=== PATIENT | male | born 1990 | race Caucasian/White ===

== ENCOUNTER 2019-01-31 14:38 | Emergency (ER) | payer MEDICAID, SELFPAY ==
[2019-01-31 14:38] VITALS: BP 154/106; PULSE 96; RESP 16; TEMP 36.2; O2SAT 99; BMI 20.7
--- NOTE | 2019-01-31 14:50 | RAD_ITS ---
STUDY: X-RAY CHEST REASON FOR EXAM: Male, 28 years old. Chest pain. TECHNIQUE: PA and lateral views of the chest. COMPARISON: Comparison is made with prior study dated October 09, 2015. FINDINGS: Hyperinflation. The lungs are clear. There is no demonstrated pleural abnormality. Normal size heart. Normal mediastinum and josette. Normal visualized pulmonary arteries. Normal visualized aortic arch and descending thoracic aorta. Normal visualized thoracic spine. Normal visualized ribs, clavicles, and shoulders. There is no demonstrated abnormality of the visualized soft tissue structures of the upper abdomen. RAD/Chest PA and Lateral IMPRESSION: Hyperinflation. The lungs are clear. Electronically Signed: Alonso Perez, at 15:04 EST , Service support ,
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
[2019-01-31] MEDS: Naproxen 500 MG Tablet PO (15:21)
[2019-01-31 15:33] VITALS: BP 145/93; RESP 17
== END 2019-01-31 15:33 | disposition home or self-care (01) ==
PROVIDERS: Emergency Provider Emergency Medicine
DX: S29.9XXA Unspecified injury of thorax, initial encounter (principal); S00.31XA Abrasion of nose, initial encounter; Y04.0XXA Assault by unarmed brawl or fight, initial encounter; Y93.9 Activity, unspecified; Y92.9 Unspecified place or not applicable; F17.200 Nicotine dependence, unspecified, uncomplicated
CPT/HCPCS: 71046; 99283

== ENCOUNTER 2020-01-28 10:03 | Emergency (ER) | payer MEDICAID, SELFPAY ==
[2020-01-28 10:04] VITALS: BP 139/108; PULSE 97; RESP 18; TEMP 36.6; O2SAT 100; BMI 20.7
--- NOTE | 2020-01-28 10:18 | EKG12_ITS ---
Test Reason : S Blood Pressure : / mmHG Vent. Rate : 090 BPM Atrial Rate : 090 BPM P-R Int : 144 ms QRS Dur : 090 ms QT Int : 358 ms P-R-T Axes : 070 006 038 degrees QTc Int : 437 ms Normal sinus rhythm Normal ECG Confirmed by JORDAN FAIR, ACOSTA ([id number]), video tape editor MELISSA FELDER ([id number]) on 01/30/2020 12:53:32 PM Referred By: ELMO Confirmed By:ACOSTA ORTEGA MD
--- NOTE | 2020-01-28 10:21 | ED.VIS.GEN ---
History of Present Illness Chief Complaint: Suicidal Informant: Patient Onset: Days Context: Gradual Onset Timing: Continuous Current Severity: Moderate Maximum Severity: Moderate Narrative: The patient is a 29-year-old male with medical history significant for auditory hallucinations who was on Risperdal, but stopped taking it remotely, history of drug abuse, who presents to the emergency department with suicidal thoughts. Patient states that for the past few weeks, he has not been feeling himself. He states has been increasingly depressed. He states that he does have thoughts of harming himself. He does admit to plan. He states if I had to, I would just overdose. He states he does use methamphetamine daily. He also does fentanyl every once in a while. He states that he has been having increasing hallucinations. He states that this is making him use his substances more frequently. Prior similar symptoms: Yes Recent Illness/Hospitalization: No Past Medical History - Allergies and Home Meds Allergies/Adverse Reactions: Allergies No Known Allergies Allergy (Verified 01/28/20 10:08) Primary Care Physician: Care Physician,No Primary [Primary Care Provider] - Prior records reviewed: Yes Past Medical History: - - History of drug abuse Surgical History: noncontributory Smoking Status: Current every day smoker Review of Systems General: Denies: Chills, Fever, Sweats Eyes: Denies: Visual changes - bilaterally, Diplopia ENT: Denies: Rhinorrhea, Sore throat Cardiovascular: Denies: Chest pain, Palpitations Respiratory: Denies: Dyspnea, Cough, Dyspnea on exertion Gastrointestinal: Denies: Abdominal pain, Nausea, Vomiting, Diarrhea, Melena, Hematochezia Genitourinary: Denies: Dysuria, Hematuria, Frequency Musculoskeletal: Denies: Back pain, Extremity Pain Skin: Denies: Rash, Wounds Neurological: Denies: Headache, Weakness, Numbness Psych: Reports: Anxiety, Suicidal thoughts, Suicidal ideations Physical Exam Vital Signs/Narrative: Vital Signs Temp Pulse Resp BP Pulse Ox 01/28/20 10:04 97.9 F 97 18 139/108 H 100 Inital Vital Signs reviewed: Yes General: Well nourished, Well developed, No Acute Distress Head: Normocephalic, Atraumatic Eyes: Perrl, EOMI ENT: Moist mucous membranes, No rhinorrhea Neck: Supple, Nontender Cardiovascular: Regular rate, Regular rhythm, No murmurs Respiratory: No distress, CTA bilaterally, Chest nontender Abdomen: Soft, Nontender, Nondistended, Normal bowel sounds Back: Nontender, Normal Inspection Extremities: Nontender, No edema Skin: Normal color, No rash Neurological: Alert, Oriented x3, Cranial nerves II-XII grossly intact, Normal Strength, Normal Sensation Psychological: Normal affect, Normal Mood Diagnostic/Tx/Re-eval Abnormal Lab Results 01/28/20 01/28/20 01/28/20 11:01 11:01 11:01 WBC 8.4 RBC 5.51 Hgb 16.8 H Hct 50.3 MCV 91.3 MCH 30.5 MCHC 33.4 RDW Std Deviation 44.4 H RDW Coeff of Yuliana 13.2 Plt Count 326 MPV 9.6 Immature Gran % (Auto) 0.500 Neut % (Auto) 67.7 Lymph % (Auto) 22.7 [place] % (Auto) 7.5 Eos % (Auto) 1.1 Baso % (Auto) 0.5 Absolute Neuts (auto) 5.7 Absolute Lymphs (auto) 1.91 Nucleated RBC % 0 Sodium 139 Potassium 3.6 Chloride 105 Carbon Dioxide 31.0 Anion Gap 3 L BUN 13 Creatinine 0.87 Estim Creat Clear Calc 111.52 Est GFR (MDRD) Af Amer 132 Est GFR (MDRD) Non-Af 110 BUN/Creatinine Ratio 15.0 Glucose 89 Calcium 9.2 Urine Opiates Screen Urine Methadone Screen Ur Barbiturates Screen Ur Phencyclidine Scrn Ur Amphetamines Screen U Methamphetamin-MDMA U Benzodiazepines Scrn Urine Cocaine Screen U Cannabinoids Screen Ur Drug Screen Comment Ethyl Alcohol < 3.0 01/28/20 11:10 WBC RBC Hgb Hct MCV MCH MCHC RDW Std Deviation RDW Coeff of Yuliana Plt Count MPV Immature Gran % (Auto) Neut % (Auto) Lymph % (Auto) [place] % (Auto) Eos % (Auto) Baso % (Auto) Absolute Neuts (auto) Absolute Lymphs (auto) Nucleated RBC % Sodium Potassium Chloride Carbon Dioxide Anion Gap BUN Creatinine Estim Creat Clear Calc Est GFR (MDRD) Af Amer Est GFR (MDRD) Non-Af BUN/Creatinine Ratio Glucose Calcium Urine Opiates Screen NEGATIVE Urine Methadone Screen NEGATIVE Ur Barbiturates Screen NEGATIVE Ur Phencyclidine Scrn NEGATIVE Ur Amphetamines Screen POSITIVE H U Methamphetamin-MDMA NEGATIVE U Benzodiazepines Scrn NEGATIVE Urine Cocaine Screen NEGATIVE U Cannabinoids Screen POSITIVE H Ur Drug Screen Comment Ethyl Alcohol - Medical Decision Making Patient presents with substance abuse, increasing auditory hallucinations, and plan for suicide. He was seen and evaluated by social work. Patient underwent screening labs. Covid was negative. There was no evidence of acute metabolic abnormality. At this point, the patient is medically cleared. I do feel that he would benefit from inpatient psychiatric care given his suicidality and increasing hallucinations. Impression 1. Suicidal with plan 2. Auditory hallucinations 3. History of substance abuse ED Disposition - Plan for ED Patient: Referrals: Care Physician,No Primary [Primary Care Provider] -
--- NOTE | 2020-01-28 10:27 | NURSING ---
NO OLD EKGS
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
[2020-01-28] MEDS: LORazepam 1 MG Tablet 2 MG PO (11:12)
[2020-01-28 11:14] LABS: Absolute Lymphocyte Count 1.91 X10^3/uL (0.83-4.51); Absolute Neutrophil Count 5.7 X10^3/uL (2.0-7.7); Basophil# 0.04 X10^3/uL; Basophil% 0.5 % (0-1); Eosinophil# 0.09 X10^3/uL; Eosinophils% 1.1 % (0-5); Hematocrit 50.3 % (40-54); Hemoglobin 16.8 g/dL (13.0-16.5); Lymphocyte # 1.91 X10^3/ul (4.0); Lymphocyte % 22.7 % (19-41); Mean Corp Hgb Conc 33.4 g/dL (32-36); Mean Corpuscular Hgb 30.5 pg (27.0-32.0); Mean Corpuscular Volume 91.3 fL (80-94); Mean Platelet Vol. 9.6 fl (6.2-12.0); Monocyte# 0.63 X10^3/uL; Monocyte% 7.5 % (0-10); NRBC Flagged by Analyzer 0 % (0-5); Neutrophil # 5.69 X10^3/uL (2.7-7.7); Neutrophil % 67.7 % (47-70); Platelet Count 326 K/mm3 (150-450); RBC Distribution Width CV 13.2 % (11.6-14.6); RBC Distribution Width SD 44.4 fl (35.1-43.9); Red Blood Count 5.51 M/mm3 (4.6-6.2); White Blood Count 8.4 K/mm3 (4.4-11.0)
[2020-01-28 11:29] LABS: Anion Gap 3 (5-15); BUN 13 mg/dL (7-18); Calcium,Total 9.2 mg/dL (8.5-10.1); Chloride 105 mmol/L (98-107); Creatinine, Serum 0.87 mg/dL (0.70-1.30); EST Glomerular Filtration Rate 110 mL/min (>60); Est Glom Filt Rate - Afr Amer 132 mL/min (>60); Estimated Creatinine Clearance 111.52 ml/min; Glucose 89 mg/dL (74-106); Potassium 3.6 mmol/L (3.5-5.1); Sodium Level 139 mmol/L (136-145)
[2020-01-28 11:30] LABS: Amphetamine Urine VISTA POSITIVE (<1000 ng/mL); Barbiturate Urine VISTA NEGATIVE (< 200 ng/mL); Benzodiazepine Urine VISTA NEGATIVE (< 200 ng/mL); Cocaine Urine VISTA NEGATIVE (< 300 ng/mL); Ecstacy Urine VISTA NEGATIVE (< 500 ng/mL); Methadone Urine VISTA NEGATIVE (< 300 ng/mL); PCP Urine VISTA NEGATIVE (< 25 ng/mL); THC Urine VISTA POSITIVE (< 50 ng/mL); Vista UDS pH Range 7
[2020-01-28 11:34] LABS: Alcohol, Blood (Medical)-Serum < 3.0 mg/dL
[2020-01-28 11:46] VITALS: RESP 18
[2020-01-28 13:00] VITALS: RESP 16
--- NOTE | 2020-01-28 13:13 | CM.ED ---
SOCIAL WORK Referral faxed and called to [facility]. Pending review at this time. Collin Guillermo, PERFORMANCE TEST ARCHITECT, MOVIE SHOT CAMERA OPERATOR
[2020-01-28 13:35] VITALS: BP 125/81; PULSE 73; RESP 18; TEMP 36.2; O2SAT 98
--- NOTE | 2020-01-28 13:40 | CM.ED ---
SOCIAL WORK Patient accepted to [facility] by Dr. Martins to the Dual Dx Unit. Nurse to call report to [phone]. [facility] requested updated vital signs and copy of [place]. Requested information faxed. [place] to set up transport. Staff updated. Plan: [facility] Collin Guillermo MSW, LICENSE AND PERMIT SPECIALIST
[2020-01-28 14:30] VITALS: BP 125/81; PULSE 73; RESP 18; TEMP 36.2; O2SAT 98
== END 2020-01-28 14:32 ==
LOC: ED 10:49
PROVIDERS: Emergency Provider Emergency Medicine
DX: R45.851 Suicidal ideations (principal); R44.0 Auditory hallucinations; F17.200 Nicotine dependence, unspecified, uncomplicated
CPT/HCPCS: 80048; 80307; 80320; 85025; 87426; 93005; 99285; G0480

== ENCOUNTER 2020-03-05 09:42 | Emergency (ER) | payer MEDICAID, SELFPAY ==
[2020-03-05 09:44] VITALS: BP 142/90; PULSE 100; RESP 17; TEMP 36.6; O2SAT 100; BMI 22.4
--- NOTE | 2020-03-05 10:08 | ED.VISSUMM ---
- ER Visit Summary Date of Service: 03/05/20 Chief Complaint: Requesting a COVID-19 test for inpatient detox is receiving at another facility History of Present Illness: The patient is a 29 M history of amphetamine and marijuana abuse. Patient's getting into a detox center which is 2 hours from here and he was told by them he needed a Covid test. He denies any nausea vomiting diarrhea or fever. He denies any significant cough or shortness of breath. Physical Examination: 29-year-old male no acute distress vital signs stable afebrile. Pulse ox 100% on room air no signs of hypoxia. Patient sitting upright in a chair. HEENT exam poor dentition otherwise unremarkable. Neck nontender no lymphadenopathy. Lungs clear to auscultation bilaterally. Heart regular rhythm no murmur. Abdomen soft nontender. Extremities moves all 4. Calves are nontender without edema or cords. Neurologically is awake and alert with no focal motor deficits. Test Results: COVID-19 test negative Emergency Department Course and Treatment: Patient will have a Covid test. He will be discharged to follow-up with the detox center that he is going to. Treatment Plan: Follow-up with his detox center. Disposition: Discharge Impression: Covid testing History of drug abuse This note was generated with [employer] dictation software. It may contain incorrect words, spelling, and punctuation that were not noted in review of the chart prior to signing ED Disposition - Plan for ED Patient: Referrals: Care Physician,No Primary [Primary Care Provider] -
--- NOTE | 2020-03-05 10:47 | ED.DEP ---
ED Disposition - Plan for ED Patient: Disposition: Home or Assisted Living Instructions: ED Drug Abuse Referrals: Alejandrina Iniguez [NON-STAFF] - As Needed Additional Instructions: Good luck with your detox program.
[2020-03-05 10:51] VITALS: BP 142/90; PULSE 100; RESP 17; TEMP 36.6; O2SAT 100
== END 2020-03-05 10:53 | disposition home or self-care (01) ==
PROVIDERS: Emergency Provider Emergency Medicine
DX: Z20.822 Contact with and (suspected) exposure to COVID-19 (principal); F17.200 Nicotine dependence, unspecified, uncomplicated; F19.11 Other psychoactive substance abuse, in remission
CPT/HCPCS: 87426; 99282

== ENCOUNTER 2020-03-20 15:56 | Emergency (ER) | payer MEDICAID, SELFPAY ==
[2020-03-20 15:57] VITALS: BP 142/87; PULSE 107; RESP 18; TEMP 36; O2SAT 98; BMI 22.1
--- NOTE | 2020-03-20 16:48 | ED.VISSUMM ---
- ER Visit Summary Date of Service: 03/20/20 Chief Complaint: Requesting detox History of Present Illness: The patient is a 29 M requesting detox from methamphetamine. Patient states he has been intermittently using methamphetamine for the past 8 years. He states he snorts meth, he does not use IV drugs. He denies other drug use. He states he rarely drinks alcohol. He is currently homeless. He denies any current complaints. Physical Examination: Vitals are stable. Patient is afebrile. Alert no acute distress. HEENT exam is unremarkable. Neck is supple. Lungs are clear and equal bilaterally. Heart is regular rate and rhythm. Abdomen is soft nontender nondistended. Extremities are unremarkable. Skin is warm and dry. No focal neurologic deficit. Remainder of exam is unremarkable. Emergency Department Course and Treatment: Patient was advised we do not offer inpatient detox from methamphetamine. He was given information to follow-up with [facility]. Advised return to the ED for worsening complaints. Disposition: Discharge home Impression: Methamphetamine abuse This note was generated with [employer] dictation software. It may contain incorrect words, spelling, and punctuation that were not noted in review of the chart prior to signing ED Disposition - Plan for ED Patient: Referrals: Care Physician,No Primary [Primary Care Provider] -
--- NOTE | 2020-03-20 16:50 | ED.DEP ---
ED Disposition - Plan for ED Patient: Instructions: ED Drug Abuse Referrals: [facility] [STAFF PHYSICIAN] -
[2020-03-20 17:04] VITALS: BP 142/69; PULSE 73; RESP 15; O2SAT 97
== END 2020-03-20 17:04 | disposition home or self-care (01) ==
LOC: ED 16:47
PROVIDERS: Emergency Provider Emergency Medicine
DX: F15.10 Other stimulant abuse, uncomplicated (principal); F17.200 Nicotine dependence, unspecified, uncomplicated; Z59.0 Homelessness
CPT/HCPCS: 99282

== ENCOUNTER 2020-07-22 06:54 | Emergency (ER) | payer MEDICAID, SELFPAY ==
[2020-07-22 06:56] VITALS: BP 112/70; PULSE 82; RESP 20; TEMP 36.3; O2SAT 97; BMI 22.8
--- NOTE | 2020-07-22 07:06 | EX.ED.VIS.EY ---
HPI History of Present Illness Chief Complaint: Eye Problem Detail of Chief Complaint: Injury to right eye Informant: patient Onset/Context/Timing Onset: Yesterday Narrative Narrative: Patient states that he was wrestling with somebody last evening on gravel when he thinks may be a rock may have gotten into his eye. Patient complains of some soreness that is mild to the right upper portion of the eyelid. He denies any eye pain. He denies visual changes. He denies tearing. Denies photophobia. Denies any other injuries. Prior similar symptoms: No PFSH PFSH Home Medications NK 01/31/19 [History Last Taken Unknown] Allergy/AdvReac Type Severity Reaction Status Date / Time No Known Allergies Allergy Verified 07/22/20 06:55 Surgical History (Updated 07/22/20 @ 06:56 by Des Ayers) H/O foot surgery Social History Smoking Status: Current every day smoker tobacco type: cigarettes ROS ROS ED Constitutional Constitutional ED: Reports systems reviewed and no addt'l complaints, except as documented; Denies body ache(s), change in weight or chills Eyes Eyes: Reports other Details: Right upper eyelid pain ; Denies blurry vision, change in vision or diplopia ENT ENT ED: Reports none; Denies ear pain, lip swelling, loss taste/smell, neck pain, otalgia or sore throat Cardiovascular Cardiovascular: Reports none; Denies abdominal pain, chest pain with activity, leg edema, lightheadedness, palpitations, rapid heart rate or syncope Respiratory/Chest Respiratory/Chest: Reports none; Denies change in mental status, dry cough, dyspnea, hemoptysis, shortness of breath at rest or shortness of breath with exertion Gastrointestinal Gastrointestinal: Reports none; Denies abdominal pain, change in stool character, diarrhea, hematemesis, hematochezia, melena, rectal bleeding or vomiting Genitourinary Genitourinary ED: Reports none; Denies abdominal discomfort, anuria, dysuria, genital pain or polyuria Musculoskeletal Musculoskeletal: Reports none; Denies arthralgias, back pain, difficulty walking, extremity pain, muscle weakness or myalgias Integumentary Reports none; Denies abscess or rash Neurologic Neurologic: Reports none; Denies abnormal gait, confusion, focal weakness, frequent falls, headache(s), loss of vision, numbness, paresthesias, radicular pain, vertigo or weakness Psychiatric Psychiatric: Reports systems reviewed and no addt'l complaints, except as documented and none; Denies behavioral changes, confusion, difficulty concentrating, hallucinations, suicidal ideation, tactile hallucinations or visual hallucinations Endocrine Endocrinology: Denies none, cold intolerance, excessive sweating, fatigue or heat intolerance Hematologic/Lymphatic Hematologic/Lymphatic: Reports none; Denies anemia, easy bleeding or easy bruising Allergic/Immunologic Allergic/Immunologic ED: Denies as per HPI, none, lip swelling, mouth swelling, throat swelling, tongue swelling or hives EXAM Physical Exam Const Vital Signs: 07/22/20 06:56 Temperature 97.4 F L Temperature Source Temporal Pulse Rate 82 Respiratory Rate 20 H Blood Pressure 112/70 Blood Pressure Mean 84 Pulse Ox 97 Oxygen Delivery Method Room Air Positive well nourished and well developed General Appearance ED: well developed and NAD HEENT Reports TM's clear and moist mucous membranes normocephalic and atraumatic; Negative for trauma or tenderness Tympanic Membrane ED: Yes TM's clear Eyes PERRL and EOMs intact bilaterally Eyes Narrative: Pupils were equal reactive to light bilaterally. Extraocular muscle movement was normal. There is no erythema of the conjunctiva. No corneal abrasions noted. Patient does have some mild soft tissue swelling over the right lateral upper eyelid with some faint ecchymosis. Minimal tenderness to the right upper orbital rim. Patient has superficial abrasion to the skin of lower orbit just inferior to the lower lid. General Eye ED: Negative for pale conjunctiva or scleral icterus Eyelid: eyelids abnormal right upper eyelid Neck no lymphadenopathy, supple and no JVD General: Negative for tenderness Chest Wall inspection of chest normal and palpation of chest normal Chest: Negative for tenderness Resp normal respiratory effort and clear to auscultation bilaterally Effort and Inspection: Negative for respiratory distress or pain with movement Auscultation: Negative for rhonchi, wheezes or diminished lung sounds Cardio regular rate, regular rhythm, S1 normal heart sound, S2 normal heart sound and no murmurs Peripheral Pulses: pulses 2+ throughout GI normal to inspection, nondistended, normoactive bowel sounds, soft to palpation, non-tender, non-distended and no masses Back/Spine no CVA tenderness and no thoracic nor lumbar tenderness Extremity normal to inspection General Extremety ED: Negative for edema General Extremity: Negative for edema Neuro oriented x3, CN's II-XII intact bilaterally, no sensory deficits noted and gait normal Sensorium / Orientation: awake, alert, oriented to person, oriented to place and oriented to time Motor Exam: strength 5/5 throughout and strength abnormal Psych mental status grossly normal Skin no rashes or lesions noted and no wounds MDM MDM MDM Narrative Medical decision making narrative: I suspect patient has a contusion of the right upper eyelid. I do not see any evidence of trauma to the globe. Recommended ice to the area and ibuprofen or Tylenol for discomfort. Patient to follow-up with his primary care physician in 5 to 7 days. Discharge Plan Triage Chief Complaint: Eye Problem ED Provider: Laura Diane Dx/Rx/DC Orders Clinical Impression: Contusion of eye, right Instructions: Black Eye, ED Facial Contusion Prescriptions: No Action NK RF: 0 Primary Care Provider: Hitesh Garcia Referrals: Hitesh Garcia MD [Primary Care Provider] - 3-5 Days Disposition Disposition: Home, self care
== END 2020-07-22 07:23 | disposition home or self-care (01) ==
LOC: ED 07:18
PROVIDERS: Emergency Provider Emergency Medicine; PCP Internal Medicine
DX: S00.11XA Contusion of right eyelid and periocular area, initial encounter (principal); F17.210 Nicotine dependence, cigarettes, uncomplicated; Y93.72 Activity, wrestling
CPT/HCPCS: 99283

== ENCOUNTER 2024-08-26 15:09 | Emergency (ER) | payer MEDICAID, SELFPAY ==
[2024-08-26 15:09] VITALS: BP 141/97; PULSE 105; RESP 16; TEMP 37.1; O2SAT 98; BMI 21.4
--- NOTE | 2024-08-26 15:36 | ED.RN ---
Pt unwilling to change into a gown when brought back to a room. This RN explained policy of wearing hospital gown, all belongings put away including cell phone, no visitors during stay. Pt states I'm not doing all that just to stay here. Pt declines detox at this time, ambulated out of dept.
--- OUTSIDE RECORDS SUMMARY | 2024-08-26 16:00 | XMS RPT_ITS | CCD ---
Author Organization [facility] Inform ion Partnership [employer] [facility] Care Team Providers Care Retirement Plan Specialist Name Role Phone Self, Self Primary Care Provider UnavailPRICE Marvin Attending Unavailable SELF, SELF Primary Care Unavailable FARZANA WEBB, BRYANT Esteban Attending Vivien ROSEMARY Reaves Attending Unava ilable NO, PHYSICIAN Primary Care Unavailable NO, PHYSICIAN Primary Care Unavailable JOLENE LAWSON Attending Unavailable NO, PHYSICIAN Primary Care Unavailable YUE LAROSE II Attending Unavailabl e SHANNAN THAKKAR Attending Unavailab le NO, PHYSICIAN Primary Care Unavailable AMNA NGUYEN Attending Unavailab le NO, PHYSICIAN Primary Care Unavailable Care Physician, No Primary Primary Care Provider Unavailable Provider, Ed Physician Emergency Provider Unavai lable Medications Current Medications Medication Drug Class(es) Dates Sig (Normalized) Sig (Original) naloxone hydrochloride 40 mg/ml nasal spray (2 sources) Opioid Antagonist Start: 03-05-2024 End: 03-05-2025 naloxone 4 MG/0.1ML 1 spray by Nasal route As directed PRN for Opioid Reversal. [place] into the nose as directed. Call 911. If no response in 2 minutes use a new nasal spray in other nostril. Repeat until help arrives. 2 Each 03/05/2024 03/05/2025 Active Problems Active Problems Problem Classification Problem Date Documented Da te Episodic/Chronic Alcohol-related disorders (3 sources) Alcohol intoxication; Translations: [Alcohol abuse with intoxication, unspecified] Onset: 08-04-2024 08-05-2024 Chronic Other injuries and conditions due to external causes (1 source) Chest injury; Translations: [Unspecified injury of thorax, initial encounter] 02-01-2019 Episodic Residual codes; unclassified (2 sources) Insomnia, unspecified; Translations: [Insomnia, unspecified] Onset: 07-19-2024 Episodic Schizophrenia and other psychotic disorders (2 sources) Brief psychotic disorder; Translations: [Brief psychotic disorder] Onset: 08-09-2024 Episodic Substance-related disorders (2 sources) Other psychoactive substance abuse, uncomplicated; Translations: [Other psychoactive substance abuse, uncomplicated] Onset: 08-09-2024 Chronic Suicide and intentional self-inflicted injury (2 sources) Suicidal ideations; Translations: [Suicidal ideations] Onset: 08-09-2024 Episodic Superficial injury; contusion (1 source) Contusion of eyeball and orbital tissues, right eye, initial encounter; Translations: [Contusion of right eye] 07-22-2020 Episodic Unclassified (1 source) Alcohol use, unspecified, uncomplicated; Translations: [Alcohol use, unspecified, uncomplicated] Onset: 08-09-2024 Past or Other Problems Problem Classification Problem Date Documented Da te Episodic/Chronic Open wounds of head; neck; and trunk (2 sources) Laceration without foreign body of scalp, initial encounter; Translations: [Laceration without foreign body of scalp, initial encounter] Onset: 11-10-2023 Episodic Other aftercare (2 sources) Encounter for removal of sutures; Translations: [Encounter for removal of sutures] Onset: 11-16-2023 Episodic Other circulatory disease (2 sources) Elevated blood-pressure reading, without diagnosis of hypertension; Translations: [Elevated blood-pressure reading, without diagnosis of hypertension] Onset: 11-16-2023 Episodic Other injuries and conditions due to external causes (2 sources) Unspecified injury of head, initial encounter; Translations: [Unspecified injury of head, initial encounter] Onset: 11-10-2023 Episodic Poisoning by other medications and drugs (3 sources) Poisoning by unspecified drugs, medicaments and biological substances, undetermined, initial encounter; Translations: [Poisoning by unspecified drug or medicinal substance] Onset: 03-04-2024 03-05-2024 Episodic Unclassified (1 source) Alcohol use, unspecified, uncomplicated; Translations: [Alcohol use, unspecified, uncomplicated] Onset: 08-09-2024 Results Test Name Value Interpretation Reference Range Facility ED Prov Noteon 08-10-2024 ED Prov Note PCP - No, Physician Language assistance: N/A - [place] Brazilian speaker Chief Complaint Patient presents with Psychiatric Evaluation HPI, MDM, & ED COURSE The patient is a 34-year-old male who presents to the emergency department declaring suicidal ideations and auditory hallucinations. He acknowledges a history of polysubstance abuse and was just evaluated about 10 hours before the current presentation for issues of fentanyl and cocaine use. He acknowledges that since being released he has been drinking and he says he is continuing to use crack cocaine. He says he has used methamphetamines in the past, but denies any recent use. He says he is hearing nonspecific voices giving him instructions on things, though he refuses to state specifically what those instructions are. He says he has thoughts of harming himself because of this. When asked about any plan, the patient states that he does have a plan, but when he asked to give details of it, the patient gives me a list of the things that he would not do to harm himself. He denies any physical discomfort. The patient's alcohol level is modestly elevated and his drug screen is positive for cocaine. Certainly the illicit substances are confounding a meaningful psychiatric analysis. The patient has been placed on a medical hold and when he is sober and cooperative, the PSS team will evaluate him for any persisting thoughts of lethality, features of psychosis, or other concerns. His ultimate disposition will follow according to their recommendation. The patient has been instructed regarding symptoms that would require a return visit to the emergency department, otherwise they are encouraged to seek follow-up either with a primary care doctor or with an appropriate specialist. The patient has also been advised to see their primary care doctor for follow up on any non-critical lab results, abnormal vital signs (including blood pressure), or other concerns not requiring emergent evaluation. SHARED DECISION MAKING: Throughout the ED visit, decisions regarding diagnostic testing, treatment options, and disposition were discussed with the patient and/or family. As much as reasonably possible, they were given opportunities to ask questions, express any concerns, and collaborate on decisions about their care. Radiology studies: Unless expressly stated otherwise above, all radiology results are based on the report provided by the radiologist. IMPRESSION 1. Suicidal ideation 2. Polysubstance abuse (HCC) 3. Acute psychosis (HCC) NURSING NOTE, MEDICATIONS, ALLERGIES AND VITAL SIGNS REVIEWED Past Medical History History reviewed. No pertinent past medical history. Past Surgical History Past Surgical History: Procedure Laterality Date FOOT SURGERY Left 2012 ORTHOPEDIC SURGERY Social History Social History[1] Physical Exam Initial Vital Signs BP 121/64 Pulse 91 Temp 97.8 degrees F (36.6 degrees C) (Oral) Resp 16 SpO2 96% Vital Signs During ED Visit (as charted by nursing) Patient Vitals for the past 24 hrs: BP Temp Temp src Pulse Resp SpO2 08/09/24 2106 121/64 97.8 degrees F (36.6 degrees C) Oral 91 16 96 % Physical Exam Vitals reviewed. Constitutional: General: He is not in acute distress. Appearance: He is well-developed. HENT: Head: Normocephalic and atraumatic. Eyes: Conjunctiva/sclera: Conjunctivae normal. Pupils: Pupils are equal, round, and reactive to light. Cardiovascular: Rate and Rhythm: Normal rate and regular rhythm. Musculoskeletal: General: Normal range of motion. Pulmonary: Effort: Pulmonary effort is normal. No respiratory distress. Neurological: Mental Status: He is alert and oriented to person, place, and time. Motor: No weakness. Coordination: Coordination normal. Psychiatric: Attention and Perception: He is inattentive. He perceives auditory hallucinations. Speech: Speech is rapid and pressured. Behavior: Behavior normal. Behavior is cooperative. Thought Content: Thought content is delusional. Thought content includes suicidal ideation. Thought content includes suicidal plan. Labs Reviewed DRUGS OF ABUSE SCREEN, URINE - Abnormal; Notable for the following components: Result Value Cocaine, Screen Urine Presumptive Positive (*) All other components within normal limits Narrative: Screen results should be used for treatment purposes only. Specimen will be kept for 2 weeks, if the sample is adequate. Confirmation testing can be initiated by calling the lab within 2 weeks. ALCOHOL, MEDICAL - Abnormal; Notable for the following components: Alcohol (Medical) 117.0 (*) All other components within normal limits Radiographic Imaging (if any) During ED Visit No orders to display Medications Ordered/Given During ED Visit Medications LORazepam (ATIVAN) tablet 1 mg (1 mg Oral Given 08/09/24 2307) diphenhydrAMINE (BENADRYL) injection 50 mg (has (more content not included)... Normal [facility] ALCOHOL, MEDICALon 5 ALCOHOL MEDICAL 117.0 mg/dL High <10.0 [facility] Comment on above: Performed By: #### [id number] #### [facility] [address], [place] [address] Des Nieves M.D. [id number] ALCOHOL MEDICAL < Normal <10.0 [facility] Comment on above: Result Comment: Alco hol cutoff: <10.00 mg/dL = None Detected Performed By: #### [id number] #### [facility] [address] [address] Des Nieves M.D. [id number] DRUGS OF ABUSE SCREEN, URINE on 08-09-2024 AMPHETAMINE SCREEN, URINE Not detected Normal None Detected [facility] Comment on above: Order Comment: Scree n results should be used for treatment purposes only. Specimen will be kept for 2 weeks, if the sample is adequate. Confirmation testing can be initiated by calling the lab within 2 weeks. Result Comment: Urin e Amphetamine Cutoff: < 1000 ng/mL = None Detected Performed By: #### [id number] #### [facility] [address] [address] Des Nieves M.D. [id number] BARBITURATE SCREEN URINE Not detected Normal None Detected [facility] Comment on above: Order Comment: Scree n results should be used for treatment purposes only. Specimen will be kept for 2 weeks, if the sample is adequate. Confirmation testing can be initiated by calling the lab within 2 weeks. Result Comment: Urin e Barbiturates Cutoff: < 200 ng/mL = None Detected Performed By: #### [id number] #### [facility] [address] [address] Des Nieves M.D. [id number] BENZODIAZEPINE SCREEN, URINE Not detected Normal None Detected [facility] Comment on above: Order Comment: Scree n results should be used for treatment purposes only. Specimen will be kept for 2 weeks, if the sample is adequate. Confirmation testing can be initiated by calling the lab within 2 weeks. Result Comment: Urin e Benzodiazepine Cutoff: < 200 ng/mL = None Detected Performed By: #### [id number] #### [facility] [address] [id number] Des Nieves M.D. [id number] BUPRENORPHINE, URINE Not detected Normal None Detected [facility] Comment on above: Order Comment: Scree n results should be used for treatment purposes only. Specimen will be kept for 2 weeks, if the sample is adequate. Confirmation testing can be initiated by calling the lab within 2 weeks. Result Comment: Urin e Buprenorphine Cutoff: < 5 ng/mL = None Detected Performed By: #### [id number] #### [facility] [address] [address] Des Nieves M.D. [id number] CANNABINOID SCREEN URINE Not detected Normal None Detected [facility] Comment on above: Order Comment: Scree n results should be used for treatment purposes only. Specimen will be kept for 2 weeks, if the sample is adequate. Confirmation testing can be initiated by calling the lab within 2 weeks. Result Comment: Urin e Cannabinoids Cutoff: < 50 ng/mL = None Detected Performed By: #### [id number] #### [facility] [address] [address] Des Nieves M.D. [id number] COCAINE, SCREEN URINE Positive Abnormal None Detected [facility] Comment on above: Order Comment: Scree n results should be used for treatment purposes only. Specimen will be kept for 2 weeks, if the sample is adequate. Confirmation testing can be initiated by calling the lab within 2 weeks. Result Comment: Urin e Cocaine Cutoff: < 300 ng/mL = None Detected Performed By: #### 4 [id number] #### [facility] [address] [address] Des Nieves M.D. [id number] FENTANYL, URINE Not detected Normal None Detected [facility] Comment on above: Order Comment: Scree n results should be used for treatment purposes only. Specimen will be kept for 2 weeks, if the sample is adequate. Confirmation testing can be initiated by calling the lab within 2 weeks. Result Comment: Urin e Fentanyl Cutoff: < 1 ng/mL = None Detected Performed By: #### 4 [id number] #### [facility] [address] [address] Des Nieves M.D. [id number] METHADONE SCREEN, URINE Not detected Normal None Detected [facility] Comment on above: Order Comment: Scree n results should be used for treatment purposes only. Specimen will be kept for 2 weeks, if the sample is adequate. Confirmation testing can be initiated by calling the lab within 2 weeks. Result Comment: Urin e Methadone Cutoff: < 300 ng/mL = None Detected Performed By: #### 4 [id number] #### [facility] [address] [address] Des Nieves M.D. [id number] OPIATE SCREEN URINE Not detected Normal None Detected [facility] Comment on above: Order Comment: Scree n results should be used for treatment purposes only. Specimen will be kept for 2 weeks, if the sample is adequate. Confirmation testing can be initiated by calling the lab within 2 weeks. Result Comment: Urin e Opiates Cutoff: < 300 ng/mL = None Detected Performed By: #### 4 [id number] #### [facility] [address] [address] Des Nieves M.D. [id number] OXYCODONE SCREEN, URINE Not detected Normal None Detected [facility] Comment on above: Order Comment: Scree n results should be used for treatment purposes only. Specimen will be kept for 2 weeks, if the sample is adequate. Confirmation testing can be initiated by calling the lab within 2 weeks. Result Comment: Urin e Oxycodone Cutoff: < 100 ng/mL = None Detected Performed By: #### 4 [id number] #### [facility] [address] [address] Des Nieves M.D. [id number] AMPHETAMINE SCREEN, URINE Not detected Normal None Detected [facility] Comment on above: Order Comment: Scree n results should be used for treatment purposes only. Specimen will be kept for 2 weeks, if the sample is adequate. Confirmation testing can be initiated by calling the lab within 2 weeks. Result Comment: Urin e Amphetamine Cutoff: < 1000 ng/mL = None Detected Performed By: #### 4 [id number] #### [facility] [address] [id number] Des Nieves M.D. [id number] BARBITURATE SCREEN URINE Not detected Normal None Detected [facility] Comment on above: Order Comment: Scree n results should be used for treatment purposes only. Specimen will be kept for 2 weeks, if the sample is adequate. Confirmation testing can be initiated by calling the lab within 2 weeks. Result Comment: Urin e Barbiturates Cutoff: < 200 ng/mL = None Detected Performed By: #### 4 [id number] #### [facility] [address] [address] Des Nieves M.D. [id number] BENZODIAZEPINE SCREEN, URINE Positive Abnormal None Detected [facility] Comment on above: Order Comment: Scree n results should be used for treatment purposes only. Specimen will be kept for 2 weeks, if the sample is adequate. Confirmation testing can be initiated by calling the lab within 2 weeks. Result Comment: Urin e Benzodiazepine Cutoff: < 200 ng/mL = None Detected Performed By: #### 4 [id number] #### [facility] [address] [address] Des Nieves M.D. [id number] BUPRENORPHINE, URINE Not detected Normal None Detected [facility] Comment on above: Order Comment: Scree n results should be used for treatment purposes only. Specimen will be kept for 2 weeks, if the sample is adequate. Confirmation testing can be initiated by calling the lab within 2 weeks. Result Comment: Urin e Buprenorphine Cutoff: < 5 ng/mL = None Detected Performed By: #### 4 [id number] #### [facility] [address] [address] Des Nieves M.D. [id number] CANNABINOID SCREEN URINE Positive Abnormal None Detected [facility] Comment on above: Order Comment: Scree n results should be used for treatment purposes only. Specimen will be kept for 2 weeks, if the sample is adequate. Confirmation testing can be initiated by calling the lab within 2 weeks. Result Comment: Urin e Cannabinoids Cutoff: < 50 ng/mL = None Detected Performed By: #### 4 [id number] #### [facility] [address] [address] Des Nieves M.D. [id number] COCAINE, SCREEN URINE Positive Abnormal None Detected [facility] Comment on above: Order Comment: Scree n results should be used for treatment purposes only. Specimen will be kept for 2 weeks, if the sample is adequate. Confirmation testing can be initiated by calling the lab within 2 weeks. Result Comment: Urin e Cocaine Cutoff: < 300 ng/mL = None Detected Performed By: #### 4 [id number] #### [facility] [address] [address] Des Nieves M.D. [id number] FENTANYL, URINE Not detected Normal None Detected [facility] Comment on above: Order Comment: Scree n results should be used for treatment purposes only. Specimen will be kept for 2 weeks, if the sample is adequate. Confirmation testing can be initiated by calling the lab within 2 weeks. Result Comment: Urin e Fentanyl Cutoff: < 1 ng/mL = None Detected Performed By: #### 4 [id number] #### [facility] [address] [address] Des Nieves M.D. [id number] METHADONE SCREEN, URINE Not detected Normal None Detected [facility] Comment on above: Order Comment: Scree n results should be used for treatment purposes only. Specimen will be kept for 2 weeks, if the sample is adequate. Confirmation testing can be initiated by calling the lab within 2 weeks. Result Comment: Urin e Methadone Cutoff: < 300 ng/mL = None Detected Performed By: #### 4 [id number] #### [facility] [address] [id number] Des Nieves M.D. [id number] OPIATE SCREEN URINE Not detected Normal None Detected [facility] Comment on above: Order Comment: Scree n results should be used for treatment purposes only. Specimen will be kept for 2 weeks, if the sample is adequate. Confirmation testing can be initiated by calling the lab within 2 weeks. Result Comment: Urin e Opiates Cutoff: < 300 ng/mL = None Detected Performed By: #### 4 [id number] #### [facility] [address] [id number] Dse Nieves M.D. [id number] OXYCODONE SCREEN, URINE Not detected Normal None Detected [facility] Comment on above: Order Comment: Scree n results should be used for treatment purposes only. Specimen will be kept for 2 weeks, if the sample is adequate. Confirmation testing can be initiated by calling the lab within 2 weeks. Result Comment: Urin e Oxycodone Cutoff: < 100 ng/mL = None Detected Performed By: #### [id number] #### [facility] [address] [id number] Des Nieves M.D. [id number] ED Prov Noteon 08-09-2024 ED Prov Note PCP - No, Physician [phone] No chief complaint on file. HPI This patient is a 34-year-old male presenting for desire for detox from fentanyl and crack cocaine. Patient regularly uses fentanyl and crack cocaine. He typically smokes them. Last use of fentanyl yesterday, last use of crack cocaine earlier tonight. He also states he drank a few natty daddy's today. He feels a bit anxious from the crack cocaine use but denies any chest pain, shortness of breath, dizziness, palpitations, headache or any other physical complaints. He denies any suicidal homicidal ideations. No auditory or visual hallucinations. He would prefer to detox and then attend inpatient rehab somewhere outside of the city. He has no other complaints at this time. Review of Systems Review of systems as per HPI. All pertinent positive negatives are noted in HPI. Review of systems otherwise negative. Past Medical History History reviewed. No pertinent past medical history. Past Surgical History Past Surgical History: Procedure Laterality Date FOOT SURGERY Left 2012 ORTHOPEDIC SURGERY Social History Social History [1] Family history History reviewed. No pertinent family history. Physical Exam Initial Vital Signs BP 130/84 (BP Location: Left arm, Patient Position: Lying) Pulse 71 Temp 98.2 degrees F (36.8 degrees C) (Oral) Resp (!) 20 Ht 5' 9 Wt 68 kg (150 lb) SpO2 100% BMI 22.15 kg/m Vital Signs During ED Visit (as charted by nursing) Patient Vitals for the past 24 hrs: BP Temp Temp src Pulse Resp SpO2 Height Weight 08/09/24 1246 130/84 -- -- 71 (!) 20 100 % -- -- 08/09/24 0932 101/65 -- -- 71 18 97 % -- -- 08/09/24 0023 133/82 98.2 degrees F (36.8 degrees C) Oral 86 17 96 % 5' 9 68 kg (150 lb) 08/09/24 0021 -- -- -- -- 17 95 % -- -- Nursing notes reviewed CONSTITUTIONAL: Well-appearing and well-nourished. HEAD: Normocephalic, atraumatic. EYES: No conjunctival injection, no icterus. EARS: External ears appear normal. NOSE: Nose appears normal. No rhinorrhea. NECK: Trachea midline. No JVD. RESPIRATORY: Normal chest excursion with respiration, no stridor. CARDIOVASCULAR: Regular rate and rhythm. No cyanosis. GASTROINTESTINAL: nondistended NEUROLOGICAL: Awake, alert and oriented. PSYCHOLOGICAL: The patient's mood and manner are appropriate. Grooming and personal hygiene are appropriate. INTEGUMENTARY: Warm and dry no rash noted. Procedures Laboratory Results Labs Reviewed DRUGS OF ABUSE SCREEN, URINE - Abnormal; Notable for the following components: Result Value Benzodiazepine Screen, Urine Presumptive Positive (*) Cannabinoid Screen, Urine Presumptive Positive (*) Cocaine, Screen Urine Presumptive Positive (*) All other components within normal limits Narrative: Screen results should be used for treatment purposes only. Specimen will be kept for 2 weeks, if the sample is adequate. Confirmation testing can be initiated by calling the lab within 2 weeks. ALCOHOL, MEDICAL - Normal Imaging Results No orders to display MDM saw and evaluated the patient. I have reviewed the chief complaint, triage note, past medical/surgical, family, and social history. This patient is a 34-year-old male presenting for evaluation of desire for detox from fentanyl and crack cocaine use and rehab after. He states he also drank alcohol earlier today. No history of severe alcohol withdrawal. No suicidal or homicidal ideation. He has no acute physical complaints. Alcohol level was less than 10, drug screen positive for benzodiazepine, cannabis and cocaine. Did not feel any additional testing was necessary at this time. Did not feel medical hold was necessary. Patient will be observed here in the ED until the [facility] team can see him later this morning to help with placement into a treatment program. Differential Diagnosis: Alcohol use, polysubstance abuse IMPRESSION: 1. Polysubstance abuse (HCC) 2. Alcohol use Consulted with: cushion worker. Disposition: Discharge Shared decision making utilized by explaining the results and plan of care for disposition and next steps of care with the patient and/or family. Potential impact of patient's medical/surgical comorbidities were assessed and considered when determining the treatment course and outcome. Discussed options for treatment with or without prescription medications. Social determinants of health impacted treatment/disposition . The patient has been informed that they may have pre-hypertension or hypertension based on a blood pressure reading in the Emergency Department. I recommend that the patient call the primary care provider listed on their discharge instructions or a physician of their choice as soon as possible to arrange follow-up in the next 4 weeks for further evaluation of possible pre-hypertension or hypertension. . . end [1] Social History Socioeconomic History Marital status (more content not included)... [facility] No Panel Informationon 08-05 [facility] Portable XR Chest Viewson IMPRESSION: No acute cardiopulmonary disease OLOGY EXAM: XR CHEST 1 VIE W PORTABLE, 08/04/2024 22:49 PM COMPARISON: No prior studies available for comparison. CLINICAL INDICATIONS: Central chest pain RELEVANT CLINICAL HISTORY: FINDINGS: (Adequate technique) Implanted Devices: None Thorax: No acute findings in the chest. RADIOLOGY Gino Dwyer MD - 08/05/2024 EXAM: XR CHEST 1 VIEW PORTABLE, 08/04/2024 22:49 PM COMPARISON: No prior studies available for comparison. CLINICAL INDICATIONS: Central chest pain RELEVANT CLINICAL HISTORY: FINDINGS: (Adequate technique) Implanted Devices: None Thorax: No acute findings in the chest. IMPRESSION IMPRESSION: No acute cardiopulmonary disease [facility] Portable XR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 Sexual Activity - Alcohol use: Yes Alcohol/week: 21.0 - 30.0 standard drinks Types: 21 - 30 Cans of Beer (12oz) per week Comment: Socially - Drug use: Not Currently Types: Amphetamines Comment: stopped using meth about 2 months ago - Sexual activity: Not on file ALLERGIES No Known Allergies Review of Systems Constitutional: Negative for activity change, chills, diaphoresis and fever. HENT: Negative for congestion, sinus pain and sore throat. Eyes: Negative for photophobia, pain and visual disturbance. Respiratory: Negative for cough, chest tightness and shortness of breath. Cardiovascular: Negative for chest pain, palpitations and leg swelling. Gastrointestinal: Negative for abdominal pain, constipation, diarrhea, nausea and vomiting. Genitourinary: Negative for dysuria, frequency and urgency. Musculoskeletal: Negative for back pain, gait problem and neck pain. Skin: Negative for color change, rash and wound. Neurological: Negative for syncope, light-headedness and headaches. Psychiatric/Behaviora l: Negative for agitation, behavioral problems and confusion. Physical Exam BP 134/90 Pulse 71 Temp (Src) 97.7 (Oral) Resp 18 Ht 5' 9 (1.75m) Wt 150 lb (68.0kg) SpO2 99% BMI 22.14 kg/(m2). Physical Exam Vitals and nursing note reviewed. Constitutional: General: He is not in acute distress. Appearance: He is well-developed. He is not diaphoretic. HENT: Head: Normocephalic and atraumatic. Right Ear: External ear normal. Left Ear: External ear normal. Nose: Nose normal. Eyes: General: No scleral icterus. Right eye: No discharge. Left eye: No discharge. Conjunctiva/sclera: Conjunctivae normal. Pupils: Pupils are equal, round, and reactive to light. Neck: Vascular: No JVD. Trachea: No tracheal deviation. Cardiovascular: Rate and Rhythm: Normal rate and regular rhythm. Heart sounds: Normal heart sounds. No murmur heard. No friction rub. No gallop. Pulmonary: Effort: Pulmonary effort is normal. No respiratory distress. Breath sounds: Normal breath sounds. No stridor. No wheezing or rales. Abdominal: General: Bowel sounds are normal. There is no distension. Palpations: Abdomen is soft. Tenderness: There is no abdominal tenderness. There is no guarding or rebound. Hernia: No hernia is present. Musculoskeletal: General: No tenderness or deformity. Normal range of motion. Cervical back: Normal range of motion and neck supple. Skin: General: Skin is dry. Capillary Refill: Capillary refill takes less than 2 seconds. Coloration: Skin is not pale. Findings: No erythema or rash. Neurological: Mental Status: He is alert and oriented to person, place, and time. Sensory: No sensory deficit. Motor: No abnormal muscle tone. Psychiatric: Behavior: Behavior normal. Tho (more content not included)... Normal [facility] Basic metabolic 2000 panelon 11-22-2020 Anion gap [Moles/Vol] 13 mmol/L Normal 9-18 [facility] Comment on above: Order Comment: Speci men Type: BLOOD SPECIMEN Performed By: #### 2 4321-2 #### [facility] CLIA [id number] [address] [place] [address] [place] Calcium [Mass/Vol] 9.8 mg/dL Normal 8.5-10.2 [facility] Comment on above: Order Comment: Speci men Type: BLOOD SPECIMEN Performed By: #### 2 4321-2 #### [facility] CLIA [id number] [address] [place] [address] [place] Chloride [Moles/Vol] 103 mmol/L Normal 97-105 [facility] Comment on above: Order Comment: Speci men Type: BLOOD SPECIMEN Performed By: #### 2 4321-2 #### [facility] CLIA [id number] [address] [place] [address] [place] CO2 [Moles/Vol] 26 mmol/L Normal 22-30 [facility] Comment on above: Order Comment: Speci men Type: BLOOD SPECIMEN Performed By: #### 2 4321-2 #### [facility] CLIA [id number] [address] [place] Creatinine [Mass/Vol] 0.80 mg/dL Normal 0.73-1.22 [facility] Comment on above: Order Comment: Speci men Type: BLOOD SPECIMEN Performed By: #### 2 4321-2 #### [facility] CLIA [id number] [address] [place] GFR/1.73 sq M.predicted MDRD (S/P/Bld) [Vol rate/Area] mL/min/{1.73_m2} Normal [facility] Comment on above: Order Comment: Speci men Type: BLOOD SPECIMEN Result Comment: >60 eGFR (Estimated GFR) Units of measure: mL/min/1.73 meters squared eGFR is derived from the reexpressed MDRD Study equation using the following parameters: serum creatinine, age, gender and race. The creatinine assay has been calibrated to be traceable to IDMS. An eGFR <60 mL/min/1.73m2 for >3 months is consistent with chronic kidney disease. Refer to KDOQI guidelines for clinical interpretation. In patients with unstable renal function, e.g. those with acute kidney injury, the eGFR may not accurately reflect actual GFR. Performed By: #### 2 4321-2 #### [facility] CLIA [id number] [address] [place] Glucose [Mass/Vol] 102 mg/dL High 74-99 [facility] Comment on above: Order Comment: Speci men Type: BLOOD SPECIMEN Result Comment: The [place] Diabetes Association (ADA) provides guidance for cutoff values for fasting glucose and random glucose. The ADA defines fasting as no caloric intake for at least 8 hours. Fasting plasma glucose results between 100 to 125 mg/dL indicate increased risk for diabetes (prediabetes). Fasting plasma glucose results greater than or equal to 126 mg/dL meet the criteria for diagnosis of diabetes. In the absence of unequivocal hyperglycemia, results should be confirmed by repeat testing. In a patient with classic symptoms of hyperglycemia or hyperglycemic crisis, random plasma glucose results greater than or equal to 200 mg/dL meet the criteria for diagnosis of diabetes. Reference: Standards of Medical Care in Diabetes 2016, [place] Diabetes Association. Diabetes Care. 2016.39(Suppl 1). Performed By: #### 2 4321-2 #### [facility] CLIA [id number] [address] Potassium [Moles/Vol] 3.8 mmol/L Normal 3.7-5.1 [facility] Comment on above: Order Comment: Speci men Type: BLOOD SPECIMEN Performed By: #### 2 4321-2 #### [facility] CLIA [id number] [address] Sodium [Moles/Vol] 142 mmol/L Normal 136-144 [facility] Comment on above: Order Comment: Speci men Type: BLOOD SPECIMEN Performed By: #### 2 4321-2 #### [facility] CLIA [id number] [address] Urea nitrogen [Mass/Vol] 9 mg/dL Normal 9-24 [facility] Comment on above: Order Comment: Speci men Type: BLOOD SPECIMEN Performed By: #### 2 4321-2 #### [facility] CLIA [id number] [address] CBC W Auto Differential pane l (Bld)on 11-22-2020 Basophils (Bld) [#/Vol] 0.06 10*3/uL Normal <0.11 [facility] Comment on above: Order Comment: Speci men Type: BLOOD SPECIMEN Performed By: #### 5 7021-8 #### [facility] CLIA [id number] [address] Basophils/100 WBC (Bld) 0.8 % Normal [facility] Comment on above: Order Comment: Speci men Type: BLOOD SPECIMEN Performed By: #### 5 7021-8 #### [facility] CLIA [id number] [address] Differential cell count method Nom (Bld) Auto Normal [facility] Comment on above: Order Comment: Speci men Type: BLOOD SPECIMEN Performed By: #### 5 7021-8 #### [facility] CLIA [id number] [address] Eosinophils (Bld) [#/Vol] 0.12 10*3/uL Normal <0.46 [facility] Comment on above: Order Comment: Speci men Type: BLOOD SPECIMEN Performed By: #### 5 7021-8 #### [facility] CLIA [id number] [address] Eosinophils/100 WBC (Bld) 1.7 % Normal [facility] Comment on above: Order Comment: Speci men Type: BLOOD SPECIMEN Performed By: #### 5 7021-8 #### [facility] CLIA [id number] [address] Erythrocyte distribution width (RBC) [Ratio] 13.7 % Normal 11.5-15.0 [facility] Comment on above: Order Comment: Speci men Type: BLOOD SPECIMEN Performed By: #### 5 7021-8 #### [facility] CLIA [id number] [address] Hematocrit (Bld) [Volume fraction] 46.6 % Normal 39.0-51.0 [facility] Comment on above: Order Comment: Speci men Type: BLOOD SPECIMEN Performed By: #### 5 7021-8 #### [facility] CLIA [id number] [address] Hemoglobin (Bld) [Mass/Vol] 15.1 g/dL Normal 13.0-17.0 [facility] Comment on above: Order Comment: Speci men Type: BLOOD SPECIMEN Performed By: #### 5 7021-8 #### [facility] CLIA [id number] [address] IMMATURE GRAN % 0.3 % Normal [facility] Comment on above: Order Comment: Speci men Type: BLOOD SPECIMEN Performed By: #### 5 7021-8 #### [facility] CLIA [id number] [address] IMMATURE GRAN ABS <0.03 Normal <0.10 [facility] Comment on above: Order Comment: Speci men Type: BLOOD SPECIMEN Performed By: #### 5 7021-8 #### [facility] CLIA [id number] [address] Lymphocytes (Bld) [#/Vol] 2.49 10*3/uL Normal 1.00-4.00 [facility] Comment on above: Order Comment: Speci men Type: BLOOD SPECIMEN Performed By: #### 5 7021-8 #### [facility] CLIA [id number] [address] Lymphocytes/100 WBC (Bld) 34.5 % Normal [facility] Comment on above: Order Comment: Speci men Type: BLOOD SPECIMEN Performed By: #### 5 7021-8 #### [facility] CLIA [id number] [address] MCH (RBC) [Entitic mass] 30.1 pg Normal 26.0-34.0 [facility] Comment on above: Order Comment: Speci men Type: BLOOD SPECIMEN Performed By: #### 5 7021-8 #### [facility] CLIA [id number] [address] MCHC (RBC) [Mass/Vol] 32.4 g/dL Normal 30.5-36.0 [facility] Comment on above: Order Comment: Speci men Type: BLOOD SPECIMEN Performed By: #### 5 7021-8 #### [facility] CLIA [id number] [address] MCV (RBC) [Entitic vol] 93.0 fL Normal 80.0-100.0 [facility] Comment on above: Order Comment: Speci men Type: BLOOD SPECIMEN Performed By: #### 5 7021-8 #### [facility] CLIA [id number] [address] Monocytes (Bld) [#/Vol] 0.90 10*3/uL High <0.87 [facility] Comment on above: Order Comment: Speci men Type: BLOOD SPECIMEN Performed By: #### 5 7021-8 #### [facility] CLIA [id number] [address] Monocytes/100 WBC (Bld) 12.5 % Normal [facility] Comment on above: Order Comment: Speci men Type: BLOOD SPECIMEN Performed By: #### 5 7021-8 #### [facility] CLIA [id number] [address] Neutrophils (Bld) [#/Vol] 3.62 10*3/uL Normal 1.45-7.50 [facility] Comment on above: Order Comment: Speci men Type: BLOOD SPECIMEN Performed By: #### 5 7021-8 #### [facility] CLIA [id number] [address] Neutrophils/100 WBC (Bld) 50.2 % Normal [facility] Comment on above: Order Comment: Speci men Type: BLOOD SPECIMEN Performed By: #### 5 7021-8 #### [facility] CLIA [id number] [address] Nucleated RBC (Bld) [#/Vol] 10*3/uL Normal <0.01 [facility] Comment on above: Order Comment: Speci men Type: BLOOD SPECIMEN Performed By: #### 5 7021-8 #### [facility] CLIA [id number] [address] Nucleated RBC/100 WBC (Bld) [Ratio] 0.0 /100 WBC Normal 0.0 [facility] Comment on above: Order Comment: Speci men Type: BLOOD SPECIMEN Performed By: #### 5 7021-8 #### [facility] CLIA [id number] [address] Platelet mean volume (Bld) [Entitic vol] 9.5 fL Normal 9.0-12.7 [facility] Comment on above: Order Comment: Speci men Type: BLOOD SPECIMEN Performed By: #### 5 7021-8 #### [facility] CLIA [id number] [address] Platelets (Bld) [#/Vol] 217 10*3/uL Normal 150-400 [facility] Comment on above: Order Comment: Speci men Type: BLOOD SPECIMEN Performed By: #### 5 7021-8 #### [facility] CLIA [id number] [address] RBC (Bld) [#/Vol] 5.01 10*6/uL Normal 4.20-6.00 [facility] Comment on above: Order Comment: Speci men Type: BLOOD SPECIMEN Performed By: #### 5 7021-8 #### [facility] CLIA [id number] [address] WBC (Bld) [#/Vol] 7.21 10*3/uL Normal 3.70-11.00 [facility] Comment on above: Order Comment: Speci men Type: BLOOD SPECIMEN Performed By: #### 5 7021-8 #### [facility] CLIA [id number] [address] ED Triage Noteon 11-22-2020 ED Triage Note HNO ID: [id number] Author: Jolene Martinez PA-C Service: Emergency Medicine Author Type: Physician Customer Management Specialist Type: ED Triage Notes Filed: 11/22/2020 7:47 PM Note Text: ED INTAKE NOTE Patient Name: Viktoria Sosa Service Date: 11/22/20 BRIEF HPI: Patient presents to the emergency department requesting detox from alcohol and meth. He states he last used meth yesterday and uses every day. He states he typically drinks 6-12 tall boys daily and last drank 3 just prior to coming into the emergency department. He has gone through alcohol withdrawal. He states his symptoms are usually tremors. Denies a history of seizures with alcohol withdrawal. BRIEF EXAM: Awake and Alert RRR CTAB HUMMEL INTAKE WORKUP: Bloodwork: CBC BMP ETOH EKG Urine drug screen Urinalysis SIGNATURE: Jolene Martinez PA-C Normal [facility] Ethanol SerPl-mCncon 021 Ethanol [Mass/Vol] 119 mg/dL High <11 [facility] Comment on above: Order Comment: Speci men Type: BLOOD SPECIMEN Result Comment: Valu es > 80 mg/dL may indicate intoxication Performed By: #### 5 643-2 #### [facility] CLIA [id number] [address] TOX SCREEN ROUT URon 021 Amphetamines Confirm (U) [Mass/Vol] Positive Abnormal Negative [facility] Comment on above: Order Comment: Speci men Type: URINE SPECIMEN Result Comment: Cuto ff threshold at 1000 ng/mL. Performed By: #### U TOX2 #### [facility] CLIA [id number] [address] BARBITURATES, URINE Negative Normal Negative [facility] Comment on above: Order Comment: Speci men Type: URINE SPECIMEN Result Comment: Cuto ff threshold at 200 ng/mL. Performed By: #### U TOX2 #### [facility] CLIA [id number] [address] [facility] BENZODIAZEPINES, UR Negative Normal Negative [facility] Comment on above: Order Comment: Speci men Type: URINE SPECIMEN Result Comment: Cuto ff threshold at 200 ng/mL. Performed By: #### U TOX2 #### [facility] CLIA [id number] [address] [facility] CANNABINOIDS,URINE Positive Abnormal Negative [facility] Comment on above: Order Comment: Speci men Type: URINE SPECIMEN Result Comment: Cuto ff threshold at 50 ng/mL. Performed By: #### U TOX2 #### [facility] CLIA [id number] [address] [place] Cocaine Ql (U) Negative Normal Negative [facility] Comment on above: Order Comment: Speci men Type: URINE SPECIMEN Result Comment: Cuto ff threshold at 300 ng/mL. Performed By: #### U TOX2 #### [facility] CLIA [id number] [address] Ethanol (U) [Mass/Vol] 141 mg/dL High <11 [facility] Comment on above: Order Comment: Speci men Type: URINE SPECIMEN Performed By: #### U TOX2 #### [facility] CLIA [id number] [address] Opiates Screen Ql (U) Negative Normal Negative [facility] Comment on above: Order Comment: Speci men Type: URINE SPECIMEN Result Comment: Cuto ff threshold at 300 ng/mL. Performed By: #### U TOX2 #### [facility] CLIA [id number] [address] oxyCODONE cutoff Screen (U) [Mass/Vol] Negative Normal Negative [facility] Comment on above: Order Comment: Speci men Type: URINE SPECIMEN Result Comment: Cuto ff threshold at 100 ng/mL. Performed By: #### U TOX2 #### [facility] CLIA [id number] [address] Phencyclidine Ql (U) Negative Normal Negative [facility] Comment on above: Order Comment: Speci men Type: URINE SPECIMEN Result Comment: Cuto ff threshold at 25 ng/mL. Performed By: #### U TOX2 #### [facility] CLIA [id number] [address] Urinalysis complete panel (U )on 11-22-2020 Bacteria LM.HPF (Urine sed) [#/Area] None Seen Normal None Seen [facility] Comment on above: Order Comment: Speci men Type: URINE SPECIMEN Performed By: #### 2 4356-8 #### [facility] CLIA [id number] [address] Bilirubin Ql (U) Negative Normal Negative [facility] Comment on above: Order Comment: Speci men Type: URINE SPECIMEN Performed By: #### 2 4356-8 #### [facility] CLIA [id number] [address] Clarity (Unsp spec) Clear Normal Clear [facility] Comment on above: Order Comment: Speci men Type: URINE SPECIMEN Performed By: #### 2 4356-8 #### [facility] CLIA [id number] [address] Color (U) Yellow Normal Yellow [facility] Comment on above: Order Comment: Speci men Type: URINE SPECIMEN Performed By: #### 2 4356-8 #### [facility] CLIA [id number] [address] Epithelial cells LM.HPF (Urine sed) [#/Area] None Seen Normal [facility] Comment on above: Order Comment: Speci men Type: URINE SPECIMEN Performed By: #### 2 4356-8 #### [facility] CLIA [id number] [address] Glucose Test strip (U) [Mass/Vol] Negative Normal Negative [facility] Comment on above: Order Comment: Speci men Type: URINE SPECIMEN Performed By: #### 2 4356-8 #### [facility] CLIA [id number] [address] Hemoglobin Ql (U) Negative Normal Negative [facility] Comment on above: Order Comment: Speci men Type: URINE SPECIMEN Performed By: #### 2 4356-8 #### [facility] CLIA [id number] [address] Hyaline casts (Urine sed) [#/Area] 0 /[LPF] Normal 0 /LPF [facility] Comment on above: Order Comment: Speci men Type: URINE SPECIMEN Performed By: #### 2 4356-8 #### [facility] CLIA [id number] [address] Ketones Ql (U) Negative Normal Negative [facility] Comment on above: Order Comment: Speci men Type: URINE SPECIMEN Performed By: #### 2 4356-8 #### [facility] CLIA [id number] [address] Leukocyte esterase Test strip Ql (U) Negative Normal Negative [facility] Comment on above: Order Comment: Speci men Type: URINE SPECIMEN Performed By: #### 2 4356-8 #### [facility] CLIA [id number] [address] Nitrite Ql (U) Negative Normal Negative [facility] Comment on above: Order Comment: Speci men Type: URINE SPECIMEN Performed By: #### 2 4356-8 #### [facility] CLIA [id number] [address] [facility] pH (U) 7.0 [pH] Normal 5.0-8.0 [facility] Comment on above: Order Comment: Speci men Type: URINE SPECIMEN Performed By: #### 2 4356-8 #### [facility] CLIA [id number] [address] Protein (U) [Mass/Vol] Negative Normal Negative [facility] Comment on above: Order Comment: Speci men Type: URINE SPECIMEN Performed By: #### 2 4356-8 #### [facility] CLIA [id number] [address] RBC LM.HPF (Urine sed) [#/Area] 0-3 /HPF Normal 0-3 /HPF [facility] Comment on above: Order Comment: Speci men Type: URINE SPECIMEN Performed By: #### 2 4356-8 #### [facility] CLIA [id number] [address] Specific gravity (U) [Rel density] <1.005 Low 1.005-1.030 [facility] Comment on above: Order Comment: Speci men Type: URINE SPECIMEN Performed By: #### 2 4356-8 #### [facility] CLIA [id number] [address] Urobilinogen Ql (U) 0.2 EU/dL Normal 0.2-1.0 EU/dL [facility] Comment on above: Order Comment: Speci men Type: URINE SPECIMEN Performed By: #### 2 4356-8 #### [facility] CLIA [id number] [address] WBC LM.HPF (Urine sed) [#/Area] 0-5 /HPF Normal 0-5 /HPF [facility] Comment on above: Order Comment: Speci men Type: URINE SPECIMEN Performed By: #### 2 4356-8 #### [facility] CLIA [id number] [address] CNOVon 09-30-2020 CNOV Office Visit ([facility] ) VIKTORIA SOSA ([id number]) 1990 M CHT Date Time Provider Department 09/30/20 11:00 AM BRIANNA MCGRATH During your visit today, we recorded the following information about you: Pulse Blood pressure Weight Height 60/minute 128/76 73.5 kg 1.753 m Brianna Mcgrath PA-C 09/30/2020 8:58 PM Addendum CHIEF COMPLAINT: Patient presents with: Hepatitis B Carrier HPI: Viktoria Sosa is a 30 year old male who presents for Hepatitis B Carrier. States he has known he has had Hep B for the past several months. Testing with PCP 05/20/2020 demonstrated positive hep B viral DNA, surface antigen; LFTs within normal limits. Includes that he is currently asymptomatic. Denies fever, fatigue, abdominal pain, sweats, chills, jaundice. States he has a history of unprotected sex with a few partners Has three unprofessionally done tattoos Admits to hx of injection drug use (thinks this is meth but is not sure) Social drinker 1-2x per week Smokes marijuanna occasionally Stopped using meth 2 mos ago. Record Review: [facility] / Outside records reviewed. 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 imiquimod (ALDARA) 5 % cream Apply 1 Packet to affected area three times a week. diphenhydrAMINE (BENADRYL) 25 mg capsule Take 1 capsule by mouth at bedtime as needed (insomnia). FAMILY HISTORY Problem Relation Age of Onset - No Known Problems Mother - No Known Problems Father - No Known Problems Maternal Grandmother - No Known Problems Maternal Grandfather - No Known Problems Paternal Grandmother - No Known Problems Paternal Grandfather Employer And Job Title: None on file Years Of Education Completed: Not specified Marital Status: Single Social History Tobacco Use - Smoking status: Current Every Day Smoker Packs/day: 0.50 Years: 8.00 Pack years: 4.00 Types: Cigarettes - Smokeless tobacco: Never Used Vaping Use - Vaping Use: Never used Substance Use Topics - Alcohol use: Yes Alcohol/week: 21.0 - 30.0 standard drinks Types: 21 - 30 Cans of Beer (12oz) per week Comment: Socially - Drug use: Not Currently Types: Amphetamines Comment: stopped using meth about 2 months ago Review of Systems: Review of Systems Constitutional: Negative for appetite change, chills, diaphoresis, fatigue, fever and unexpected weight change. Gastrointestinal: Negative for abdominal distention, abdominal pain, anal bleeding, blood in stool, constipation, diarrhea, nausea, rectal pain and vomiting. All other systems reviewed and are negative. Are you taking any blood thinners? No Physical Examination: BP 128/76 Pulse 60 Ht 5' 9 (1.75m) Wt 162 lb (73.5kg) BMI 23.91 kg/(m2). Physical Exam Constitutional: General: He is not in acute distress. Appearance: Normal appearance. He is normal weight. He is not ill-appearing, toxic-appearing or diaphoretic. HENT: Head: Normocephalic and atraumatic. Nose: Nose normal. Eyes: General: No scleral icterus. Right eye: No discharge. Left eye: No discharge. Extraocular Movements: Extraocular movements intact. Conjunctiva/sclera: Conjunctivae normal. Pupils: Pupils are equal, round, and reactive to light. Cardiovascular: Rate and Rhythm: Normal rate and regular rhythm. Pulses: Normal pulses. Heart sounds: Normal heart sounds. No murmur heard. No friction rub. No gallop. Pulmonary: Effort: No respiratory distress. Breath sounds: Normal breath sounds. No stridor. No wheezing, rhonchi or rales. Chest: Chest wall: No tenderness. Abdominal: General: Abdomen is flat. Bowel sounds are normal. There is no distension. Palpations: Abdomen is soft. There is no mass. Tenderness: There is no abdominal tenderness. There is no right CVA tenderness, left CVA tenderness, guarding or rebound. Hernia: No hernia is present. Musculoskeletal: General: Normal range of motion. Cervical back: Normal range of motion and neck supple. Skin: General: Skin is warm and dry. Neurological: General: No focal deficit present. Mental Status: He is alert and oriented to person, place, and time. Psychiatric: Mood and Affect: Mood normal. Behavior: Behavior normal. Assessment/Plan (B18.1) Chron (more content not included)... Normal [facility] CNOVon 09-24-2020 CNOV Office Visit (INTMWS ) VIKTORIA SOSA ([id number]) 1990 M [facility] Date Time Provider Department 09/24/20 6:00 PM OLDER, BETSY STAPLETONMJACOB During your visit today, we recorded the following information about you: Pulse Respiration Blood pressure Weight 114/minute 16/minute 130/82 69.9 kg Betsy Patel, ZEE 09/24/2020 7:07 PM Signed CC: Patient presents with: Recheck HPI Viktoria Sosa is a 30 year old male who presents today for above. He had called in requesting a refill on genital wart treatment. Had been referred to PA in urology for genital wart removal but not in his scope of practice. Patient reports warts are mostly gone, just a few small ones that just popped up. He no showed appointment with pad extraction tender to discuss treatment for Hepatitis B. He was supposed to have HIV test but has not done so yet. Taking Zoloft for social anxiety disorder which he has found to be very effective. Denies any concern today. 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 MEDICATIONS diphenhydrAMINE (BENADRYL) 25 mg capsule Take 1 capsule by mouth at bedtime as needed (insomnia). sertraline (ZOLOFT) 50 mg tablet Take 1 tablet by mouth once daily. FAMILY HISTORY Problem Relation Age of Onset - No Known Problems Mother - No Known Problems Father - No Known Problems Maternal Grandmother - No Known Problems Maternal Grandfather - No Known Problems Paternal Grandmother - No Known Problems Paternal Grandfather Social History Tobacco Use - Smoking status: Current Every Day Smoker Packs/day: 0.50 Years: 8.00 Pack years: 4.00 Types: Cigarettes - Smokeless tobacco: Never Used Vaping Use - Vaping Use: Never used Substance Use Topics - Alcohol use: Yes Alcohol/week: 21.0 - 30.0 standard drinks Types: 21 - 30 Cans of Beer (12oz) per week - Drug use: Not Currently Types: Amphetamines Comment: stopped using meth about one month ago PHYSICAL EXAM BP 130/82 Pulse 114 Resp 16 Wt 69.9 kg (154 lb) SpO2 98% BMI 22.74 kg/m? General Appearance: well appearing, in no acute distress, alert Pysch: affect is anxious Health maintenance reviewed with patient: DTAP,TDAP,TD(2 - Tdap) due on 11/20/2002 ONE PNEUMOVAX PRIOR TO AGE 65 Never done COVID-19 VACCINE(2 - Pfizer 2-dose series) due on 08/19/2020 INFLUENZA(1) due on 10/22/2020 DEPRESSION SCREENING due on 05/20/2021 HEPATITIS C SCREENING Completed MENINGOCOCCAL CONJUGATE Aged Out HIV SCREENING Discontinued DATA REVIEWED: Most recent labs ASSESSMENT/PLAN: 1. Genital warts - ICD9: 078.11, ICD10: A63.0 (primary diagnosis) - IMIQUIMOD 5 % TOPICAL CREAM PACKET refilled. Advised patient last refill, if warts continue to reoccur or worsen he will need to see urologist or dermatology for removal 2. Hepatitis B carrier (HCC) - ICD9: V02.61, ICD10: B18.1 Stressed the need to reschedule and keep appointment with pad extraction tender. Reviewed potential complications of untreated Hepatitis B, he verbalized understanding and willingness 3. Social anxiety disorder - ICD9: 300.23, ICD10: F40.10 Stable on Zoloft Prescription instructions reviewed with patient as applicable. Potential red flag symptoms discussed with the patient. Reviewed appropriate action plan to take if red flag symptoms occur. Patient agreeable to treatment plan. During this patient visit I have spent approximately 20 minutes in counseling regarding treatment options, medications, test results and coordinating care. ZEE Lynn APRN.CNP 09/24/2020 6:21 PM Signed It is important that you keep your appointment with the specialist that treats Hepatitis B. If left untreated it can lead to permanent liver damage You are due for your second COVID vaccine. You can walk in to any pharmacy to get it Try over the counter benadryl for sleep (ask pharmacist for help finding it) Referring Provider: HITESH LUCERO [[id number]] Allergies As of Date: 09/24/2020 (No Known Allergies) Date Reviewed: 09/24/2020 Reviewed by: Viktoriya Barnett Cma - Fully Assessed Reason for Visit: Recheck [92] Primary Visit Diagnosis:Genital warts [A63.0] Other Visit Diagnoses:Hepatitis B carrier (HCC) [B18.1] Social anxiety disorder [F40.10] Order(s):sertraline (ZOLOFT) 50 mg tabletTake 1 tablet by mouth on (more content not included)... Normal [facility] CNOVon 09-02-2020 CNOV Office Visit (UROLWS ) VIKTORIA SOSA ([id number]) 1990 M [facility] Date Time Provider Department 09/02/20 1:20 PM RADHA DEY During your visit today, we recorded the following information about you: Temperature Pulse Blood pressure Weight 98.1 degrees 70/minute 126/80 70.3 kg Height 1.753 m Referring Provider: SELF [[id number]] Allergies As of Date: 09/02/2020 (No Known Allergies) Date Reviewed: 09/02/2020 Reviewed by: Smiley Candelario Ma - Fully Assessed Reason for Visit: Appointment Cancelled [1023] Primary Visit Diagnosis:APPOINTMENT CANCELLED Prescriptions as of 09/08/2020 - diphenhydrAMINE (BENADRYL) 25 mg capsule Take 1 capsule by mouth at bedtime as needed (insomnia). - imiquimod (ALDARA) 5 % cream Apply 1 Packet to affected area three times a week. - sertraline (ZOLOFT) 50 mg tablet Take 1 tablet by mouth once daily. 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) [F15.1*05/20/2020 Tobacco use disorder [F17.200] 05/20/2020 Excessive drinking alcohol [F10.10] 05/20/2020 Chronic heel pain, left [M79.672, G89.29] 05/20/2020 Hepatitis B carrier (HCC) [B18.1] 06/11/2020 Encounter Status:Closed by MACIE CHRISTIE CMA on 09/08/20 [facility] Telephone (UROLWS) VIKTORIA SOSA ([id number]) 1990 M T Date Time Provider Department 09/02/20 RADHA DEY During your visit today, we recorded the following information about you: Smiley Candelario Ma 09/02/2020 2:00 PM Signed Patient presented to office for appt with Radha Dey PA-C. Apologized to pt that we are not able to treat/remove, as Radha is DARI and not surgeon. Patient has [employer] and unable to be see by Dr. Rios at [facility]. Pt would like to see if PCP can refill imiquimod? Pending Prescriptions Disp Refills IMIQUIMOD 5 % TOPICAL CREAM PACKET 12 Each 0 Sig: Apply 1 Packet to affected area three times a week. ELOISA: No Please review and advise. Smiley Lucero MD 09/03/2020 12:52 PM Signed Refused Prescriptions Disp Refills imiquimod (ALDARA) 5 % cream 12 Each 0 Sig: Apply 1 Packet to affected area three times a week. ELOISA: No Refused By: HITESH LUCERO Reason for Refusal: A Refill not appropriate Reason for Refusal Comment: evaluate at follow up. Persistent issues with warts. Hep B viremia. HIV screening recommended. Schedule hepatology consult recommended previously. ASSESSMENT/PLAN: 1. Screening for HIV (human immunodeficiency virus) - ICD9: V73.89, ICD10: Z11.4 (primary diagnosis) - HIV 1 2 COMBO(AG/AB),WITH REFLEX TO DIFFERENTIATION 2. Genital warts - ICD9: 078.11, ICD10: A63.0 Needs recheck. - HIV 1 2 COMBO(AG/AB),WITH REFLEX TO DIFFERENTIATION MD Viktoriya Lorenzana Cma 09/03/2020 2:14 PM Signed Left message with woman who answered phone to have patient call office back. Christina Larkin RN 09/04/2020 1:44 PM Signed Pt called, verified by name and birthdate. Patient notified of provider's instructions. Pt began swearing and yelling on phone. I asked pt to stop swearing and yelling so I could help him. Pt remained upset and hung up phone. Christina Larkin RN Allergies As of Date: 09/02/2020 (No Known Allergies) Date Reviewed: 09/02/2020 Reviewed by: Smiley Candelario Ma - Fully Assessed Reason for Visit: Medication Question [1478] Primary Visit Diagnosis:Screening for HIV (human immunodeficiency virus) [Z11.4] Other Visit Diagnosis:Genital warts [A63.0] Order(s):HIV 1 2 COMBO(AG/AB),WITH REFLEX TO DIFFERENTIATION [SQHIV12] Order #: [id number] FUTURE Prescriptions as of 09/04/2020 - diphenhydrAMINE (BENADRYL) 25 mg capsule Take 1 capsule by mouth at bedtime as needed (insomnia). - imiquimod (ALDARA) 5 % cream Apply 1 Packet to affected area three times a week. - sertraline (ZOLOFT) 50 mg tablet Take 1 tablet by mouth once daily. 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) [F15.1*05/20/2020 Tobacco use disorder [F17.200] 05/20/2020 Excessive drinking alcohol [F10.10] 05/20/2020 Chronic heel pain, left [M79.672, G89.29] 05/20/2020 Hepatitis B carrier (HCC) [B18.1] 06/11/2020 Encounter Status:Closed by CHRISTINA LARKIN RN on 09/04/20 [facility] OBSOLETEon 08-05-2020 OBSOLETE Refill (INTMWS) VIKTORIA SOSA ([id number]) 1990 [facility] Date Time Provider Department 08/05/20 HITESH LUCERO INTMWS During your visit today, we recorded the following information about you: Katherine Stinson LPN 08/05/2020 1:31 PM Signed Patient calling for refill of Sertraline (Zoloft) 50mg. Patient called for refill on 05/20/2020, new RX sent to [facility], it is not showing in [facility]. Called pharmacy, they will get ready for Patient to pickup. 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) [F15.1*05/20/2020 Tobacco use disorder [F17.200] 05/20/2020 Excessive drinking alcohol [F10.10] 05/20/2020 Chronic heel pain, left [M79.672, G89.29] 05/20/2020 Hepatitis B carrier (HCC) [B18.1] 06/11/2020 Encounter Status:Closed by KATHERINE STINSON LPN on 08/05/20 Normal [facility] Emergency Department Summary on 07-22-2020 Emergency Department Summary [facility] Medical Records Department [address] [place] [address] Emergency Department Summary 07/22/20 MR#: [id number] Acct: [id number] Name: VIKTORIA SOSA Rep #: [id number] : 1990 29 From: Laura Diane DO PCP: Dr. Hitesh Lucero MD Status:DEP ER Location: ED HPI History of Present Illness Chief Complaint: Eye Problem Detail of Chief Complaint: Injury to right eye Informant: patient Onset/Context/Timing Onset: Yesterday Narrative Narrative: Patient states that he was wrestling with somebody last evening on gravel when he thinks may be a rock may have gotten into his eye. Patient complains of some soreness that is mild to the right upper portion of the eyelid. He denies any eye pain. He denies visual changes. He denies tearing. Denies photophobia. Denies any other injuries. Prior similar symptoms: No PFSH PFSH Home Medications NK 01/31/19 [History Last Taken Unknown] Allergy/AdvReac Type Severity Reaction Status Date / Time No Known Allergies Allergy Verified 07/22/20 06:55 Surgical History (Updated 07/22/20 @ 06:56 by Des Ayers) H/O foot surgery Social History Smoking Status: Current every day smoker tobacco type: cigarettes ROS ROS ED Constitutional Constitutional ED: Reports systems reviewed and no addt'l complaints, except as documented; Denies body ache(s), change in weight or chills Eyes Eyes: Reports other Details: Right upper eyelid pain ; Denies blurry vision, change in vision or diplopia ENT ENT ED: Reports none; Denies ear pain, lip swelling, loss taste/smell, neck pain, otalgia or sore throat Cardiovascular Cardiovascular: Reports none; Denies abdominal pain, chest pain with activity, leg edema, lightheadedness, palpitations, rapid heart rate or syncope Respiratory/Chest Respiratory/Chest: Reports none; Denies change in mental status, dry cough, dyspnea, hemoptysis, shortness of breath at rest or shortness of breath with exertion Gastrointestinal Gastrointestinal: Reports none; Denies abdominal pain, change in stool character, diarrhea, hematemesis, hematochezia, melena, rectal bleeding or vomiting Genitourinary Genitourinary ED: Reports none; Denies abdominal discomfort, anuria, dysuria, genital pain or polyuria Musculoskeletal Musculoskeletal: Reports none; Denies arthralgias, back pain, difficulty walking, extremity pain, muscle weakness or myalgias Integumentary Reports none; Denies abscess or rash Neurologic Neurologic: Reports none; Denies abnormal gait, confusion, focal weakness, frequent falls, headache(s), loss of vision, numbness, paresthesias, radicular pain, vertigo or weakness Psychiatric Psychiatric: Reports systems reviewed and no addt'l complaints, except as documented and none; Denies behavioral changes, confusion, difficulty concentrating, hallucinations, suicidal ideation, tactile hallucinations or visual hallucinations Endocrine Endocrinology: Denies none, cold intolerance, excessive sweating, fatigue or heat intolerance Hematologic/Lymphatic Hematologic/Lymphatic : Reports none; Denies anemia, easy bleeding or easy bruising Allergic/Immunologic Allergic/Immunologic ED: Denies as per HPI, none, lip swelling, mouth swelling, throat swelling, tongue swelling or hives EXAM Physical Exam Const Vital Signs: 07/22/20 06:56 Temperature 97.4 F L Temperature Source Temporal Pulse Rate 82 Respiratory Rate 20 H Blood Pressure 112/70 Blood Pressure Mean 84 Pulse Ox 97 Oxygen Delivery Method Room Air Positive well nourished and well developed General Appearance ED: well developed and NAD HEENT Reports TM's clear and moist mucous membranes normocephalic and atraumatic; Negative for trauma or tenderness Tympanic Membrane ED: Yes TM's clear Eyes PERRL and EOMs intact bilaterally Eyes Narrative: Pupils were equal reactive to light bilaterally. Extraocular muscle movement was normal. There is no erythema of the conjunctiva. No corneal abrasions noted. Patient does have some mild soft tissue swelling over the right lateral upper eyelid with some faint ecchymosis. Minimal tenderness to the right upper orbital rim. Patient has superficial abrasion to the skin of lower orbit just inferior to the lower lid. General Eye ED: Negative for pale conjunctiva or scleral icterus Eyelid: eyelids abnormal right upper eyelid Neck no lymphadenopathy, supple and no JVD General: Negative for tenderness Chest Wall inspection of chest normal and palpation of chest normal Chest: Negative for tenderness Resp normal respiratory effort and clear to auscultation bilaterally Effort and Inspection: Negative for respiratory distress or pain with movement Auscultation: Negative for rhonchi, wheezes or diminished lung sounds Cardio regular rate, regular rhythm (more content not included)... Normal [facility] 06-23-2020 [facility] Telephone (INTMWS) VIKTORIA SOSA ([id number]) 1990 [facility] Date Time Provider Department 06/23/20 HITESH LUCERO During your visit today, we recorded the following information about you: Eleni Sol 06/23/2020 9:28 AM Signed Viktoria Sosa is calling Hitesh Lucero MD today Patients insurance is not covering two medications. He is asking if there is alternative medications? diphenhydrAMINE (BENADRYL) 25 mg capsule imiquimod (ALDARA) 5 % cream Please advise Hitesh Lucero MD 06/23/2020 1:19 PM Signed 1) He can get diphenhydramine over the counter. 2) Offer referral to urology for genital warts. Katherine Stinson LPN 06/23/2020 2:52 PM Signed Left message for Patient to call AND speak to nurse. Katherine Stinson LPN 06/24/2020 11:31 AM Signed Left message to call AND speak to a nurse. Katherine Stinson LPN 07/01/2020 4:59 PM Signed Patient notified of below recommendation, he is not wanting urology referral at this time. 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) [F15.1*05/20/2020 Tobacco use disorder [F17.200] 05/20/2020 Excessive drinking alcohol [F10.10] 05/20/2020 Chronic heel pain, left [M79.672, G89.29] 05/20/2020 Hepatitis B carrier (HCC) [B18.1] 06/11/2020 Encounter Status:Closed by KATHERINE STINSON LPN on 07/01/20 [facility] OBSOLETEon 06-23-2020 OBSOLETE Refill (INTMWS) VIKTORIA SOSA ([id number]) 1990 [facility] Date Time Provider Department 06/23/20 HITESH LUCERO INTMWS During your visit today, we recorded the following information about you: Eleniissa Sol 06/23/2020 9:30 AM Signed Patient has been identified by name and date of : Yes Pending Prescriptions Disp Refills SERTRALINE 50 MG TABLET 30 tablet 2 Sig: Take 1 tablet by mouth once daily. ELOISA: No RX INSTRUCTIONS: Patient aware RX will be sent to pharmacy. No need to notify patient. Eleni Barnett Cma 06/23/2020 2:46 PM Signed Pharmacy is getting medication ready for patient to leaf size picker. 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) [F15.1*05/20/2020 Tobacco use disorder [F17.200] 05/20/2020 Excessive drinking alcohol [F10.10] 05/20/2020 Chronic heel pain, left [M79.672, G89.29] 05/20/2020 Hepatitis B carrier (HCC) [B18.1] 06/11/2020 Encounter Status:Closed by VIKTORIYA BARNETT CMA on 06/23/20 [facility] 06-16-2020 [facility] Telephone (INTMWS) VIKTORIA SOSA ([id number]) 1990 M [facility] Date Time Provider Department 06/16/20 HITESH LUCERO INTWS During your visit today, we recorded the following information about you: Annemarie Chatman LPN 06/16/2020 3:35 PM Signed Per covermydanielle Sosa ([place]: [id number]) ? [id number] Imiquimod 5% cream Status: JEREMIAH Response - Approved Created: June 13, 2020 [id number] Sent: June 16, 2020 Annemarie Chatman LPN 06/16/2020 3:35 PM Signed Pharmacy notified. Annemarie Chatman LPN 06/17/2020 9:37 AM Signed approved from 05/17/20- 06/16/21 Allergies As of Date: 06/16/2020 (No Known Allergies) Date Reviewed: 06/11/2020 Reviewed by: Katherine Stinson LPN - Fully Assessed Reason for Visit: Insurance Authorization [[id number]] Prescriptions as of 06/16/2020 Sig: DIPHENHYDRAMINE 25 MG CAPSULE Take 1 capsule by mouth at be* IMIQUIMOD 5 % TOPICAL CREAM P* Apply 1 Packet to affected ar* SERTRALINE 50 MG TABLET Take 1 tablet by mouth once d* Problem List As Of Date 06/16/2020 Noted Resolved Depressive disorder [F32.9] 05/06/2009 Social anxiety disorder [F40.10] 05/20/2020 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) [F15.1*05/20/2020 Tobacco use disorder [F17.200] 05/20/2020 Excessive drinking alcohol [F10.10] 05/20/2020 Chronic heel pain, left [M79.672, G89.29] 05/20/2020 Hepatitis B carrier (HCC) [B18.1] 06/11/2020 Encounter Status:Closed by ANNEMARIE CHATMAN LPN on 06/16/20 [facility] CNOVjonathan 06-11-2020 CNOV Office Visit (INTMWS ) VIKTORIA SOSA ([id number]) 1990 Yan T Date Time Provider Department 06/11/20 11:20 AM HITESH LUCERO INTMWS During your visit today, we recorded the following information about you: Temperature Pulse Respiration Blood pressure 96.4 degrees 72/minute 16/minute 122/76 Weight 73.4 kg Hitesh Lucero MD 06/11/2020 1:05 PM Signed This note was created using [employer]. Subjective Viktoria Sosa is a 29 year old male. His SAD was much better on sertraline. His depression was mild at this point. He had history of meth use, so he had ongoing issues with sleep onset insomnia for 2 or more months. He has only tried melatonin which did not help. He also requested Aldara for recurrent genital warts. He had hepatitis B testing here, but he did not follow up since [employer] indicated hep B resolved on its own. Review of Systems Constitutional: Negative. Gastrointestinal: Negative. Psychiatric/Behaviora l: Positive for dysphoric mood and sleep disturbance. Negative for suicidal ideas. The patient is not nervous/anxious. 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) Tobacco Use Disorder Excessive Drinking Alcohol Chronic Heel Pain, Left Hepatitis B Carrier (Hcc) Social History Tobacco Use - Smoking status: Current Every Day Smoker Packs/day: 0.50 Years: 8.00 Pack years: 4.00 Types: Cigarettes - Smokeless tobacco: Never Used Vaping Use - Vaping Use: Never used Substance Use Topics - Alcohol use: Yes Alcohol/week: 21.0 - 30.0 standard drinks Types: 21 - 30 Cans of Beer (12oz) per week - Drug use: Not Currently Types: Amphetamines Comment: stopped using meth about one month ago Current Outpatient Medications Medication Sig - MELATONIN ORAL Take by mouth at bedtime as needed. - sertraline (ZOLOFT) 50 mg tablet Take 1 tablet by mouth once daily. No current facility-administered medications for this visit. Objective BP 122/76 (BP Site: Left Arm, BP Position: Sitting, BP Cuff Size: Large Adult) Pulse 72 Temp (!) 35.8 ?C (96.4 ?F) (Temporal Artery) Resp 16 Wt 73.4 kg (161 lb 12.8 oz) Physical Exam Constitutional: General: He is not in acute distress. Eyes: General: No scleral icterus. Genitourinary: Comments: 2x3 mm papule, right penile shaft near the base. Neurological: Mental Status: He is alert. Psychiatric: Mood and Affect: Mood normal. Behavior: Behavior normal. Component Latest Ref Rng AND Units 05/20/2020 05/23/2020 Hep A Ab, IgM Negative Negative Hep B Surface Ag Negative Initially reactive (A) Hep C Antibody IA Negative Negative Hep B Core Ab, IgM Negative Negative Hep Bs Ag Confirmation Negative Positive (A) HBV DNA Ultra IU/mL >170,000,000 IU/ml HBV DNA detected, not quantifiable. (A) Assessment and Plan 1. Social anxiety disorder - ICD9: 300.23, ICD10: F40.10 (primary diagnosis) Improved. 2. Depressive disorder - ICD9: 311, ICD10: F32.9 Controlled. - DIPHENHYDRAMINE 25 MG CAPSULE. At bedtime as needed for insomnia. 3. Hepatitis B carrier (HCC) - ICD9: V02.61, ICD10: B18.1 He was advised he likely has viremia and is infectious and should notify partners, etc. shelter risk of liver disease, liver failure, and liver cancer were discussed. - CONSULT TO HEPATOLOGY 4. Genital warts - ICD9: 078.11, ICD10: A63.0 - He declined cryotherapy. - IMIQUIMOD 5 % TOPICAL CREAM PACKET Hitesh Lucero MD Referring Provider: SELF [200] Allergies As of Date: 06/11/2020 (No Known Allergies) Date Reviewed: 06/11/2020 Reviewed by: Katherine Stinson LPN - Fully Assessed Reason for Visit: Medication Follow-up [270] Primary Visit Diagnosis:Social anxiety disorder [F40.10] Other Visit Diagnoses:Depressive disorder [F32.9] Hepatitis B carrier (HCC) [B18.1] Genital warts [A63.0] Order(s):diphenhydrAM INE (BENADRYL) 25 mg capsuleTake 1 capsule by mouth at bedtime as needed (insomnia).Disp: 30 capsuleRfl: 2 CONSULT TO HEPATOLOGY [[id number]] Order #: [id number]: 1 FUTURE imiquimod (ALDARA) 5 % creamApply 1 Packet to affected area three times a week.Disp: 12 EachRfl: 0 Prescriptions as of 06/11/2020 Sig: SERTRALINE 50 MG TABLET Take 1 tablet by mouth once d* DIPHENHYDRAMINE 25 MG CAPSULE Take 1 capsule by mouth at be* IMIQUIMOD 5 % TOPICAL CREAM P* Apply 1 Packet to affected ar* Problem List As Of Date 06/11/2020 Noted Resolved Depressive disorder [F32.9] 05/06/2009 Social anxiety disorder [F40.10] 05/20/2020 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 Normal [facility] CBC and Differentialon 05-23 Abs Baso 0.08 k/uL Normal <0.11 [facility] Comment on above: Performed By: #### C GUILLERMO HBVZHANEU ####[place] [phone] Abs Calhoun 0.77 k/uL Normal <0.87 [facility] Comment on above: Performed By: #### C GUILLERMO HBVDNU ####[facility] [place] [address] [phone] Abs Neut 6.76 k/uL Normal 1.45-7.50 [facility] Comment on above: Performed By: #### C BCTRISH HBVDNU ####[facility] [place], [place] [phone] Absolute nRBC <0.01 Normal <0.01 [facility] Comment on above: Performed By: #### C BCTRISH HBVDNU ####[facility] [place] [phone] Basophils/100 WBC (Bld) 0.9 % Normal [facility] Comment on above: Performed By: #### C BCTRISH HBVDNU ####[place] [address] [address] [place] [phone] DTYPE Auto Diff Normal [facility] Comment on above: Performed By: #### C BCTRISH HBVDNU ####[place] [address] [address] [place] [phone] Eosinophils (Bld) [#/Vol] 0.09 10*3/uL Normal <0.46 [facility] Comment on above: Performed By: #### C BCTRISH HBVDNU ####[place] [address] [address] [place] [phone] Eosinophils/100 WBC (Bld) 1.0 % Normal [facility] Comment on above: Performed By: #### C BCTRISH HBVDNU ####[place] [address] [address] [place] [phone] Erythrocyte distribution width (RBC) [Ratio] 13.9 % Normal 11.5-15.0 [facility] Comment on above: Performed By: #### C BCTRISH HBVDNU ####[place] [address] [address] [place] [phone] Hematocrit (Bld) [Volume fraction] 46.2 % Normal 39.0-51.0 [facility] Comment on above: Performed By: #### C BCTRISH HBVDNU ####[place] [address] [address]level[address] [place] [phone] Hemoglobin (Bld) [Mass/Vol] 15.4 g/dL Normal 13.0-17.0 [facility] Comment on above: Performed By: #### C BCDIDonna HBVDNU ####[place] [address] [address] [place] [phone] Lymphocytes (Bld) [#/Vol] 1.23 10*3/uL Normal 1.00-4.00 [facility] Comment on above: Performed By: #### C BCDIDonna HBVDNU ####[place] [address] [address] [place] [phone] Lymphocytes/100 WBC (Bld) 13.7 % Normal [facility] Comment on above: Performed By: #### C BCDIF, HBVDNU ####[place] [address] [address] [place] [phone] MCH 30.3 pG Normal 26.0-34.0 [facility] Comment on above: Performed By: #### C BCDIF, HBVDNU ####[place] [address] [address] [place] [phone] MCHC (RBC) [Mass/Vol] 33.3 g/dL Normal 30.5-36.0 [facility] Comment on above: Performed By: #### C BCDIF, HBVDNU ####[address] [place] [phone] MCV (RBC) [Entitic vol] 90.9 fL Normal 80.0-100.0 [facility] Comment on above: Performed By: #### C BCDIF HBVDNU ####[place] [address] [address] [place] [phone] Monocytes/100 WBC (Bld) 8.6 % Normal [facility] Comment on above: Performed By: #### C BCDIF, HBVDNU ####[place] [address] [address] [place] [phone] Neutrophils/100 WBC (Bld) 75.8 % Normal [facility] Comment on above: Performed By: #### C BCDIF, HBVDNU ####[place] [address] [address] [place] [phone] NRBCs 0.0 /100 WBC Normal 0 [facility] Comment on above: Performed By: #### C BCDIF HBVDNU ####[place] [address] [address], [place] [phone] Platelet mean volume (Bld) [Entitic vol] 10.5 fL Normal 9.0-12.7 [facility] Comment on above: Performed By: #### C BCDIF HBVDNU ####[facility] [address] [place], [place] [phone] Platelets (Bld) [#/Vol] 271 10*3/uL Normal 150-400 [facility] Comment on above: Performed By: #### C BCDIF, HBVDNU ####[facility], [place] [phone] RBC (Bld) [#/Vol] 5.08 10*6/uL Normal 4.20-6.00 [facility] Comment on above: Performed By: #### C BCDIF, HBVDNU ####[facility] [address] [place], [place] [phone] WBC (Bld) [#/Vol] 8.95 10*3/uL Normal 3.70-11.00 [facility] Comment on above: Performed By: #### Juanita BCDIF HBVDNU ####[place] [phone] [place], [place] [phone] [facility]-2020 [facility] VIKTOR[facility]OSA ([id number]) 1990 M T Date Time Provider Department 05/23/20 BETSY PATEL (DALIA) INTYanWS During your visit today, we recorded the following information about you: Betsy Patel APRN.CNP 05/23/2020 10:01 AM Signed Please let the patient know his blood test confirmed Hepatitis B infection. He will need another blood test to check viral load and referral to specialist that treats Hepatitis ZEE Lynn Cma 05/23/2020 10:04 AM Signed Left message for patient to call office back and to ask to speak with a nurse. Anahy Thrasher RN 05/23/2020 2:05 PM Signed Patient notified of results and provider's instructions. Informed patient once labs are done he will need to see a specialist for management. Patient verbalizes understanding. Anahy Thrasher RN Allergies As of Date: 05/23/2020 (No Known Allergies) Date Reviewed: 05/20/2020 Reviewed by: Betsy (Dalia) Cynthia - Fully Assessed Reason for Visit: Results [95] Primary Visit Diagnosis:Hepatitis B surface antigen positive [R76.8] Order(s):E-CONSULT INFECTIOUS DISEASE [[id number]] Order #: [id number]: 1 HEP B VIRAL DNA ÁNGEL [SQHBVDNU] Order #: [id number] FUTURE CBC + DIFF [SQCBCDIF] Order #: [id number] FUTURE CONSULT TO HEPATOLOGY [[id number]] Order #: [id number]: 1 FUTURE Prescriptions as of 05/23/2020 Sig: SERTRALINE 50 MG TABLET Take 1 tablet by mouth once d* Problem List As Of Date 05/23/2020 Noted Resolved Depressive Disorder, not Elsewhere Classified [*05/06/2009 Social anxiety disorder [F40.10] 05/20/2020 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 Reference Range: Negative for HBVDNA Performed By: #### C BCDIF, HBVDNU ####[facility] [address], [place] [phone] CNOVon 05-20-2020 CNOV Office Visit (INTMWS ) VIKTORIA SOSA ([id number]) 1990 M T Date Time Provider Department 05/20/20 12:40 PM BETSY PATEL (DALIA) INTMWS During your visit today, we recorded the following information about you: Temperature Pulse Respiration Blood pressure 96.9 degrees 86/minute 14/minute 128/82 Weight 70.3 kg Betsy Patel APRN.CNP 05/21/2020 11:15 AM Signed CC: Patient presents with: Establish Care HPI Viktoria Sosa is a 29 year old male who presents today for above. Patient reports he was recently seen at [facility] for STD testing and he was positive for Hepatitis B. Admits to unprotected sex with a female. He denies IV drug use, abdominal pain, nausea, vomiting, jaundice, abnormal colored stool or urine, diarrhea, fever, chills, night sweats, fatigue, unintentional weight loss. Denies history of known hepatitis infection. Patient requesting medication for social awkwardness. Admits to feeling very anxious during most social situations and then he acts awkward. Denies depressed mood, anhedonia, excessive worrying, anxious thoughts, insomnia, SI, HI, irritability, short tempered, difficulty concentrating. Admits to drinking 3 or more tall boys a day. History of meth use, reportedly stopped about one month ago. History of bilateral heel fractures, surgical repair of left heel about 8 years ago. Since then he has intermittent left heel pain, mostly occurs when it rains. Treats with ibuprofen without much relief. Denies acute pain at this time but wondering what else he can take when it does occur. 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 MEDICATIONS No prescriptions on file. FAMILY HISTORY Problem Relation Age of Onset - No Known Problems Mother - No Known Problems Father - No Known Problems Maternal Grandmother - No Known Problems Maternal Grandfather - No Known Problems Paternal Grandmother - No Known Problems Paternal Grandfather Social History Tobacco Use - Smoking status: Current Every Day Smoker Packs/day: 0.50 Years: 8.00 Pack years: 4.00 Types: Cigarettes - Smokeless tobacco: Never Used Vaping Use - Vaping Use: Never used Substance Use Topics - Alcohol use: Yes Alcohol/week: 21.0 - 30.0 standard drinks Types: 21 - 30 Cans of Beer (12oz) per week - Drug use: Not Currently Types: Amphetamines Comment: stopped using meth about one month ago PHYSICAL EXAM BP 128/82 Pulse 86 Temp 36.1 ?C (96.9 ?F) (Temporal) Resp 14 Wt 70.3 kg (155 lb) SpO2 98% Appearance: well dressed well groomed and cooperative Behavior: poor eye contact and tense, restless Speech: fast Mood: anxious Affect: constricted Skin: Skin color, texture, turgor normal for age; Eyes: conjunctiva pink and moist, no icterus, sclera white, non-injected Neck: Thyroid normal size and symmetric without palpable nodules, Neck supple, No adenopathy Lymph nodes: No supraclavicular lymphadenopathy Lungs: Lungs clear to auscultation. No wheezing, rhonchi, rales. Heart: RRR without murmur, gallop, or rubs. No ectopy Abdomen: Abdomen soft, non-tender. Bowel sounds normal. No masses, organomegaly Ext: no edema in LE bilaterally, good distal pulses DEPRESSION SCREENING Completed HEPATITIS C SCREENING Completed HIV SCREENING Completed DTAP,TDAP,TD(1 - Tdap) Completed ONE PNEUMOVAX PRIOR TO AGE 65 Completed INFLUENZA(1) due on 08/20/2020 MENINGOCOCCAL CONJUGATE Completed ASSESSMENT/PLAN: 1. Encounter for medical examination to establish care - ICD9: V70.9, ICD10: Z00.00 (primary diagnosis) Discussed health maintenance including regular aerobic exercise, healthy diet, age appropriate screenings and periodic exams. - Vaccination(s) recommended today: Tdap and Pneumovax; patient declined 2. Hepatitis - ICD9: 573.3, ICD10: K75.9 STD testing at [facility] positive for Hepatitis B per patient, results not available for review. Patient has very low health literacy and poor historian. Will recheck acute hepatitis panel and also CMP. Follow-up and further recommendatio (more content not included)... Normal [facility] Hep Bs Ag Confirmon 05-21-19 21 Hep Bs Ag Confirm Positive Critically abnormal Negative [facility] Comment on above: Performed By: #### H ACUTP, HBSAGC ####[place] [phone] Hepatitis Acute Panel * OUTS YUE CLIENTS ONLY *on 05-20-2020 HBsAg Initially reactive Critically abnormal Negative [facility] Comment on above: Result Comment: Conf irmatory testing for hepatitis B surface antigen has been ordered and charged. Result rechecked. Performed By: #### H ACUTP, HBSAGC ####[facility] [address] [place], [place] [phone] Hep B Core Ab, IgM Negative Normal Negative [facility] Comment on above: Performed By: #### H ACUTP, HBSAGC ####[facility] [address] [place], [place] [phone] Hepatitis A Ab IgM Negative Normal Negative [facility] Comment on above: Performed By: #### H ACUTP, HBSAGC ####[place] [address] [place] [phone] Hepatitis C Ab IA Negative Normal Negative [facility] Comment on above: Performed By: #### H ACUTP, HBSAGC ####[address], [place] [phone] Remote CMP (for [facility] use only )on 05-20-2020 Albumin [Mass/Vol] 4.5 g/dL Normal 3.9-4.9 [facility] Comment on above: Performed By: #### R CMP ####[place] [address] [address] [phone] ALP [Catalytic activity/Vol] 62 U/L Normal 38-113 [facility] Comment on above: Performed By: #### R CMP ####[place] [phone] ALT [Catalytic activity/Vol] 28 U/L Normal 10-54 [facility] Comment on above: Performed By: #### R CMP ####[place] [address] [place] [phone] Anion gap [Moles/Vol] 9 mmol/L Normal 9-18 [facility] Comment on above: Performed By: #### R CMP ####[place] [address] [address], [place] [phone] AST [Catalytic activity/Vol] 38 U/L Normal 14-40 [facility] Comment on above: Performed By: #### R CMP ####[place] [address] [place] [phone] Bilirubin [Mass/Vol] 0.4 mg/dL Normal 0.2-1.3 [facility] Comment on above: Performed By: #### R CMP ####[address] [phone] Calcium [Mass/Vol] 9.7 mg/dL Normal 8.5-10.2 [facility] Comment on above: Performed By: #### R CMP ####[facility], [place] [phone] Chloride [Moles/Vol] 103 mmol/L Normal 97-105 [facility] Comment on above: Performed By: #### R CMP ####[facility] [place] [phone] CO2 [Moles/Vol] 26 mmol/L Normal 22-30 [facility] Comment on above: Performed By: #### R CMP ####[place] [address] [phone] Creatinine [Mass/Vol] 0.84 mg/dL Normal 0.73-1.22 [facility] Comment on above: Performed By: #### R CMP ####[place] [address] [place] [phone] eGFR- Amer. >60 Normal [facility] Comment on above: Performed By: #### R CMP ####[place] [address] [phone] eGFR-All Other Races >60 Normal [facility] Comment on above: Result Comment: eGFR (Estimated GFR) Units of measure: mL/min/1.73 meters squared eGFR is derived from the reexpressed MDRD Study equation using the following parameters: serum creatinine, age, gender and race. The creatinine assay has been calibrated to be traceable to IDMS. An eGFR <60 mL/min/1.73m2 for >3 months is consistent with chronic kidney disease. Refer to KDOQI guidelines for clinical interpretation. In patients with unstable renal function, e.g. those with acute kidney injury, the eGFR may not accurately reflect actual GFR. Performed By: #### R CMP ####[place] [address], [place] [phone] Glucose [Mass/Vol] 88 mg/dL Normal 74-99 [facility] Comment on above: Result Comment: The [place] Diabetes Association (ADA) provides guidance for cutoff values for fasting glucose and random glucose. The ADA defines fasting as no caloric intake for at least 8 hours. Fasting plasma glucose results between 100 to 125 mg/dL indicate increased risk for diabetes (prediabetes). Fasting plasma glucose results greater than or equal to 126 mg/dL meet the criteria for diagnosis of diabetes. In the absence of unequivocal hyperglycemia, results should be confirmed by repeat testing. In a patient with classic symptoms of hyperglycemia or hyperglycemic crisis, random plasma glucose results greater than or equal to 200 mg/dL meet the criteria for diagnosis of diabetes. Reference: Standards of Medical Care in Diabetes 2016, [place] Diabetes Association. Diabetes Care. 2016.39(Suppl 1). Performed By: #### R CMP ####[address] [phone] Potassium [Moles/Vol] 3.9 mmol/L Normal 3.7-5.1 [facility] Comment on above: Performed By: #### R CMP ####[address] [phone] Protein [Mass/Vol] 7.0 g/dL Normal 6.3-8.0 [facility] Comment on above: Performed By: #### R CMP ####[address] [phone] Sodium [Moles/Vol] 138 mmol/L Normal 136-144 [facility] Comment on above: Performed By: #### R CMP ####[address] [phone] Urea nitrogen [Mass/Vol] 13 mg/dL Normal 9-24 [facility] Comment on above: Performed By: #### R CMP ####[address] [phone] Vital Signs Date Time Vital Sign Value Performing Clinician Facility 08-26-2024 15:09040 Body height 175.26 cm No Primary Care Physician [facility] 08-26-2024 15:090400 Body mass index (BMI) [Ratio] 21.4 kg/m2 No Primary Care Physician [facility] 08-26-2024 15:09-0400 Body temperature 98.7 [degF] No Primary Care Physician [facility] 08-26-2024 15:09-0400 Body weight 65.8 kg No Primary Care Physician [facility] 08-26-2024 15:09-0400 Diastolic blood pressure 97 mm[Hg] No Primary Care Physician [facility] 08-26-2024 15:09-0400 Heart rate 105 /min No Primary Care Physician [facility] 08-26-2024 15:09-0400 Respiratory rate 16 /min No Primary Care Physician [facility] 08-26-2024 15:09-0400 SaO2% (BldA) [Mass fraction] 98 % No Primary Care Physician [facility] 08-26-2024 15:09-0400 Systolic blood pressure 141 mm[Hg] No Primary Care Physician [facility] 08-04-2024 22:19-0400 Body temperature 97.81 [degF] Bryant Alicea Sr., MD, PhD Work Phone: [facility] 08-04-2024 22:19-0400 Diastolic blood pressure 80 mm[Hg] Bryant Alicea Sr., MD, PhD Work Phone: [facility] 08-04-2024 22:19-0400 Heart rate 90 /min Bryant Alicea Sr., MD, PhD Work Phone: [facility] 08-04-2024 22:19-0400 Respiratory rate 18 /min Bryant Alicea Sr., MD, PhD Work Phone: [facility] 08-04-2024 22:19-0400 SaO2% (BldA) [Mass fraction] 95 % Bryant Alicea Sr., MD, PhD Work Phone: [facility] 08-04-2024 22:19-0400 Systolic blood pressure 131 mm[Hg] Bryant Alicea Sr., MD, PhD Work Phone: [facility] 03-05-2024 02:09-0500 Body temperature 98.2 [degF] Price Sherice DO Work Phone: [facility] 03-05-2024 02:09-0500 Diastolic blood pressure 89 mm[Hg] Price Carthage DO Work Phone: [facility] 03-05-2024 02:09-0500 Heart rate 92 /min Price Sherice DO Work Phone: [facility] 03-05-2024 02:09-0500 Respiratory rate 16 /min Price Sherice DO Work Phone: [facility] 03-05-2024 02:09-0500 SaO2% (BldA) [Mass fraction] 98 % Price Carthage DO Work Phone: [facility] 03-05-2024 02:09-0500 Systolic blood pressure 133 mm[Hg] Price Carthage DO Work Phone: [facility] 03-04-2024 23:45-0500 Body height 175.3 cm Price Sherice DO Work Phone: [facility] 03-04-2024 23:45-0500 Body mass index (BMI) [Ratio] 25.13 kg/m2 Price Carthage DO Work Phone: [facility] 03-04-2024 23:45-0500 Body weight 77.2 kg Price Krishnaver DO Work Phone: [facility] Encounters Encounter Date Encounter Type Care Provider Facility Start: 08-26-2024 End: 08-26-2024 Emergency department patient visit No Primary Care Physician -Emergency Department Work Phone: Start: 08-09-2024 End: 08-10-2024 ambulatory PHYSICIAN [facility] Start: 08-09-2024 End: 06-19-2025 ambulatory PHYSICIAN [facility] Start: 08-04-2024 End: 08-05-2024 Emergency department patient visit Bryant Alicea MD, PhD Work Phone: [facility] Emergency Department Start: 07-19-2024 End: 07-19-2024 Emergency department patient visit ROSEMARY MALDONADO [facility] Start: 03-04-2024 End: 03-05-2024 Emergency department patient visit Price Smiley DO Work Phone: [facility] Emergency Department Start: 11-16-2023 End: 11-16-2023 Emergency department patient visit AMNA NGUYEN [facility] Start: 11-10-2023 End: 11-11-2023 [facility] Date Procedure Procedure Detail Performing Clinician Start: 08-04-2024 Radiologic exam ches t single view Keri Hart MD Work Phone: Start: 08-04-2024 GOLD TOP TUBE Jolene Mcneil MD Work Phone: Start: 08-04-2024 LAVENDER TOP TUBE Glo Mcneil MD Work Phone: Start: 08-04-2024 LT BLUE TOP TUBE Jolene Mcneil MD Work Phone: Start: 08-04-2024 MINT GREEN TOP TUBE Dayo Mcneil MD Work Phone: Start: 08-04-2024 RAINBOW DRAW Jolene cook MD Work Phone: Start: 03-05-2024 Drug tst prsmv instr mnt chem analyzers pr date Ashely Ferreira MD Work Phone: Start: 03-04-2024 Glucose measurement, blood Price Smiley DO Work Phone: Plan of Treatment Date Care Activity Detail Author Start: 11-09-2033 Tetanus vaccination TETANUS [facility] Start: 10-22-2024 Influenza vaccination INFLUENZ A VACCINE (Season Ended) [facility] Start: 10-23-2023 COVID-19 VACCINE ( season) COVID-19 VACCINE ( season) [facility] Start: 10-23-2023 Influenza vaccination INFLUENZA VACC INE (#1) [facility] Start: 2008 Hepatitis B vaccination HEP B VACCINE (1 of 3 - 19+ 3-dose series) [facility] Start: 2008 PNEUMOCOCCAL VACCINE SERIES (1 of 2 - PCV) PNEUMOCOCCAL VACCINE SERIES (1 of 2 - PCV) [facility] Start: 2004 HIV screening HIV SCREENING DISCUSSI ON [facility] Start: 1989 Hepatitis C screening HEPATITI S C VIRUS SCREENING [facility] End: 08-04-2024 Standard ECG ECG ECG STAT One Time for 1 Occurrences starting 08/04/2024 until 08/04/2024 [facility] Comment on above: One Time for 1 Occur rences starting 08/04/2024 until 08/04/2024 Immunizations Immunization Date Immunization Notes Care Provider Ashley gómez 01-11-2019 influenza virus vaccine, unspecified formulation Price Smiley DO Work Phone: [facility] Payers Date Payer Category Payer Medicaid (Managed Care) [facility]LY [facility] [id number] 2024 Private Health Insurance [id number] 2009 Unknown [id number] 1989 Unknown [id number] 1989 Unknown [id number] 1989 Unknown [id number] 1989 Unknown [id number] Social History Date Type Detail Facility Start: 07-22-2020 End: 03-04-2024 Tobacco smoking status NHIS Smokes tobacco daily [facility] History of tobacco use Cigarette Smoker [facility] Start: 03-04-2024 Tobacco use and exposure Smoke less tobacco non-user [facility] Start: 03-04-2024 End: 08-04-2024 Alcoholic beverage intake Current drinker of alcohol (finding) [facility] Start: 03-04-2024 End: 08-04-2024 Alcoholic beverage intake [facility] Start: 03-04-2024 Alcohol Use Disorder Identification Test - Consumption [AUDIT-C] [facility] How often to you hav e a drink containing alcohol? 4 or more times a week [facility] How many standard dr inks containing alcohol do you have on a typical day? 5 or 6 [facility] How often do you hav e 6 or more drinks on 1 occasion? Weekly [facility] Start: 1990 Sex assigned at Not on file [facility] Start: 03-04-2024 Sex Male (finding) [facility] Start: 03-05-2020 Tobacco Use Tobacco Use [facility] Start: 1989 Sex Assigned At Male W [facility] Clinical Notes 05-20-2020 to 08-04-2024 Bryant Alicea Sr., MD, PhD - 08/04/2024 11:35 PM Mary Sarmiento Sr., MD, PhD - 08/04/2024 11:35 PM Amara Hart MD - 08/04/2024 10:29 PM EDTDischarge Instructions Note Date & Type Note Facility 08-04-2024 Physician Emergency department Note ED ATTENDING NOTE Please see resident notes from this encounter for additional information. I saw and examined the patient. I discussed the history and examination with the resident and agree with the plan of care unless otherwise indicated. RELEVANT HPI: Viktoria Sosa is a 33 y.o. male has no past medical history on file.; he presents with chief complaint of Alcohol intoxication Hisotry of polysubstance abuse. Was found down in neighbor's lawn who called 911. Endorses drinking etoh but denies other drug use. Denied any chest pain, shortness of breath. Doesn't remember anything but drinking alcohol and then appearing in the emergency department after passing out. PERTINENT EXAM: Vital Signs: BP 131/80 Pulse 90 Temp 97.8 F (36.6 C) (Oral) Resp 18 SpO2 95% Smoking Status Every Day Chest wall pain No signs of head trauma Breathing comfortably Protecting airway DIAGNOSTICS Radiology: XR CHEST 1 VIEW PORTABLE Final Result IMPRESSION: No acute cardiopulmonary disease I directly reviewed the images and radiology interpretation . Medical Decision Making Patient presents with acute alcohol intoxication with history of abuse. He is otherwise stable without significant evidence of head trauma or other trauma except tenderness to chest wall without ecchymosis. Chest xray obtained and without acute injury. He is awake, ambulatory, and able to tolerate PO and appropriate for discharge. Problems Addressed: Alcohol abuse with intoxication: acute illness or injury Amount and/or Complexity of Data Reviewed Radiology: ordered and independent interpretation performed. ECG/medicine tests: ordered. Orders Placed This Encounter XR CHEST 1 VIEW PORTABLE RAINBOW DRAW GOLD TOP TUBE MINT GREEN TOP TUBE LAVENDER TOP TUBE LT BLUE TOP TUBE ECG ED Course: I have reviewed the history, physical, and plan with the resident/SEBASTIAN and agree. Prior medical records were reviewed. All pertinent labs and imaging results were reviewed and interpreted by me. The patient was updated regarding findings, and was re-assessed during ED stay. This note was dictated using medical voice recognition software. Attempts at proofreading were made, but errors may occasionally still occur. Bryant Alicea Sr., MD, PhD 08/05/24 0236 [facility] Work Phone: 08-04-2024 Emergency department Note ED ATTENDING NOTE Please see resident notes from this encounter for additional information. I saw and examined the patient. I discussed the history and examination with the resident and agree with the plan of care unless otherwise indicated. RELEVANT HPI: Viktoria Sosa is a 33 y.o. male has no past medical history on file.; he presents with chief complaint of Alcohol intoxication Hisotry of polysubstance abuse. Was found down in neighbor's lawn who called 911. Endorses drinking etoh but denies other drug use. Denied any chest pain, shortness of breath. Doesn't remember anything but drinking alcohol and then appearing in the emergency department after passing out. PERTINENT EXAM: Vital Signs: BP 131/80 Pulse 90 Temp 97.8 F (36.6 C) (Oral) Resp 18 SpO2 95% Smoking Status Every Day Chest wall pain No signs of head trauma Breathing comfortably Protecting airway DIAGNOSTICS Radiology: XR CHEST 1 VIEW PORTABLE Final Result IMPRESSION: No acute cardiopulmonary disease I directly reviewed the images and radiology interpretation . Medical Decision Making Patient presents with acute alcohol intoxication with history of abuse. He is otherwise stable without significant evidence of head trauma or other trauma except tenderness to chest wall without ecchymosis. Chest xray obtained and without acute injury. He is awake, ambulatory, and able to tolerate PO and appropriate for discharge. Problems Addressed: Alcohol abuse with intoxication: acute illness or injury Amount and/or Complexity of Data Reviewed Radiology: ordered and independent interpretation performed. ECG/medicine tests: ordered. Orders Placed This Encounter XR CHEST 1 VIEW PORTABLE RAINBOW DRAW GOLD TOP TUBE MINT GREEN TOP TUBE LAVENDER TOP TUBE LT BLUE TOP TUBE ECG ED Course: I have reviewed the history, physical, and plan with the resident/SEBASTIAN and agree. Prior medical records were reviewed. All pertinent labs and imaging results were reviewed and interpreted by me. The patient was updated regarding findings, and was re-assessed during ED stay. This note was dictated using medical voice recognition software. Attempts at proofreading were made, but errors may occasionally still occur. Bryant Alicea Sr., MD, PhD 08/05/24 0236 dEPARTMENT of Emergency Medicine CHIEF COMPLAINT Alcohol intoxication HPI Viktoria Sosa is a 33 y.o. male with a history of polysubstance use who presents by EMS after being found unconscious in someone's yard. Patient states he has been drinking alcohol today. He does not remember how he came to be in their yard. He denies physical symptoms at this time. He denies other substance use today. PAST MEDICAL HISTORY No past medical history on file. SURGICAL HISTORY Past Surgical History: Procedure Laterality Date FOOT SURGERY Left pt reports surgery on the left heel CURRENT MEDICATIONS No current facility-administered medications for this encounter. Current Outpatient Medications Medication Sig Dispense Refill naloxone 4 MG/0.1ML 1 spray by Nasal route As directed PRN for Opioid Reversal. [place] into the nose as directed. Call 911. If no response in 2 minutes use a new nasal spray in other nostril. Repeat until help arrives. 2 Each 0 ALLERGIES No Known Allergies FAMILY HISTORY History reviewed. No pertinent family history. SOCIAL HISTORY Social History Socioeconomic History Marital status: Single Spouse name: Not on file Number of children: Not on file Years of education: Not on file Highest education level: Not on file Occupational History Not on file Tobacco Use Smoking status: Every Day Types: Cigarettes Smokeless tobacco: Never Vaping Use Vaping status: Never Used Substance and Sexual Activity Alcohol use: Yes Alcohol/week: 3.0 standard drinks of alcohol Types: 3 Cans of beer per week Drug use: Yes Types: Marijuana Sexual activity: Not Currently Other Topics Concern Not on file Social History Narrative Not on file Social Drivers of Health Financial Resource Strain: Not on file Food Insecurity: Not on file Transportation Needs: Not on file Physical Activity: Not on file Stress: Not on file Social Connections: Not on file Personal Safety: Not on file Housing Stability: Not on file PHYSICAL EXAM BP 131/80 Pulse 90 Temp 97.8 F (36.6 C) (Oral) Resp 18 SpO2 95% Smoking Status Every Day Physical Exam Vitals and nursing note reviewed. Constitutional: General: He is not in acute distress. Cardiovascular: Rate and Rhythm: Normal rate and regular rhythm. Pulses: Normal pulses. Heart sounds: Normal heart sounds. Pulmonary: Effort: Pulmonary effort is normal. Breath sounds: Normal breath sounds. Chest: Chest wall: Tenderness (Central chest wall) present. Musculoskeletal: General: No signs of injury. Neurological: Mental Status: He is alert and oriented to person, place, and time. Cranial Nerves: No cranial nerve deficit. Sensory: No sensory deficit. Motor: No weakness. ED COURSE & MEDICAL DECISION MAKING ED Course as of 08/05/24 0115 Sun Aug 05, 2024 0055 ECG NSR, normal EKG. Medical Decision Making Patient presents after being found unconscious in a yard. He endorses alcohol use today but denies other drug use. Exam is notable for central chest wall tenderness. We obtained an EKG and a chest x-ray to evaluate this, both of which were negative. Patient is alert and oriented without neurologic deficits and was able to tolerate p.o. and ambulate normally. Patient was discharged. Amount and/or Complexity of Data Reviewed External Data Reviewed: notes. Radiology: ordered. ECG/medicine tests: ordered and independent interpretation performed. Decision-making details documented in ED Course. Risk Diagnosis or treatment significantly limited by social determinants of health. Keri Hart MD Resident 08/05/24 0120 Pt was found unconscious in someone's front yard. EMS expected ETOH intoxication. Aox3 with EMS. Pt bg was 146 and was given fluids via EMS. Unlabored respirations. Bed: [facility] Expected date: Expected time: Means of arrival: Comments: Medic 8 documented in this encounter [facility] 08-04-2024 Physician Emergency department Note dEPARTMENT of Emergency Medicine CHIEF COMPLAINT Alcohol intoxication HPI Viktoria Sosa is a 33 y.o. male with a history of polysubstance use who presents by EMS after being found unconscious in someone's yard. Patient states he has been drinking alcohol today. He does not remember how he came to be in their yard. He denies physical symptoms at this time. He denies other substance use today. PAST MEDICAL HISTORY No past medical history on file. SURGICAL HISTORY Past Surgical History: Procedure Laterality Date FOOT SURGERY Left pt reports surgery on the left heel CURRENT MEDICATIONS No current facility-administered medications for this encounter. Current Outpatient Medications Medication Sig Dispense Refill naloxone 4 MG/0.1ML 1 spray by Nasal route As directed PRN for Opioid Reversal. [place] into the nose as directed. Call 911. If no response in 2 minutes use a new nasal spray in other nostril. Repeat until help arrives. 2 Each 0 ALLERGIES No Known Allergies FAMILY HISTORY History reviewed. No pertinent family history. SOCIAL HISTORY Social History Socioeconomic History Marital status: Single Spouse name: Not on file Number of children: Not on file Years of education: Not on file Highest education level: Not on file Occupational History Not on file Tobacco Use Smoking status: Every Day Types: Cigarettes Smokeless tobacco: Never Vaping Use Vaping status: Never Used Substance and Sexual Activity Alcohol use: Yes Alcohol/week: 3.0 standard drinks of alcohol Types: 3 Cans of beer per week Drug use: Yes Types: Marijuana Sexual activity: Not Currently Other Topics Concern Not on file Social History Narrative Not on file Social Drivers of Health Financial Resource Strain: Not on file Food Insecurity: Not on file Transportation Needs: Not on file Physical Activity: Not on file Stress: Not on file Social Connections: Not on file Personal Safety: Not on file Housing Stability: Not on file PHYSICAL EXAM BP 131/80 Pulse 90 Temp 97.8 F (36.6 C) (Oral) Resp 18 SpO2 95% Smoking Status Every Day Physical Exam Vitals and nursing note reviewed. Constitutional: General: He is not in acute distress. Cardiovascular: Rate and Rhythm: Normal rate and regular rhythm. Pulses: Normal pulses. Heart sounds: Normal heart sounds. Pulmonary: Effort: Pulmonary effort is normal. Breath sounds: Normal breath sounds. Chest: Chest wall: Tenderness (Central chest wall) present. Musculoskeletal: General: No signs of injury. Neurological: Mental Status: He is alert and oriented to person, place, and time. Cranial Nerves: No cranial nerve deficit. Sensory: No sensory deficit. Motor: No weakness. ED COURSE & MEDICAL DECISION MAKING ED Course as of 08/05/24 0115 [place] Aug 05, 2024 0055 ECG NSR, normal EKG. Medical Decision Making Patient presents after being found unconscious in a yard. He endorses alcohol use today but denies other drug use. Exam is notable for central chest wall tenderness. We obtained an EKG and a chest x-ray to evaluate this, both of which were negative. Patient is alert and oriented without neurologic deficits and was able to tolerate p.o. and ambulate normally. Patient was discharged. Amount and/or Complexity of Data Reviewed External Data Reviewed: notes. Radiology: ordered. ECG/medicine tests: ordered and independent interpretation performed. Decision-making details documented in ED Course. Risk Diagnosis or treatment significantly limited by social determinants of health. Keri Hart MD Resident 08/05/24 0120 [facility] 08-04-2024 Emergency department Note Pt was found unconscious in someone's front yard. EMS expected ETOH intoxication. Aox3 with EMS. Pt bg was 146 and was given fluids via EMS. Unlabored respirations. [facility] 08-04-2024 Emergency department Note Bed: [facility] Expected date: Expected time: Means of arrival: Comments: Medic 8 [facility] 03-05-2024 Emergency department Note Narcan kit given to patient with education provided, per Dr. Ferreira. [facility] 03-05-2024 Emergency department Note Narcan kit given to patient with education provided, per Dr. Ferreira. ED ATTENDING NOTE Chief Complaint: Drug Overdose (Arrived via medic after being found down, with shallow respirations and pinpoint pupils. Medics administered 2mg IM Narcan.) HPI: Viktoria Sosa is a 33 y.o. male who presents with drug overdose. Patient is unclear exactly what happened tonight. He states he was with his roommate. He was drinking alcohol and using marijuana. He states that he lost consciousness and he woke up in the ED. paramedics had to administer 2 mg of IM Narcan to the patient when he was found down with pinpoint pupils and shallow respirations. Patient states that he obtained the marijuana at a store. Patient is fixated on his back pack. He states he has all of his identification and personal belongings in his back pack and is unsure where it is and needs to get a hold of it. ROS: Except as noted above in HPI, all other systems reviewed and negative. Past Medical History: No past medical history on file. Vital Signs: BP 128/77 Pulse 98 Temp 97.8 F (36.6 C) (Oral) Resp 14 Ht 1.753 m (5' 9) Wt 77.2 kg (170 lb 3.2 oz) SpO2 97% BMI 25.13 kg/m Smoking Status Every Day Pertinent Exam: Patient is in no acute distress. He is resting calmly, pleasant and conversational. He is alert and oriented. He has 2 mm reactive pupils bilaterally. There are mild bilateral upper lobe expiratory wheezes. There is no increased work of breathing. Heart sounds are normal with regular rate and rhythm. Abdomen is soft and nontender. IV is noted in the left antecubital fossa. There are no track hollingsworth. Neck is supple with full range of motion. Patient is ambulatory to the restroom. Assessment/Plan/Disposition: Patient presents with alleged drug overdose. He did receive Narcan. I explained that the marijuana may have been cut with an opiate such as fentanyl and we could test this in his urine. He will provide a urine sample. We will check a blood glucose. Patient will have to be monitored in the ED for the next couple of hours. He is currently protecting his airway and phonating without difficulty. On 03/04/2024 I saw and examined the patient. I discussed the history and examination with the resident physician and agree with the plan of care. Medical Decision Making See note Problems Addressed: Drug overdose of undetermined intent, initial encounter: acute illness or injury Amount and/or Complexity of Data Reviewed Labs: ordered. Decision-making details documented in ED Course. Risk OTC drugs. Prescription drug management. Decision regarding hospitalization. Price Smiley DO 03/05/24 0013 Bed: 01 Expected date: Expected time: Means of arrival: Comments: Medic 18 documented in this encounter [facility] 03-05-2024 Hospital Discharge instructions Ashely Ferreira MD - 03/05/2024 2:01 AM EST Viktoria Sosa, you were seen here today following an overdose. Urine drug studies showed cocaine, fentanyl, and cannabis in your urine. You have been provided with fentanyl and xylazine test strips, as well as a prescription for narcan. Please follow up with your primary care provider for further care. If you need any further assistance with scheduling follow up care, please call the clinical field case manager at . Return to the ED if your symptoms worsen, something changes, or you do not feel comfortable taking care of yourself at home. Also come back if you develop a fever, chest pain, are not able to breathe, or are not able to tolerate food by mouth. The following attachments cannot be sent through Care Everywhere.Drug Overdose: Fentanyl: General Info (Brazilian)naloxone (nasal) (Brazilian)documented in this encounter [facility] 03-05-2024 Physician Emergency department Note ED ATTENDING NOTE Chief Complaint: Drug Overdose (Arrived via medic after being found down, with shallow respirations and pinpoint pupils. Medics administered 2mg IM Narcan.) HPI: Viktoria Sosa is a 33 y.o. male who presents with drug overdose. Patient is unclear exactly what happened tonight. He states he was with his roommate. He was drinking alcohol and using marijuana. He states that he lost consciousness and he woke up in the ED. paramedics had to administer 2 mg of IM Narcan to the patient when he was found down with pinpoint pupils and shallow respirations. Patient states that he obtained the marijuana at a store. Patient is fixated on his back pack. He states he has all of his identification and personal belongings in his back pack and is unsure where it is and needs to get a hold of it. ROS: Except as noted above in HPI, all other systems reviewed and negative. Past Medical History: No past medical history on file. Vital Signs: BP 128/77 Pulse 98 Temp 97.8 F (36.6 C) (Oral) Resp 14 Ht 1.753 m (5' 9) Wt 77.2 kg (170 lb 3.2 oz) SpO2 97% BMI 25.13 kg/m Smoking Status Every Day Pertinent Exam: Patient is in no acute distress. He is resting calmly, pleasant and conversational. He is alert and oriented. He has 2 mm reactive pupils bilaterally. There are mild bilateral upper lobe expiratory wheezes. There is no increased work of breathing. Heart sounds are normal with regular rate and rhythm. Abdomen is soft and nontender. IV is noted in the left antecubital fossa. There are no track hollingsworth. Neck is supple with full range of motion. Patient is ambulatory to the restroom. Assessment/Plan/Disposition: Patient presents with alleged drug overdose. He did receive Narcan. I explained that the marijuana may have been cut with an opiate such as fentanyl and we could test this in his urine. He will provide a urine sample. We will check a blood glucose. Patient will have to be monitored in the ED for the next couple of hours. He is currently protecting his airway and phonating without difficulty. On 03/04/2024 I saw and examined the patient. I discussed the history and examination with the resident physician and agree with the plan of care. Medical Decision Making See note Problems Addressed: Drug overdose of undetermined intent, initial encounter: acute illness or injury Amount and/or Complexity of Data Reviewed Labs: ordered. Decision-making details documented in ED Course. Risk OTC drugs. Prescription drug management. Decision regarding hospitalization. Price Smiley DO 03/05/24 0013 [facility] 03-04-2024 Emergency department Note Bed: EE01 Expected date: Expected time: Means of arrival: Comments: Medic 18 [facility] 09-30-2020 Note HNO ID: [id number] Author: Brianna Mcgrath PA-C Service: ? Author Type: Physician Customer Management Specialist Type: Progress Notes Filed: 09/30/2020 8:58 PM Note Text: CHIEF COMPLAINT: Patient presents with: Hepatitis B Carrier HPI: Viktoria Sosa is a 30 year old male who presents for Hepatitis B Carrier. States he has known he has had Hep B for the past several months. Testing with PCP 05/20/2020 demonstrated positive hep B viral DNA, surface antigen; LFTs within normal limits. Includes that he is currently asymptomatic. Denies fever, fatigue, abdominal pain, sweats, chills, jaundice. States he has a history of unprotected sex with a few partners Has three unprofessionally done tattoos Admits to hx of injection drug use (thinks this is meth but is not sure) Social drinker 1-2x per week Smokes marijuanna occasionally Stopped using meth 2 mos ago. Record Review: [facility] / Outside records reviewed. 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 imiquimod (ALDARA) 5 % cream Apply 1 Packet to affected area three times a week. diphenhydrAMINE (BENADRYL) 25 mg capsule Take 1 capsule by mouth at bedtime as needed (insomnia). FAMILY HISTORY Problem Relation Age of Onset - No Known Problems Mother - No Known Problems Father - No Known Problems Maternal Grandmother - No Known Problems Maternal Grandfather - No Known Problems Paternal Grandmother - No Known Problems Paternal Grandfather Employer And Job Title: None on file Years Of Education Completed: Not specified Marital Status: Single Social History Tobacco Use - Smoking status: Current Every Day Smoker Packs/day: 0.50 Years: 8.00 Pack years: 4.00 Types: Cigarettes - Smokeless tobacco: Never Used Vaping Use - Vaping Use: Never used Substance Use Topics - Alcohol use: Yes Alcohol/week: 21.0 - 30.0 standard drinks Types: 21 - 30 Cans of Beer (12oz) per week Comment: Socially - Drug use: Not Currently Types: Amphetamines Comment: stopped using meth about 2 months ago Review of Systems: Review of Systems Constitutional: Negative for appetite change, chills, diaphoresis, fatigue, fever and unexpected weight change. Gastrointestinal: Negative for abdominal distention, abdominal pain, anal bleeding, blood in stool, constipation, diarrhea, nausea, rectal pain and vomiting. All other systems reviewed and are negative. Are you taking any blood thinners? No Physical Examination: BP 128/76 Pulse 60 Ht 5' 9 (1.75m) Wt 162 lb (73.5kg) BMI 23.91 kg/(m2). Physical Exam Constitutional: General: He is not in acute distress. Appearance: Normal appearance. He is normal weight. He is not ill-appearing, toxic-appearing or diaphoretic. HENT: Head: Normocephalic and atraumatic. Nose: Nose normal. Eyes: General: No scleral icterus. Right eye: No discharge. Left eye: No discharge. Extraocular Movements: Extraocular movements intact. Conjunctiva/sclera: Conjunctivae normal. Pupils: Pupils are equal, round, and reactive to light. Cardiovascular: Rate and Rhythm: Normal rate and regular rhythm. Pulses: Normal pulses. Heart sounds: Normal heart sounds. No murmur heard. No friction rub. No gallop. Pulmonary: Effort: No respiratory distress. Breath sounds: Normal breath sounds. No stridor. No wheezing, rhonchi or rales. Chest: Chest wall: No tenderness. Abdominal: General: Abdomen is flat. Bowel sounds are normal. There is no distension. Palpations: Abdomen is soft. There is no mass. Tenderness: There is no abdominal tenderness. There is no right CVA tenderness, left CVA tenderness, guarding or rebound. Hernia: No hernia is present. Musculoskeletal: General: Normal range of motion. Cervical back: Normal range of motion and neck supple. Skin: General: Skin is warm and dry. Neurological: General: No focal deficit present. Mental Status: He is alert and oriented to person, place, and time. Psychiatric: Mood and Affect: Mood normal. Behavior: Behavior normal. Assessment/Plan (B18.1) Chronic hepatitis B virus infection (HCC) (primary encounter diagnosis) 1. Chronic hepatitis B virus infection (HCC) - HEP DELTA AB; Future - HEP BE ANTIGEN; Future - COMP METABOLIC PANEL; Future - LIVER FIBROSIS AND ACTIVITY; Future - US ABD RT UPPE (more content not included)... [facility] 09-24-2020 Note HNO ID: [id number] Author: Betsy Patel APRN.DRUG ABUSE WORKER Service: ? Author Type: Nurse Practitioner Type: Progress Notes Filed: 09/24/2020 7:07 PM Note Text: CC: Patient presents with: Recheck HPI Viktoria Sosa is a 30 year old male who presents today for above. He had called in requesting a refill on genital wart treatment. Had been referred to PA in urology for genital wart removal but not in his scope of practice. Patient reports warts are mostly gone, just a few small ones that just popped up. He no showed appointment with pad extraction tender to discuss treatment for Hepatitis B. He was supposed to have HIV test but has not done so yet. Taking Zoloft for social anxiety disorder which he has found to be very effective. Denies any concern today. 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 MEDICATIONS diphenhydrAMINE (BENADRYL) 25 mg capsule Take 1 capsule by mouth at bedtime as needed (insomnia). sertraline (ZOLOFT) 50 mg tablet Take 1 tablet by mouth once daily. FAMILY HISTORY Problem Relation Age of Onset - No Known Problems Mother - No Known Problems Father - No Known Problems Maternal Grandmother - No Known Problems Maternal Grandfather - No Known Problems Paternal Grandmother - No Known Problems Paternal Grandfather Social History Tobacco Use - Smoking status: Current Every Day Smoker Packs/day: 0.50 Years: 8.00 Pack years: 4.00 Types: Cigarettes - Smokeless tobacco: Never Used Vaping Use - Vaping Use: Never used Substance Use Topics - Alcohol use: Yes Alcohol/week: 21.0 - 30.0 standard drinks Types: 21 - 30 Cans of Beer (12oz) per week - Drug use: Not Currently Types: Amphetamines Comment: stopped using meth about one month ago PHYSICAL EXAM BP 130/82 Pulse 114 Resp 16 Wt 69.9 kg (154 lb) SpO2 98% BMI 22.74 kg/m? General Appearance: well appearing, in no acute distress, alert Pysch: affect is anxious Health maintenance reviewed with patient: DTAP,TDAP,TD(2 - Tdap) due on 11/20/2002 ONE PNEUMOVAX PRIOR TO AGE 65 Never done COVID-19 VACCINE(2 - Pfizer 2-dose series) due on 08/19/2020 INFLUENZA(1) due on 10/22/2020 DEPRESSION SCREENING due on 05/20/2021 HEPATITIS C SCREENING Completed MENINGOCOCCAL CONJUGATE Aged Out HIV SCREENING Discontinued DATA REVIEWED: Most recent labs ASSESSMENT/PLAN: 1. Genital warts - ICD9: 078.11, ICD10: A63.0 (primary diagnosis) - IMIQUIMOD 5 % TOPICAL CREAM PACKET refilled. Advised patient last refill, if warts continue to reoccur or worsen he will need to see urologist or dermatology for removal 2. Hepatitis B carrier (HCC) - ICD9: V02.61, ICD10: B18.1 Stressed the need to reschedule and keep appointment with pad extraction tender. Reviewed potential complications of untreated Hepatitis B, he verbalized understanding and willingness 3. Social anxiety disorder - ICD9: 300.23, ICD10: F40.10 Stable on Zoloft Prescription instructions reviewed with patient as applicable. Potential red flag symptoms discussed with the patient. Reviewed appropriate action plan to take if red flag symptoms occur. Patient agreeable to treatment plan. During this patient visit I have spent approximately 20 minutes in counseling regarding treatment options, medications, test results and coordinating care. Betsy Patel APRN.DALIA [facility] 06-11-2020 Note HNO ID: [id number] Author: Hitesh Lucero Service: ? Author Type: Physician Type: Progress Notes Filed: 06/11/2020 1:05 PM Note Text: This note was created using [employer]. Subjective Viktoria Sosa is a 29 year old male. His SAD was much better on sertraline. His depression was mild at this point. He had history of meth use, so he had ongoing issues with sleep onset insomnia for 2 or more months. He has only tried melatonin which did not help. He also requested Aldara for recurrent genital warts. He had hepatitis B testing here, but he did not follow up since [employer] indicated hep B resolved on its own. Review of Systems Constitutional: Negative. Gastrointestinal: Negative. Psychiatric/Behavioral: Positive for dysphoric mood and sleep disturbance. Negative for suicidal ideas. The patient is not nervous/anxious. 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) Tobacco Use Disorder Excessive Drinking Alcohol Chronic Heel Pain, Left Hepatitis B Carrier (Hcc) Social History Tobacco Use - Smoking status: Current Every Day Smoker Packs/day: 0.50 Years: 8.00 Pack years: 4.00 Types: Cigarettes - Smokeless tobacco: Never Used Vaping Use - Vaping Use: Never used Substance Use Topics - Alcohol use: Yes Alcohol/week: 21.0 - 30.0 standard drinks Types: 21 - 30 Cans of Beer (12oz) per week - Drug use: Not Currently Types: Amphetamines Comment: stopped using meth about one month ago Current Outpatient Medications Medication Sig - MELATONIN ORAL Take by mouth at bedtime as needed. - sertraline (ZOLOFT) 50 mg tablet Take 1 tablet by mouth once daily. No current facility-administered medications for this visit. Objective BP 122/76 (BP Site: Left Arm, BP Position: Sitting, BP Cuff Size: Large Adult) Pulse 72 Temp (!) 35.8 ?C (96.4 ?F) (Temporal Artery) Resp 16 Wt 73.4 kg (161 lb 12.8 oz) Physical Exam Constitutional: General: He is not in acute distress. Eyes: General: No scleral icterus. Genitourinary: Comments: 2x3 mm papule, right penile shaft near the base. Neurological: Mental Status: He is alert. Psychiatric: Mood and Affect: Mood normal. Behavior: Behavior normal. Component Latest Ref Rng AND Units 05/20/2020 05/23/2020 Hep A Ab, IgM Negative Negative Hep B Surface Ag Negative Initially reactive (A) Hep C Antibody IA Negative Negative Hep B Core Ab, IgM Negative Negative Hep Bs Ag Confirmation Negative Positive (A) HBV DNA Ultra IU/mL >170,000,000 IU/ml HBV DNA detected, not quantifiable. (A) Assessment and Plan 1. Social anxiety disorder - ICD9: 300.23, ICD10: F40.10 (primary diagnosis) Improved. 2. Depressive disorder - ICD9: 311, ICD10: F32.9 Controlled. - DIPHENHYDRAMINE 25 MG CAPSULE. At bedtime as needed for insomnia. 3. Hepatitis B carrier (HCC) - ICD9: V02.61, ICD10: B18.1 He was advised he likely has viremia and is infectious and should notify partners, etc. tank terminal gauger risk of liver disease, liver failure, and liver cancer were discussed. - CONSULT TO HEPATOLOGY 4. Genital warts - ICD9: 078.11, ICD10: A63.0 - He declined cryotherapy. - IMIQUIMOD 5 % TOPICAL CREAM PACKET Hitesh Lucero MD [facility] 05-23-2020 Note HNO ID: [id number] Author: Chel Velasquez Service: ? Author Type: Physician Type: Progress Notes Filed: 05/23/2020 9:24 AM Note Text: Infectious Disease E-Consult Response In response to your eConsult Infectious Disease request for Viktoria Sosa regarding:Hep B Ag History of present illness provided through requesting provider documentation and current treatment plan was reviewed. Based on the patient history provided, my impression is as follows: Obtain hepatitis B viral load and refer to hepatology. Specialist appointment needs: No appointment necessary NEEDS HEPATOLOGY Chel Velasquez MD May 23, 2020 [facility] 05-20-2020 Note HNO ID: [id number] Author: Betsy (Dalia) Older Service: ? Author Type: Nurse Practitioner Type: Progress Notes Filed: 05/21/2020 11:15 AM Note Text: CC: Patient presents with: Establish Care HPI Viktoria Sosa is a 29 year old male who presents today for above. Patient reports he was recently seen at [facility] for STD testing and he was positive for Hepatitis B. Admits to unprotected sex with a female. He denies IV drug use, abdominal pain, nausea, vomiting, jaundice, abnormal colored stool or urine, diarrhea, fever, chills, night sweats, fatigue, unintentional weight loss. Denies history of known hepatitis infection. Patient requesting medication for social awkwardness. Admits to feeling very anxious during most social situations and then he acts awkward. Denies depressed mood, anhedonia, excessive worrying, anxious thoughts, insomnia, SI, HI, irritability, short tempered, difficulty concentrating. Admits to drinking 3 or more tall boys a day. History of meth use, reportedly stopped about one month ago. History of bilateral heel fractures, surgical repair of left heel about 8 years ago. Since then he has intermittent left heel pain, mostly occurs when it rains. Treats with ibuprofen without much relief. Denies acute pain at this time but wondering what else he can take when it does occur. 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 MEDICATIONS No prescriptions on file. FAMILY HISTORY Problem Relation Age of Onset - No Known Problems Mother - No Known Problems Father - No Known Problems Maternal Grandmother - No Known Problems Maternal Grandfather - No Known Problems Paternal Grandmother - No Known Problems Paternal Grandfather Social History Tobacco Use - Smoking status: Current Every Day Smoker Packs/day: 0.50 Years: 8.00 Pack years: 4.00 Types: Cigarettes - Smokeless tobacco: Never Used Vaping Use - Vaping Use: Never used Substance Use Topics - Alcohol use: Yes Alcohol/week: 21.0 - 30.0 standard drinks Types: 21 - 30 Cans of Beer (12oz) per week - Drug use: Not Currently Types: Amphetamines Comment: stopped using meth about one month ago PHYSICAL EXAM BP 128/82 Pulse 86 Temp 36.1 ?C (96.9 ?F) (Temporal) Resp 14 Wt 70.3 kg (155 lb) SpO2 98% Appearance: well dressed well groomed and cooperative Behavior: poor eye contact and tense, restless Speech: fast Mood: anxious Affect: constricted Skin: Skin color, texture, turgor normal for age; Eyes: conjunctiva pink and moist, no icterus, sclera white, non-injected Neck: Thyroid normal size and symmetric without palpable nodules, Neck supple, No adenopathy Lymph nodes: No supraclavicular lymphadenopathy Lungs: Lungs clear to auscultation. No wheezing, rhonchi, rales. Heart: RRR without murmur, gallop, or rubs. No ectopy Abdomen: Abdomen soft, non-tender. Bowel sounds normal. No masses, organomegaly Ext: no edema in LE bilaterally, good distal pulses DEPRESSION SCREENING Completed HEPATITIS C SCREENING Completed HIV SCREENING Completed DTAP,TDAP,TD(1 - Tdap) Completed ONE PNEUMOVAX PRIOR TO AGE 65 Completed INFLUENZA(1) due on 08/20/2020 MENINGOCOCCAL CONJUGATE Completed ASSESSMENT/PLAN: 1. Encounter for medical examination to establish care - ICD9: V70.9, ICD10: Z00.00 (primary diagnosis) Discussed health maintenance including regular aerobic exercise, healthy diet, age appropriate screenings and periodic exams. - Vaccination(s) recommended today: Tdap and Pneumovax; patient declined 2. Hepatitis - ICD9: 573.3, ICD10: K75.9 STD testing at [facility] positive for Hepatitis B per patient, results not available for review. Patient has very low health literacy and poor historian. Will recheck acute hepatitis panel and also CMP. Follow-up and further recommendations pending results - CMP (CMP) (FOR REMOTE [facility] USE) - HEP ACUTE PANEL BL 3. Social anxiety disorder - ICD9: 300.23, ICD10: F40.10 Patient requesting something to make him less awkward. Appears that patient suffers from social anxiety. - Discussed treatment options and benefits of college counselor (more content not included)... [facility] Evaluation note Diagnosis Drug overdose of undetermined intent, initial encounter- Primary [facility] Alcohol abuse with intoxication- Primary Acute alcoholic intoxication in alcoholism, unspecified [facility] assessment information available [facility] [place] Work Phone: Hospital Discharge instructions* Attachments The following attachments cannot be sent through Care Everywhere. * Alcohol Intoxication: Acute (Brazilian) [facility] Radiology (Emergency) - New Request Specialty Diagnoses / Procedures Referred By Ana persaud Referred To Contact Procedures ECG Jolene Mcneil MD [address] [place] [id number] Phone: tel: fax: Referral ID Status Reason Start Date Expiration Date V isits Requested Visits Authorized [id number] New Request 08/04/2024 08/29/2025 1 1 [facility] for referral (narrative)No reason for referral information [facility]WUniversity [facility] Work Phone: Summary Purpose Family History No Family History Records FoundNo Family History Records FoundNo Family History Records FoundNo Family History Records FoundNo Family History Records Found Advance Directives No Advanced Directives Records FoundNo Advanced Directives Records FoundNo Advanced Directives Records FoundNo Advanced Directives Records FoundNo Advanced Directives Records Found Chief Complaint and Reason for Visit Chief Complaint Admit Date desire for detox August 26, 2024 3:09p m Additional Source Comments (unrecognized sect ion and content) No Status Records FoundNo Status Records FoundNo Status Records FoundNo Status Records FoundNo Status Records Found INFORMATION SOURCE (unrecogn ized section and content) DATE CREATED AUTHOR 11/24/2020 [facility] DATE CREATED AUTHOR AUTHOR'S ORGANIZ ATION 04/02/2021 [facility] DATE CREATED AUTHOR AUTHOR'S ORGANIZ ATION 04/12/2021 [facility] DATE CREATED AUTHOR AUTHOR'S ORGANIZ ATION 08/12/2024 [facility] DATE CREATED AUTHOR AUTHOR'S ORGANIZ ATION 08/16/2024 [facility] Reason for Visit (unrecogniz ed section and content) Reason Comments Drug Overdose Arrived via medic af ter being found down, with shallow respirations and pinpoint pupils. Medics administered 2mg IM Narcan. Reason Comments Alcohol intoxication Care Teams (unrecognized sec tion and content) Retirement Plan Specialist Relationship Specialty Start Date End Date Self, Self PCP - General Other 03/05/24 Retirement Plan Specialist Relationship Specialty Start Date End Date Self, Self PCP - General Other 03/05/24 Team Status: Active Member Role/Relationship Status Dates No Primary Care Physician Primary Care Provider Active Team Status: Inactive Member Role/Relationship Status Dates No Primary Care Physician Primary Care Provider Active Start: August 26, 2024 End: August 26, 2024 Ed Physician Provider Emergency Provider Active Start: August 26, 2024 End: August 26, 2024 Goals (unrecognized section and content) Goals may be documented in a n alternate section FOR RECORDS PERTAINING TO PATIENTS WHO ARE OR HAVE BEEN ENROLLED IN A CHEMICAL DEPENDENCY/SUBSTANCEABUSE PROGRAM, SOME INFORMATION MAY BE OMITTED. This clinical summary was aggregated from multiple sources. Caution should be exercised in using it in the provision of clinical care. This summary normalizes information from multiple sources, and as a consequence, information in this document may materially change the coding, format and clinical context of patient data. In addition, data may be omitted in some cases. CLINICAL DECISIONS SHOULD BE BASED ON THE PRIMARY CLINICAL RECORDS. [employer] provides no warranty or guarantee of the accuracy or completeness of information in this document.
--- OUTSIDE RECORDS SUMMARY | 2024-08-26 16:00 | XMS RPT_ITS | CCD ---
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 [place] into the nose as directed. Call 911. [...] - No, Physician Language assistance: N/A - [place] Kazakh speaker Chief Complaint Patient presents with Psychiatric [...] mg (has (more content not included)... Normal [facility] ALCOHOL, MEDICALon 5 ALCOHOL MEDICAL 117.0 mg/dL High <10.0 [facility] Comment on above: Performed By: #### 4 [id number] #### [facility] [address], [place] [address] Des Nieves M.D. [id number] ALCOHOL MEDICAL < Normal <10.0 [facility] Comment on above: Result Comment: Alco hol cutoff: <10.00 mg/dL = None Detected Performed By: #### 4 5033 #### [facility] [address] [address] Des Nieves M.D. [id number] DRUGS OF ABUSE SCREEN, URINE on 08-09-2024 AMPHETAMINE SCREEN, URINE Not detected Normal None Detected [facility] Comment on above: Order Comment: Scree n results should be used for treatment purposes only. Specimen will be kept for 2 weeks, if the sample is adequate. Confirmation testing can be initiated by calling the lab within 2 weeks. Result Comment: Urin e Amphetamine Cutoff: < 1000 ng/mL = None Detected Performed By: #### 4 [id number] #### [facility] [address] [address] Des Nieves M.D. [id number] BARBITURATE SCREEN URINE Not detected Normal None Detected [facility] Comment on above: Order Comment: Scree n results should be used for treatment purposes only. Specimen will be kept for 2 weeks, if the sample is adequate. Confirmation testing can be initiated by calling the lab within 2 weeks. Result Comment: Urin e Barbiturates Cutoff: < 200 ng/mL = None Detected Performed By: #### 4 [id number] #### [facility] [address] [address] Des Nieves M.D. [id number] BENZODIAZEPINE SCREEN, URINE Not detected Normal None Detected [facility] Comment on above: Order Comment: Scree n results should be used for treatment purposes only. Specimen will be kept for 2 weeks, if the sample is adequate. Confirmation testing can be initiated by calling the lab within 2 weeks. Result Comment: Urin e Benzodiazepine Cutoff: < 200 ng/mL = None Detected Performed By: #### 4 [id number] #### [facility] [address] [id number] Des Nieves M.D. [id number] BUPRENORPHINE, URINE Not detected Normal None Detected [facility] Comment on above: Order Comment: Scree n results should be used for treatment purposes only. Specimen will be kept for 2 weeks, if the sample is adequate. Confirmation testing can be initiated by calling the lab within 2 weeks. Result Comment: Urin e Buprenorphine Cutoff: < 5 ng/mL = None Detected Performed By: #### 4 [id number] #### [facility] [address] [address] Des Nieves M.D. [id number] CANNABINOID SCREEN URINE Not detected Normal None Detected [facility] Comment on above: Order Comment: Scree n results should be used for treatment purposes only. Specimen will be kept for 2 weeks, if the sample is adequate. Confirmation testing can be initiated by calling the lab within 2 weeks. Result Comment: Urin e Cannabinoids Cutoff: < 50 ng/mL = None Detected Performed By: #### 4 [id number] #### [facility] [address] [address] Des Nieves M.D. [id number] COCAINE, SCREEN URINE Positive Abnormal None Detected [facility] Comment on above: Order Comment: Scree n results should be used for treatment purposes only. Specimen will be kept for 2 weeks, if the sample is adequate. Confirmation testing can be initiated by calling the lab within 2 weeks. Result Comment: Urin e Cocaine Cutoff: < 300 ng/mL = None Detected Performed By: #### 4 [id number] #### [facility] [address] [address] Des Nieves M.D. [id number] FENTANYL, URINE Not detected Normal None Detected [place] [...] Detected Performed By: #### 4 [id number] #### [facility] [address] [address] Des Nieves M.D. [id number] METHADONE SCREEN, URINE Not detected Normal None Detected [facility] Comment on above: Order Comment: Scree n results should be used for treatment purposes only. Specimen will be kept for 2 weeks, if the sample is adequate. Confirmation testing can be initiated by calling the lab within 2 weeks. Result Comment: Urin e Methadone Cutoff: < 300 ng/mL = None Detected Performed By: #### 4 [id number] #### [facility] [address] [address] Des Nieves M.D. [id number] OPIATE SCREEN URINE Not detected Normal None Detected [facility] Comment on above: Order Comment: Scree n results should be used for treatment purposes only. Specimen will be kept for 2 weeks, if the sample is adequate. Confirmation testing can be initiated by calling the lab within 2 weeks. Result Comment: Urin e Opiates Cutoff: < 300 ng/mL = None Detected Performed By: #### 4 [id number] #### [facility] [address] [address] Des Nieves M.D. [id number] OXYCODONE SCREEN, URINE Not detected Normal None Detected [facility] Comment on above: Order Comment: Scree n results should be used for treatment purposes only. Specimen will be kept for 2 weeks, if the sample is adequate. Confirmation testing can be initiated by calling the lab within 2 weeks. Result Comment: Urin e Oxycodone Cutoff: < 100 ng/mL = None Detected Performed By: #### 4 [id number] #### [facility] [address] [address] Des Nieves M.D. [id number] AMPHETAMINE SCREEN, URINE Not detected Normal None Detected [facility] Comment on above: Order Comment: Scree n results should be used for treatment purposes only. Specimen will be kept for 2 weeks, if the sample is adequate. Confirmation testing can be initiated by calling the lab within 2 weeks. Result Comment: Urin e Amphetamine Cutoff: < 1000 ng/mL = None Detected Performed By: #### 4 [id number] #### [facility] [address] [id number] Des Nieves M.D. [id number] BARBITURATE SCREEN URINE Not detected Normal None Detected [facility] Comment on above: Order Comment: Scree n results should be used for treatment purposes only. Specimen will be kept for 2 weeks, if the sample is adequate. Confirmation testing can be initiated by calling the lab within 2 weeks. Result Comment: Urin e Barbiturates Cutoff: < 200 ng/mL = None Detected Performed By: #### 4 [id number] #### [facility] [address] [address] Des Nieves M.D. [id number] BENZODIAZEPINE SCREEN, URINE Positive Abnormal None Detected [facility] Comment on above: Order Comment: Scree n results should be used for treatment purposes only. Specimen will be kept for 2 weeks, if the sample is adequate. Confirmation testing can be initiated by calling the lab within 2 weeks. Result Comment: Urin e Benzodiazepine Cutoff: < 200 ng/mL = None Detected Performed By: #### 4 [id number] #### [facility] [address] [address] Des Nieves M.D. [id number] BUPRENORPHINE, URINE Not detected Normal None Detected [facility] Comment on above: Order Comment: Scree n results should be used for treatment purposes only. Specimen will be kept for 2 weeks, if the sample is adequate. Confirmation testing can be initiated by calling the lab within 2 weeks. Result Comment: Urin e Buprenorphine Cutoff: < 5 ng/mL = None Detected Performed By: #### 4 [id number] #### [facility] [address] [address] Des Nieves M.D. [id number] CANNABINOID SCREEN URINE Positive Abnormal None Detected [facility] Comment on above: Order Comment: Scree n results should be used for treatment purposes only. Specimen will be kept for 2 weeks, if the sample is adequate. Confirmation testing can be initiated by calling the lab within 2 weeks. Result Comment: Urin e Cannabinoids Cutoff: < 50 ng/mL = None Detected Performed By: #### 4 [id number] #### [facility] [address] [address] Des Nieves M.D. [id number] COCAINE, SCREEN URINE Positive Abnormal None Detected [facility] Comment on above: Order Comment: Scree n results should be used for treatment purposes only. Specimen will be kept for 2 weeks, if the sample is adequate. Confirmation testing can be initiated by calling the lab within 2 weeks. Result Comment: Urin e Cocaine Cutoff: < 300 ng/mL = None Detected Performed By: #### 4 [id number] #### [facility] [address] [address] Des Nieves M.D. [id number] FENTANYL, URINE Not detected Normal None Detected [place] [...] Detected Performed By: #### 4 [id number] #### [facility] [address] [address] Des Nieves M.D. [id number] METHADONE SCREEN, URINE Not detected Normal None Detected [facility] Comment on above: Order Comment: Scree n results should be used for treatment purposes only. Specimen will be kept for 2 weeks, if the sample is adequate. Confirmation testing can be initiated by calling the lab within 2 weeks. Result Comment: Urin e Methadone Cutoff: < 300 ng/mL = None Detected Performed By: #### 4 [id number] #### [facility] [address] [id number] Des Nieves M.D. [id number] OPIATE SCREEN URINE Not detected Normal None Detected [facility] Comment on above: Order Comment: Scree n results should be used for treatment purposes only. Specimen will be kept for 2 weeks, if the sample is adequate. Confirmation testing can be initiated by calling the lab within 2 weeks. Result Comment: Urin e Opiates Cutoff: < 300 ng/mL = None Detected Performed By: #### 4 [id number] #### [facility] [address] [id number] Des Nieves M.D. [id number] OXYCODONE SCREEN, URINE Not detected Normal None Detected [facility] Comment on above: Order Comment: Scree n results should be used for treatment purposes only. Specimen will be kept for 2 weeks, if the sample is adequate. Confirmation testing can be initiated by calling the lab within 2 weeks. Result Comment: Urin e Oxycodone Cutoff: < 100 ng/mL = None Detected Performed By: #### 4 [id number] #### [facility] [address] [id number] Des Nieves M.D. [id number] ED Prov Noteon 08-09-2024 ED Prov Note PCP - No, Physician [phone] No chief complaint on file. HPI This [...] abuse (HCC) 2. 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 Disposition: Discharge Shared decision making utilized by [...] Marital status (more content not included)... [facility] No Panel Informationon 08-05 [facility] Portable XR Chest Viewson IMPRESSION: No acute [...] chest. IMPRESSION IMPRESSION: No acute cardiopulmonary disease [facility] Portable XR Chest ViewsOrder ed By: Gino Dwyer on 08-05-2024 [facility] XR CHEST 1 VIEW PORTABLEon 0 08-05-2024 XR CHEST 1 VIEW PORTABLE EXAM: XR CHEST 1 VIEW PORTABLE, 08/04/2024 22:49 PM COMPARISON: No prior studies available for comparison. CLINICAL INDICATIONS: Central chest pain RELEVANT CLINICAL HISTORY: FINDINGS: (Adequate technique) Implanted Devices: None Thorax: No acute findings in the chest. IMPRESSION: No acute cardiopulmonary disease Normal [facility] Portable XR Chest Viewson Radiology Study observation (narrative) [facility] ED Prov Noteon 07-19-2024 ED Prov Note EMERGENCY MEDICINE PROVIDER NOTE [facility] EMERGENCY DEPARTMENT Encounter Date: 07/20/24 History obtained [...] primary care provider (PCP). Why: Call the [facility] Referral Number to schedule an appointment: [phone] 2. Open Access. Why: As needed [facility] (Open Access Clinic) [address], [place] H (more content not included)... Normal [facility] URINE DRUG SCREEN 10Ordered By: Anne Thomas on 03-05-2024 Amphetamine+Methamp hetamine Screen (U) [Mass/Vol] Not detected Cutoff: 500 ng/mL [facility] Barbiturates Ql (U) Not detected Cutoff: 200 ng/mL [facility] Benzodiazepines Ql (U) Not detected Cutoff: 200 ng/mL [facility] Buprenorphine Ql (U) Not detected Cutoff: 5 ng/mL [facility] Cannabinoids Screen Ql (U) Positive Abnormal Cutoff: 50 ng/mL [facility] Cocaine Ql (U) Positive Abnormal Cutoff: 150 ng/mL [facility] fentaNYL Ql (U) Positive Abnormal Cutoff: 1 ng/mL [facility] Interpretation and review of laboratory results Abnormal [facility] Methadone Ql (U) Not detected Cutoff: 300 ng/mL [facility] Opiates Ql (U) Not detected Cutoff: 300 ng/mL [facility] oxyCODONE Ql (U) Not detected Cutoff: 100 ng/mL [facility] For medical purposes only. Positive results are unconfirmed unless otherwise noted. [facility] URINE DRUG SCREEN 03-05 Amphetamine/Methamp hetamine Not detected Normal Cutoff: 500 ng/mL [facility] Comment on above: Order Comment: For edical purposes only. Positive results are unconfirmed unless otherwise noted. Performed By: #### 1 0DRUG #### [facility] (DEFAULT) [address] [address] Barbiturates Not detected Normal Cutoff: 200 ng/mL [facility] Comment on above: Order Comment: For m edical purposes only. Positive results are unconfirmed unless otherwise noted. Performed By: #### 1 0DRUG #### [facility] (DEFAULT) [address] [address] Benzodiazepines Not detected Normal Cutoff: 200 ng/mL [facility] Comment on above: Order Comment: For edical purposes only. Positive results are unconfirmed unless otherwise noted. Performed By: #### 1 0DRUG #### [facility] (DEFAULT) [address] [address] Buprenorphine Not detected Normal Cutoff: 5 ng/mL [facility] Comment on above: Order Comment: For edical purposes only. Positive results are unconfirmed unless otherwise noted. Performed By: #### 1 0DRUG #### [facility] (DEFAULT) [address] [address] Cannabinoids Screen Ql (U) Positive Abnormal Cutoff: 50 ng/mL [facility] Comment on above: Order Comment: For m edical purposes only. Positive results are unconfirmed unless otherwise noted. Performed By: #### 1 0DRUG #### [facility] (DEFAULT) [address] [address] Cocaine Positive Abnormal Cutoff: 150 ng/mL [facility] Comment on above: Order Comment: For edical purposes only. Positive results are unconfirmed unless otherwise noted. Performed By: #### 1 0DRUG #### [facility] (DEFAULT) [address] [address] Fentanyl Positive Abnormal Cutoff: 1 ng/mL [facility] Comment on above: Order Comment: For edical purposes only. Positive results are unconfirmed unless otherwise noted. Performed By: #### 1 0DRUG #### [facility] (DEFAULT) [address] [address] Methadone Not detected Normal Cutoff: 300 ng/mL [facility] Comment on above: Order Comment: For edical purposes only. Positive results are unconfirmed unless otherwise noted. Performed By: #### 1 0DRUG #### [facility] (DEFAULT) [address] [address] Opiates Not detected Normal Cutoff: 300 ng/mL [facility] Comment on above: Order Comment: For edical purposes only. Positive results are unconfirmed unless otherwise noted. Performed By: #### 1 0DRUG #### [facility] (DEFAULT) [address] [address] Oxycodone Not detected Normal Cutoff: 100 ng/mL [facility] Comment on above: Order Comment: For edical purposes only. Positive results are unconfirmed unless otherwise noted. Performed By: #### 1 0DRUG #### [facility] (DEFAULT) [address] [place] [address] GLUCOSE POCon 03-04-2024 Glucose [Mass/Vol] 149 mg/dL High 70 - 99 mg/dL [facility] Comment on above: Notified RNread back Interpretation and review of laboratory results Abnormal [facility] POC Sample Type CAPBL [facility] Test performed at address of the patient encounter. [facility] ED Prov Noteon 11-16-2023 ED Prov Note EMERGENCY MEDICINE PROVIDER NOTE [facility] EMERGENCY DEPARTMENT Patient Name: Viktoria Sosa Encounter [...] scalp W (more content not included)... [facility] CT HEAD OR BRAIN WITHOUT CON TRASTon [...] IMPRESSION: No acute intracranial abnormality. Workstation ID: [id number] Dictated by: GLORIA DAVIDSON on TueNov 11, 2023 1:03:02 AM EDT Transcribed by: GLORIA DAVIDSON on TueNov 11, 2023 1:03:02 AM EDT Finalized by: GLORIA DAVIDSON on TueNov 11, 2023 1:03:02 AM EDT [facility] Comment on above: Order Comment: Injur y/Trauma [...] mid facial soft tissue swelling. Workstation ID: [id number] Dictated by: GLORIA DAVIDSON on TueNov 10, 2023 9:36:40 PM EDT Transcribed by: GLORIA DAVIDSON on Khushi Nov 10, 2023 9:36:40 PM EDT Finalized by: GLORIA DAVIDSON on Khushi Nov 10, 2023 9:36:40 PM EDT [facility] Comment on above: Order Comment: Injur y/Trauma [...] family preference (more content not included)... [facility] ED NOTEon 11-23-2020 ED NOTE HNO ID: [id number] Author: Laurel Jenkins RN Service: Emergency Medicine Author Type: Registered Nurse Type: ED Notes Filed: 11/23/2020 6:12 AM Note Text: Pt given DC info. Pt verbalized understanding of info. No s/.sym of distress noted. Pt has no further questions or concerns. 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 Pt [...] normal. Tho (more content not included)... Normal [facility] Basic metabolic 2000 panelon 11-22-2020 Anion gap [Moles/Vol] 13 mmol/L Normal 9-18 [facility] Comment on above: Order Comment: Speci men Type: BLOOD SPECIMEN Performed By: #### 2 4321-2 #### [facility] CLIA [id number] [address] [place] [address] [place] Calcium [Mass/Vol] 9.8 mg/dL Normal 8.5-10.2 [facility] Comment on above: Order Comment: Speci men Type: BLOOD SPECIMEN Performed By: #### 2 4321-2 #### [facility] CLIA [id number] [address] [place] [address] [place] Chloride [Moles/Vol] 103 mmol/L Normal 97-105 [facility] Comment on above: Order Comment: Speci men Type: BLOOD SPECIMEN Performed By: #### 2 4321-2 #### [facility] CLIA [id number] [address] [place] [address] [place] CO2 [Moles/Vol] 26 mmol/L Normal 22-30 [facility] Comment on above: Order Comment: Speci men Type: BLOOD SPECIMEN Performed By: #### 2 4321-2 #### [facility] CLIA [id number] [address] [place] Creatinine [Mass/Vol] 0.80 mg/dL Normal 0.73-1.22 [facility] Comment on above: Order Comment: Speci men Type: BLOOD SPECIMEN Performed By: #### 2 4321-2 #### [facility] CLIA [id number] [address] [place] GFR/1.73 sq M.predicted MDRD (S/P/Bld) [Vol rate/Area] mL/min/{1.73_m2} Normal [facility] Comment on above: Order Comment: Speci men [...] GFR. Performed By: #### 2 4321-2 #### [facility] CLIA [id number] [address] [place] Glucose [Mass/Vol] 102 mg/dL High 74-99 [facility] Comment on above: Order Comment: Speci men Type: BLOOD SPECIMEN Result Comment: The Stateless Diabetes Association (ADA) provides guidance for cutoff [...] Standards of Medical Care in Diabetes 2016, Stateless Diabetes Association. Diabetes Care. 2016.39(Suppl 1). Performed By: #### 2 4321-2 #### [facility] CLIA [id number] [address] Potassium [Moles/Vol] 3.8 mmol/L Normal 3.7-5.1 [facility] Comment on above: Order Comment: Speci men Type: BLOOD SPECIMEN Performed By: #### 2 4321-2 #### [facility] CLIA [id number] [address] Sodium [Moles/Vol] 142 mmol/L Normal 136-144 [facility] Comment on above: Order Comment: Speci men Type: BLOOD SPECIMEN Performed By: #### 2 4321-2 #### [facility] CLIA [id number] [address] Urea nitrogen [Mass/Vol] 9 mg/dL Normal 9-24 [facility] Comment on above: Order Comment: Speci men Type: BLOOD SPECIMEN Performed By: #### 2 4321-2 #### [facility] CLIA [id number] [address] CBC W Auto Differential pane l (Bld)on 11-22-2020 Basophils (Bld) [#/Vol] 0.06 10*3/uL Normal <0.11 [facility] Comment on above: Order Comment: Speci men Type: BLOOD SPECIMEN Performed By: #### 5 7021-8 #### [facility] CLIA [id number] [address] Basophils/100 WBC (Bld) 0.8 % Normal [facility] Comment on above: Order Comment: Speci men Type: BLOOD SPECIMEN Performed By: #### 5 7021-8 #### [facility] CLIA [id number] [address] Differential cell count method Nom (Bld) Auto Normal [facility] Comment on above: Order Comment: Speci men Type: BLOOD SPECIMEN Performed By: #### 5 7021-8 #### [facility] CLIA [id number] [address] Eosinophils (Bld) [#/Vol] 0.12 10*3/uL Normal <0.46 [facility] Comment on above: Order Comment: Speci men Type: BLOOD SPECIMEN Performed By: #### 5 7021-8 #### [facility] CLIA [id number] [address] Eosinophils/100 WBC (Bld) 1.7 % Normal [facility] Comment on above: Order Comment: Speci men Type: BLOOD SPECIMEN Performed By: #### 5 7021-8 #### [facility] CLIA [id number] [address] Erythrocyte distribution width (RBC) [Ratio] 13.7 % Normal 11.5-15.0 [facility] Comment on above: Order Comment: Speci men Type: BLOOD SPECIMEN Performed By: #### 5 7021-8 #### [facility] CLIA [id number] [address] Hematocrit (Bld) [Volume fraction] 46.6 % Normal 39.0-51.0 [facility] Comment on above: Order Comment: Speci men Type: BLOOD SPECIMEN Performed By: #### 5 7021-8 #### [facility] CLIA [id number] [address] Hemoglobin (Bld) [Mass/Vol] 15.1 g/dL Normal 13.0-17.0 [facility] Comment on above: Order Comment: Speci men Type: BLOOD SPECIMEN Performed By: #### 5 7021-8 #### [facility] CLIA [id number] [address] IMMATURE GRAN % 0.3 % Normal [facility] Comment on above: Order Comment: Speci men Type: BLOOD SPECIMEN Performed By: #### 5 7021-8 #### [facility] CLIA [id number] [address] IMMATURE GRAN ABS <0.03 Normal <0.10 [facility] Comment on above: Order Comment: Speci men Type: BLOOD SPECIMEN Performed By: #### 5 7021-8 #### [facility] LABORATORY CLIA [id number] [address] Lymphocytes (Bld) [#/Vol] 2.49 10*3/uL Normal 1.00-4.00 [facility] Comment on above: Order Comment: Speci men Type: BLOOD SPECIMEN Performed By: #### 5 7021-8 #### [facility] CLIA [id number] [address] Lymphocytes/100 WBC (Bld) 34.5 % Normal [facility] Comment on above: Order Comment: Speci men Type: BLOOD SPECIMEN Performed By: #### 5 7021-8 #### [facility] CLIA [id number] [address] MCH (RBC) [Entitic mass] 30.1 pg Normal 26.0-34.0 [facility] Comment on above: Order Comment: Speci men Type: BLOOD SPECIMEN Performed By: #### 5 7021-8 #### [facility] CLIA [id number] [address] MCHC (RBC) [Mass/Vol] 32.4 g/dL Normal 30.5-36.0 [facility] Comment on above: Order Comment: Speci men Type: BLOOD SPECIMEN Performed By: #### 5 7021-8 #### [facility] CLIA [id number] [address] MCV (RBC) [Entitic vol] 93.0 fL Normal 80.0-100.0 [facility] Comment on above: Order Comment: Speci men Type: BLOOD SPECIMEN Performed By: #### 5 7021-8 #### [facility] CLIA [id number] [address] Monocytes (Bld) [#/Vol] 0.90 10*3/uL High <0.87 [facility] Comment on above: Order Comment: Speci men Type: BLOOD SPECIMEN Performed By: #### 5 7021-8 #### [facility] CLIA [id number] [address] Monocytes/100 WBC (Bld) 12.5 % Normal [facility] Comment on above: Order Comment: Speci men Type: BLOOD SPECIMEN Performed By: #### 5 7021-8 #### [facility] CLIA [id number] [address] Neutrophils (Bld) [#/Vol] 3.62 10*3/uL Normal 1.45-7.50 [facility] Comment on above: Order Comment: Speci men Type: BLOOD SPECIMEN Performed By: #### 5 7021-8 #### [facility] CLIA [id number] [address] Neutrophils/100 WBC (Bld) 50.2 % Normal [facility] Comment on above: Order Comment: Speci men Type: BLOOD SPECIMEN Performed By: #### 5 7021-8 #### [facility] CLIA [id number] [address] Nucleated RBC (Bld) [#/Vol] 10*3/uL Normal <0.01 [facility] Comment on above: Order Comment: Speci men Type: BLOOD SPECIMEN Performed By: #### 5 7021-8 #### [facility] CLIA [id number] [address] Nucleated RBC/100 WBC (Bld) [Ratio] 0.0 /100 WBC Normal 0.0 [facility] Comment on above: Order Comment: Speci men Type: BLOOD SPECIMEN Performed By: #### 5 7021-8 #### [facility] CLIA [id number] [address] Platelet mean volume (Bld) [Entitic vol] 9.5 fL Normal 9.0-12.7 [facility] Comment on above: Order Comment: Speci men Type: BLOOD SPECIMEN Performed By: #### 5 7021-8 #### [facility] CLIA [id number] [address] Platelets (Bld) [#/Vol] 217 10*3/uL Normal 150-400 [facility] Comment on above: Order Comment: Speci men Type: BLOOD SPECIMEN Performed By: #### 5 7021-8 #### [facility] CLIA [id number] [address] RBC (Bld) [#/Vol] 5.01 10*6/uL Normal 4.20-6.00 [facility] Comment on above: Order Comment: Speci men Type: BLOOD SPECIMEN Performed By: #### 5 7021-8 #### [facility] CLIA [id number] [address] WBC (Bld) [#/Vol] 7.21 10*3/uL Normal 3.70-11.00 [facility] Comment on above: Order Comment: Speci men Type: BLOOD SPECIMEN Performed By: #### 5 7021-8 #### [facility] CLIA [id number] [address] ED Triage Noteon 11-22-2020 ED Triage Note HNO ID: [id number] Author: Jolene Martinez PA-C Service: Emergency Medicine Author Type: Physician [place] Stitcher Type: ED Triage Notes Filed: 11/22/2020 7:47 [...] screen Urinalysis SIGNATURE: Jolene Martinez PA-C Normal [facility] Ethanol SerPl-mCncon 021 Ethanol [Mass/Vol] 119 mg/dL High <11 [facility] Comment on above: Order Comment: Speci men Type: BLOOD SPECIMEN Result Comment: Valu es > 80 mg/dL may indicate intoxication Performed By: #### 5 643-2 #### [facility] CLIA [id number] [address] TOX SCREEN ROUT URon 021 Amphetamines Confirm (U) [Mass/Vol] Positive Abnormal Negative [facility] Comment on above: Order Comment: Speci men Type: URINE SPECIMEN Result Comment: Cuto ff threshold at 1000 ng/mL. Performed By: #### U TOX2 #### [facility] CLIA [id number] [address] BARBITURATES, URINE Negative Normal Negative [facility] Comment on above: Order Comment: Speci men Type: URINE SPECIMEN Result Comment: Cuto ff threshold at 200 ng/mL. Performed By: #### U TOX2 #### [facility] CLIA [id number] [address] [facility] BENZODIAZEPINES, UR Negative Normal Negative [facility] Comment on above: Order Comment: Speci men Type: URINE SPECIMEN Result Comment: Cuto ff threshold at 200 ng/mL. Performed By: #### U TOX2 #### [facility] CLIA [id number] [address] [facility] CANNABINOIDS,URINE Positive Abnormal Negative [facility] Comment on above: Order Comment: Speci men Type: URINE SPECIMEN Result Comment: Cuto ff threshold at 50 ng/mL. Performed By: #### U TOX2 #### [facility] CLIA [id number] [address] OF [place] Cocaine Ql (U) Negative Normal Negative [facility] Comment on above: Order Comment: Speci men Type: URINE SPECIMEN Result Comment: Cuto ff threshold at 300 ng/mL. Performed By: #### U TOX2 #### [facility] CLIA [id number] [address] Ethanol (U) [Mass/Vol] 141 mg/dL High <11 [facility] Comment on above: Order Comment: Speci men Type: URINE SPECIMEN Performed By: #### U TOX2 #### [facility] CLIA [id number] [address] Opiates Screen Ql (U) Negative Normal Negative [facility] Comment on above: Order Comment: Speci men Type: URINE SPECIMEN Result Comment: Cuto ff threshold at 300 ng/mL. Performed By: #### U TOX2 #### [facility] CLIA [id number] [address] oxyCODONE cutoff Screen (U) [Mass/Vol] Negative Normal Negative [facility] Comment on above: Order Comment: Speci men Type: URINE SPECIMEN Result Comment: Cuto ff threshold at 100 ng/mL. Performed By: #### U TOX2 #### [facility] CLIA [id number] [address] Phencyclidine Ql (U) Negative Normal Negative [facility] Comment on above: Order Comment: Speci men Type: URINE SPECIMEN Result Comment: Cuto ff threshold at 25 ng/mL. Performed By: #### U TOX2 #### [facility] CLIA [id number] [address] Urinalysis complete panel (U )on 11-22-2020 Bacteria LM.HPF (Urine sed) [#/Area] None Seen Normal None Seen [facility] Comment on above: Order Comment: Speci men Type: URINE SPECIMEN Performed By: #### 2 4356-8 #### [facility] CLIA [id number] [address] Bilirubin Ql (U) Negative Normal Negative [facility] Comment on above: Order Comment: Speci men Type: URINE SPECIMEN Performed By: #### 2 4356-8 #### [facility] CLIA [id number] [address] Clarity (Unsp spec) Clear Normal Clear [facility] Comment on above: Order Comment: Speci men Type: URINE SPECIMEN Performed By: #### 2 4356-8 #### [facility] CLIA [id number] [address] Color (U) Yellow Normal Yellow [facility] Comment on above: Order Comment: Speci men Type: URINE SPECIMEN Performed By: #### 2 4356-8 #### [facility] CLIA [id number] [address] Epithelial cells LM.HPF (Urine sed) [#/Area] None Seen Normal [facility] Comment on above: Order Comment: Speci men Type: URINE SPECIMEN Performed By: #### 2 4356-8 #### [facility] CLIA [id number] [address] Glucose Test strip (U) [Mass/Vol] Negative Normal Negative [facility] Comment on above: Order Comment: Speci men Type: URINE SPECIMEN Performed By: #### 2 4356-8 #### [facility] CLIA [id number] [address] Hemoglobin Ql (U) Negative Normal Negative [facility] Comment on above: Order Comment: Speci men Type: URINE SPECIMEN Performed By: #### 2 4356-8 #### [facility] CLIA [id number] [address] Hyaline casts (Urine sed) [#/Area] 0 /[LPF] Normal 0 /LPF [facility] Comment on above: Order Comment: Speci men Type: URINE SPECIMEN Performed By: #### 2 4356-8 #### [facility] CLIA [id number] [address] Ketones Ql (U) Negative Normal Negative [facility] Comment on above: Order Comment: Speci men Type: URINE SPECIMEN Performed By: #### 2 4356-8 #### [facility] CLIA [id number] [address] Leukocyte esterase Test strip Ql (U) Negative Normal Negative [facility] Comment on above: Order Comment: Speci men Type: URINE SPECIMEN Performed By: #### 2 4356-8 #### [facility] CLIA [id number] [address] Nitrite Ql (U) Negative Normal Negative [facility] Comment on above: Order Comment: Speci men Type: URINE SPECIMEN Performed By: #### 2 4356-8 #### [facility] CLIA [id number] [address] [facility] pH (U) 7.0 [pH] Normal 5.0-8.0 [facility] Comment on above: Order Comment: Speci men Type: URINE SPECIMEN Performed By: #### 2 4356-8 #### [facility] CLIA [id number] [address] Protein (U) [Mass/Vol] Negative Normal Negative [facility] Comment on above: Order Comment: Speci men Type: URINE SPECIMEN Performed By: #### 2 4356-8 #### [facility] CLIA [id number] [address] RBC LM.HPF (Urine sed) [#/Area] 0-3 /HPF Normal 0-3 /HPF [facility] Comment on above: Order Comment: Speci men Type: URINE SPECIMEN Performed By: #### 2 4356-8 #### [facility] CLIA [id number] [address] Specific gravity (U) [Rel density] <1.005 Low 1.005-1.030 [facility] Comment on above: Order Comment: Speci men Type: URINE SPECIMEN Performed By: #### 2 4356-8 #### [facility] CLIA [id number] [address] Urobilinogen Ql (U) 0.2 EU/dL Normal 0.2-1.0 EU/dL [facility] Comment on above: Order Comment: Speci men Type: URINE SPECIMEN Performed By: #### 2 4356-8 #### [facility] CLIA [id number] [address] WBC LM.HPF (Urine sed) [#/Area] 0-5 /HPF Normal 0-5 /HPF [facility] Comment on above: Order Comment: Speci men Type: URINE SPECIMEN Performed By: #### 2 4356-8 #### [facility] CLIA [id number] [address] CNOVon 09-30-2020 CNOV Office Visit (GSTNOR ) VIKTORIA SOSA ([id number]) 1990 M CHT Date Time Provider Department [...] (B18.1) Chron (more content not included)... Normal [facility] CNOVon 09-24-2020 CNOV Office Visit (INTMWS ) VIKTORIA SOSA ([id number]) 1990 M CHT Date Time Provider Department [...] popped up. He no showed appointment with social media designer to discuss treatment for Hepatitis B. He [...] need to reschedule and keep appointment with social media designer. Reviewed potential complications of untreated Hepatitis B, [...] help finding it) Referring Provider: HITESH LUCERO [[id number]] Allergies As of Date: 09/24/2020 (No Known Allergies) Date Reviewed: 09/24/2020 Reviewed by: Viktoriya Barnett Cma - Fully Assessed Reason for Visit: Recheck [92] Primary Visit Diagnosis:Genital warts [A63.0] Other Visit Diagnoses:Hepatitis B carrier (HCC) [B18.1] Social anxiety disorder [F40.10] Order(s):sertraline (ZOLOFT) 50 mg tabletTake 1 tablet by mouth on (more content not included)... Normal [facility] CNOVon 09-02-2020 CNOV Office Visit (UROLWS ) VIKTORIA SOSA ([id number]) 1990 M [facility] Date Time Provider Department 09/02/20 [...] Status:Closed by MACIE CHRISTIE CMA on 09/08/20 [facility] C[facility] Telephone (UROLWS) VIKTORIA SOSA ([id number]) 1990 M T Date Time Provider Department [...] to be see by Dr. Rios at [facility]. Pt would like to see if [...] COMBO(AG/AB),WITH REFLEX TO DIFFERENTIATION [SQHIV12] Order #: [id number] FUTURE Prescriptions as of 09/04/2020 - diphenhydrAMINE [...] Status:Closed by CHRISTINA LARKIN RN on 09/04/20 [facility] OBSOLETEon 08-05-2020 OBSOLETE Refill (INTMWS) VIKTORIA SOSA ([id number]) 1990 [facility] Date Time Provider Department 08/05/20 HITESH LUCERO INTMWS During your visit today, we recorded the following information about you: Katherine Stinson LPN 08/05/2020 1:31 PM Signed Patient calling for refill of Sertraline (Zoloft) 50mg. Patient called for refill on 05/20/2020, new RX sent to [facility], it is not showing in [facility]. Called pharmacy, they will get ready for [...] by KATHERINE STINSON LPN on 08/05/20 Normal [facility] Emergency Department Summary on 07-22-2020 Emergency Department Summary [facility] Medical Records Department [address] [place] [address] Emergency Department Summary 07/22/20 MR#: [id number] Acct: [id number] Name: VIKTORIA SOSA Rep #: [id number] : 1990 29 From: Laura Diane DO [...] regular rhythm (more content not included)... 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 Allergies As of Date: 06/23/2020 (No Known [...] Status:Closed by VIKTORIYA BARNETT CMA on 06/23/20 [facility] 06-16-2020 [facility] Telephone (INTMWS) VIKTORIA SOSA ([id number]) 1990 M [facility] Date Time Provider Department 06/16/20 HITESH LUCERO INTWS During your visit today, we recorded the following information about you: Annemarie Chatman LPN 06/16/2020 3:35 PM Signed Per covermydanielle Sosa ([place]: [id number]) ? [id number] Imiquimod 5% cream Status: JEREMIAH Response - Approved Created: June 13, 2020 [id number] Sent: June 16, 2020 Annemarie Chatman LPN [...] Status:Closed by ANNEMARIE CHATMAN LPN on 06/16/20 [facility] CNOVjonathan 06-11-2020 CNOV Office Visit (INTMWS ) VIKTORIA SOSA ([id number]) 1990 [place] Date Time Provider Department 06/11/20 11:20 AM HITESH LUCERO INTMWS During your visit today, we recorded the following information about you: Temperature Pulse Respiration Blood pressure 96.4 degrees 72/minute 16/minute 122/76 Weight 73.4 kg Hitesh Lucero MD 06/11/2020 1:05 PM Signed This note was created using [employer]. Subjective Viktoria Sosa is a 29 year [...] is infectious and should notify partners, etc. long-term risk of liver disease, liver failure, and [...] (insomnia).Disp: 30 capsuleRfl: 2 CONSULT TO HEPATOLOGY [4684263] Order #: [id number]: 1 FUTURE imiquimod (ALDARA) 5 % creamApply [...] 24 M (more content not included)... Normal [facility] CBC and Differentialon 05-23 Abs Baso 0.08 k/uL Normal <0.11 [facility] Comment on above: Performed By: #### C GUILLERMO HBVZHANEU ####[place] [phone] Abs Rusk 0.77 k/uL Normal <0.87 [facility] Comment on above: Performed By: #### C GUILLERMO HBVDNU ####[facility] [place] [address] [phone] Abs Neut 6.76 k/uL Normal 1.45-7.50 [facility] Comment on above: Performed By: #### C BCTRISH HBVDNU ####[facility] [place], [place] [phone] Absolute nRBC <0.01 Normal <0.01 [facility] Comment on above: Performed By: #### C BCTRISH HBVDNU ####[facility] [place] [phone] Basophils/100 WBC (Bld) 0.9 % Normal [facility] Comment on above: Performed By: #### C BCTRISH HBVDNU ####[place] [address] [place] [phone] DTYPE Auto Diff Normal [facility] Comment on above: Performed By: #### C BCTRISH HBVDNU ####[place] [address] [place] [phone] Eosinophils (Bld) [#/Vol] 0.09 10*3/uL Normal <0.46 [facility] Comment on above: Performed By: #### C BCTRISH HBVDNU ####[place] [address] [place] [phone] Eosinophils/100 WBC (Bld) 1.0 % Normal [facility] Comment on above: Performed By: #### C BCTRISH HBVDNU ####[place] [address] [place] [phone] Erythrocyte distribution width (RBC) [Ratio] 13.9 % Normal 11.5-15.0 [facility] Comment on above: Performed By: #### C BCTRISH HBVDNU ####[place] [address] [place] [phone] Hematocrit (Bld) [Volume fraction] 46.2 % Normal 39.0-51.0 [facility] Comment on above: Performed By: #### C BCTRISH HBVDNU ####[place] [address]ClevelMig[address] [place] [phone] Hemoglobin (Bld) [Mass/Vol] 15.4 g/dL Normal 13.0-17.0 [facility] Comment on above: Performed By: #### C BCDIDonna HBVDNU ####[place] [address] [place] [phone] Lymphocytes (Bld) [#/Vol] 1.23 10*3/uL Normal 1.00-4.00 [facility] Comment on above: Performed By: #### C BCDIDonna HBVDNU ####[place] [address] [place] [phone] Lymphocytes/100 WBC (Bld) 13.7 % Normal [facility] Comment on above: Performed By: #### C BCDIF, HBVDNU ####[place] [address] [place] [phone] MCH 30.3 pG Normal 26.0-34.0 [facility] Comment on above: Performed By: #### C BCDIF, HBVDNU ####[place] [address] [place] [phone] MCHC (RBC) [Mass/Vol] 33.3 g/dL Normal 30.5-36.0 [facility] Comment on above: Performed By: #### C BCDIF, HBVDNU ####[address] [phone] MCV (RBC) [Entitic vol] 90.9 fL Normal 80.0-100.0 [facility] Comment on above: Performed By: #### C BCDIF HBVDNU ####[place] [address] [place] [phone] Monocytes/100 WBC (Bld) 8.6 % Normal [facility] Comment on above: Performed By: #### C BCDIF, HBVDNU ####[place] [address] [place] [phone] Neutrophils/100 WBC (Bld) 75.8 % Normal [facility] Comment on above: Performed By: #### C BCDIF, HBVDNU ####[place] [address] [place] [phone] NRBCs 0.0 /100 WBC Normal 0 [facility] Comment on above: Performed By: #### C BCDIF HBVDNU ####[place] [address] [address], [place] [phone] Platelet mean volume (Bld) [Entitic vol] 10.5 fL Normal 9.0-12.7 [facility] Comment on above: Performed By: #### C BCDIF HBVDNU ####[facility] [address] [place], [place] [phone] Platelets (Bld) [#/Vol] 271 10*3/uL Normal 150-400 [facility] Comment on above: Performed By: #### C BCDIF, HBVDNU ####[facility] [place], [place] [phone] RBC (Bld) [#/Vol] 5.08 10*6/uL Normal 4.20-6.00 [facility] Comment on above: Performed By: #### C BCDIF, HBVDNU ####[facility] [address] [place], [place] [phone] WBC (Bld) [#/Vol] 8.95 10*3/uL Normal 3.70-11.00 [facility] Comment on above: Performed By: #### Juanita BCDIF HBVDNU ####[place] [address] [place], [place] [phone] Narcisa 05-23-2020 [facility] VIKTORIA SOSA ([id number]) 1990 M T Date Time Provider Department [...] surface antigen positive [R76.8] Order(s):E-CONSULT INFECTIOUS DISEASE [4866827] Order #: [id number]: 1 HEP B VIRAL DNA ÁNGEL [SQHBVDNU] Order #: [id number] FUTURE CBC + DIFF [SQCBCDIF] Order #: [id number] FUTURE CONSULT TO HEPATOLOGY [8712661] Order #: [id number]: 1 FUTURE Prescriptions as of 05/23/2020 Sig: [...] by ANAHY THRASHER RN on 05/23/20 Normal [facility] Hepat.B Vir Ult Qton 021 HBV DNA Ultra Detected Critically abnormal [facility] Comment on above: Result Comment: INTE RPRETATION: Positive for HBVDNA by PCR The linear range of this assay is 20 to 170,000,000 IU/ml. Reference Range: Negative for HBVDNA Performed By: #### C BCDIF, HBVDNU ####[facility] [address] [place], [place] [phone] CNOVon 05-20-2020 CNOV Office Visit (INTMWS ) VIKTORIA SOSA ([id number]) 1990 M T Date Time Provider Department [...] Patient reports he was recently seen at [facility] for STD testing and he [...] ICD9: 573.3, ICD10: K75.9 STD testing at [facility] positive for Hepatitis B per patient, results not available for review. Patient has very low health literacy and poor historian. Will recheck acute hepatitis panel and also CMP. Follow-up and further recommendatio (more content not included)... Normal [facility] Hep Bs Ag Confirmon 05-21-19 21 Hep Bs Ag Confirm Positive Critically abnormal Negative [facility] Comment on above: Performed By: #### H ACUTP, HBSAGC ####[place] [phone] Hepatitis Acute Panel * OUTS YUE CLIENTS ONLY *on 05-20-2020 HBsAg Initially reactive Critically abnormal Negative [facility] Comment on above: Result Comment: Conf irmatory testing for hepatitis B surface antigen has been ordered and charged. Result rechecked. Performed By: #### H ACUTP, HBSAGC ####[facility] [address] [place], [place] [phone] Hep B Core Ab, IgM Negative Normal Negative [facility] Comment on above: Performed By: #### H ACUTP, HBSAGC ####[facility] [address] [place], [place] [phone] Hepatitis A Ab IgM Negative Normal Negative [facility] Comment on above: Performed By: #### H ACUTP, HBSAGC ####[place] [address] [place] [phone] Hepatitis C Ab IA Negative Normal Negative [facility] Comment on above: Performed By: #### H ACUTP, HBSAGC ####[address] [place], [place] [phone] Remote CMP (for [facility] use only )on 05-20-2020 Albumin [Mass/Vol] 4.5 g/dL Normal 3.9-4.9 [facility] Comment on above: Performed By: #### R CMP ####[place] [address] [place] [phone] ALP [Catalytic activity/Vol] 62 U/L Normal 38-113 [facility] Comment on above: Performed By: #### R CMP ####[place] [phone] ALT [Catalytic activity/Vol] 28 U/L Normal 10-54 [facility] Comment on above: Performed By: #### R CMP ####[place] [address] [place] [place] [phone] Anion gap [Moles/Vol] 9 mmol/L Normal 9-18 [facility] Comment on above: Performed By: #### R CMP ####[place] [address] [place], [place] [phone] AST [Catalytic activity/Vol] 38 U/L Normal 14-40 [facility] Comment on above: Performed By: #### R CMP ####[place] [address] [place] [phone] Bilirubin [Mass/Vol] 0.4 mg/dL Normal 0.2-1.3 [facility] Comment on above: Performed By: #### R CMP ####[address] [place] [phone] Calcium [Mass/Vol] 9.7 mg/dL Normal 8.5-10.2 [facility] Comment on above: Performed By: #### R CMP ####[facility] [place] [address], [place] [phone] Chloride [Moles/Vol] 103 mmol/L Normal 97-105 [facility] Comment on above: Performed By: #### R CMP ####[facility] [place] [address] [phone] CO2 [Moles/Vol] 26 mmol/L Normal 22-30 [facility] Comment on above: Performed By: #### R CMP ####[place] [address] [place] [phone] Creatinine [Mass/Vol] 0.84 mg/dL Normal 0.73-1.22 [facility] Comment on above: Performed By: #### R CMP ####[place] [address] [place] [phone] eGFR- Amer. >60 Normal [facility] Comment on above: Performed By: #### R CMP ####[place] [address] [place] [place] [phone] eGFR-All Other Races >60 Normal [facility] Comment on above: Result Comment: eGFR (Estimated [...] actual GFR. Performed By: #### R CMP ####[place] [address] [place], [place] [phone] Glucose [Mass/Vol] 88 mg/dL Normal 74-99 [facility] Comment on above: Result Comment: The Stateless Diabetes Association (ADA) provides guidance for cutoff [...] Standards of Medical Care in Diabetes 2016, Stateless Diabetes Association. Diabetes Care. 2016.39(Suppl 1). Performed By: #### R CMP ####[address] [phone] Potassium [Moles/Vol] 3.9 mmol/L Normal 3.7-5.1 [facility] Comment on above: Performed By: #### R CMP ####[address] [phone] Protein [Mass/Vol] 7.0 g/dL Normal 6.3-8.0 [facility] Comment on above: Performed By: #### R CMP ####[address] [phone] Sodium [Moles/Vol] 138 mmol/L Normal 136-144 [facility] Comment on above: Performed By: #### R CMP ####[address] [phone] Urea nitrogen [Mass/Vol] 13 mg/dL Normal 9-24 [facility] Comment on above: Performed By: #### R CMP ####[address] [phone] Vital Signs Date Time Vital Sign Value Performing Clinician Facility 08-26-2024 15:09040 Body height 175.26 cm No Primary Care Physician [facility] 08-26-2024 15:090400 Body mass index (BMI) [Ratio] 21.4 kg/m2 No Primary Care Physician [facility] 08-26-2024 15:09-0400 Body temperature 98.7 [degF] No Primary Care Physician [facility] 08-26-2024 15:09-0400 Body weight 65.8 kg No Primary Care Physician [facility] 08-26-2024 15:09-0400 Diastolic blood pressure 97 mm[Hg] No Primary Care Physician [facility] 08-26-2024 15:09-0400 Heart rate 105 /min No Primary Care Physician [facility] 08-26-2024 15:09-0400 Respiratory rate 16 /min No Primary Care Physician [facility] 08-26-2024 15:09-0400 SaO2% (BldA) [Mass fraction] 98 % No Primary Care Physician [facility] 08-26-2024 15:09-0400 Systolic blood pressure 141 mm[Hg] No Primary Care Physician [facility] 08-04-2024 22:19-0400 Body temperature 97.81 [degF] Bryant Alicea Sr., MD, PhD Work Phone: [facility] 08-04-2024 22:19-0400 Diastolic blood pressure 80 mm[Hg] Bryant Alicea Sr., MD, PhD Work Phone: [facility] 08-04-2024 22:19-0400 Heart rate 90 /min Bryant Alicea Sr., MD, PhD Work Phone: [facility] 08-04-2024 22:19-0400 Respiratory rate 18 /min Bryant Alicea Sr., MD, PhD Work Phone: [facility] 08-04-2024 22:19-0400 SaO2% (BldA) [Mass fraction] 95 % Bryant Alicea Sr., MD, PhD Work Phone: [facility] 08-04-2024 22:19-0400 Systolic blood pressure 131 mm[Hg] Bryant Alicea Sr., MD, PhD Work Phone: [facility] 03-05-2024 02:09-0500 Body temperature 98.2 [degF] Price Sherice DO Work Phone: [facility] 03-05-2024 02:09-0500 Diastolic blood pressure 89 mm[Hg] Price Austin DO Work Phone: [facility] 03-05-2024 02:09-0500 Heart rate 92 /min Price Sherice DO Work Phone: [facility] 03-05-2024 02:09-0500 Respiratory rate 16 /min Price Sherice DO Work Phone: [facility] 03-05-2024 02:09-0500 SaO2% (BldA) [Mass fraction] 98 % Price Austin DO Work Phone: [facility] 03-05-2024 02:09-0500 Systolic blood pressure 133 mm[Hg] Price Austin DO Work Phone: [facility] 03-04-2024 23:45-0500 Body height 175.3 cm Price Sherice DO Work Phone: [facility] 03-04-2024 23:45-0500 Body mass index (BMI) [Ratio] 25.13 kg/m2 Price Austin DO Work Phone: [facility] 03-04-2024 23:45-0500 Body weight 77.2 kg Price Krishnaver DO Work Phone: [facility] Encounters Encounter Date Encounter Type Care Provider Facility Start: 08-26-2024 End: 08-26-2024 Emergency department patient visit No Primary Care Physician -Emergency Department Work Phone: Start: 08-09-2024 End: 08-10-2024 ambulatory PHYSICIAN [facility] Start: 08-09-2024 End: 06-19-2025 ambulatory PHYSICIAN [facility] Start: 08-04-2024 End: 08-05-2024 Emergency department patient visit Bryant Alicea MD, PhD Work Phone: [facility] Emergency Department Start: 07-19-2024 End: 07-19-2024 Emergency department patient visit ROSEMARY MALDONADO [facility] Start: 03-04-2024 End: 03-05-2024 Emergency department patient visit Price Smiley DO Work Phone: [facility] Start: 11-16-2023 End: 11-16-2023 Emergency department patient visit AMNA NGUYEN [facility] Start: 11-10-2023 End: 11-11-2023 Emergency [facility] Procedures Date Procedure Procedure Detail Performing Clinician [...] Detail Author Start: 11-09-2033 Tetanus vaccination TETANUS [facility] Start: 10-22-2024 Influenza vaccination INFLUENZ A VACCINE (Season Ended) [facility] Start: 10-23-2023 COVID-19 VACCINE ( season) COVID-19 VACCINE ( season) [facility] Start: 10-23-2023 Influenza vaccination INFLUENZA VACC INE (#1) [facility] Start: 2008 Hepatitis B vaccination HEP B VACCINE (1 of 3 - 19+ 3-dose series) [facility] Start: 2008 PNEUMOCOCCAL VACCINE SERIES (1 of 2 - PCV) PNEUMOCOCCAL VACCINE SERIES (1 of 2 - PCV) [facility] Start: 2004 HIV screening HIV SCREENING DISCUSSI ON [facility] Start: 1989 Hepatitis C screening HEPATITI S C VIRUS SCREENING [facility] End: 08-04-2024 Standard ECG ECG ECG STAT One Time for 1 Occurrences starting 08/04/2024 until 08/04/2024 [facility] Comment on above: One Time for 1 Occur rences starting 08/04/2024 until 08/04/2024 Immunizations Immunization Date Immunization Notes Care Provider Ashley gómez 01-11-2019 influenza virus vaccine, unspecified formulation Price Smiley DO Work Phone: [facility] Payers Date Payer Category Payer Medicaid (Managed Care) [facility] [id number] 2024 Private Health Insurance [id number] 2009 Unknown [id number] 1989 Unknown [id number] 1989 Unknown [id number] 1989 Unknown [id number] 1989 Unknown [id number] Social History Date Type Detail Facility Start: 07-22-2020 End: 03-04-2024 Tobacco smoking status NHIS Smokes tobacco daily [facility] History of tobacco use Cigarette Smoker [facility] Start: 03-04-2024 Tobacco use and exposure Smoke less tobacco non-user [facility] Start: 03-04-2024 End: 08-04-2024 Alcoholic beverage intake Current drinker of alcohol (finding) [facility] Start: 03-04-2024 End: 08-04-2024 Alcoholic beverage intake [facility] Start: 03-04-2024 Alcohol Use Disorder Identification Test - Consumption [AUDIT-C] [facility] How often to you hav e a drink containing alcohol? 4 or more times a week [facility] How many standard dr inks containing alcohol do you have on a typical day? 5 or 6 [facility] How often do you hav e 6 or more drinks on 1 occasion? Weekly [facility] Start: 1990 Sex assigned at Not on file [facility] Start: 03-04-2024 Sex Male (finding) [facility] Start: 03-05-2020 Tobacco Use Tobacco Use [facility] Start: 1989 Sex Assigned At Male [facility] Clinical Notes 05-20-2020 to 08-04-2024 Bryant Alicea [...] Bryant Alicea Sr., MD, PhD 08/05/24 0236 [facility] Work Phone: 08-04-2024 Emergency department Note ED [...] route As directed PRN for Opioid Reversal. [place] into the nose as directed. Call 911. [...] given fluids via EMS. Unlabored respirations. Bed: [facility] Expected date: Expected time: Means of arrival: Comments: Medic 8 documented in this encounter [facility] 08-04-2024 Physician Emergency department Note [...] route As directed PRN for Opioid Reversal. [place] into the nose as directed. Call 911. [...] MAKING ED Course as of 08/05/24 0115 [place] Aug 05, 2024 0055 ECG NSR, normal [...] health. Keri Hart MD Resident 08/05/24 0120 [facility] 08-04-2024 Emergency department Note Pt was found unconscious in someone's front yard. EMS expected ETOH intoxication. Aox3 with EMS. Pt bg was 146 and was given fluids via EMS. Unlabored respirations. [facility] 08-04-2024 Emergency department Note Bed: [facility] Expected date: Expected time: Means of arrival: Comments: Medic 8 [facility] 03-05-2024 Emergency department Note Narcan kit given to patient with education provided, per Dr. Ferreira. [facility] 03-05-2024 Emergency department Note Narcan kit given [...] Comments: Medic 18 documented in this encounter [facility] 03-05-2024 Hospital Discharge instructions Ashely Ferreira MD [...] follow up care, please call the clinical dependency case manager at . Return to the ED if your symptoms worsen, something changes, or you do not feel comfortable taking care of yourself at home. Also come back if you develop a fever, chest pain, are not able to breathe, or are not able to tolerate food by mouth. The following attachments cannot be sent through Care Everywhere.Drug Overdose: Fentanyl: General Info (Kazakh)naloxone (nasal) (Kazakh)documented in this encounter [facility] 03-05-2024 Physician Emergency department Note ED ATTENDING [...] regarding hospitalization. Price Smiley DO 03/05/24 0013 [facility] 03-04-2024 Emergency department Note Bed: EE01 Expected date: Expected time: Means of arrival: Comments: Medic 18 [facility] 09-30-2020 Note HNO ID: [id number] Author: Brianna Mcgrath PA-C Service: ? Author Type: Physician [place] Stitcher Type: Progress Notes Filed: 09/30/2020 8:58 PM [...] ABD RT UPPE (more content not included)... [facility] 09-24-2020 Note HNO ID: [id number] Author: Betsy Patel APRN.WOOL BRUSHER Service: ? Author Type: Nurse Practitioner Type: [...] popped up. He no showed appointment with social media designer to discuss treatment for Hepatitis B. He [...] need to reschedule and keep appointment with social media designer. Reviewed potential complications of untreated Hepatitis B, [...] results and coordinating care. Betsy Patel APRN.DALIA [facility] 06-11-2020 Note HNO ID: [id number] Author: Hitesh Lucero Service: ? Author Type: Physician Type: Progress Notes Filed: 06/11/2020 1:05 PM Note Text: This note was created using [employer]. Subjective Viktoria Sosa is a 29 year [...] is infectious and should notify partners, etc. 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 - CONSULT TO HEPATOLOGY 4. Genital warts - ICD9: 078.11, ICD10: A63.0 - He declined cryotherapy. 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 Author Type: [...] HEPATOLOGY Chel Velasquez MD May 23, 2020 [facility] 05-20-2020 Note HNO ID: [id number] Author: Betsy (Dalia) Older Service: ? Author Type: Nurse Practitioner Type: Progress Notes Filed: 05/21/2020 11:15 AM Note Text: CC: Patient presents with: Establish Care HPI Viktoria Sosa is a 29 year old male who presents today for above. Patient reports he was recently seen at [facility] for STD testing and he [...] ICD9: 573.3, ICD10: K75.9 STD testing at [facility] positive for Hepatitis B per patient, results not available for review. Patient has very low health literacy and poor historian. Will recheck acute hepatitis panel and also CMP. Follow-up and further recommendations pending results - CMP (CMP) (FOR REMOTE [facility] USE) - HEP ACUTE PANEL BL 3. Social anxiety disorder - ICD9: 300.23, ICD10: F40.10 Patient requesting something to make him less awkward. Appears that patient suffers from social anxiety. - Discussed treatment options and benefits of counsellors (more content not included)... [facility] Evaluation note Diagnosis Drug overdose of undetermined intent, initial encounter- [facility] Alcohol abuse with intoxication- Primary Acute alcoholic intoxication in alcoholism, unspecified [facility] information available [facility] Work Phone: Hospital Discharge instructions* Attachments The following attachments cannot be sent through Care Everywhere. * Alcohol Intoxication: Acute (Kazakh) [facility] Radiology (Emergency) - New Request Specialty Diagnoses / Procedures Referred By Ana persaud Referred To Contact Procedures ECG Jolene Mcneil MD [address] [place] [phone] Phone: tel: fax: Referral ID Status Reason Start Date Expiration Date V isits Requested Visits Authorized [id number] New Request 08/04/2024 08/29/2025 1 1 [facility] for referral (narrative)No [facility] for [facility] Work Phone: Summary Purpose Family History No [...] section and content) DATE CREATED AUTHOR 11/24/2020 [facility] DATE CREATED AUTHOR AUTHOR'S ORGANIZ ATION 04/02/2021 [facility] DATE CREATED AUTHOR AUTHOR'S ORGANIZ ATION 04/12/2021 [facility] DATE CREATED AUTHOR AUTHOR'S ORGANIZ ATION 08/12/2024 [facility] DATE CREATED AUTHOR AUTHOR'S ORGANIZ ATION 08/16/2024 [facility] Reason for Visit (unrecogniz ed section and content) Reason Comments Drug Overdose Arrived via medic af ter being found down, with shallow respirations and pinpoint pupils. Medics administered 2mg IM Narcan. 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 [employer] provides no warranty or guarantee of the accuracy or completeness of information in this document.
== END 2024-08-26 15:40 | disposition left against medical advice (07) ==
LOC: ED 15:44
DX: Z53.21 Procedure and treatment not carried out due to patient leaving prior to being seen by health care provider (principal)

== ENCOUNTER 2024-11-24 00:10 | Emergency (ER) | payer SELFPAY ==
[2024-11-24 00:12] VITALS: BP 119/85; PULSE 77; RESP 18; TEMP 36.4; O2SAT 98; BMI 22.0
--- NOTE | 2024-11-24 00:41 | EDS_ITS ---
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 No sign of apparent injury, patient denies any injury but history is limited due to being intoxicated. [facility] Medical History Drug abuse Home Medications ?Medication ?Instructions ?Recorded ?Last Taken ?Type NK 01/31/19 Unknown History Allergy/AdvReac Type Severity Reaction Status Date / Time No Known Allergies Allergy Verified 11/24/24 00:11 Surgical History H/O foot surgery Social History Smoking Status: Current every day smoker tobacco type: cigarettes EXAM Physical Exam Const Vital Signs: 11/24/24 00:12 11/24/24 00:42 Temperature 97.5 F L 97.5 F L Temperature Source Oral Pulse Rate 77 58 L Respiratory Rate 18 16 Blood Pressure 119/85 H 111/81 H Blood Pressure Mean 96 91 Pulse Ox 98 100 Positive well nourished and well developed General Appearance ED: well developed and NAD HEENT Reports moist mucous membranes normocephalic and atraumatic Eyes PERRL and EOMs intact bilaterally Neck full ROM and supple Resp normal respiratory effort and clear to auscultation bilaterally Cardio regular rate, regular rhythm and no murmurs GI non-tender and non-distended Auscultation: normoactive bowel sounds Palpation: soft Back/Spine no CVA tenderness General Back: other FROM Extremity normal to inspection General Extremety ED: Negative for edema, pulses abnormal or tenderness General Extremity: Negative for edema or pulses abnormal Neuro CN's II-XII intact bilaterally and no sensory deficits noted Neuro Narrative: Lethargic, alerts to voice and light physical stimulation. Normal speech when he talks. Sensorium / Orientation: awake and alert Motor Exam: strength 5/5 throughout Psych Psych Narrative: Smells of alcohol Skin no rashes or lesions noted and no wounds MDM MDM MDM Narrative Medical decision making narrative: Vital signs are normal I see no signs of respiratory depression or pinpoint pupils, or pupillary dilatation to suggest she is in an acute withdrawal syndrome. There is no piloerection, vomiting, abdominal tenderness, he is breathing well, he is stable to go to [facility] in this condition Discharge Plan Triage Chief Complaint: Substance Abuse ED Provider: Fernandez Ribeiro Dx/Rx/DC Orders Clinical Impression: Alcohol intoxication Instructions: Alf Clearance Prescriptions: No Action NK Primary Care Provider: Care Physician,No Primary Print Language: Nauruan Disposition Disposition: Home, Self Care Discharge Date/Time: 11/24/24 00:53
[2024-11-24 00:42] VITALS: BP 111/81; PULSE 58; RESP 16; TEMP 36.4; O2SAT 100
--- OUTSIDE RECORDS SUMMARY | 2024-11-24 00:55 | XMS RPT_ITS | CCD ---
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 [place] into the nose as directed. Call 911. [...] unspecified; Translations: [Insomnia, unspecified] Onset: 07-19-2024 Episodic Residual codes; unclassified (1 source) Procedure and treatment not carried out due to patient leaving prior to being seen by health care provider; Translations: [Procedure and treatment not carried out due to patient leaving prior to being seen by health care provider] Onset: 08-29-2024 Episodic Schizophrenia and other psychotic disorders (2 [...] - No, Physician Language assistance: N/A - kake Solomon Islander speaker Chief Complaint Patient presents with Psychiatric [...] mg (has (more content not included)... Normal [facility] ALCOHOL, MEDICALon ALCOHOL MEDICAL 117.0 mg/dL High <10.0 [facility] Comment on above: Performed By: #### 4 5033 #### [facility] [address], [place] [address] Des Nieves M.D. [id number] ALCOHOL MEDICAL < Normal <10.0 [facility] Comment on above: Result Comment: Alco hol cutoff: <10.00 mg/dL = None Detected Performed By: #### 4 5033 #### [facility] [address], [place] [address] Des Nieves M.D. [id number] DRUGS OF ABUSE SCREEN, URINE on 08-09-2024 AMPHETAMINE SCREEN, URINE Not detected Normal None Detected [facility] Comment on above: Order Comment: Scree n results should be used for treatment purposes only. Specimen will be kept for 2 weeks, if the sample is adequate. Confirmation testing can be initiated by calling the lab within 2 weeks. Result Comment: Urin e Amphetamine Cutoff: < 1000 ng/mL = None Detected Performed By: #### 4 [id number] #### [facility] [address] [id number] Des Nieves M.D. [id number] BARBITURATE SCREEN URINE Not detected Normal None Detected [facility] Comment on above: Order Comment: Scree n results should be used for treatment purposes only. Specimen will be kept for 2 weeks, if the sample is adequate. Confirmation testing can be initiated by calling the lab within 2 weeks. Result Comment: Urin e Barbiturates Cutoff: < 200 ng/mL = None Detected Performed By: #### 4 [id number] #### [facility] [address], [place] [address] Des Nieves M.D. [id number] BENZODIAZEPINE SCREEN, URINE Not detected Normal None Detected [facility] Comment on above: Order Comment: Scree n results should be used for treatment purposes only. Specimen will be kept for 2 weeks, if the sample is adequate. Confirmation testing can be initiated by calling the lab within 2 weeks. Result Comment: Urin e Benzodiazepine Cutoff: < 200 ng/mL = None Detected Performed By: #### 4 [id number] #### [facility] [address] [id number] Des Nieves M.D. [id number] BUPRENORPHINE, URINE Not detected Normal None Detected [facility] Comment on above: Order Comment: Scree n results should be used for treatment purposes only. Specimen will be kept for 2 weeks, if the sample is adequate. Confirmation testing can be initiated by calling the lab within 2 weeks. Result Comment: Urin e Buprenorphine Cutoff: < 5 ng/mL = None Detected Performed By: #### 4 [id number] #### [facility] [address] [address] Des Nieves M.D. [id number] CANNABINOID SCREEN URINE Not detected Normal None Detected [facility] Comment on above: Order Comment: Scree n results should be used for treatment purposes only. Specimen will be kept for 2 weeks, if the sample is adequate. Confirmation testing can be initiated by calling the lab within 2 weeks. Result Comment: Urin e Cannabinoids Cutoff: < 50 ng/mL = None Detected Performed By: #### 4 [id number] #### [facility] [address] [address] Des Nieves M.D. [id number] COCAINE, SCREEN URINE Positive Abnormal None Detected [facility] Comment on above: Order Comment: Scree n results should be used for treatment purposes only. Specimen will be kept for 2 weeks, if the sample is adequate. Confirmation testing can be initiated by calling the lab within 2 weeks. Result Comment: Urin e Cocaine Cutoff: < 300 ng/mL = None Detected Performed By: #### 4 [id number] #### [facility] [address] [id number] Des Nieves M.D. [id number] FENTANYL, URINE Not detected Normal None Detected [facility] Comment on above: Order Comment: Scree n results should be used for treatment purposes only. Specimen will be kept for 2 weeks, if the sample is adequate. Confirmation testing can be initiated by calling the lab within 2 weeks. Result Comment: Urin e Fentanyl Cutoff: < 1 ng/mL = None Detected Performed By: #### 4 [id number] #### [facility] [address] [address] Des Nieves M.D. [id number] METHADONE SCREEN, URINE Not detected Normal None Detected [facility] Comment on above: Order Comment: Scree n results should be used for treatment purposes only. Specimen will be kept for 2 weeks, if the sample is adequate. Confirmation testing can be initiated by calling the lab within 2 weeks. Result Comment: Urin e Methadone Cutoff: < 300 ng/mL = None Detected Performed By: #### 4 [id number] #### [facility] [address] [address] Des Nieves M.D. [id number] OPIATE SCREEN URINE Not detected Normal None Detected [facility] Comment on above: Order Comment: Scree n results should be used for treatment purposes only. Specimen will be kept for 2 weeks, if the sample is adequate. Confirmation testing can be initiated by calling the lab within 2 weeks. Result Comment: Urin e Opiates Cutoff: < 300 ng/mL = None Detected Performed By: #### 4 [id number] #### [facility] [address] [address] Des Nieves M.D. [id number] OXYCODONE SCREEN, URINE Not detected Normal None Detected [facility] Comment on above: Order Comment: Scree n results should be used for treatment purposes only. Specimen will be kept for 2 weeks, if the sample is adequate. Confirmation testing can be initiated by calling the lab within 2 weeks. Result Comment: Urin e Oxycodone Cutoff: < 100 ng/mL = None Detected Performed By: #### 4 [id number] #### [facility] [address] [address] Des Nieves M.D. [id number] AMPHETAMINE SCREEN, URINE Not detected Normal None Detected [facility] Comment on above: Order Comment: Scree n results should be used for treatment purposes only. Specimen will be kept for 2 weeks, if the sample is adequate. Confirmation testing can be initiated by calling the lab within 2 weeks. Result Comment: Urin e Amphetamine Cutoff: < 1000 ng/mL = None Detected Performed By: #### 4 [id number] #### [facility] [address] [id number] Des Nieves M.D. [id number] BARBITURATE SCREEN URINE Not detected Normal None Detected [facility] Comment on above: Order Comment: Scree n results should be used for treatment purposes only. Specimen will be kept for 2 weeks, if the sample is adequate. Confirmation testing can be initiated by calling the lab within 2 weeks. Result Comment: Urin e Barbiturates Cutoff: < 200 ng/mL = None Detected Performed By: #### 4 [id number] #### [facility] [address] [address] Des Nieves M.D. [id number] BENZODIAZEPINE SCREEN, URINE Positive Abnormal None Detected [facility] Comment on above: Order Comment: Scree n results should be used for treatment purposes only. Specimen will be kept for 2 weeks, if the sample is adequate. Confirmation testing can be initiated by calling the lab within 2 weeks. Result Comment: Urin e Benzodiazepine Cutoff: < 200 ng/mL = None Detected Performed By: #### 4 [id number] #### [facility] [address] [address] Des Nieves M.D. [id number] BUPRENORPHINE, URINE Not detected Normal None Detected [facility] Comment on above: Order Comment: Scree n results should be used for treatment purposes only. Specimen will be kept for 2 weeks, if the sample is adequate. Confirmation testing can be initiated by calling the lab within 2 weeks. Result Comment: Urin e Buprenorphine Cutoff: < 5 ng/mL = None Detected Performed By: #### 4 [id number] #### [facility] [address] [address] Des Nieves M.D. [id number] CANNABINOID SCREEN URINE Positive Abnormal None Detected [facility] Comment on above: Order Comment: Scree n results should be used for treatment purposes only. Specimen will be kept for 2 weeks, if the sample is adequate. Confirmation testing can be initiated by calling the lab within 2 weeks. Result Comment: Urin e Cannabinoids Cutoff: < 50 ng/mL = None Detected Performed By: #### 4 [id number] #### [facility] [address] [address] Des Nieves M.D. [id number] COCAINE, SCREEN URINE Positive Abnormal None Detected [facility] Comment on above: Order Comment: Scree n results should be used for treatment purposes only. Specimen will be kept for 2 weeks, if the sample is adequate. Confirmation testing can be initiated by calling the lab within 2 weeks. Result Comment: Urin e Cocaine Cutoff: < 300 ng/mL = None Detected Performed By: #### 4 [id number] #### [facility] [address] [address] Des Nieves M.D. [id number] FENTANYL, URINE Not detected Normal None Detected [facility] Comment on above: Order Comment: Scree n results should be used for treatment purposes only. Specimen will be kept for 2 weeks, if the sample is adequate. Confirmation testing can be initiated by calling the lab within 2 weeks. Result Comment: Urin e Fentanyl Cutoff: < 1 ng/mL = None Detected Performed By: #### 4 [id number] #### [facility] [address] [address] Des Nieves M.D. [id number] METHADONE SCREEN, URINE Not detected Normal None Detected [facility] Comment on above: Order Comment: Scree n results should be used for treatment purposes only. Specimen will be kept for 2 weeks, if the sample is adequate. Confirmation testing can be initiated by calling the lab within 2 weeks. Result Comment: Urin e Methadone Cutoff: < 300 ng/mL = None Detected Performed By: #### 4 [id number] #### [facility] [address] [address] Des Nieves M.D. [id number] OPIATE SCREEN URINE Not detected Normal None Detected [facility] Comment on above: Order Comment: Scree n results should be used for treatment purposes only. Specimen will be kept for 2 weeks, if the sample is adequate. Confirmation testing can be initiated by calling the lab within 2 weeks. Result Comment: Urin e Opiates Cutoff: < 300 ng/mL = None Detected Performed By: #### 4 [id number] #### [facility] [address] [id number] Des Nieves M.D. [id number] OXYCODONE SCREEN, URINE Not detected Normal None Detected [facility] Comment on above: Order Comment: Scree n results should be used for treatment purposes only. Specimen will be kept for 2 weeks, if the sample is adequate. Confirmation testing can be initiated by calling the lab within 2 weeks. Result Comment: Urin e Oxycodone Cutoff: < 100 ng/mL = None Detected Performed By: #### 4 [id number] #### [facility] [address] [place], [place] [address] Des Nieves M.D. [id number] ED Prov Noteon 08-09-2024 ED Prov Note PCP - No, Physician [phone] No chief complaint on file. HPI This [...] abuse (HCC) 2. 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 Disposition: Discharge Shared decision making utilized [...] History Marital status (more content not included)... Normal [facility] No Panel Informationon 08-05 [facility] Portable XR Chest Viewson IMPRESSION: No [...] chest. IMPRESSION IMPRESSION: No acute cardiopulmonary disease [facility] Portable XR Chest ViewsOrder ed By: Gino Dwyer on 08-05-2024 [facility] XR CHEST 1 VIEW PORTABLEon 0 08-05-2024 XR CHEST 1 VIEW PORTABLE EXAM: XR CHEST 1 VIEW PORTABLE, 08/04/2024 22:49 PM COMPARISON: No prior studies available for comparison. CLINICAL INDICATIONS: Central chest pain RELEVANT CLINICAL HISTORY: FINDINGS: (Adequate technique) Implanted Devices: None Thorax: No acute findings in the chest. IMPRESSION: No acute cardiopulmonary disease Normal [facility] Portable XR Chest Viewson Radiology Study observation (narrative) [facility] ED Prov Noteon 07-19-2024 ED Prov Note EMERGENCY MEDICINE PROVIDER NOTE [facility] EMERGENCY DEPARTMENT Encounter Date: 07/20/24 History obtained [...] primary care provider (PCP). Why: Call the [facility] Referral Number to schedule an appointment: [phone] 2. Open Access. Why: As needed [facility] (Open Access Clinic) [address] [place], [place] H (more content not included)... Normal [facility] URINE DRUG SCREEN 10Ordered By: Anne Thomas on 03-05-2024 Amphetamine+Methamp hetamine Screen (U) [Mass/Vol] Not detected Cutoff: 500 ng/mL [facility] Barbiturates Ql (U) Not detected Cutoff: 200 ng/mL [facility] Benzodiazepines Ql (U) Not detected Cutoff: 200 ng/mL [facility] Buprenorphine Ql (U) Not detected Cutoff: 5 ng/mL [facility] Cannabinoids Screen Ql (U) Positive Abnormal Cutoff: 50 ng/mL [facility] Cocaine Ql (U) Positive Abnormal Cutoff: 150 ng/mL [facility] fentaNYL Ql (U) Positive Abnormal Cutoff: 1 ng/mL [facility] Interpretation and review of laboratory results Abnormal [facility] Methadone Ql (U) Not detected Cutoff: 300 ng/mL [facility] Opiates Ql (U) Not detected Cutoff: 300 ng/mL [facility] oxyCODONE Ql (U) Not detected Cutoff: 100 ng/mL [facility] For medical purposes only. Positive results are unconfirmed unless otherwise noted. [facility] URINE DRUG SCREEN 10on 03-05 Amphetamine/Methamp hetamine Not detected Normal Cutoff: 500 ng/mL [facility] Comment on above: Order Comment: For m edical purposes only. Positive results are unconfirmed unless otherwise noted. Performed By: #### 1 0DRUG #### [facility] (DEFAULT) [address] [place] [address] Barbiturates Not detected Normal Cutoff: 200 ng/mL [facility] Comment on above: Order Comment: For m edical purposes only. Positive results are unconfirmed unless otherwise noted. Performed By: #### 1 0DRUG #### [facility] (DEFAULT) [address] [address] Benzodiazepines Not detected Normal Cutoff: 200 ng/mL [facility] Comment on above: Order Comment: For m edical purposes only. Positive results are unconfirmed unless otherwise noted. Performed By: #### 1 0DRUG #### [facility] (DEFAULT) [address] [address] Buprenorphine Not detected Normal Cutoff: 5 ng/mL [facility] Comment on above: Order Comment: For m edical purposes only. Positive results are unconfirmed unless otherwise noted. Performed By: #### 1 0DRUG #### [facility] (DEFAULT) [address] [address] Cannabinoids Screen Ql (U) Positive Abnormal Cutoff: 50 ng/mL [facility] Comment on above: Order Comment: For edical purposes only. Positive results are unconfirmed unless otherwise noted. Performed By: #### 1 0DRUG #### [facility] (DEFAULT) [address] [address] Cocaine Positive Abnormal Cutoff: 150 ng/mL [facility] Comment on above: Order Comment: For edical purposes only. Positive results are unconfirmed unless otherwise noted. Performed By: #### 1 0DRUG #### [facility] (DEFAULT) [address] [address] Fentanyl Positive Abnormal Cutoff: 1 ng/mL [facility] Comment on above: Order Comment: For edical purposes only. Positive results are unconfirmed unless otherwise noted. Performed By: #### 1 0DRUG #### [facility] (DEFAULT) [address] [address] Methadone Not detected Normal Cutoff: 300 ng/mL [facility] Comment on above: Order Comment: For edical purposes only. Positive results are unconfirmed unless otherwise noted. Performed By: #### 1 0DRUG #### [facility] (DEFAULT) [address] [address] Opiates Not detected Normal Cutoff: 300 ng/mL [facility] Comment on above: Order Comment: For m edical purposes only. Positive results are unconfirmed unless otherwise noted. Performed By: #### 1 0DRUG #### [facility] (DEFAULT) [address] [address] Oxycodone Not detected Normal Cutoff: 100 ng/mL [facility] Comment on above: Order Comment: For m edical purposes only. Positive results are unconfirmed unless otherwise noted. Performed By: #### 1 0DRUG #### [facility] (DEFAULT) [address] [address] GLUCOSE POCon 03-04-2024 Glucose [Mass/Vol] 149 mg/dL High 70 - 99 mg/dL [facility] Comment on above: Notified RNread back Interpretation and review of laboratory results Abnormal [facility] POC Sample Type CAPBL [facility] Test performed at address of the patient encounter. [facility] ED Prov Noteon 11-16-2023 ED Prov Note EMERGENCY MEDICINE PROVIDER NOTE [facility] EMERGENCY DEPARTMENT Patient Name: Viktoria Sosa Encounter [...] of staple 2. Elevated blood pressure reading [facility] Data MDM Data: External Documents/Labs Reviewed, Discussed [...] details: scalp W (more content not included)... Normal [facility] CT HEAD OR BRAIN WITHOUT CON [...] IMPRESSION: No acute intracranial abnormality. Workstation ID: [id number] Dictated by: GLORIA DAVIDSON on TueNov 11, 2023 1:03:02 AM EDT Transcribed by: GLORIA DAVIDSON on TueNov 11, 2023 1:03:02 AM EDT Finalized by: GLORIA DAVIDSON on TueNov 11, 2023 1:03:02 AM EDT [facility] Comment on above: Order Comment: Injur [...] mid facial soft tissue swelling. Workstation ID: [id number] Dictated by: GLORIA DAVIDSON on TueNov 10, 2023 9:36:40 PM EDT Transcribed by: GLORIA DAVIDSON on TueNov 10, 2023 9:36:40 PM EDT Finalized by: GLORIA DAVIDSON on TueNov 10, 2023 9:36:40 PM EDT [facility] Comment on above: Order Comment: Injur [...] 129/84 -- -- 85 16 100 % 11/10/232244 (!) 155/92 -- -- 91 -- 99 [...] and/or family preference (more content not included)... [facility] ED NOTEon 11-23-2020 ED NOTE HNO ID: [id number] Author: Laurel Jenkins RN Service: Emergency Medicine Author Type: Registered Nurse Type: ED Notes Filed: 11/23/2020 6:12 AM Note Text: Pt given DC info. Pt verbalized understanding of info. No s/.sym of distress noted. Pt has no further questions or concerns. 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 Pt sts last used meth yesterday and drank 3 tall boys bell captain enough to not get sick. Pt [...] normal. Tho (more content not included)... Normal [facility] Basic metabolic 2000 panelon 11-22-2020 Anion gap [Moles/Vol] 13 mmol/L Normal 9-18 [facility] Comment on above: Order Comment: Speci men Type: BLOOD SPECIMEN Performed By: #### 2 4321-2 #### [facility] CLIA [id number] [address] [place] [address] [place] Calcium [Mass/Vol] 9.8 mg/dL Normal 8.5-10.2 [facility] Comment on above: Order Comment: Speci men Type: BLOOD SPECIMEN Performed By: #### 2 4321-2 #### [facility] CLIA [id number] [address] [place] [address] [place] Chloride [Moles/Vol] 103 mmol/L Normal 97-105 [facility] Comment on above: Order Comment: Speci men Type: BLOOD SPECIMEN Performed By: #### 2 4321-2 #### [facility] CLIA [id number] [address] [place] CO2 [Moles/Vol] 26 mmol/L Normal 22-30 [facility] Comment on above: Order Comment: Speci men Type: BLOOD SPECIMEN Performed By: #### 2 4321-2 #### [facility] CLIA [id number] [address] [place] Creatinine [Mass/Vol] 0.80 mg/dL Normal 0.73-1.22 [facility] Comment on above: Order Comment: Speci men Type: BLOOD SPECIMEN Performed By: #### 2 4321-2 #### [facility] CLIA [id number] [address] [place] GFR/1.73 sq M.predicted MDRD (S/P/Bld) [Vol rate/Area] mL/min/{1.73_m2} Normal [facility] Comment on above: Order Comment: Speci [...] GFR. Performed By: #### 2 4321-2 #### [facility] CLIA [id number] [address] [place] Glucose [Mass/Vol] 102 mg/dL High 74-99 [facility] Comment on above: Order Comment: Speci men Type: BLOOD SPECIMEN Result Comment: The [place] Diabetes Association (ADA) provides guidance for cutoff [...] Standards of Medical Care in Diabetes 2016, [place] [employer]. Diabetes Care. 2016.39(Suppl 1). Performed By: #### 2 4321-2 #### [facility] CLIA [id number] [address] Potassium [Moles/Vol] 3.8 mmol/L Normal 3.7-5.1 [facility] Comment on above: Order Comment: Speci men Type: BLOOD SPECIMEN Performed By: #### 2 4321-2 #### [facility] CLIA [id number] [address] Sodium [Moles/Vol] 142 mmol/L Normal 136-144 [facility] Comment on above: Order Comment: Speci men Type: BLOOD SPECIMEN Performed By: #### 2 4321-2 #### [facility] CLIA [id number] [address] Urea nitrogen [Mass/Vol] 9 mg/dL Normal 9-24 [facility] Comment on above: Order Comment: Speci men Type: BLOOD SPECIMEN Performed By: #### 2 4321-2 #### [facility] CLIA [id number] [address] CBC W Auto Differential pane l (Bld)on 11-22-2020 Basophils (Bld) [#/Vol] 0.06 10*3/uL Normal <0.11 [facility] Comment on above: Order Comment: Speci men Type: BLOOD SPECIMEN Performed By: #### 5 7021-8 #### [facility] CLIA [id number] [address] Basophils/100 WBC (Bld) 0.8 % Normal [facility] Comment on above: Order Comment: Speci men Type: BLOOD SPECIMEN Performed By: #### 5 7021-8 #### [facility] [facility]ATORY CLIA [id number] [address] Differential cell count method Nom (Bld) Auto Normal [facility] Comment on above: Order Comment: Speci men Type: BLOOD SPECIMEN Performed By: #### 5 7021-8 #### [facility] CLIA [id number] [address] Eosinophils (Bld) [#/Vol] 0.12 10*3/uL Normal <0.46 [facility] Comment on above: Order Comment: Speci men Type: BLOOD SPECIMEN Performed By: #### 5 7021-8 #### [facility] CLIA [id number] [address] Eosinophils/100 WBC (Bld) 1.7 % Normal [facility] Comment on above: Order Comment: Speci men Type: BLOOD SPECIMEN Performed By: #### 5 7021-8 #### [facility] CLIA [id number] [address] Erythrocyte distribution width (RBC) [Ratio] 13.7 % Normal 11.5-15.0 [facility] Comment on above: Order Comment: Speci men Type: BLOOD SPECIMEN Performed By: #### 5 7021-8 #### [facility] CLIA [id number] [address] Hematocrit (Bld) [Volume fraction] 46.6 % Normal 39.0-51.0 [facility] Comment on above: Order Comment: Speci men Type: BLOOD SPECIMEN Performed By: #### 5 7021-8 #### [facility] CLIA [id number] [address] Hemoglobin (Bld) [Mass/Vol] 15.1 g/dL Normal 13.0-17.0 [facility] Comment on above: Order Comment: Speci men Type: BLOOD SPECIMEN Performed By: #### 5 7021-8 #### [facility] CLIA [id number] [address] IMMATURE GRAN % 0.3 % Normal [facility] Comment on above: Order Comment: Speci men Type: BLOOD SPECIMEN Performed By: #### 5 7021-8 #### [facility] CLIA [id number] [address] IMMATURE GRAN ABS <0.03 Normal <0.10 [facility] Comment on above: Order Comment: Speci men Type: BLOOD SPECIMEN Performed By: #### 5 7021-8 #### [facility] CLIA [id number] [address] Lymphocytes (Bld) [#/Vol] 2.49 10*3/uL Normal 1.00-4.00 [facility] Comment on above: Order Comment: Speci men Type: BLOOD SPECIMEN Performed By: #### 5 7021-8 #### [facility] CLIA [id number] [address] Lymphocytes/100 WBC (Bld) 34.5 % Normal [facility] Comment on above: Order Comment: Speci men Type: BLOOD SPECIMEN Performed By: #### 5 7021-8 #### [facility] CLIA [id number] [address] MCH (RBC) [Entitic mass] 30.1 pg Normal 26.0-34.0 [facility] Comment on above: Order Comment: Speci men Type: BLOOD SPECIMEN Performed By: #### 5 7021-8 #### [facility] CLIA [id number] [address] MCHC (RBC) [Mass/Vol] 32.4 g/dL Normal 30.5-36.0 [facility] Comment on above: Order Comment: Speci men Type: BLOOD SPECIMEN Performed By: #### 5 7021-8 #### [facility] CLIA [id number] [address] MCV (RBC) [Entitic vol] 93.0 fL Normal 80.0-100.0 [facility] Comment on above: Order Comment: Speci men Type: BLOOD SPECIMEN Performed By: #### 5 7021-8 #### [facility] CLIA [id number] [address] Monocytes (Bld) [#/Vol] 0.90 10*3/uL High <0.87 [facility] Comment on above: Order Comment: Speci men Type: BLOOD SPECIMEN Performed By: #### 5 7021-8 #### [facility] CLIA [id number] [address] Monocytes/100 WBC (Bld) 12.5 % Normal [facility] Comment on above: Order Comment: Speci men Type: BLOOD SPECIMEN Performed By: #### 5 7021-8 #### [facility] CLIA [id number] [address] Neutrophils (Bld) [#/Vol] 3.62 10*3/uL Normal 1.45-7.50 [facility] Comment on above: Order Comment: Speci men Type: BLOOD SPECIMEN Performed By: #### 5 7021-8 #### [facility] CLIA [id number] [address] Neutrophils/100 WBC (Bld) 50.2 % Normal [facility] Comment on above: Order Comment: Speci men Type: BLOOD SPECIMEN Performed By: #### 5 7021-8 #### [facility] CLIA [id number] [address] Nucleated RBC (Bld) [#/Vol] 10*3/uL Normal <0.01 [facility] Comment on above: Order Comment: Speci men Type: BLOOD SPECIMEN Performed By: #### 5 7021-8 #### [facility] CLIA [id number] [address] [facility] Nucleated RBC/100 WBC (Bld) [Ratio] 0.0 /100 WBC Normal 0.0 [facility] Comment on above: Order Comment: Speci men Type: BLOOD SPECIMEN Performed By: #### 5 7021-8 #### [facility] CLIA [id number] [address] Platelet mean volume (Bld) [Entitic vol] 9.5 fL Normal 9.0-12.7 [facility] Comment on above: Order Comment: Speci men Type: BLOOD SPECIMEN Performed By: #### 5 7021-8 #### [facility] CLIA [id number] [address] Platelets (Bld) [#/Vol] 217 10*3/uL Normal 150-400 [facility] Comment on above: Order Comment: Speci men Type: BLOOD SPECIMEN Performed By: #### 5 7021-8 #### [facility] CLIA [id number] [address] RBC (Bld) [#/Vol] 5.01 10*6/uL Normal 4.20-6.00 [facility] Comment on above: Order Comment: Speci men Type: BLOOD SPECIMEN Performed By: #### 5 7021-8 #### [facility] CLIA [id number] [address] WBC (Bld) [#/Vol] 7.21 10*3/uL Normal 3.70-11.00 [facility] Comment on above: Order Comment: Speci men Type: BLOOD SPECIMEN Performed By: #### 5 7021-8 #### [facility] CLIA [id number] [address] ED Triage Noteon 11-22-2020 ED Triage Note HNO ID: [id number] Author: Jolene Martinez PA-C Service: Emergency Medicine Author Type: Physician Associate Dean Type: ED Triage Notes Filed: 11/22/2020 7:47 [...] screen Urinalysis SIGNATURE: Jolene Martinez PA-C Normal [facility] Ethanol SerPl-mCncon 021 Ethanol [Mass/Vol] 119 mg/dL High <11 [facility] Comment on above: Order Comment: Speci men Type: BLOOD SPECIMEN Result Comment: Valu es > 80 mg/dL may indicate intoxication Performed By: #### 5 643-2 #### [facility] CLIA [id number] [address] [facility] TOX SCREEN ROUT URon 021 Amphetamines Confirm (U) [Mass/Vol] Positive Abnormal Negative [facility] Comment on above: Order Comment: Speci men Type: URINE SPECIMEN Result Comment: Cuto ff threshold at 1000 ng/mL. Performed By: #### U TOX2 #### [facility] CLIA [id number] [address] [place] BARBITURATES, URINE Negative Normal Negative [facility] Comment on above: Order Comment: Speci men Type: URINE SPECIMEN Result Comment: Cuto ff threshold at 200 ng/mL. Performed By: #### U TOX2 #### [facility] CLIA [id number] [address] [place] BENZODIAZEPINES, UR Negative Normal Negative [facility] Comment on above: Order Comment: Speci men Type: URINE SPECIMEN Result Comment: Cuto ff threshold at 200 ng/mL. Performed By: #### U TOX2 #### [facility] CLIA [id number] [address] OF [place] CANNABINOIDS,URINE Positive Abnormal Negative [facility] Comment on above: Order Comment: Speci men Type: URINE SPECIMEN Result Comment: Cuto ff threshold at 50 ng/mL. Performed By: #### U TOX2 #### [facility] CLIA [id number] [address] Cocaine Ql (U) Negative Normal Negative [facility] Comment on above: Order Comment: Speci men Type: URINE SPECIMEN Result Comment: Cuto ff threshold at 300 ng/mL. Performed By: #### U TOX2 #### [facility] CLIA [id number] [address] Ethanol (U) [Mass/Vol] 141 mg/dL High <11 [facility] Comment on above: Order Comment: Speci men Type: URINE SPECIMEN Performed By: #### U TOX2 #### [facility] CLIA [id number] [address] Opiates Screen Ql (U) Negative Normal Negative [facility] Comment on above: Order Comment: Speci men Type: URINE SPECIMEN Result Comment: Cuto ff threshold at 300 ng/mL. Performed By: #### U TOX2 #### [facility] CLIA [id number] [address] oxyCODONE cutoff Screen (U) [Mass/Vol] Negative Normal Negative [facility] Comment on above: Order Comment: Speci men Type: URINE SPECIMEN Result Comment: Cuto ff threshold at 100 ng/mL. Performed By: #### U TOX2 #### [facility] CLIA [id number] [address] Phencyclidine Ql (U) Negative Normal Negative [facility] Comment on above: Order Comment: Speci men Type: URINE SPECIMEN Result Comment: Cuto ff threshold at 25 ng/mL. Performed By: #### U TOX2 #### [facility] CLIA [id number] [address] Urinalysis complete panel (U )on 11-22-2020 Bacteria LM.HPF (Urine sed) [#/Area] None Seen Normal None Seen [facility] Comment on above: Order Comment: Speci men Type: URINE SPECIMEN Performed By: #### 2 4356-8 #### [facility] CLIA [id number] [address] Bilirubin Ql (U) Negative Normal Negative [facility] Comment on above: Order Comment: Speci men Type: URINE SPECIMEN Performed By: #### 2 4356-8 #### [facility] CLIA [id number] [address] Clarity (Unsp spec) Clear Normal Clear [facility] Comment on above: Order Comment: Speci men Type: URINE SPECIMEN Performed By: #### 2 4356-8 #### [facility] CLIA [id number] [address] Color (U) Yellow Normal Yellow [facility] Comment on above: Order Comment: Speci men Type: URINE SPECIMEN Performed By: #### 2 4356-8 #### [facility] CLIA [id number] [address] Epithelial cells LM.HPF (Urine sed) [#/Area] None Seen Normal [facility] Comment on above: Order Comment: Speci men Type: URINE SPECIMEN Performed By: #### 2 4356-8 #### [facility] CLIA [id number] [address] Glucose Test strip (U) [Mass/Vol] Negative Normal Negative [facility] Comment on above: Order Comment: Speci men Type: URINE SPECIMEN Performed By: #### 2 4356-8 #### [facility] CLIA [id number] [address] Hemoglobin Ql (U) Negative Normal Negative [facility] Comment on above: Order Comment: Speci men Type: URINE SPECIMEN Performed By: #### 2 4356-8 #### [facility] CLIA [id number] [address] Hyaline casts (Urine sed) [#/Area] 0 /[LPF] Normal 0 /LPF [facility] Comment on above: Order Comment: Speci men Type: URINE SPECIMEN Performed By: #### 2 4356-8 #### [facility] CLIA [id number] [address] Ketones Ql (U) Negative Normal Negative [facility] Comment on above: Order Comment: Speci men Type: URINE SPECIMEN Performed By: #### 2 4356-8 #### [facility] CLIA [id number] [address] Leukocyte esterase Test strip Ql (U) Negative Normal Negative [facility] Comment on above: Order Comment: Speci men Type: URINE SPECIMEN Performed By: #### 2 4356-8 #### [facility] CLIA [id number] [address] Nitrite Ql (U) Negative Normal Negative [facility] Comment on above: Order Comment: Speci men Type: URINE SPECIMEN Performed By: #### 2 4356-8 #### [facility] CLIA [id number] [address] pH (U) 7.0 [pH] Normal 5.0-8.0 [facility] Comment on above: Order Comment: Speci men Type: URINE SPECIMEN Performed By: #### 2 4356-8 #### [facility] CLIA [id number] [address] Protein (U) [Mass/Vol] Negative Normal Negative [facility] Comment on above: Order Comment: Speci men Type: URINE SPECIMEN Performed By: #### 2 4356-8 #### [facility] CLIA [id number] [address] RBC LM.HPF (Urine sed) [#/Area] 0-3 /HPF Normal 0-3 /HPF [facility] Comment on above: Order Comment: Speci men Type: URINE SPECIMEN Performed By: #### 2 4356-8 #### [facility] CLIA [id number] [address] Specific gravity (U) [Rel density] <1.005 Low 1.005-1.030 [facility] Comment on above: Order Comment: Speci men Type: URINE SPECIMEN Performed By: #### 2 4356-8 #### [facility] CLIA [id number] [address] Urobilinogen Ql (U) 0.2 EU/dL Normal 0.2-1.0 EU/dL [facility] Comment on above: Order Comment: Speci men Type: URINE SPECIMEN Performed By: #### 2 4356-8 #### [facility] CLIA [id number] [address] WBC LM.HPF (Urine sed) [#/Area] 0-5 /HPF Normal 0-5 /HPF [facility] Comment on above: Order Comment: Speci men Type: URINE SPECIMEN Performed By: #### 2 4356-8 #### [facility] CLIA [id number] [address] CNOVon 09-30-2020 CNOV Office Visit (GSTNOR ) VIKTORIA SOSA ([id number]) 1990 M [facility] Date Time Provider Department 09/30/20 11:00 AM BRIANNA MCGRATH GSTSAVITAR During your visit today, we recorded the [...] (B18.1) Chron (more content not included)... 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 He no showed appointment with spreader operator to discuss treatment for Hepatitis B. He [...] need to reschedule and keep appointment with spreader operator. Reviewed potential complications of untreated Hepatitis B, [...] results and coordinating care. Betsy Patel APRN.DALIA Patel APRN.CNP 09/24/2020 6:21 PM Signed It is [...] help finding it) Referring Provider: HITESH LUCERO [[id number]] Allergies As of Date: 09/24/2020 (No Known Allergies) Date Reviewed: 09/24/2020 Reviewed by: Viktoriya Barnett Cma - Fully Assessed Reason for Visit: Recheck [92] Primary Visit Diagnosis:Genital warts [A63.0] Other Visit Diagnoses:Hepatitis B carrier (HCC) [B18.1] Social anxiety disorder [F40.10] Order(s):sertraline (ZOLOFT) 50 mg tabletTake 1 tablet by mouth on (more content not included)... Normal [facility] CNOVon 09-02-2020 CNOV Office Visit (UROLWS ) VIKTORIA SOSA ([id number]) 1990 M [facility] Date Time Provider Department 09/02/20 1:20 [...] Status:Closed by MACIE CHRISTIE CMA on 09/08/20 [facility] [place] 09-02-2020 CNPN Telephone (UROLWS) VIKTORIA SOSA ([id number]) 1990 [facility] [place] Date Time Provider Department 09/02/20 RADHA DEY [...] to be see by Dr. Rios at [facility]. Pt would like to see if [...] COMBO(AG/AB),WITH REFLEX TO DIFFERENTIATION [SQHIV12] Order #: [id number] FUTURE Prescriptions as of 09/04/2020 - diphenhydrAMINE [...] Status:Closed by CHRISTINA LARKIN RN on 09/04/20 [facility] OBSOLETEon 08-05-2020 OBSOLETE Refill (INTMWS) VIKTORIA SOSA ([id number]) 1990 [facility] [place] Date Time Provider Department 08/05/20 HITESH LUCERO During your visit today, we recorded the following information about you: Katherine Stinson LPN 08/05/2020 1:31 PM Signed Patient calling for refill of Sertraline (Zoloft) 50mg. Patient called for refill on 05/20/2020, new RX sent to [facility], it is not showing in [facility]. Called pharmacy, they will get ready for [...] Status:Closed by KATHERINE STINSON LPN on 08/05/20 [facility] 06-23-2020 CNPN Telephone (INTMWS) VIKTORIA SOSA ([id number]) 1990 M T Date Time Provider Department 06/23/20 HITESH LUCERO [...] Status:Closed by KATHERINE STINSON LPN on 07/01/20 [facility] OBSOLETEon 06-23-2020 OBSOLETE Refill (INTMWS) VIKTORIA SOSA ([id number]) 1990 M [facility] Date Time Provider Department 06/23/20 HITESH LUCERO INTMWS During your visit today, we recorded the following information about you: Eleni Sol 06/23/2020 9:30 AM Signed Patient has [...] 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 Allergies As of Date: 06/23/2020 (No [...] Status:Closed by VIKTORIYA BARNETT CMA on 06/23/20 [facility]) VIKTOR[facility] S[facility]A ([id number]) 1990 M [facility] Date Time Provider Department 06/16/20 HITESH LUCERO INTMWS During your visit today, we recorded the following information about you: Annemarie hCatman LPN 06/16/2020 3:35 PM Signed Per medardo Sosa ([place]: [id number]) ? [id number] Imiquimod 5% cream Status: PA Response - Approved Created: June 13, 2020 [id number] Sent: June 16, 2020 Annemarie Meri VARMA 06/16/2020 3:35 PM Signed Pharmacy notified. Annemarie [...] Status:Closed by ANNEMARIE CHATMAN LPN on 06/16/20 [facility] CNOVon 06-11-2020 CNOV Office Visit (INTMWS ) VIKTORIA SOSA ([id number]) 1990 M T Date Time Provider Department 06/11/20 11:20 AM HITESH LUCERO During your visit today, we recorded the following information about you: Temperature Pulse Respiration Blood pressure 96.4 degrees 72/minute 16/minute 122/76 Weight 73.4 kg Hitesh Lucero MD 06/11/2020 1:05 PM Signed This note was created using Magazingariter. Subjective Viktoria Sosa is a 29 year [...] is infectious and should notify partners, etc. 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 Normal [facility] CBC and Differentialon 05-23 Abs Baso 0.08 k/uL Normal <0.11 [facility] Comment on above: Performed By: #### C BCDIF, HBVDNU ####[facility] [place] [phone] Abs [place] 0.77 k/uL Normal <0.87 [facility] Comment on above: Performed By: #### C BCDIF, HBVDNU ####[facility] [address] [place], [place] [phone] Abs Neut 6.76 k/uL Normal 1.45-7.50 [facility] Comment on above: Performed By: #### C BCDIF, HBVDNU ####[facility] [address] [place], [place] [phone] Absolute nRBC <0.01 Normal <0.01 [facility] Comment on above: Performed By: #### C BCDIF, HBVDNU ####[facility] [place], [place] [phone] Basophils/100 WBC (Bld) 0.9 % Normal [facility] Comment on above: Performed By: #### C GUILLERMO HBVZHANEU ####[place] [address] [address] [phone] DTYPE Auto Diff Normal [facility] Comment on above: Performed By: #### C GUILLERMO HBVZHANEU ####[place] [address] [address] [phone] Eosinophils (Bld) [#/Vol] 0.09 10*3/uL Normal <0.46 [facility] Comment on above: Performed By: #### C BCTRISH HBVZHANEU ####[place] [address] [address] [phone] Eosinophils/100 WBC (Bld) 1.0 % Normal [facility] Comment on above: Performed By: #### C BCTRISH HBVDNU ####[place] [address] [address] [phone] Erythrocyte distribution width (RBC) [Ratio] 13.9 % Normal 11.5-15.0 [facility] Comment on above: Performed By: #### C BCTRISH HBVDNU ####[place] [address] [address] [phone] Hematocrit (Bld) [Volume fraction] 46.2 % Normal 39.0-51.0 [facility] Comment on above: Performed By: #### C BCTRISH HBVDNU ####[place] [address] [address] [phone] Hemoglobin (Bld) [Mass/Vol] 15.4 g/dL Normal 13.0-17.0 [facility] Comment on above: Performed By: #### C BCTRISH HBVDNU ####[place] [address] [address] [phone] Lymphocytes (Bld) [#/Vol] 1.23 10*3/uL Normal 1.00-4.00 [facility] Comment on above: Performed By: #### C BCDIF, HBVDNU ####[facility] [phone] Lymphocytes/100 WBC (Bld) 13.7 % Normal [facility] Comment on above: Performed By: #### C BCDIF, HBVDNU ####[place] [address] [address] [phone] MCH 30.3 pG Normal 26.0-34.0 [facility] Comment on above: Performed By: #### C BCDIF, HBVDNU ####[place] [address] [address] [phone] MCHC (RBC) [Mass/Vol] 33.3 g/dL Normal 30.5-36.0 [facility] Comment on above: Performed By: #### C BCDIF, HBVDNU ####[place] [address] [address] [phone] MCV (RBC) [Entitic vol] 90.9 fL Normal 80.0-100.0 [facility] Comment on above: Performed By: #### C BCDIF, HBVDNU ####[place] [address] [address] [phone] Monocytes/100 WBC (Bld) 8.6 % Normal [facility] Comment on above: Performed By: #### C BCDIF, HBVDNU ####[place] [address] AveClevelJennifer [address] [phone] Neutrophils/100 WBC (Bld) 75.8 % Normal [facility] Comment on above: Performed By: #### C BCDIF, HBVDNU ####[place] [address] [address] [phone] NRBCs 0.0 /100 WBC Normal 0 [facility] Comment on above: Performed By: #### C BCDIDonna HBVDNU ####[place] [address] AveCRockland, [place] [phone] Platelet mean volume (Bld) [Entitic vol] 10.5 fL Normal 9.0-12.7 [facility] Comment on above: Performed By: #### Juanita BCDIF HBVDNU ####[place] [address] [address] [phone] Platelets (Bld) [#/Vol] 271 10*3/uL Normal 150-400 [facility] Comment on above: Performed By: #### Juanita BCTRISH HBVDNU ####[address], [place] [phone] RBC (Bld) [#/Vol] 5.08 10*6/uL Normal 4.20-6.00 [facility] Comment on above: Performed By: #### Juanita BCDIF HBVDNU ####[address], [place] [phone] WBC (Bld) [#/Vol] 8.95 10*3/uL Normal 3.70-11.00 [facility] Comment on above: Performed By: #### Juanita BCDIDonna HBVDNU ####[address] [phone] Narcisa 05-23-2020 CNPN Telephone (INTMWS) VIKTORIA SOSA ([id number]) 1990 M T Date Time Provider Department 05/23/20 BETSY PATEL (DALIA) INTMWS During your visit today, we recorded the following information about you: Betsy Patel APRN.CNP 05/23/2020 10:01 AM Signed Please let the patient know his blood test confirmed Hepatitis B infection. He will need another blood test to check viral load and referral to specialist that treats Hepatitis ZEE Lynngretchenrasheeda Hoffmann 05/23/2020 10:04 AM Signed Left message for [...] surface antigen positive [R76.8] Order(s):E-CONSULT INFECTIOUS DISEASE [5013914] Order #: [id number]: 1 HEP B VIRAL DNA ÁNGEL [SQHBVDNU] Order #: [id number] FUTURE CBC + DIFF [SQCBCDIF] Order #: [id number] FUTURE CONSULT TO HEPATOLOGY [[id number]] Order #: [id number]: 1 FUTURE Prescriptions as of 05/23/2020 Sig: [...] by ANAHY THRASHER RN on 05/23/20 Normal [facility] Hepat.B Vir Ult Qton 021 HBV DNA Ultra Detected Critically abnormal [facility] Comment on above: Result Comment: INTE RPRETATION: Positive for HBVDNA by PCR The linear range of this assay is 20 to 170,000,000 IU/ml. Reference Range: Negative for HBVDNA Performed By: #### C BCDIF, HBVDNU ####[facility] [address] [place], [place] [phone] CNOVon 05-20-2020 CNOV Office Visit (INTMWS ) CROWVIKTORIA GONSALEZ ([id number]) 1990 M [facility] Date Time Provider Department 05/20/20 12:40 PM BETSY PATEL (DALIA) INTMWS During your visit today, we recorded the following information about you: Temperature Pulse Respiration Blood pressure 96.9 degrees 86/minute 14/minute 128/82 Weight 70.3 kg Betsy Patel APRN.CNP 05/21/2020 11:15 AM Signed CC: Patient presents with: Establish Care HPI Viktoria Kellen Ian is a 29 year old male who presents today for above. Patient reports he was recently seen at [facility] for STD testing and he [...] ICD9: 573.3, ICD10: K75.9 STD testing at [facility] positive for Hepatitis B per patient, results not available for review. Patient has very low health literacy and poor historian. Will recheck acute hepatitis panel and also CMP. Follow-up and further recommendatio (more content not included)... Normal [facility] Hep Bs Ag Confirmon 05-21-19 21 Hep Bs Ag Confirm Positive Critically abnormal Negative [facility] Comment on above: Performed By: #### H ACUTP, HBSAGC ####[address] [phone] Hepatitis Acute Panel * OUTS YUE CLIENTS ONLY *on 05-20-2020 HBsAg Initially reactive Critically abnormal Negative [facility] Comment on above: Result Comment: Conf irmatory testing for hepatitis B surface antigen has been ordered and charged. Result rechecked. Performed By: #### H ACUTP, HBSAGC ####[facility] [address] [place], [place] [phone] Hep B Core Ab, IgM Negative Normal Negative [facility] Comment on above: Performed By: #### H ACUTP, HBSAGC ####[facility] [address] [place], [place] [phone] Hepatitis A Ab IgM Negative Normal Negative [facility] Comment on above: Performed By: #### H ACUTP, HBSAGC ####[place] [address], [place] [phone] Hepatitis C Ab IA Negative Normal Negative [facility] Comment on above: Performed By: #### H ACUTP, HBSAGC ####[place] [address] [address] [place] [phone] Remote [facility] (for [facility] use only )on 05-20-2020 Albumin [Mass/Vol] 4.5 g/dL Normal 3.9-4.9 [facility] Comment on above: Performed By: #### R CMP ####[place] [address] [address] [place] [phone] ALP [Catalytic activity/Vol] 62 U/L Normal 38-113 [facility] Comment on above: Performed By: #### R CMP ####[place] [address] [address] [place] [phone] ALT [Catalytic activity/Vol] 28 U/L Normal 10-54 [facility] Comment on above: Performed By: #### R CMP ####[place] [address] [address] [place] [phone] Anion gap [Moles/Vol] 9 mmol/L Normal 9-18 [facility] Comment on above: Performed By: #### R CMP ####[place] [address] [address] [place] [phone] AST [Catalytic activity/Vol] 38 U/L Normal 14-40 [facility] Comment on above: Performed By: #### R CMP ####[place] [address] [address], [place] [phone] Bilirubin [Mass/Vol] 0.4 mg/dL Normal 0.2-1.3 [facility] Comment on above: Performed By: #### R CMP ####[place] [address] [address] [place] [phone] Calcium [Mass/Vol] 9.7 mg/dL Normal 8.5-10.2 [facility] Comment on above: Performed By: #### R CMP ####[place] [address] [address], [place] [phone] Chloride [Moles/Vol] 103 mmol/L Normal 97-105 [facility] Comment on above: Performed By: #### R CMP ####[place] [address] [address] [place] [phone] CO2 [Moles/Vol] 26 mmol/L Normal 22-30 [facility] Comment on above: Performed By: #### R CMP ####[place] [address] [address], [place] [phone] Creatinine [Mass/Vol] 0.84 mg/dL Normal 0.73-1.22 [facility] Comment on above: Performed By: #### R CMP ####[place] [address] [address] [place] [phone] eGFR- Amer. >60 Normal [facility] Comment on above: Performed By: #### R CMP ####[place] [address] [address], [place] [phone] eGFR-All Other Races >60 Normal [facility] Comment on above: Result Comment: eGFR (Estimated [...] actual GFR. Performed By: #### R CMP ####[place] [address] [address], [place] [phone] Glucose [Mass/Vol] 88 mg/dL Normal 74-99 [facility] Comment on above: Result Comment: The [place] Diabetes Association (ADA) provides guidance for cutoff [...] Standards of Medical Care in Diabetes 2016, [place] [employer] Association. Diabetes Care. 2016.39(Suppl 1). Performed By: #### R CMP ####[address] [phone] Potassium [Moles/Vol] 3.9 mmol/L Normal 3.7-5.1 [facility] Comment on above: Performed By: #### R CMP ####[facility] [place] [address] [phone] Protein [Mass/Vol] 7.0 g/dL Normal 6.3-8.0 [facility] Comment on above: Performed By: #### R CMP ####[facility] [place] [address] [phone] Sodium [Moles/Vol] 138 mmol/L Normal 136-144 [facility] Comment on above: Performed By: #### R CMP ####[place] [address] [place], [place] [phone] Urea nitrogen [Mass/Vol] 13 mg/dL Normal 9-24 [facility] Comment on above: Performed By: #### R CMP ####[address] [phone] Vital Signs Date Time Vital Sign Value Performing Clinician Facility 08-26-2024 15:09-0400 Body height 175.26 cm No Primary Care Physician [facility] 08-26-2024 15:09-0400 Body mass index (BMI) [Ratio] 21.4 kg/m2 No Primary Care Physician [facility] 08-26-2024 15:09-0400 Body temperature 98.7 [degF] No Primary Care Physician [facility] 08-26-2024 15:09-0400 Body weight 65.8 kg No Primary Care Physician [facility] 08-26-2024 15:09-0400 Diastolic blood pressure 97 mm[Hg] No Primary Care Physician [facility] 08-26-2024 15:09-0400 Heart rate 105 /min No Primary Care Physician [facility] 08-26-2024 15:09-0400 Respiratory rate 16 /min No Primary Care Physician [facility] 08-26-2024 15:09-0400 SaO2% (BldA) [Mass fraction] 98 % No Primary Care Physician [facility] 08-26-2024 15:09-0400 Systolic blood pressure 141 mm[Hg] No Primary Care Physician [facility] 08-04-2024 22:19-0400 Body temperature 97.81 [degF] Bryant Alicea Sr., MD, PhD Work Phone: [facility] 08-04-2024 22:19-0400 Diastolic blood pressure 80 mm[Hg] Bryant Alicea Sr., MD, PhD Work Phone: [facility] 08-04-2024 22:19-0400 Heart rate 90 /min Bryant Alicea Sr., MD, PhD Work Phone: [facility] 08-04-2024 22:19-0400 Respiratory rate 18 /min Bryant Alicea Sr., MD, PhD Work Phone: [facility] 08-04-2024 22:19-0400 SaO2% (BldA) [Mass fraction] 95 % Bryant Alicea Sr., MD, PhD Work Phone: [facility] 08-04-2024 22:19-0400 Systolic blood pressure 131 mm[Hg] Bryant Alicea Sr., MD, PhD Work Phone: [facility] 03-05-2024 02:09-0500 Body temperature 98.2 [degF] Price Sherice DO Work Phone: [facility] 03-05-2024 02:09-0500 Diastolic blood pressure 89 mm[Hg] Price Sherice DO Work Phone: [facility] 03-05-2024 02:09-0500 Heart rate 92 /min Price Sherice DO Work Phone: [facility] 03-05-2024 02:09-0500 Respiratory rate 16 /min Price [place] DO Work Phone: [facility] 03-05-2024 02:09-0500 SaO2% (BldA) [Mass fraction] 98 % Price [place] DO Work Phone: [facility] 03-05-2024 02:09-0500 Systolic blood pressure 133 mm[Hg] Price Sherice DO Work Phone: [facility] 03-04-2024 23:45-0500 Body height 175.3 cm Price Sherice DO Work Phone: [facility] 03-04-2024 23:45-0500 Body mass index (BMI) [Ratio] 25.13 kg/m2 Price Sherice DO Work Phone: [facility] 03-04-2024 23:45-0500 Body weight 77.2 kg Price Sherice DO Work Phone: [facility] Encounters Encounter Date Encounter Type Care Provider Facility Start: 08-26-2024 End: 08-26-2024 Emergency department patient visit No Primary Care Physician -Emergency Department Work Phone: Start: 08-09-2024 End: 08-10-2024 ambulatory PHYSICIAN [facility] Start: 08-09-2024 End: 08-09-2024 ambulatory PHYSICIAN [facility] Start: 08-04-2024 End: 08-05-2024 Emergency department patient visit Bryant Alicea MD, PhD Work Phone: [facility] Start: 07-19-2024 End: 07-19-2024 Emergency department patient visit ROSEMARY LAZCANO TERESO [facility] Start: 03-04-2024 End: 03-05-2024 Emergency department patient visit Price Smiley DO Work Phone: [facility] Start: 11-16-2023 End: 11-16-2023 Emergency department patient visit AMNA NGUYEN [facility] Start: 11-10-2023 End: 11-11-2023 [facility] Procedures Date Procedure Procedure Detail Performing [...] Detail Author Start: 11-09-2033 Tetanus vaccination TETANUS [facility] Start: 10-22-2024 Influenza vaccination INFLUENZ A VACCINE (Season Ended) [facility] Start: 10-23-2023 COVID-19 VACCINE ( season) COVID-19 VACCINE ( season) [facility] Start: 10-23-2023 Influenza vaccination INFLUENZA VACC INE (#1) [facility] Start: 2008 Hepatitis B vaccination HEP B VACCINE (1 of 3 - 19+ 3-dose series) [facility] Start: 2008 PNEUMOCOCCAL VACCINE SERIES (1 of 2 - PCV) PNEUMOCOCCAL VACCINE SERIES (1 of 2 - PCV) [facility] Start: 2004 HIV screening HIV SCREENING DISCUSSI ON [facility] Start: 1989 Hepatitis C screening HEPATITI S C VIRUS SCREENING [facility] End: 08-04-2024 Standard ECG ECG ECG STAT One Time for 1 Occurrences starting 08/04/2024 until 08/04/2024 [facility] Comment on above: One Time for 1 Occur rences starting 08/04/2024 until 08/04/2024 Immunizations Immunization Date Immunization Notes Care Provider Ashley gómez 01-11-2019 influenza virus vaccine, unspecified formulation Price Smiley DO Work Phone: [facility] Payers Date Payer Category Payer Self-pay 2024 Medicaid (Managed Care) [facility] [id number] 2024 Private Health Insurance [id number] 2009 Unknown [id number] 1989 Unknown [id number] 1989 Unknown [id number] 1989 Unknown [id number] 1989 Unknown [id number] Unknown [id number] Social History Date Type Detail Facility Start: 07-22-2020 End: 03-04-2024 Tobacco smoking status WAIS Smokes tobacco daily [facility] History of tobacco use Cigarette Smoker [facility] Start: 03-04-2024 Tobacco use and exposure Smoke less tobacco non-user [facility] Start: 03-04-2024 End: 08-04-2024 Alcoholic beverage intake Current drinker of alcohol (finding) [facility] Start: 03-04-2024 End: 08-04-2024 Alcoholic beverage intake [facility] Start: 03-04-2024 Alcohol Use Disorder Identification Test - Consumption [AUDIT-C] [facility] How often to you hav e a drink containing alcohol? 4 or more times a week [facility] How many standard dr inks containing alcohol do you have on a typical day? 5 or 6 [facility] How often do you hav e 6 or more drinks on 1 occasion? Weekly [facility] Start: 1990 Sex assigned at Not on file [facility] Start: 03-04-2024 Sex Male (finding) [facility] Start: 03-05-2020 Tobacco Use Tobacco Use [facility] Start: 1990 Sex Assigned At Male W [facility] Clinical Notes 05-20-2020 to 08-04-2024 Bryant Alicea [...] Bryant Alicea Sr., MD, PhD 08/05/24 0236 [facility] Work Phone: 08-04-2024 Emergency department Note [...] route As directed PRN for Opioid Reversal. [place] into the nose as directed. Call 911. [...] given fluids via EMS. Unlabored respirations. Bed: [facility] Expected date: Expected time: Means of arrival: Comments: Medic 8 documented in this encounter [facility] 08-04-2024 Physician Emergency department Note dEPARTMENT of [...] route As directed PRN for Opioid Reversal. [place] into the nose as directed. Call 911. [...] health. Keri Hart MD Resident 08/05/24 0120 [facility] 08-04-2024 Emergency department Note Pt was found unconscious in someone's front yard. EMS expected ETOH intoxication. Aox3 with EMS. Pt bg was 146 and was given fluids via EMS. Unlabored respirations. [facility] 08-04-2024 Emergency department Note Bed: [facility] Expected date: Expected time: Means of arrival: Comments: Medic 8 [facility] 03-05-2024 Emergency department Note Narcan kit given to patient with education provided, per Dr. Ferreira. [facility] 03-05-2024 Emergency department Note Narcan kit given [...] hospitalization. Price Smiley DO 03/05/24 0013 Bed: [facility] Expected date: Expected time: Means of arrival: Comments: Medic 18 documented in this encounter [facility] 03-05-2024 Hospital Discharge instructions Ashely Ferreira [...] follow up care, please call the clinical caser up at . Return to the ED if your symptoms worsen, something changes, or you do not feel comfortable taking care of yourself at home. Also come back if you develop a fever, chest pain, are not able to breathe, or are not able to tolerate food by mouth. The following attachments cannot be sent through Care Everywhere.Drug Overdose: Fentanyl: General Info (Solomon Islander)naloxone (nasal) (Sol[place] Islander)documented in this encounter [facility] 03-05-2024 Physician Emergency department Note ED [...] regarding hospitalization. Price Smiley DO 03/05/24 0013 [facility] 03-04-2024 Emergency department Note Bed: EE01 Expected date: Expected time: Means of arrival: Comments: Medic 18 [facility] 09-30-2020 Note HNO ID: [id number] Author: Brianna Mcgrath PA-C Service: ? Author Type: Physician Associate Dean Type: Progress Notes Filed: 09/30/2020 8:58 PM [...] ABD RT UPPE (more content not included)... [facility] 09-24-2020 Note HNO ID: [id number] Author: Betsy Patel APRN.SAIL LAY OUT WORKER Service: ? Author Type: Nurse Practitioner [...] popped up. He no showed appointment with spreader operator to discuss treatment for Hepatitis B. He [...] need to reschedule and keep appointment with spreader operator. Reviewed potential complications of untreated Hepatitis B, [...] test results and coordinating care. Betsy Patel APRN.[facility] 06-11-2020 Note HNO ID: [id number] Author: Hitesh Lucero Service: ? Author Type: Physician Type: Progress Notes Filed: 06/11/2020 1:05 PM Note Text: This note was created using uma information technology. Subjective Viktoria Sosa is a 29 year [...] is infectious and should notify partners, etc. 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 - CONSULT TO HEPATOLOGY 4. Genital warts - ICD9: 078.11, ICD10: A63.0 - He declined cryotherapy. 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 Author Type: [...] HEPATOLOGY Chel Velasquez MD May 23, 2020 [facility] 05-20-2020 Note HNO ID: [id number] Author: Betsy (Dalia) Older Service: ? Author Type: Nurse Practitioner Type: Progress Notes Filed: 05/21/2020 11:15 AM Note Text: CC: Patient presents with: Establish Care HPI Viktoria Sosa is a 29 year old male who presents today for above. Patient reports he was recently seen at [facility] for STD testing and he [...] ICD9: 573.3, ICD10: K75.9 STD testing at [facility] positive for Hepatitis B per patient, results not available for review. Patient has very low health literacy and poor historian. Will recheck acute hepatitis panel and also CMP. Follow-up and further recommendations pending results - CMP (CMP) (FOR REMOTE [facility] USE) - HEP ACUTE PANEL BL 3. Social anxiety disorder - ICD9: 300.23, ICD10: F40.10 Patient requesting something to make him less awkward. Appears that patient suffers from social anxiety. 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 [facility] Evaluation note Diagnosis Drug overdose of undetermined intent, initial encounter- Primary [facility] Diagnosis Alcohol abuse with intoxication- Primary Acute alcoholic intoxication in alcoholism, unspecified documented in this encounter [facility] noteNo assessment information available [facility] Work Phone: Hospital Discharge instructions* Attachments The following attachments cannot be sent through Care Everywhere. * Alcohol Intoxication: Acute (Sol[place] Islander) documented in this encounterU [facility] (narrative)* Radiology (Emergency) - New Request Specialty Diagnoses / Procedures Referred By Ana persaud Referred To Contact Procedures ECG Jolene Mcneil MD [address] [place] [phone] Phone: tel: fax: Referral ID Status Reason Start Date Expiration Date V isits Requested Visits Authorized [id number] New Request 08/04/2024 08/29/2025 1 1 [facility] (narrative)No reason for referral information availableWLou[facility] Work Phone: Summary Purpose Family History No [...] section and content) DATE CREATED AUTHOR 11/24/2020 [facility] DATE CREATED AUTHOR AUTHOR'S ORGANIZ ATION 04/02/2021 [facility] DATE CREATED AUTHOR AUTHOR'S ORGANIZ ATION 08/12/2024 [facility] DATE CREATED AUTHOR AUTHOR'S ORGANIZ ATION 08/16/2024 [facility] nt DATE CREATED AUTHOR AUTHOR'S ORGANIZ ATION 08/29/2024 [facility] Reason for Visit (unrecogniz ed section and content) Reason Comments Drug Overdose Arrived via medic af ter being found down, with shallow respirations and pinpoint pupils. Medics administered 2mg IM Narcan. 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 [facility] [employer] [facility]. provides no warranty or guarantee of the accuracy or completeness of information in this document.
== END 2024-11-24 00:53 | disposition home or self-care (01) ==
LOC: ED 00:52
PROVIDERS: Emergency Provider Emergency Medicine; Visit Provider Emergency Medicine
DX: F10.129 Alcohol abuse with intoxication, unspecified (principal); F17.210 Nicotine dependence, cigarettes, uncomplicated
CPT/HCPCS: 99283

== ENCOUNTER 2024-12-30 15:18 | Emergency (ER) | payer MEDICAID, SELFPAY ==
[2024-12-30 15:25] VITALS: BP 121/108; PULSE 81; RESP 17; TEMP 36.3; O2SAT 99; BMI 22.8
[2024-12-30] MEDS: Ziprasidone IM 20 MG/ML VIAL IM (15:41)
--- OUTSIDE RECORDS SUMMARY | 2024-12-30 15:49 | XMS RPT_ITS | CCD ---
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 Presley Emergency Department Phys ician Provider, Ed Physician Attending Unavailab le Care Physician, No Primary Primary Care Unava ilable Fernandez Ribeiro Attending Unavailable Care Physician, No Primary Primary Care Unava ilable Medications Current Medications Medication Drug Class(es) Dates Sig (Normalized) Sig (Original) naloxone hydrochloride 40 mg/ml nasal spray (2 sources) Opioid Antagonist Start: 03-05-2024 End: 03-05-2025 naloxone 4 MG/0.1ML 1 spray by Nasal route As directed PRN for Opioid Reversal. Blackey into the nose as directed. Call 911. If no response in 2 minutes use a new nasal spray in other nostril. Repeat until help arrives. 2 Each 03/05/2024 03/05/2025 Active Problems Active Problems Problem Classification Problem Date Documented Da te Episodic/Chronic Alcohol-related disorders (4 sources) Alcohol intoxication; Translations: [Alcohol abuse with intoxication, unspecified] Onset: 08-04-2024 08-05-2024 Chronic Alcohol-related disorders (1 source) Alcohol intoxication; Translations: [Alcohol use, unspecified with intoxication, unspecified] 11-24-2024 Episodic Other injuries and conditions due to external causes (2 sources) Chest injury; Translations: [Unspecified injury of thorax, [...] ideations] Onset: 08-09-2024 Episodic Superficial injury; contusion (2 sources) Contusion of eyeball and orbital tissues, right [...] or medicinal substance] Onset: 03-04-2024 03-05-2024 Episodic Residual codes; unclassified (1 source) Procedure and treatment not carried out due to patient leaving prior to being seen by health care provider; Translations: [Procedure and treatment not carried out due to patient leaving prior to being seen by health care provider] Onset: 08-29-2024 Episodic Unclassified (1 source) Alcohol use, unspecified, uncomplicated; Translations: [Alcohol use, unspecified, uncomplicated] Onset: 08-09-2024 Results Test Name Value Interpretation Reference Range Facility Emergency Department Summary on 11-24-2024 Emergency Department Summary [facility] Medical Records Department [address] [place] [address] Emergency Department Summary 11/24/24 MR#: [id number] Acct: [id number] Name: VIKTORIA SOSA Rep #: [id number] : 1990 34 From: Fernandez Ribeiro MD PCP: Care Physician,No Primary Status:DEP ER Location: ED HPI History of Present Illness Chief Complaint: Substance Abuse 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 No sign of apparent injury, patient denies any injury but history is limited due to being intoxicated. [facility] Medical History Drug abuse Home Medications ???Medication ???Instructions ???Recorded ???Last Taken ???Type NK 01/31/19 Unknown History Allergy/AdvReac Type Severity Reaction Status Date / Time No Known Allergies Allergy Verified 11/24/24 00:11 Surgical History H/O foot surgery Social History Smoking Status: Current every day smoker tobacco type: cigarettes EXAM Physical Exam Const Vital Signs: 11/24/24 00:12 11/24/24 00:42 Temperature 97.5 F L 97.5 F L Temperature Source Oral Pulse Rate 77 58 L Respiratory Rate 18 16 Blood Pressure 119/85 H 111/81 H Blood Pressure Mean 96 91 Pulse Ox 98 100 Positive well nourished and well developed General Appearance ED: well developed and NAD HEENT Reports moist mucous membranes normocephalic and atraumatic Eyes PERRL and EOMs intact bilaterally Neck full ROM and supple Resp normal respiratory effort and clear to auscultation bilaterally Cardio regular rate, regular rhythm and no murmurs GI non-tender and non-distended Auscultation: normoactive bowel sounds Palpation: soft Back/Spine no CVA tenderness General Back: other FROM Extremity normal to inspection General Extremety ED: Negative for edema, pulses abnormal or tenderness General Extremity: Negative for edema or pulses abnormal Neuro CN's II-XII intact bilaterally and no sensory deficits noted Neuro Narrative: Lethargic, alerts to voice and light physical stimulation. Normal speech when he talks. Sensorium / Orientation: awake and alert Motor Exam: strength 5/5 throughout Psych Psych Narrative: Smells of alcohol Skin no rashes or lesions noted and no wounds MDM MDM MDM Narrative Medical decision making narrative: Vital signs are normal I see no signs of respiratory depression or pinpoint pupils, or pupillary dilatation to suggest she is in an acute withdrawal syndrome. There is no piloerection, vomiting, abdominal tenderness, he is breathing well, he is stable to go to assisted in this condition Discharge Plan Triage Chief Complaint: Substance Abuse ED Provider: Fernandez Ribeiro Dx/Rx/DC Orders Clinical Impression: Alcohol intoxication Instructions: Fpc Clearance Prescriptions: No Action NK Primary Care Provider: Care Physician,No Primary Print Language: [place] Citizen Disposition Disposition: Home, Self Care Discharge Date/Time: 11/24/24 00:53 What to do if you have Problems For any increased pain, shortness of breath, bleeding, nausea or vomiting, chest pain, or any unexpected problems, contact your Primary Care Provider. Call [facility] ([phone]) or report to the closest Emergency Room. Call 911 if necessary. 11/24/24 0839 Cosigner Signature (if applicable): CC: No Primary Care Physician Signed Normal [facility] ED Prov Noteon 08-10-2024 ED Prov Note PCP - No, Physician Language assistance: N/A - cher-ae [place] Citizen speaker Chief Complaint Patient presents with Psychiatric [...] tablet 1 mg (1 mg Oral Given 08/09/247) diphenhydrAMINE (BENADRYL) injection 50 mg (has (more content not included)... Normal [facility] ALCOHOL, MEDICALon 5 ALCOHOL MEDICAL 117.0 mg/dL High <10.0 [facility] Comment on above: Performed By: #### [id number] #### [facility] [address] [address] Des Nieves M.D. [id number] ALCOHOL MEDICAL < Normal <10.0 [facility] Comment on above: Result Comment: Alco hol cutoff: <10.00 mg/dL = None Detected Performed By: #### 4 [id number] #### [facility] [address] [address] Des Nieves M.D. [id number] DRUGS OF ABUSE SCREEN, URINE on 08-09-2024 AMPHETAMINE SCREEN, URINE Not detected Normal None Detected [facility] Comment on above: Order Comment: Scree n results should be used for treatment purposes only. Specimen will be kept for 2 weeks, if the sample is adequate. Confirmation testing can be initiated by calling the lab within 2 weeks. Result Comment: Urin e Amphetamine Cutoff: < 1000 ng/mL = None Detected Performed By: #### [id number] #### [facility] [address] [address] Des Nieves M.D. [id number] BARBITURATE SCREEN URINE Not detected Normal None Detected [facility] Comment on above: Order Comment: Scree n results should be used for treatment purposes only. Specimen will be kept for 2 weeks, if the sample is adequate. Confirmation testing can be initiated by calling the lab within 2 weeks. Result Comment: Urin e Barbiturates Cutoff: < 200 ng/mL = None Detected Performed By: #### 4 [id number] #### [facility] [address] [id number] Des Nieves M.D. [id number] BENZODIAZEPINE SCREEN, URINE Not detected Normal None Detected [facility] Comment on above: Order Comment: Scree n results should be used for treatment purposes only. Specimen will be kept for 2 weeks, if the sample is adequate. Confirmation testing can be initiated by calling the lab within 2 weeks. Result Comment: Urin e Benzodiazepine Cutoff: < 200 ng/mL = None Detected Performed By: #### 4 [id number] #### [facility] [address] [id number] Des Nieves M.D. [id number] BUPRENORPHINE, URINE Not detected Normal None Detected [facility] Comment on above: Order Comment: Scree n results should be used for treatment purposes only. Specimen will be kept for 2 weeks, if the sample is adequate. Confirmation testing can be initiated by calling the lab within 2 weeks. Result Comment: Urin e Buprenorphine Cutoff: < 5 ng/mL = None Detected Performed By: #### 4 [id number] #### [facility] [address] [address] Des Nieves M.D. [id number] CANNABINOID SCREEN URINE Not detected Normal None Detected [facility] Comment on above: Order Comment: Scree n results should be used for treatment purposes only. Specimen will be kept for 2 weeks, if the sample is adequate. Confirmation testing can be initiated by calling the lab within 2 weeks. Result Comment: Urin e Cannabinoids Cutoff: < 50 ng/mL = None Detected Performed By: #### [id number] #### [facility] [address] [address] Des Nieves M.D. [id number] COCAINE, SCREEN URINE Positive Abnormal None Detected [facility] Comment on above: Order Comment: Scree n results should be used for treatment purposes only. Specimen will be kept for 2 weeks, if the sample is adequate. Confirmation testing can be initiated by calling the lab within 2 weeks. Result Comment: Urin e Cocaine Cutoff: < 300 ng/mL = None Detected Performed By: #### 4 [id number] #### [facility] [address] [address] Des Nieves M.D. [id number] FENTANYL, URINE Not detected Normal None Detected [facility] Comment on above: Order Comment: Scree n results should be used for treatment purposes only. Specimen will be kept for 2 weeks, if the sample is adequate. Confirmation testing can be initiated by calling the lab within 2 weeks. Result Comment: Urin e Fentanyl Cutoff: < 1 ng/mL = None Detected Performed By: #### 4 [id number] #### [facility] [address] [id number] Des Nieves M.D. [id number] METHADONE SCREEN, URINE Not detected Normal None Detected [facility] Comment on above: Order Comment: Scree n results should be used for treatment purposes only. Specimen will be kept for 2 weeks, if the sample is adequate. Confirmation testing can be initiated by calling the lab within 2 weeks. Result Comment: Urin e Methadone Cutoff: < 300 ng/mL = None Detected Performed By: #### 4 [id number] #### [facility] [address] [address] Des Nievse M.D. [id number] OPIATE SCREEN URINE Not detected Normal None Detected [facility] Comment on above: Order Comment: Scree n results should be used for treatment purposes only. Specimen will be kept for 2 weeks, if the sample is adequate. Confirmation testing can be initiated by calling the lab within 2 weeks. Result Comment: Urin e Opiates Cutoff: < 300 ng/mL = None Detected Performed By: #### 4 [id number] #### [facility] [address] [address] Des Nieves M.D. [id number] OXYCODONE SCREEN, URINE Not detected Normal None Detected [facility] Comment on above: Order Comment: Scree n results should be used for treatment purposes only. Specimen will be kept for 2 weeks, if the sample is adequate. Confirmation testing can be initiated by calling the lab within 2 weeks. Result Comment: Urin e Oxycodone Cutoff: < 100 ng/mL = None Detected Performed By: #### 4 [id number] #### [facility] [address] [address] Des Nieves M.D. [id number] AMPHETAMINE SCREEN, URINE Not detected Normal None Detected [facility] Comment on above: Order Comment: Scree n results should be used for treatment purposes only. Specimen will be kept for 2 weeks, if the sample is adequate. Confirmation testing can be initiated by calling the lab within 2 weeks. Result Comment: Urin e Amphetamine Cutoff: < 1000 ng/mL = None Detected Performed By: #### 4 [id number] #### [facility] [address] [address] Des Nieves M.D. [id number] BARBITURATE SCREEN URINE Not detected Normal None Detected [facility] Comment on above: Order Comment: Scree n results should be used for treatment purposes only. Specimen will be kept for 2 weeks, if the sample is adequate. Confirmation testing can be initiated by calling the lab within 2 weeks. Result Comment: Urin e Barbiturates Cutoff: < 200 ng/mL = None Detected Performed By: #### 4 [id number] #### [facility] [address] [address] Des Nieves M.D. [id number] BENZODIAZEPINE SCREEN, URINE Positive Abnormal None Detected [facility] Comment on above: Order Comment: Scree n results should be used for treatment purposes only. Specimen will be kept for 2 weeks, if the sample is adequate. Confirmation testing can be initiated by calling the lab within 2 weeks. Result Comment: Urin e Benzodiazepine Cutoff: < 200 ng/mL = None Detected Performed By: #### 4 [id number] #### [facility] [address] [address] Des Nieves M.D. [id number] BUPRENORPHINE, URINE Not detected Normal None Detected [facility] Comment on above: Order Comment: Scree n results should be used for treatment purposes only. Specimen will be kept for 2 weeks, if the sample is adequate. Confirmation testing can be initiated by calling the lab within 2 weeks. Result Comment: Urin e Buprenorphine Cutoff: < 5 ng/mL = None Detected Performed By: #### 4 [id number] #### [facility] [address] [address] Des Nieves M.D. [id number] CANNABINOID SCREEN URINE Positive Abnormal None Detected [facility] Comment on above: Order Comment: Scree n results should be used for treatment purposes only. Specimen will be kept for 2 weeks, if the sample is adequate. Confirmation testing can be initiated by calling the lab within 2 weeks. Result Comment: Urin e Cannabinoids Cutoff: < 50 ng/mL = None Detected Performed By: #### 4 [id number] #### [facility] [address] [address] Des Nieves M.D. [id number] COCAINE, SCREEN URINE Positive Abnormal None Detected [facility] Comment on above: Order Comment: Scree n results should be used for treatment purposes only. Specimen will be kept for 2 weeks, if the sample is adequate. Confirmation testing can be initiated by calling the lab within 2 weeks. Result Comment: Urin e Cocaine Cutoff: < 300 ng/mL = None Detected Performed By: #### 4 [id number] #### [facility] [address] [address] Des Nieves M.D. [id number] FENTANYL, URINE Not detected Normal None Detected [facility] Comment on above: Order Comment: Scree n results should be used for treatment purposes only. Specimen will be kept for 2 weeks, if the sample is adequate. Confirmation testing can be initiated by calling the lab within 2 weeks. Result Comment: Urin e Fentanyl Cutoff: < 1 ng/mL = None Detected Performed By: #### 4 [id number] #### [facility] [address] [address] Des Nieves M.D. [id number] METHADONE SCREEN, URINE Not detected Normal None Detected [facility] Comment on above: Order Comment: Scree n results should be used for treatment purposes only. Specimen will be kept for 2 weeks, if the sample is adequate. Confirmation testing can be initiated by calling the lab within 2 weeks. Result Comment: Urin e Methadone Cutoff: < 300 ng/mL = None Detected Performed By: #### 4 [id number] #### [facility] [address] [id number] Des Nieves M.D. [id number] OPIATE SCREEN URINE Not detected Normal None Detected [facility] Comment on above: Order Comment: Scree n results should be used for treatment purposes only. Specimen will be kept for 2 weeks, if the sample is adequate. Confirmation testing can be initiated by calling the lab within 2 weeks. Result Comment: Urin e Opiates Cutoff: < 300 ng/mL = None Detected Performed By: #### 4 [id number] #### [facility] [address] [address] Des Nieves M.D. [id number] OXYCODONE SCREEN, URINE Not detected Normal None Detected [facility] Comment on above: Order Comment: Scree n results should be used for treatment purposes only. Specimen will be kept for 2 weeks, if the sample is adequate. Confirmation testing can be initiated by calling the lab within 2 weeks. Result Comment: Urin e Oxycodone Cutoff: < 100 ng/mL = None Detected Performed By: #### 4 [id number] #### [facility] [address] [id number] Des Nieves M.D. [id number] ED Prov Noteon 08-09-2024 ED Prov Note PCP - No, Physician [id number] No chief complaint on file. HPI This [...] C) (Oral) Resp (!) 20 Ht 5' 9" Wt 68 kg (150 lb) SpO2 100% [...] C) Oral 86 17 96 % 5' 9" 68 kg (150 lb) 08/09/24 0021 -- [...] abuse (HCC) 2. 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 Disposition: Discharge Shared decision making utilized [...] History Marital status (more content not included)... [facility] No Panel Informationon 06-15 -2025 [facility] Portable XR Chest Viewson IMPRESSION: No [...] chest. IMPRESSION IMPRESSION: No acute cardiopulmonary disease [facility] Portable XR Chest ViewsOrder ed By: Gino Dwyer on 08-05-2024 [facility] XR CHEST 1 VIEW PORTABLEon 0 08-05-2024 XR CHEST 1 VIEW PORTABLE EXAM: XR CHEST 1 VIEW PORTABLE, 08/04/2024 22:49 PM COMPARISON: No prior studies available for comparison. CLINICAL INDICATIONS: Central chest pain RELEVANT CLINICAL HISTORY: FINDINGS: (Adequate technique) Implanted Devices: None Thorax: No acute findings in the chest. IMPRESSION: No acute cardiopulmonary disease Normal [facility] Portable XR Chest Viewson Radiology Study observation (narrative) [facility] ED Prov Noteon 07-19-2024 ED Prov Note EMERGENCY MEDICINE PROVIDER NOTE [facility] EMERGENCY DEPARTMENT Encounter Date: 07/20/24 History obtained by: patient, triage note, chart review HPI/ROS This is a 33 y.o. male presents today for evaluation of difficulty sleeping. Patient states that he has not slept well in the past 2 days. States that he did ice on Tuesday, states that he has not slept well since. States that he feels "jittery". States that he is having some bodyaches [...] degrees C) (Oral) Resp 16 Ht 5' 9" Wt 68 kg (150 lb) SpO2 98% BMI 22.15 kg/m Vital Signs During ED Visit (as charted by nursing) Patient Vitals for the past 24 hrs: BP Temp Temp src Pulse Resp SpO2 Height Weight 07/19/24 2241 135/72 -- -- 76 16 98 % -- -- 07/19/24 2208 133/68 98.4 degrees F (36.9 degrees C) Oral 79 16 97 % 5' 9" 68 kg (150 lb) Physical Exam Constitutional: [...] primary care provider (PCP). Why: Call the [facility] Referral Number to schedule an appointment: [phone] 2. Open Access. Why: As needed [facility] (Open Access Clinic) [address], [place] (more content not included)... Normal [facility] URINE DRUG SCREEN 10Ordered By: Anne Thomas on 03-05-2024 Amphetamine+Methamp hetamine Screen (U) [Mass/Vol] Not detected Cutoff: 500 ng/mL [facility] Barbiturates Ql (U) Not detected Cutoff: 200 ng/mL [facility] Benzodiazepines Ql (U) Not detected Cutoff: 200 ng/mL [facility] Buprenorphine Ql (U) Not detected Cutoff: 5 ng/mL [facility] Cannabinoids Screen Ql (U) Positive Abnormal Cutoff: 50 ng/mL [facility] Cocaine Ql (U) Positive Abnormal Cutoff: 150 ng/mL [facility] fentaNYL Ql (U) Positive Abnormal Cutoff: 1 ng/mL [facility] Interpretation and review of laboratory results Abnormal [facility] Methadone Ql (U) Not detected Cutoff: 300 ng/mL [facility] Opiates Ql (U) Not detected Cutoff: 300 ng/mL [facility] oxyCODONE Ql (U) Not detected Cutoff: 100 ng/mL [facility] For medical purposes only. Positive results are unconfirmed unless otherwise noted. [facility] URINE DRUG SCREEN 03-05 Amphetamine/Methamp hetamine Not detected Normal Cutoff: 500 ng/mL [facility] Comment on above: Order Comment: For m edical purposes only. Positive results are unconfirmed unless otherwise noted. Performed By: #### 1 0DRUG #### [facility] (DEFAULT) [address] [place] [address] Barbiturates Not detected Normal Cutoff: 200 ng/mL [facility] Comment on above: Order Comment: For m edical purposes only. Positive results are unconfirmed unless otherwise noted. Performed By: #### 1 0DRUG #### [facility] (DEFAULT) [address] [address] Benzodiazepines Not detected Normal Cutoff: 200 ng/mL [facility] Comment on above: Order Comment: For m edical purposes only. Positive results are unconfirmed unless otherwise noted. Performed By: #### 1 0DRUG #### [facility] (DEFAULT) [address] [address] Buprenorphine Not detected Normal Cutoff: 5 ng/mL [facility] Comment on above: Order Comment: For m edical purposes only. Positive results are unconfirmed unless otherwise noted. Performed By: #### 1 0DRUG #### [facility] (DEFAULT) [address] [address] Cannabinoids Screen Ql (U) Positive Abnormal Cutoff: 50 ng/mL [facility] Comment on above: Order Comment: For m edical purposes only. Positive results are unconfirmed unless otherwise noted. Performed By: #### 1 0DRUG #### [facility] (DEFAULT) [address] [address] Cocaine Positive Abnormal Cutoff: 150 ng/mL [facility] Comment on above: Order Comment: For m edical purposes only. Positive results are unconfirmed unless otherwise noted. Performed By: #### 1 0DRUG #### [facility] (DEFAULT) [address] [address] Fentanyl Positive Abnormal Cutoff: 1 ng/mL [facility] Comment on above: Order Comment: For m edical purposes only. Positive results are unconfirmed unless otherwise noted. Performed By: #### 1 0DRUG #### [facility] (DEFAULT) [address] [address] Methadone Not detected Normal Cutoff: 300 ng/mL [facility] Comment on above: Order Comment: For m edical purposes only. Positive results are unconfirmed unless otherwise noted. Performed By: #### 1 0DRUG #### [facility] (DEFAULT) [address] [address] Opiates Not detected Normal Cutoff: 300 ng/mL [facility] Comment on above: Order Comment: For m edical purposes only. Positive results are unconfirmed unless otherwise noted. Performed By: #### 1 0DRUG #### [facility] (DEFAULT) [address] [address] Oxycodone Not detected Normal Cutoff: 100 ng/mL [facility] Comment on above: Order Comment: For m edical purposes only. Positive results are unconfirmed unless otherwise noted. Performed By: #### 1 0DRUG #### [facility] (DEFAULT) [address] [address] GLUCOSE POCon 03-04-2024 Glucose [Mass/Vol] 149 mg/dL High 70 - 99 mg/dL [facility] Comment on above: Notified RNread back Interpretation and review of laboratory results Abnormal [facility] POC Sample Type [facility] Test performed at address of the patient encounter. [facility] ED Prov Noteon 11-16-2023 ED Prov Note EMERGENCY MEDICINE PROVIDER NOTE [facility] EMERGENCY DEPARTMENT Patient Name: Viktoria [...] scalp W (more content not included)... Normal [facility] CT HEAD OR BRAIN WITHOUT CON [...] IMPRESSION: No acute intracranial abnormality. Workstation ID: [id number] Dictated by: GLORIA DAVIDSON on TueNov 11, 2023 1:03:02 AM EDT Transcribed by: GLORIA DAVIDSON on TueNov 11, 2023 1:03:02 AM EDT Finalized by: GLORIA DAVIDSON on TueNov 11, 2023 1:03:02 AM EDT [facility] Comment on above: Order Comment: Injur y/Trauma [...] mid facial soft tissue swelling. Workstation ID: [id number] Dictated by: GLORIA DAVIDSON on TueNov 10, 2023 9:36:40 PM EDT Transcribed by: GLROIA DAVIDSON on TueNov 10, 2023 9:36:40 PM EDT Finalized by: GLORIA DAVIDSON on Khushi Nov 10, 2023 9:36:40 PM EDT [facility] Comment on above: Order Comment: Injur y/Trauma [...] and/or family preference (more content not included)... [facility] ED NOTEon 11-23-2020 ED NOTE HNO ID: [id number] Author: Laurel Jenkins RN Service: Emergency Medicine Author Type: Registered Nurse Type: ED Notes Filed: 11/23/2020 6:12 AM Note Text: Pt given DC info. Pt verbalized understanding of info. No s/.sym of distress noted. Pt has no further questions or concerns. 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 Pt sts drinks 6-12 tall boys daily [...] (Src) 97.7 (Oral) Resp 18 Ht 5' 9" (1.75m) Wt 150 lb (68.0kg) SpO2 99% [...] normal. Tho (more content not included)... Normal [facility] Basic metabolic 2000 panelon 11-22-2020 Anion gap [Moles/Vol] 13 mmol/L Normal 9-18 [facility] Comment on above: Order Comment: Speci men Type: BLOOD SPECIMEN Performed By: #### 2 4321-2 #### [facility] CLIA [id number] [address] [place] [address] [place] Calcium [Mass/Vol] 9.8 mg/dL Normal 8.5-10.2 [facility] Comment on above: Order Comment: Speci men Type: BLOOD SPECIMEN Performed By: #### 2 4321-2 #### [facility] CLIA [id number] [address] [place] [address] [place] Chloride [Moles/Vol] 103 mmol/L Normal 97-105 [facility] Comment on above: Order Comment: Speci men Type: BLOOD SPECIMEN Performed By: #### 2 4321-2 #### [facility] CLIA [id number] [address] [place] [address] [place] CO2 [Moles/Vol] 26 mmol/L Normal 22-30 [facility] Comment on above: Order Comment: Speci men Type: BLOOD SPECIMEN Performed By: #### 2 4321-2 #### [facility] CLIA [id number] [address] [place] Creatinine [Mass/Vol] 0.80 mg/dL Normal 0.73-1.22 [facility] Comment on above: Order Comment: Speci men Type: BLOOD SPECIMEN Performed By: #### 2 4321-2 #### [facility] CLIA [id number] [address] [place] GFR/1.73 sq M.predicted MDRD (S/P/Bld) [Vol rate/Area] mL/min/{1.73_m2} Normal [facility] Comment on above: Order Comment: [...] GFR. Performed By: #### 2 4321-2 #### [facility] CLIA [id number] [address] [place] Glucose [Mass/Vol] 102 mg/dL High 74-99 [facility] Comment on above: Order Comment: Speci men Type: BLOOD SPECIMEN Result Comment: The [place] Diabetes Association (ADA) provides guidance for cutoff [...] Standards of Medical Care in Diabetes 2016, [place] [employer]. Diabetes Care. 2016.39(Suppl 1). Performed By: #### 2 4321-2 #### [facility] CLIA [id number] [address] Potassium [Moles/Vol] 3.8 mmol/L Normal 3.7-5.1 [facility] Comment on above: Order Comment: Speci men Type: BLOOD SPECIMEN Performed By: #### 2 4321-2 #### [facility] CLIA [id number] [address] Sodium [Moles/Vol] 142 mmol/L Normal 136-144 [facility] Comment on above: Order Comment: Speci men Type: BLOOD SPECIMEN Performed By: #### 2 4321-2 #### [facility] CLIA [id number] [address] Urea nitrogen [Mass/Vol] 9 mg/dL Normal 9-24 [facility] Comment on above: Order Comment: Speci men Type: BLOOD SPECIMEN Performed By: #### 2 4321-2 #### [facility] CLIA [id number] [address] CBC W Auto Differential pane l (Bld)on 11-22-2020 Basophils (Bld) [#/Vol] 0.06 10*3/uL Normal <0.11 [facility] Comment on above: Order Comment: Speci men Type: BLOOD SPECIMEN Performed By: #### 5 7021-8 #### [facility] CLIA [id number] [address] Basophils/100 WBC (Bld) 0.8 % Normal [facility] Comment on above: Order Comment: Speci men Type: BLOOD SPECIMEN Performed By: #### 5 7021-8 #### [facility] CLIA [id number] [address] Differential cell count method Nom (Bld) Auto Normal [facility] Comment on above: Order Comment: Speci men Type: BLOOD SPECIMEN Performed By: #### 5 7021-8 #### [facility] CLIA [id number] [address] Eosinophils (Bld) [#/Vol] 0.12 10*3/uL Normal <0.46 [facility] Comment on above: Order Comment: Speci men Type: BLOOD SPECIMEN Performed By: #### 5 7021-8 #### [facility] CLIA [id number] [address] Eosinophils/100 WBC (Bld) 1.7 % Normal [facility] Comment on above: Order Comment: Speci men Type: BLOOD SPECIMEN Performed By: #### 5 7021-8 #### [facility] CLIA [id number] [address] Erythrocyte distribution width (RBC) [Ratio] 13.7 % Normal 11.5-15.0 [facility] Comment on above: Order Comment: Speci men Type: BLOOD SPECIMEN Performed By: #### 5 7021-8 #### [facility] CLIA [id number] [address] Hematocrit (Bld) [Volume fraction] 46.6 % Normal 39.0-51.0 [facility] Comment on above: Order Comment: Speci men Type: BLOOD SPECIMEN Performed By: #### 5 7021-8 #### [facility] CLIA [id number] [address] Hemoglobin (Bld) [Mass/Vol] 15.1 g/dL Normal 13.0-17.0 [facility] Comment on above: Order Comment: Speci men Type: BLOOD SPECIMEN Performed By: #### 5 7021-8 #### [facility] CLIA [id number] [address] IMMATURE GRAN % 0.3 % Normal [facility] Comment on above: Order Comment: Speci men Type: BLOOD SPECIMEN Performed By: #### 5 7021-8 #### [facility] CLIA [id number] [address] IMMATURE GRAN ABS <0.03 Normal <0.10 [facility] Comment on above: Order Comment: Speci men Type: BLOOD SPECIMEN Performed By: #### 5 7021-8 #### [facility] CLIA [id number] [address] Lymphocytes (Bld) [#/Vol] 2.49 10*3/uL Normal 1.00-4.00 [facility] Comment on above: Order Comment: Speci men Type: BLOOD SPECIMEN Performed By: #### 5 7021-8 #### [facility] CLIA [id number] [address] Lymphocytes/100 WBC (Bld) 34.5 % Normal [facility] Comment on above: Order Comment: Speci men Type: BLOOD SPECIMEN Performed By: #### 5 7021-8 #### [facility] CLIA [id number] [address] MCH (RBC) [Entitic mass] 30.1 pg Normal 26.0-34.0 [facility] Comment on above: Order Comment: Speci men Type: BLOOD SPECIMEN Performed By: #### 5 7021-8 #### [facility] CLIA [id number] [address] MCHC (RBC) [Mass/Vol] 32.4 g/dL Normal 30.5-36.0 [facility] Comment on above: Order Comment: Speci men Type: BLOOD SPECIMEN Performed By: #### 5 7021-8 #### [facility] CLIA [id number] [address] MCV (RBC) [Entitic vol] 93.0 fL Normal 80.0-100.0 [facility] Comment on above: Order Comment: Speci men Type: BLOOD SPECIMEN Performed By: #### 5 7021-8 #### [facility] CLIA [id number] [address] Monocytes (Bld) [#/Vol] 0.90 10*3/uL High <0.87 [facility] Comment on above: Order Comment: Speci men Type: BLOOD SPECIMEN Performed By: #### 5 7021-8 #### [facility] CLIA [id number] [address] Monocytes/100 WBC (Bld) 12.5 % Normal [facility] Comment on above: Order Comment: Speci men Type: BLOOD SPECIMEN Performed By: #### 5 7021-8 #### [facility] CLIA [id number] [address] Neutrophils (Bld) [#/Vol] 3.62 10*3/uL Normal 1.45-7.50 [facility] Comment on above: Order Comment: Speci men Type: BLOOD SPECIMEN Performed By: #### 5 7021-8 #### [facility] CLIA [id number] [address] Neutrophils/100 WBC (Bld) 50.2 % Normal [facility] Comment on above: Order Comment: Speci men Type: BLOOD SPECIMEN Performed By: #### 5 7021-8 #### [facility] CLIA [id number] [address] Nucleated RBC (Bld) [#/Vol] 10*3/uL Normal <0.01 [facility] Comment on above: Order Comment: Speci men Type: BLOOD SPECIMEN Performed By: #### 5 7021-8 #### [facility] CLIA [id number] [address] Nucleated RBC/100 WBC (Bld) [Ratio] 0.0 /100 WBC Normal 0.0 [facility] Comment on above: Order Comment: Speci men Type: BLOOD SPECIMEN Performed By: #### 5 7021-8 #### [facility] CLIA [id number] [address] Platelet mean volume (Bld) [Entitic vol] 9.5 fL Normal 9.0-12.7 [facility] Comment on above: Order Comment: Speci men Type: BLOOD SPECIMEN Performed By: #### 5 7021-8 #### [facility] CLIA [id number] [address] Platelets (Bld) [#/Vol] 217 10*3/uL Normal 150-400 [facility] Comment on above: Order Comment: Speci men Type: BLOOD SPECIMEN Performed By: #### 5 7021-8 #### [facility] CLIA [id number] [address] RBC (Bld) [#/Vol] 5.01 10*6/uL Normal 4.20-6.00 [facility] Comment on above: Order Comment: Speci men Type: BLOOD SPECIMEN Performed By: #### 5 7021-8 #### [facility] CLIA [id number] [address] WBC (Bld) [#/Vol] 7.21 10*3/uL Normal 3.70-11.00 [facility] Comment on above: Order Comment: Speci men Type: BLOOD SPECIMEN Performed By: #### 5 7021-8 #### [facility] CLIA [id number] [address] ED Triage Noteon 11-22-2020 ED Triage Note HNO ID: [id number] Author: Jolene Martinez PA-C Service: Emergency Medicine Author Type: Physician Canine Deputy Type: ED Triage Notes Filed: 11/22/2020 7:47 [...] screen Urinalysis SIGNATURE: Jolene Martinez PA-C Normal [facility] Ethanol SerPl-mCncon 021 Ethanol [Mass/Vol] 119 mg/dL High <11 [facility] Comment on above: Order Comment: Speci men Type: BLOOD SPECIMEN Result Comment: Valu es > 80 mg/dL may indicate intoxication Performed By: #### 5 643-2 #### [facility] CLIA [id number] [address] TOX SCREEN ROUT URon 021 Amphetamines Confirm (U) [Mass/Vol] Positive Abnormal Negative [facility] Comment on above: Order Comment: Speci men Type: URINE SPECIMEN Result Comment: Cuto ff threshold at 1000 ng/mL. Performed By: #### U TOX2 #### [facility] CLIA [id number] [address] [place] BARBITURATES, URINE Negative Normal Negative [facility] Comment on above: Order Comment: Speci men Type: URINE SPECIMEN Result Comment: Cuto ff threshold at 200 ng/mL. Performed By: #### U TOX2 #### [facility] CLIA [id number] [address] [place] BENZODIAZEPINES, UR Negative Normal Negative [facility] Comment on above: Order Comment: Speci men Type: URINE SPECIMEN Result Comment: Cuto ff threshold at 200 ng/mL. Performed By: #### U TOX2 #### [facility] CLIA [id number] [address] [place] CANNABINOIDS,URINE Positive Abnormal Negative [facility] Comment on above: Order Comment: Speci men Type: URINE SPECIMEN Result Comment: Cuto ff threshold at 50 ng/mL. Performed By: #### U TOX2 #### [facility] CLIA [id number] [address] [place] Cocaine Ql (U) Negative Normal Negative [facility] Comment on above: Order Comment: Speci men Type: URINE SPECIMEN Result Comment: Cuto ff threshold at 300 ng/mL. Performed By: #### U TOX2 #### [facility] CLIA [id number] [address] Ethanol (U) [Mass/Vol] 141 mg/dL High <11 [facility] Comment on above: Order Comment: Speci men Type: URINE SPECIMEN Performed By: #### U TOX2 #### [facility] CLIA [id number] [address] Opiates Screen Ql (U) Negative Normal Negative [facility] Comment on above: Order Comment: Speci men Type: URINE SPECIMEN Result Comment: Cuto ff threshold at 300 ng/mL. Performed By: #### U TOX2 #### [facility] CLIA [id number] [address] oxyCODONE cutoff Screen (U) [Mass/Vol] Negative Normal Negative [facility] Comment on above: Order Comment: Speci men Type: URINE SPECIMEN Result Comment: Cuto ff threshold at 100 ng/mL. Performed By: #### U TOX2 #### [facility] CLIA [id number] [address] Phencyclidine Ql (U) Negative Normal Negative [facility] Comment on above: Order Comment: Speci men Type: URINE SPECIMEN Result Comment: Cuto ff threshold at 25 ng/mL. Performed By: #### U TOX2 #### [facility] CLIA [id number] [address] Urinalysis complete panel (U )on 11-22-2020 Bacteria LM.HPF (Urine sed) [#/Area] None Seen Normal None Seen [facility] Comment on above: Order Comment: Speci men Type: URINE SPECIMEN Performed By: #### 2 4356-8 #### [facility] CLIA [id number] [address] OF [facility] Bilirubin Ql (U) Negative Normal Negative [facility] Comment on above: Order Comment: Speci men Type: URINE SPECIMEN Performed By: #### 2 4356-8 #### [facility] CLIA [id number] [address] Clarity (Unsp spec) Clear Normal Clear [facility] Comment on above: Order Comment: Speci men Type: URINE SPECIMEN Performed By: #### 2 4356-8 #### [facility] CLIA [id number] [address] Color (U) Yellow Normal Yellow [facility] Comment on above: Order Comment: Speci men Type: URINE SPECIMEN Performed By: #### 2 4356-8 #### [facility] CLIA [id number] [address] Epithelial cells LM.HPF (Urine sed) [#/Area] None Seen Normal [facility] Comment on above: Order Comment: Speci men Type: URINE SPECIMEN Performed By: #### 2 4356-8 #### [facility] CLIA [id number] [address] Glucose Test strip (U) [Mass/Vol] Negative Normal Negative [facility] Comment on above: Order Comment: Speci men Type: URINE SPECIMEN Performed By: #### 2 4356-8 #### [facility] CLIA [id number] [address] Hemoglobin Ql (U) Negative Normal Negative [facility] Comment on above: Order Comment: Speci men Type: URINE SPECIMEN Performed By: #### 2 4356-8 #### [facility] CLIA [id number] [address] Hyaline casts (Urine sed) [#/Area] 0 /[LPF] Normal 0 /LPF [facility] Comment on above: Order Comment: Speci men Type: URINE SPECIMEN Performed By: #### 2 4356-8 #### [facility] CLIA [id number] [address] Ketones Ql (U) Negative Normal Negative [facility] Comment on above: Order Comment: Speci men Type: URINE SPECIMEN Performed By: #### 2 4356-8 #### [facility] CLIA [id number] [address] Leukocyte esterase Test strip Ql (U) Negative Normal Negative [facility] Comment on above: Order Comment: Speci men Type: URINE SPECIMEN Performed By: #### 2 4356-8 #### [facility] CLIA [id number] [address] Nitrite Ql (U) Negative Normal Negative [facility] Comment on above: Order Comment: Speci men Type: URINE SPECIMEN Performed By: #### 2 4356-8 #### [facility] CLIA [id number] [address] pH (U) 7.0 [pH] Normal 5.0-8.0 [facility] Comment on above: Order Comment: Speci men Type: URINE SPECIMEN Performed By: #### 2 4356-8 #### [facility] CLIA [id number] [address] Protein (U) [Mass/Vol] Negative Normal Negative [facility] Comment on above: Order Comment: Speci men Type: URINE SPECIMEN Performed By: #### 2 4356-8 #### [facility] CLIA [id number] [address] RBC LM.HPF (Urine sed) [#/Area] 0-3 /HPF Normal 0-3 /HPF [facility] Comment on above: Order Comment: Speci men Type: URINE SPECIMEN Performed By: #### 2 4356-8 #### [facility] CLIA [id number] [address] Specific gravity (U) [Rel density] <1.005 Low 1.005-1.030 [facility] Comment on above: Order Comment: Speci men Type: URINE SPECIMEN Performed By: #### 2 4356-8 #### [facility] CLIA [id number] [address] Urobilinogen Ql (U) 0.2 EU/dL Normal 0.2-1.0 EU/dL [facility] Comment on above: Order Comment: Speci men Type: URINE SPECIMEN Performed By: #### 2 4356-8 #### [facility] CLIA [id number] [address] WBC LM.HPF (Urine sed) [#/Area] 0-5 /HPF Normal 0-5 /HPF [facility] Comment on above: Order Comment: Speci men Type: URINE SPECIMEN Performed By: #### 2 4356-8 #### [facility] CLIA [id number] [address] CNOVon 09-30-2020 CNOV Office Visit (GSTNOR ) VIKTORIA SOSA ([id number]) 1990 M CHT Date Time Provider Department [...] Examination: BP 128/76 Pulse 60 Ht 5' 9" (1.75m) Wt 162 lb (73.5kg) BMI 23.91 [...] (B18.1) Chron (more content not included)... Normal [facility] CNOVon 09-24-2020 CNOV Office Visit (INTMWS ) VIKTORIA SOSA ([id number]) 1990 M CHT Date Time Provider Department 09/24/20 6:00 PM OLDER, BETSY MAC During your visit today, we recorded the following information about you: Pulse Respiration Blood pressure Weight 114/minute 16/minute 130/82 69.9 kg Betsy Older, MANAGER CASE MANAGEMENT.DALIA 09/24/2020 7:07 PM Signed CC: Patient presents [...] popped up. He no showed appointment with international logistics manager to discuss treatment for Hepatitis B. He [...] need to reschedule and keep appointment with international logistics manager. Reviewed potential complications of untreated Hepatitis B, [...] help finding it) Referring Provider: HITESH LUCERO [[id number]] Allergies As of Date: 09/24/2020 (No Known Allergies) Date Reviewed: 09/24/2020 Reviewed by: Viktoriya Barnett Cma - Fully Assessed Reason for Visit: Recheck [92] Primary Visit Diagnosis:Genital warts [A63.0] Other Visit Diagnoses:Hepatitis B carrier (HCC) [B18.1] Social anxiety disorder [F40.10] Order(s):sertraline (ZOLOFT) 50 mg tabletTake 1 tablet by mouth on (more content not included)... Normal [facility] CNOVon 09-02-2020 CNOV Office Visit (UROLWS ) VIKTORIA SOSA ([id number]) 1990 M T Date Time Provider Department 09/02/20 1:20 PM [...] Status:Closed by MACIE CHRISTIE CMA on 09/08/20 [facility] C[facility] Tele[facility] (UROLWS) [facility][id number][facility] 1990 [facility] Date Time Provider Department 09/02/20 RADHA DEY [...] to be see by Dr. Rios at [facility]. Pt would like to see if [...] COMBO(AG/AB),WITH REFLEX TO DIFFERENTIATION [SQHIV12] Order #: [id number] FUTURE Prescriptions as of 09/04/2020 - diphenhydrAMINE [...] Status:Closed by CHRISTINA LARKIN RN on 09/04/20 [facility] OBSOLETEon 08-05-2020 OBSOLETE Refill (INTMWS) VIKTORIA SOSA ([id number]) 1990 [facility] Date Time Provider Department 08/05/20 HITESH LUCERO INTYanWS During your visit today, we recorded the following information about you: Katherine Stinson LPN 08/05/2020 1:31 PM Signed Patient calling for refill of Sertraline (Zoloft) 50mg. Patient called for refill on 05/20/2020, new RX sent to [facility]Immediately, it is not showing in [facility]. Called pharmacy, they will get ready for [...] Status:Closed by KATHERINE STINSON LPN on [facility]/05/20 [facility] Telephone (INTMWS) VIKTORIA SOSA ([id number]) 1990 M T Date Time Provider Department 06/23/20 HITESH LUCERO During your visit today, we recorded the following information about you: Eleni Sweta 06/23/2020 9:28 AM Signed Viktoria Sosa is [...] Status:Closed by KATHERINE STINSON LPN on 07/01/20 [facility] OBSOLETEon 06-23-2020 OBSOLETE Refill (INTMWS) VIKTORIA SOSA ([id number]) 1990 [facility] Date Time Provider Department 06/23/20 HITESH [...] is getting medication ready for patient to sisal picker. Allergies As of Date: 06/23/2020 (No [...] Status:Closed by VIKTORIYA BARNETT CMA on 06/23/20 [facility] Narcisa 06-16-2020 [facility] Telephone (INTMWS) VIKTORIA SOSA ([id number]) 1990 M T Date Time Provider Department 06/16/20 HITESH LUCERO INTWS During your visit today, we recorded the following information about you: Annemarie Chatman LPN 06/16/2020 3:35 PM Signed Per covermymed Viktoria Sosa ([place]: [id number]) ? [id number] Imiquimod 5% cream Status: PA Response - Approved Created: June 13, 2020 [id number] Sent: June 16, 2020 Annemarie Chatman LPN [...] Status:Closed by ANNEMARIE CHATMAN LPN on 06/16/20 [facility] CNOVon 06-11-2020 CNOV Office Visit (INTMWS ) [facility][id number]) 1990 [facility] Date Time Provider Department 06/11/20 11:20 AM HITESH LUCERO INTMWS During your visit today, we recorded the following information about you: Temperature Pulse Respiration Blood pressure 96.4 degrees 72/minute 16/minute 122/76 Weight 73.4 kg Hitesh Lucero MD 06/11/2020 1:05 PM Signed This note was created using Hotswapriter. Subjective Viktoria Sosa is a 29 year [...] is infectious and should notify partners, etc. longterm risk of liver disease, liver failure, and [...] (insomnia).Disp: 30 capsuleRfl: 2 CONSULT TO HEPATOLOGY [[id number]] Order #: [id number]: 1 FUTURE imiquimod (ALDARA) 5 % creamApply [...] 25 M (more content not included)... Normal [facility] CBC and Differentialon 05-23 Abs Baso 0.08 k/uL Normal <0.11 [facility] Comment on above: Performed By: #### C BCDIF HBVDNU ####[place] [phone] Abs Bosque 0.77 k/uL Normal <0.87 [facility] Comment on above: Performed By: #### C BCDIF HBVDNU ####[place] [phone] Abs Neut 6.76 k/uL Normal 1.45-7.50 [facility] Comment on above: Performed By: #### C BCDIF HBVDNU ####[address] [place] [phone] Absolute nRBC <0.01 Normal <0.01 [facility] Comment on above: Performed By: #### C BCDIF HBVDNU ####[place] [id number] [place] [phone] Basophils/100 WBC (Bld) 0.9 % Normal [facility] Comment on above: Performed By: #### C BCDIF HBVDNU ####[place] [phone] DTYPE Auto Diff Normal [facility] Comment on above: Performed By: #### C BCDIDonna, HBVDNU ####[place] [id number] [phone] Eosinophils (Bld) [#/Vol] 0.09 10*3/uL Normal <0.46 [facility] Comment on above: Performed By: #### C BCDIF, HBVDNU ####[place] [address] [address] [place] [phone] Eosinophils/100 WBC (Bld) 1.0 % Normal [facility] Comment on above: Performed By: #### C BCDIDonna HBVDNU ####[place] [address] [address]ClevelCheryl V[place] [phone] Erythrocyte distribution width (RBC) [Ratio] 13.9 % Normal 11.5-15.0 [facility] Comment on above: Performed By: #### C BCDIF HBVDNU ####[place] [address] [address]level[address]her[address] [place] [phone] Hematocrit (Bld) [Volume fraction] 46.2 % Normal 39.0-51.0 [facility] Comment on above: Performed By: #### C BCDIF, HBVDNU ####[place] [address] [address] [phone] Hemoglobin (Bld) [Mass/Vol] 15.4 g/dL Normal 13.0-17.0 [facility] Comment on above: Performed By: #### C BCDIF, HBVDNU ####[place] [address] [address] [phone] Lymphocytes (Bld) [#/Vol] 1.23 10*3/uL Normal 1.00-4.00 [facility] Comment on above: Performed By: #### C BCDIF, HBVDNU ####[place] [address] [address] [place] [phone] Lymphocytes/100 WBC (Bld) 13.7 % Normal [facility] Comment on above: Performed By: #### C BCTRISH HBVDNU ####[place] [address] [address] [place] [phone] MCH 30.3 pG Normal 26.0-34.0 [facility] Comment on above: Performed By: #### C BCTRISH HBVDNU ####[address] [place] [phone] MCHC (RBC) [Mass/Vol] 33.3 g/dL Normal 30.5-36.0 [facility] Comment on above: Performed By: #### C BCTRISH HBVDNU ####[address] [place] [phone] MCV (RBC) [Entitic vol] 90.9 fL Normal 80.0-100.0 [facility] Comment on above: Performed By: #### C BCTRISH HBVDNU ####[address] [phone] Monocytes/100 WBC (Bld) 8.6 % Normal [facility] Comment on above: Performed By: #### C BCTRISH HBVDNU ####[place] [address] [address] [place] [phone] Neutrophils/100 WBC (Bld) 75.8 % Normal [facility] Comment on above: Performed By: #### C BCDIDonna HBVDNU ####[place] [address] [address] [place] [phone] NRBCs 0.0 /100 WBC Normal 0 [facility] Comment on above: Performed By: #### C BCDIF HBVDNU ####[place] [address] [address] [place] [phone] Platelet mean volume (Bld) [Entitic vol] 10.5 fL Normal 9.0-12.7 [facility] Comment on above: Performed By: #### C BCDIF, HBVDNU ####[facility] [place], [place] [phone] Platelets (Bld) [#/Vol] 271 10*3/uL Normal 150-400 [facility] Comment on above: Performed By: #### C BCDIF, HBVDNU ####[facility] [address] [place] [address] [phone] RBC (Bld) [#/Vol] 5.08 10*6/uL Normal 4.20-6.00 [facility] Comment on above: Performed By: #### C BCDIF, HBVDNU ####[facility] [address] [place], [place] [phone] WBC (Bld) [#/Vol] 8.95 10*3/uL Normal 3.70-11.00 [facility] Comment on above: Performed By: #### C BCDIF, HBVDNU ####[address] [phone] Narcisa 05-23-2020 CNPN Telephone (INTMWS) VIKTORIA SOSA ([id number]) 1990 M T Date Time Provider Department 05/23/20 BETSY PATEL) INTLEONCIO During your visit today, we recorded the following information about you: Betsy Patel APRN.CNP 05/23/2020 10:01 AM Signed Please let the patient know his blood test confirmed Hepatitis B infection. He will need another blood test to check viral load and referral to specialist that treats Hepatitis Betsy Patel APRN.DALIA Iveygretchenrasheeda Nursing Educator 05/23/2020 10:04 AM Signed Left message for [...] surface antigen positive [R76.8] Order(s):E-CONSULT INFECTIOUS DISEASE [[id number]] Order #: [id number]: 1 HEP B VIRAL DNA ÁNGEL [SQHBVDNU] Order #: [id number] FUTURE CBC + DIFF [SQCBCDIF] Order #: [id number] FUTURE CONSULT TO HEPATOLOGY [[id number]] Order #: [id number]: 1 FUTURE Prescriptions as of 05/23/2020 Sig: [...] by ANAHY THRASHER RN on 05/23/20 Normal [facility] Hepat.B Vir Ult Qton 021 HBV DNA Ultra Detected Critically abnormal [facility] Comment on above: Result Comment: INTE RPRETATION: Positive for HBVDNA by PCR The linear range of this assay is 20 to 170,000,000 IU/ml. Reference Range: Negative for HBVDNA Performed By: #### C BCDIF, HBVDNU ####[facility] [address] AveCleveland, [place] [phone] CNOV 05-20-2020 CNOV Office Visit (INTMWS ) VIKTORIA SOSA ([id number]) 1990 M [facility] Date Time Provider Department 05/20/20 12:40 PM OLDERBETSY (DALIA) INTMWS During your visit today, we recorded the following information about you: Temperature Pulse Respiration Blood pressure 96.9 degrees 86/minute 14/minute 128/82 Weight 70.3 kg Betsy Older, MANAGER CASE MANAGEMENT.WAREHOUSE EXAMINER 05/21/2020 11:15 AM Signed CC: Patient presents with: Establish Care HPI Viktoria Sosa is a 29 year old male who presents today for above. Patient reports he was recently seen at [facility] for STD testing and he [...] during most social situations and then he "acts awkward". Denies depressed mood, anhedonia, excessive worrying, anxious thoughts, insomnia, SI, HI, irritability, short tempered, difficulty concentrating. Admits to drinking 3 or more "tall boys" a day. History of meth use, reportedly [...] ICD9: 573.3, ICD10: K75.9 STD testing at [facility] positive for Hepatitis B per patient, results not available for review. Patient has very low health literacy and poor historian. Will recheck acute hepatitis panel and also CMP. Follow-up and further recommendatio (more content not included)... Normal [facility] Hep Bs Ag Confirmon 05-21-19 Hep Bs Ag Confirm Positive Critically abnormal Negative [facility] Comment on above: Performed By: #### H ACUTP, HBSAGC ####[place] [phone] Hepatitis Acute Panel * OUTS YUE CLIENTS ONLY *on 05-20-2020 HBsAg Initially reactive Critically abnormal Negative [facility] Comment on above: Result Comment: Conf irmatory testing for hepatitis B surface antigen has been ordered and charged. Result rechecked. Performed By: #### H ACUTP, HBSAGC ####[facility] [address] [place] [phone] Hep B Core Ab, IgM Negative Normal Negative [facility] Comment on above: Performed By: #### H ACUTP, HBSAGC ####[facility] [address] [place] [phone] Hepatitis A Ab IgM Negative Normal Negative [facility] Comment on above: Performed By: #### H ACUTP, HBSAGC ####[facility] [place] [phone] Hepatitis C Ab IA Negative Normal Negative [facility] Comment on above: Performed By: #### H ACUTP, HBSAGC ####[place] [address] [address], [place] [phone] Remote CMP (for [facility] use only )on 05-20-2020 Albumin [Mass/Vol] 4.5 g/dL Normal 3.9-4.9 [facility] Comment on above: Performed By: #### R CMP ####[place] [address] [address], [place] [phone] ALP [Catalytic activity/Vol] 62 U/L Normal 38-113 [facility] Comment on above: Performed By: #### R CMP ####[place] [address] [address] [place], [place] [phone] ALT [Catalytic activity/Vol] 28 U/L Normal 10-54 [facility] Comment on above: Performed By: #### R CMP ####[place] [address] [address] [place], [place] [phone] Anion gap [Moles/Vol] 9 mmol/L Normal 9-18 [facility] Comment on above: Performed By: #### R CMP ####[place] [address] [address] [place], [place] [phone] AST [Catalytic activity/Vol] 38 U/L Normal 14-40 [facility] Comment on above: Performed By: #### R CMP ####[place] [address] [address] [place], [place] [phone] Bilirubin [Mass/Vol] 0.4 mg/dL Normal 0.2-1.3 [facility] Comment on above: Performed By: #### R CMP ####[place] [address] [address] [place], [place] [phone] Calcium [Mass/Vol] 9.7 mg/dL Normal 8.5-10.2 [facility] Comment on above: Performed By: #### R CMP ####[place] [address] [place], [place] [phone] Chloride [Moles/Vol] 103 mmol/L Normal 97-105 [facility] Comment on above: Performed By: #### R CMP ####[place] [address] [place], [place] [phone] CO2 [Moles/Vol] 26 mmol/L Normal 22-30 [facility] Comment on above: Performed By: #### R CMP ####[place] [address] [address], [place] [phone] Creatinine [Mass/Vol] 0.84 mg/dL Normal 0.73-1.22 [facility] Comment on above: Performed By: #### R CMP ####[address] [phone] eGFR- Amer. >60 Normal [facility] Comment on above: Performed By: #### R CMP ####[place] [address] [address], [place] [phone] eGFR-All Other Races >60 Normal [facility] Comment on above: Result Comment: eGFR (Estimated [...] actual GFR. Performed By: #### R CMP ####[place] [address] [address], [place] [phone] Glucose [Mass/Vol] 88 mg/dL Normal 74-99 [facility] Comment on above: Result Comment: The [place] Diabetes Association (ADA) provides guidance for cutoff [...] Standards of Medical Care in Diabetes 2016, [place] [employer] Association. Diabetes Care. 2016.39(Suppl 1). Performed By: #### R CMP ####[facility] [place], [place] [phone] Potassium [Moles/Vol] 3.9 mmol/L Normal 3.7-5.1 [facility] Comment on above: Performed By: #### R CMP ####[facility] [place] [address] [phone] Protein [Mass/Vol] 7.0 g/dL Normal 6.3-8.0 [facility] Comment on above: Performed By: #### R CMP ####[facility] [address] [place], [place] [phone] Sodium [Moles/Vol] 138 mmol/L Normal 136-144 [facility] Comment on above: Performed By: #### R CMP ####[facility] [place], [place] [phone] Urea nitrogen [Mass/Vol] 13 mg/dL Normal 9-24 [facility] Comment on above: Performed By: #### R CMP ####[facility] [place] [address] [phone] Vital Signs Date Time Vital Sign Value Performing Clinician Facility 11-24-2024 00:42-0400 Body temperature 97.5 [degF] No Primary Care Physician [facility] 11-24-2024 00:42-0400 Diastolic blood pressure 81 mm[Hg] No Primary Care Physician [facility] 11-24-2024 00:42-0400 Heart rate 58 /min No Primary Care Physician [facility] 11-24-2024 00:42-0400 Respiratory rate 16 /min No Primary Care Physician [facility] 11-24-2024 00:42-0400 SaO2% (BldA) [Mass fraction] 100 % No Primary Care Physician [facility] 11-24-2024 00:42-0400 Systolic blood pressure 111 mm[Hg] No Primary Care Physician [facility] 11-24-2024 00:12-0400 Body height 175.26 cm No Primary Care Physician [facility] 11-24-2024 00:12-0400 Body mass index (BMI) [Ratio] 22 kg/m2 No Primary Care Physician [facility] 11-24-2024 00:12-0400 Body weight 67.8 kg No Primary Care Physician [facility] 08-26-2024 15:09-0400 Body height 175.26 cm No Primary Care Physician [facility] 08-26-2024 15:09-0400 Body mass index (BMI) [Ratio] 21.4 kg/m2 No Primary Care Physician [facility] 08-26-2024 15:09-0400 Body temperature 98.7 [degF] No Primary Care Physician [facility] 08-26-2024 15:09-0400 Body weight 65.8 kg No Primary Care Physician [facility] 08-26-2024 15:09-0400 Diastolic blood pressure 97 mm[Hg] No Primary Care Physician [facility] 08-26-2024 15:09-0400 Heart rate 105 /min No Primary Care Physician [facility] 08-26-2024 15:09-0400 Respiratory rate 16 /min No Primary Care Physician [facility] 08-26-2024 15:09-0400 SaO2% (BldA) [Mass fraction] 98 % No Primary Care Physician [facility] 08-26-2024 15:09-0400 Systolic blood pressure 141 mm[Hg] No Primary Care Physician [facility] 08-04-2024 22:19-0400 Body temperature 97.81 [degF] Bryant Alicea Sr., MD, PhD Work Phone: [facility] 08-04-2024 22:19-0400 Diastolic blood pressure 80 mm[Hg] Bryant Alicea Sr., MD, PhD Work Phone: [facility] 08-04-2024 22:19-0400 Heart rate 90 /min Bryant Alicea Sr., MD, PhD Work Phone: [facility] 08-04-2024 22:19-0400 Respiratory rate 18 /min Bryant Alicea Sr., MD, PhD Work Phone: [facility] 08-04-2024 22:19-0400 SaO2% (BldA) [Mass fraction] 95 % Bryant Alicea Sr., MD, PhD Work Phone: [facility] 08-04-2024 22:19-0400 Systolic blood pressure 131 mm[Hg] Bryant Alicea Sr., MD, PhD Work Phone: [facility] 03-05-2024 02:09-0500 Body temperature 98.2 [degF] Price [place] DO Work Phone: [facility] 03-05-2024 02:09-0500 Diastolic blood pressure 89 mm[Hg] Price [place] DO Work Phone: [facility] 03-05-2024 02:09-0500 Heart rate 92 /min Price [place] DO Work Phone: [facility] 03-05-2024 02:09-0500 Respiratory rate 16 /min Price [place] DO Work Phone: [facility] 03-05-2024 02:09-0500 SaO2% (BldA) [Mass fraction] 98 % Price [place] DO Work Phone: [facility] 03-05-2024 02:09-0500 Systolic blood pressure 133 mm[Hg] Price [place] DO Work Phone: [facility] 03-04-2024 23:45-0500 Body height 175.3 cm Price Smiley DO Work Phone: [facility] 03-04-2024 23:45-0500 Body mass index (BMI) [Ratio] 25.13 kg/m2 Price Smiley DO Work Phone: [facility] 03-04-2024 23:45-0500 Body weight 77.2 kg Price Smiley DO Work Phone: [facility] Encounters Encounter Date Encounter Type Care Provider Facility Start: 11-24-2024 End: 11-24-2024 Emergency department patient visit No Primary Care Physician -Emergency Department Work Phone: Start: 08-26-2024 End: 08-26-2024 Emergency department patient visit No Primary Care Physician -Emergency Department Work Phone: Start: 08-09-2024 End: 08-10-2024 ambulatory PHYSICIAN [facility] Start: 08-09-2024 End: 08-09-2024 ambulatory PHYSICIAN [facility] Start: 08-04-2024 End: 08-05-2024 Emergency department patient visit Bryant Alicea MD, PhD Work Phone: [facility] Emergency Department Start: 07-19-2024 End: 07-19-2024 Emergency department patient visit ROSEMARY MALDONADO [facility] Start: 03-04-2024 End: 03-05-2024 Emergency department patient visit Price Smiley DO Work Phone: [facility] Emergency Department Start: 11-16-2023 End: 11-16-2023 Emergency department patient visit AMNA NGUYEN [facility] Start: 11-10-2023 End: 11-11-2023 [facility] Date Procedure Procedure Detail Performing Clinician Start: 08-04-2024 Radiologic exam ches t single view Keri Hart MD Work Phone: Start: 08-04-2024 GOLD TOP TUBE Jolene Mcneil MD Work Phone: Start: 08-04-2024 LAVENDER TOP TUBE Glo Mcneil MD Work Phone: Start: 08-04-2024 LT BLUE TOP TUBE Jolene Mcneil MD Work Phone: Start: 08-04-2024 MINT GREEN TOP TUBE Oshea lissa Mcneil MD Work Phone: Start: 08-04-2024 RAINBOW DRAW Jolene cook MD Work Phone: Start: 03-05-2024 Drug tst prsmv instr mnt chem analyzers pr date Ashely Ferreira MD Work Phone: Start: 03-04-2024 Glucose measurement, blood Price Smiley DO Work Phone: Plan of Treatment Date Care Activity Detail Author Start: 11-09-2033 Tetanus vaccination TETANUS [facility] Start: 11-24-2024 [facility] Start: 10-22-2024 Influenza vaccination INFLUENZ A VACCINE (Season Ended) [facility] Start: 10-23-2023 COVID-19 VACCINE ( season) COVID-19 VACCINE ( season) [facility] Start: 10-23-2023 Influenza vaccination INFLUENZA VACC INE (#1) [facility] Start: 2008 Hepatitis B vaccination HEP B VACCINE (1 of 3 - 19+ 3-dose series) [facility] Start: 2008 PNEUMOCOCCAL VACCINE SERIES (1 of 2 - PCV) PNEUMOCOCCAL VACCINE SERIES (1 of 2 - PCV) [facility] Start: 2004 HIV screening HIV SCREENING DISCUSSION [facility] Start: 1989 Hepatitis C screening HEPATITI S C VIRUS SCREENING [facility] Patient Education [facility] Work Phone: End: 08-04-2024 Standard ECG ECG ECG STAT One Time for 1 Occurrences starting 08/04/2024 until 08/04/2024 [facility] Comment on above: One Time for 1 Occur rences starting 08/04/2024 until 08/04/2024 Immunizations Immunization Date Immunization Notes Care Provider Ashley gómez 01-11-2019 influenza virus vaccine, unspecified formulation Price Smiley DO Work Phone: [facility] Payers Date Payer Category Payer Self-pay 2024 Medicaid (Managed Care) [facility] [id number] 2024 Private Health Insurance [id number] 2009 Unknown [id number] 1989 Unknown [id number] 1989 Unknown [id number] 1989 Unknown [id number] 1989 Unknown [id number] Unknown [id number] Unknown [id number] Social History Date Type Detail Facility Start: 03-04-2024 End: 11-24-2024 Tobacco smoking status NHIS Smokes tobacco daily [facility] History of tobacco use Cigarette Smoker O [facility] Start: 03-04-2024 Tobacco use and exposure Smoke less tobacco non-user [facility] Start: 03-04-2024 End: 08-04-2024 Alcoholic beverage intake Current drinker of alcohol (finding) [facility] Start: 03-04-2024 End: 08-04-2024 Alcoholic beverage intake [facility] Start: 03-04-2024 Alcohol Use Disorder Identification Test - Consumption [AUDIT-C] [facility] How often to you hav e a drink containing alcohol? 4 or more times a week [facility] How many standard dr inks containing alcohol do you have on a typical day? 5 or 6 [facility] How often do you hav e 6 or more drinks on 1 occasion? Weekly [facility] Start: 1990 Sex assigned at Not on file [facility] Start: 03-04-2024 Sex Male (finding) [facility] Start: 03-05-2020 Tobacco Use Tobacco Use [facility] Start: 1990 Sex Assigned At Male [facility] Clinical Notes 05-20-2020 to 08-04-2024 [...] Bryant Alicea Sr., MD, PhD 08/05/24 0236 [facility] Work Phone: 08-04-2024 Emergency department Note [...] route As directed PRN for Opioid Reversal. Blackey into the nose as directed. Call 911. [...] given fluids via EMS. Unlabored respirations. Bed: [facility] Expected date: Expected time: Means of arrival: Comments: Medic 8 documented in this encounter [facility] 08-04-2024 Physician Emergency department Note dEPARTMENT [...] route As directed PRN for Opioid Reversal. Blackey into the nose as directed. Call 911. [...] MAKING ED Course as of 08/05/24 0115 [place] Aug 05, 2024 0055 ECG NSR, normal [...] health. Keri Hart MD Resident 08/05/24 0120 [facility] 08-04-2024 Emergency department Note Pt was found unconscious in someone's front yard. EMS expected ETOH intoxication. Aox3 with EMS. Pt bg was 146 and was given fluids via EMS. Unlabored respirations. [facility] 08-04-2024 Emergency department Note Bed: [facility] Expected date: Expected time: Means of arrival: Comments: Medic 8 [facility] 03-05-2024 Emergency department Note Narcan kit given to patient with education provided, per Dr. Ferreira. [facility] 03-05-2024 Emergency department Note Narcan kit [...] (Oral) Resp 14 Ht 1.753 m (5' 9") Wt 77.2 kg (170 lb 3.2 oz) [...] hospitalization. Price Smiley DO 03/05/24 0013 [facility]: [facility] Expected date: Expected time: Means of arrival: Comments: Medic 18 documented in this encounter [facility] 03-05-2024 Hospital Discharge instructions Ashely Ferreira [...] follow up care, please call the clinical hospice case manager at . Return to the ED if your symptoms worsen, something changes, or you do not feel comfortable taking care of yourself at home. Also come back if you develop a fever, chest pain, are not able to breathe, or are not able to tolerate food by mouth. The following attachments cannot be sent through Care Everywhere.Drug Overdose: Fentanyl: General Info ([place] Citizen)naloxone (nasal) ([place] Citizen)documented in this encounter [facility] 03-05-2024 Physician Emergency department Note ED [...] (Oral) Resp 14 Ht 1.753 m (5' 9") Wt 77.2 kg (170 lb 3.2 oz) [...] Prescription drug management. Decision regarding hospitalization. Price Smilye DO 03/05/24 0013 [facility] 03-04-2024 Emergency department [place] [facility] [place]pected [place]: Expected time: Means of arrival: Comments: Medic 18 [facility] 09-30-2020 Note HNO ID: [id number] Author: Brianna Mcgrath PA-C Service: ? Author Type: Physician Canine Deputy Type: Progress Notes Filed: 09/30/2020 8:58 PM [...] Examination: BP 128/76 Pulse 60 Ht 5' 9" (1.75m) Wt 162 lb (73.5kg) BMI 23.91 [...] ABD RT UPPE (more content not included)... [facility] 09-24-2020 Note HNO ID: [id number] Author: Betsy Patel APRN.CNP Service: ? Author Type: Nurse Practitioner Type: [...] popped up. He no showed appointment with international logistics manager to discuss treatment for Hepatitis B. He [...] need to reschedule and keep appointment with international logistics manager. Reviewed potential complications of untreated Hepatitis B, [...] test results and coordinating care. Betsy Patel APRN.[facility] 06-11-2020 Note HNO ID: [id number] Author: Hitesh Lucero Service: ? Author Type: Physician Type: Progress Notes Filed: 06/11/2020 1:05 PM Note Text: This note was created using NoteWriter. Subjective Viktoria J Kestner is a 29 year old male. His [...] is infectious and should notify partners, etc. extermination supervisor risk of liver disease, liver failure, and liver cancer were discussed. - CONSULT TO HEPATOLOGY 4. Genital warts - ICD9: 078.11, ICD10: A63.0 - He declined cryotherapy. 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 Author Type: Physician Type: Progress [...] HEPATOLOGY Chel Velasquez MD May 23, 2020 [facility] 05-20-2020 Note HNO ID: [id number] Author: Betsy Martinez) [facility] Service: ? Author Type: Nurse Practitioner Type: Progress Notes Filed: 05/21/2020 11:15 AM Note Text: CC: Patient presents with: Establish Care HPI Viktoria Sosa is a 29 year old male who presents today for above. Patient reports he was recently seen at [facility] for STD testing and he was positive for Hepatitis B. Admits to unprotected sex with a female. He denies IV drug use, abdominal pain, nausea, vomiting, jaundice, abnormal colored stool or urine, diarrhea, fever, chills, night sweats, fatigue, unintentional weight loss. Denies history of known hepatitis infection. Patient requesting medication for "social awkwardness." Admits to feeling very anxious during most social situations and then he "acts awkward". Denies depressed mood, anhedonia, excessive worrying, anxious thoughts, insomnia, SI, HI, irritability, short tempered, difficulty concentrating. Admits to drinking 3 or more "tall boys" a day. History of meth use, reportedly [...] ICD9: 573.3, ICD10: K75.9 STD testing at [facility] positive for Hepatitis B per patient, results not available for review. Patient has very low health literacy and poor historian. Will recheck acute hepatitis panel and also CMP. Follow-up and further recommendations pending results - CMP (CMP) (FOR REMOTE [facility] USE) - HEP ACUTE PANEL BL 3. Social anxiety disorder - ICD9: 300.23, ICD10: F40.10 Patient requesting something to make him less awkward. Appears that patient suffers from social anxiety. - Discussed treatment options and benefits of child guidance counselor (more content not included)... [facility] Evaluation note Diagnosis Drug overdose of undetermined intent, initial encounter- Primary [facility] Diagnosis Alcohol abuse with intoxication- Primary Acute alcoholic intoxication in alcoholism, unspecified [facility] assessment information available [facility] Work Phone: Hospital Discharge instructions* Attachments The following attachments cannot be sent through Care Everywhere. * Alcohol Intoxication: Acute ([place] Citizen) [facility] (narrative)* Radiology (Emergency) - New Request Specialty Diagnoses / Procedures Referred By Ana persaud Referred To Contact Procedures ECG Jolene Mcneil MD [address] [place] [id number] Phone: tel: fax: Referral ID Status Reason Start Date Expiration Date V isits Requested Visits Authorized [id number] New Request 08/04/2024 08/29/2025 1 1 [facility]narrative)No reason for referral information availableWFisher-[facility] Work Phone: Summary Purpose Family History No Family History Records FoundNo Family History Records FoundNo Family History Records FoundNo Family History Records FoundNo Family History Records Found Advance Directives No Advanced Directives Records Found Advance Directive Response Recorded Date/ Time Do you have a Healthcare Power of Watch Train Assembler? No November 24, 2024 12:12am Chief Complaint and Reason for Visit Chief Complaint Admit Date desire for detox August 26, 2024 3:09p m Chief Complaint Admit Date desire for detox August 26, 2024 3:09p m substance abuse November 24, 2024 12 :10am Additional Source Comments (unrecognized sect ion and content) No Status Records FoundNo Status Records FoundNo Status Records FoundNo Status Records FoundNo Status Records Found INFORMATION SOURCE (unrecogn ized section and content) DATE CREATED AUTHOR 11/24/2020 [facility] DATE CREATED AUTHOR AUTHOR'S ORGANIZ ATION 04/02/2021 [facility] DATE CREATED AUTHOR AUTHOR'S ORGANIZ ATION 08/12/2024 [facility] DATE CREATED AUTHOR AUTHOR'S ORGANIZ ATION 08/16/2024 [facility] DATE CREATED AUTHOR AUTHOR'S ORGANIZ ATION 12/16/2024 [facility] Reason for Visit (unrecogniz ed section and content) Reason Comments Drug Overdose Arrived via medic af ter being found down, with shallow respirations and pinpoint pupils. Medics administered 2mg IM Narcan. 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 Relationship Specialty Start Date End Date Self, [...] August 26, 2024 End: August 26, 2024 Team Status: Active Member Role/Relationship Status Dates No Primary Care Physician Primary care physician Activ e Team Status: Inactive Member Role/Relationship Status Dates No Primary Care Physician Primary care physician Activ e Start: August 26, 2024 End: August 26, 2024 Ed Physician Provider Attending physician Active Start: August 26, 2024 End: August 26, 2024 Ed Physician Provider Emergency Department Physician A ctive Start: August 26, 2024 End: August 26, 2024 Team Status: Inactive Member Role/Relationship Status Dates No Primary Care Physician Primary care physician Activ e Start: November 24, 2024 End: November 24, 2024 Dr. Fernandez Ribeiro MD Emergency Depart ment Physician Active Start: November 24, 2024 End: November 24, 2024 Goals (unrecognized section and content) Goals may be documented in a n alternate sectionGoals may be documented in an alternate section FOR RECORDS PERTAINING TO PATIENTS [...] BE BASED ON THE PRIMARY CLINICAL RECORDS. [facility]. provides no warranty or guarantee of the accuracy or completeness of information in this document.
--- NOTE | 2024-12-30 16:28 | EX.ED.DYSGE1 ---
HPI History of Present Illness Chief Complaint: ETOH Intox Informant: patient and EMS Narrative Narrative: 34-year-old male apparently was found "unresponsive" in a local drugstore. EMS was called and he was brought to emergency. Patient is now quite alert and is threatening violence to the staff police security that are present in the department. Even doctors who are walking by to see other patients he is threatening to assault. Patient admits that he is intoxicated with alcohol. He states that he is homeless. He denies any coingestions. [facility] Medical History Drug abuse Home Medications Medication Instructions Recorded Last Taken Type NK 01/31/19 Unknown History Allergy/AdvReac Type Severity Reaction Status Date / Time No Known Allergies Allergy Verified 11/24/24 00:11 Surgical History H/O foot surgery Social History Smoking Status: Current every day smoker tobacco type: cigarettes ROS ROS ED Constitutional Constitutional ED: Denies chills, fever(s) or weight loss Eyes Eyes: Denies change in vision or diplopia ENT ENT ED: Denies ear pain, rhinorrhea or sore throat Cardiovascular Cardiovascular: Denies chest pain, orthopnea, palpitations or racing heartbeat Respiratory/Chest Respiratory/Chest: Denies cough, dyspnea or orthopnea Gastrointestinal Gastrointestinal: Denies abdominal pain, diarrhea, nausea or vomiting Genitourinary Genitourinary ED: Denies dysuria, hematuria or urinary frequency Musculoskeletal Musculoskeletal: Denies arthralgias or myalgias Integumentary Denies abscess or rash Neurologic Neurologic: Denies headache(s) or weakness Psychiatric Psychiatric: Denies anxiety, depression, suicidal ideation or suicidal thoughts Endocrine Endocrinology: Denies polydipsia, polyphagia or polyuria Allergic/Immunologic Allergic/Immunologic ED: Denies mouth swelling, tongue swelling or urticaria EXAM Physical Exam Const Vital Signs: 12/30/24 15:25 Temperature 97.4 F L Temperature Source Temporal Pulse Rate 81 Respiratory Rate 17 Blood Pressure 121/108 H Blood Pressure Mean 112 Pulse Ox 99 Oxygen Delivery Method Room Air Positive well nourished and well developed General Appearance ED: well developed and NAD HEENT Reports normocephalic, head/scalp atraumatic and moist mucous membranes Eyes PERRL and EOMs intact bilaterally Neck no lymphadenopathy, supple and no JVD Resp normal respiratory effort and clear to auscultation bilaterally Cardio regular rate, regular rhythm and no murmurs GI normal to inspection, nondistended, normoactive bowel sounds and non-tender Palpation: soft Back/Spine no CVA tenderness and normal ROM Extremity normal to inspection General Extremety ED: Negative for edema General Extremity: Negative for edema Neuro oriented x3 and CN's II-XII intact bilaterally Neuro Narrative: Patient appears intoxicated. He is slurring his words. There is a strong smell of alcohol from him. Patient appears unsteady on his feet. Sensorium / Orientation: alert Motor Exam: strength 5/5 throughout Psych Psych Narrative: Patient appears agitated. He is threatening violence against staff and police. Attitude: agitated Mood & Affect: Negative for depressed or tearful Skin no rashes or lesions noted and no wounds MDM MDM MDM Narrative Medical decision making narrative: Differential diagnosis includes but not limited to acute psychosis alcohol intoxication personality disorder bipolar disorder substance use disorder Withdrawal syndrome His vital signs appear stable. He smells of alcohol and admits to drinking alcohol and admits to being intoxicated. He is homeless and I do not feel that he is at a place where he can safely be discharged into the public. He is not currently under arrest. Spoke with the patient and advised him that it would be safe for him to sleep and metabolize his alcohol here in the department. Given his degree of agitation and threatening violence I asked if he wanted a shot to help him sleep and he stated he would. He was given 20 mg of Geodon. Patient will be allowed to metabolize and will be reassessed when clinically sober. Care of the patient be turned over to the oncoming physician Dr. Mackey. Apparently there is a sisters that has come to the emergency department who is visiting with the patient and helping to de-escalate him. History & Record Review Discussion w/independent historian: EMS personnel and Patient Additional record(s) reviewed:: Prior ED visit Discharge Plan Triage Chief Complaint: ETOH Intox ED Provider: Dale Bean Dx/Rx/DC Orders Clinical Impression: Alcohol intoxication Instructions: ED Alcohol Intoxication Prescriptions: No Action NK Primary Care Provider: Care Physician,No Primary Referrals: Care Physician,No Primary [Primary Care Provider, Medical] Print Language: Citizen Of [place]
[2024-12-30 17:14] VITALS: BP 130/74; PULSE 90; RESP 18; O2SAT 100
--- NOTE | 2024-12-30 17:31 | ED.RN ---
spoke with patients sister Nataly at this time, sister asking how to get pt committed this nurse explain pt would need to be pink slipped and considered a danger to himself or others or he would have to be agreeable to going. informed of sisters request.
[2024-12-30 19:29] VITALS: BP 94/61; PULSE 76; RESP 18; TEMP 36.7; O2SAT 97
[2024-12-30 21:55] VITALS: BP 108/74; PULSE 81; RESP 18; O2SAT 99
--- NOTE | 2024-12-30 21:58 | ED.RN ---
Pt awake, sitting up in bed and speaking to this RN. Offered to call sister to come get pt, he is unsure if he wants to go with her.
== END 2024-12-30 22:29 | disposition home or self-care (01) ==
PROVIDERS: Emergency Provider Emergency Medicine; Visit Provider Emergency Medicine
DX: F10.129 Alcohol abuse with intoxication, unspecified (principal); Z59.00 Homelessness unspecified; F17.210 Nicotine dependence, cigarettes, uncomplicated
CPT/HCPCS: 99284; A4216

== ENCOUNTER 2025-01-21 20:36 | Inpatient (IN) | payer MEDICAID, SELFPAY ==
[2025-01-21 20:37] VITALS: BP 124/85; PULSE 92; RESP 12; TEMP 36.6; O2SAT 97; BMI 23.4
--- NOTE | 2025-01-21 20:55 | EKG12_ITS ---
Test Reason : [facility] [place] Blood Pressure : */* mmHG Vent. Rate : 83 BPM Atrial Rate : 83 BPM P-R Int : 160 ms QRS Dur : 92 ms QT Int : 364 ms P-R-T Axes : 58 48 20 degrees QTcB Int : 427 ms Normal sinus rhythm Normal ECG Confirmed by Craig Cevallos ([id number]), telegraph editor JULIETA HUYNH ([id number]) on 01/23/2025 8:42:17 AM Referred By: Confirmed By: Craig Cevallos
--- NOTE | 2025-01-21 21:14 | EDS_ITS ---
HPI History of Present Illness Chief Complaint: ETOH Intox Narrative Narrative: Patient is a 34-year-old male presenting to the emergency department for alcohol detox request. Patient is a very poor historian due to clinical intoxication. Patient states that he drinks about a pint of liquor daily. He is unable to tell me how long he has been drinking this amount for. States that his last drink was shortly before arrival here today. He denies any other drug use today but states that he sometimes does use other drugs but is unable to tell me which ones. States he has been admitted before for alcohol detox, and is unable to tell me where. He states that he is homeless. He endorses history of alcohol withdrawal symptoms which included shakes, denies any alcohol withdrawal seizures. Denies any physical complaints at this time. [facility] Medical History Drug abuse Home Medications ?Medication ?Instructions ?Recorded ?Last Taken ?Type NK 01/31/19 Unknown History Allergy/AdvReac Type Severity Reaction Status Date / Time No Known Allergies Allergy Verified 01/21/25 20:37 Surgical History H/O foot surgery Social History Smoking Status: Current every day smoker tobacco type: cigarettes ROS ROS ED ROS Narrative See HPI EXAM Physical Exam Narrative Exam Narrative: Vital signs: Reviewed General: Alert and oriented x 2. No acute distress. Clinically intoxicated. HEENT: Head is normocephalic and atraumatic, sinuses nontender, pupils equal round and reactive. Nares are patent. Oropharynx and throat exams normal. Neck: Supple without lymphadenopathy nontender Cardiovascular: Regular rate and rhythm, no murmurs. No rubs or gallops. Normal S1 and S2 Respiratory: Clear to auscultation bilaterally. No wheezes, rales, rhonchi Abdominal: Soft and nontender. Normal bowel sounds. No guarding or rebound. Nonsurgical abdomen Extremities: No tenderness. No bruising. Normal range of motion. Normal sensation. Skin: No rash or redness. Neurological: Cranial nerves II through XII are grossly intact. Normal strength and sensation The rest of the physical exam is unremarkable Const Vital Signs: 01/21/25 20:37 Temperature 97.8 F Temperature Source Oral Pulse Rate 92 Respiratory Rate 12 Blood Pressure 124/85 H Blood Pressure Mean 98 Pulse Ox 97 Oxygen Delivery Method Room Air MDM MDM MDM Narrative Medical decision making narrative: Patient is a 34-year-old male presenting to the emergency department for request of alcohol detox. Patient was seen and examined. Vitals are stable. Patient resting bed comfortably no acute distress. He is clinically intoxicated. Basic labs were ordered as well as an alcohol level and urine drug screen. Patient states that he drank right before arrival, I do not have concern about alcohol withdrawal symptoms at this time. EKG shows normal sinus rhythm with a rate of 83 no ischemic changes. No dysrhythmia. CBC with no leukocytosis and a normal hemoglobin. CMP with no significant abnormalities. Alcohol level is sig nificantly elevated at 272. Urine drug screen is positive for cannabinoids. Patient requested admission for alcohol detox. Discussed admission with the hospitalist, Dr. Napier who accepted the patient for further management. Clinical impression Alcohol intoxication Alcohol detox History & Record Review Discussion w/independent historian: Patient Additional record(s) reviewed:: Prior ED visit and Prior labs Lab Data Attestation: I reviewed the patient's lab results. Labs: Laboratory Results - last 24 hr 01/21/25 01/21/25 21:30 21:41 WBC 5.9 RBC 4.73 Hgb 14.3 Hct 42.6 MCV 90.1 MCH 30.2 MCHC 33.6 RDW Std Deviation 42.8 RDW Coeff of Yuliana 12.9 Plt Count 241 MPV 10.0 Immature Gran % (Auto) 0.200 Neut % (Auto) 42.7 L Lymph % (Auto) 35.9 [place] % (Auto) 19.6 H Eos % (Auto) 0.8 Baso % (Auto) 0.8 Absolute Neuts (auto) 2.5 Absolute Lymphs (auto) 2.13 Nucleated RBC % 0 Sodium 144 Potassium 3.4 Chloride 106 Carbon Dioxide 22.3 Anion Gap 16 H BUN 12 Creatinine 0.82 Estim Creat Clear Calc 125.74 Est GFR (MDRD) Non-Af 118 BUN/Creatinine Ratio 14.5 Glucose 95 Calcium 8.6 Total Bilirubin < 0.15 AST 18 ALT 15 Alkaline Phosphatase 61 Total Protein 7.1 Albumin 4.4 Globulin 2.6 Albumin/Globulin Ratio 1.7 Urine Opiates Screen NEGATIVE U Buprenorphine Qual NEGATIVE Ur Oxycodone Screen NEGATIVE Urine Methadone Screen NEGATIVE Urine Fentanyl Screen NEGATIVE Ur Barbiturates Screen NEGATIVE Ur Phencyclidine Scrn NEGATIVE Ur Amphetamines Screen NEGATIVE U Benzodiazepines Scrn NEGATIVE Urine Cocaine Screen NEGATIVE U Cannabinoids Screen PRESUMPTIVE POSITIVE Ethyl Alcohol 272.0 H Discharge Plan Triage Chief Complaint: ETOH Intox Other Complaint: Substance Abuse ED Provider: Sarita Maravilla Dx/Rx/DC Orders Prescriptions: No Action NK Primary Care Provider: Care Physician,No Primary Referrals: Care Physician,No Primary [Primary Care Provider, Medical] Print Language: [place]
--- OUTSIDE RECORDS SUMMARY | 2025-01-21 21:20 | XMS RPT_ITS | CCD ---
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 Presley Emergency Department Phys ician Care Physician, No Primary Primary Care Unava ilable Dale Bean Attending Unavailable Fernandez Ribeiro Attending Unavailable Care Physician, No Primary Primary Care Unava ilable Provider, Ed Physician Attending Unavailab le Care Physician, No Primary Primary Care Unava ilable Medications Current Medications Medication Drug Class(es) Dates Sig (Normalized) Sig (Original) naloxone hydrochloride 40 mg/ml nasal spray (2 sources) Opioid Antagonist Start: 03-05-2024 End: 03-05-2025 naloxone 4 MG/0.1ML 1 spray by Nasal route As directed PRN for Opioid Reversal. [place] into the nose as directed. Call 911. [...] Reference Range Facility Emergency Department Summary on 12-30-2024 Emergency Department Summary [facility] Medical Records Department [address] [place] [address] Emergency Department Summary 12/30/24 MR#: [id number] Acct: [id number] Name: VIKTORIA SOSA Rep #: [id number] : 1990 34 From: Dale Bean DO PCP: Care Physician,No Primary Status:REG ER Location: ED ADDENDUM by Dr. Mendoza Mackey DO on 12/30/24 at 2218 Care of the patient was turned over to me. Patient was sleeping here in the emergency department. Patient woke up and wants to go home. Patient denies any suicidal or homicidal ideations. Patient does appear to be somewhat intoxicated still. Patient is able to ambulate without difficulty. Since the patient is not suicidal or homicidal at this time, I do not feel that he needs to be pink slipped. Patient does not want to be admitted to a psychiatric hospital. Patient is able to care for himself. Patient was advised to stop drinking alcohol. Patient does not want detox at this time. Patient was instructed to follow-up with a primary care physician in 7 to 10 days. Patient understood and was agreeable with the plan. Sister will be contacted to pick the patient up. All questions were answered. 12/30/24 4608 Cosigner Signature (if applicable): cc: No Primary Care Physician * Signed HPI History of Present Illness Chief Complaint: ETOH Intox Informant: patient and EMS Narrative Narrative: 34-year-old male apparently was found unresponsive in a local drugstore. EMS was called and he was brought to emergency. Patient is now quite alert and is threatening violence to the staff police security that are present in the department. Even doctors who are walking by to see other patients he is threatening to assault. Patient admits that he is intoxicated with alcohol. He states that he is homeless. He denies any coingestions. [facility] Medical History Drug abuse Home Medications ???Medication ???Instructions ???Recorded ???Last Taken ???Type NK 01/31/19 Unknown History Allergy/AdvReac Type Severity Reaction Status Date / Time No Known Allergies Allergy Verified 11/24/24 00:11 Surgical History H/O foot surgery Social History Smoking Status: Current every day smoker tobacco type: cigarettes ROS ROS ED Constitutional Constitutional ED: Denies chills, fever(s) or weight loss Eyes Eyes: Denies change in vision or diplopia ENT ENT ED: Denies ear pain, rhinorrhea or sore throat Cardiovascular Cardiovascular: Denies chest pain, orthopnea, palpitations or racing heartbeat Respiratory/Chest Respiratory/Chest: Denies cough, dyspnea or orthopnea Gastrointestinal Gastrointestinal: Denies abdominal pain, diarrhea, nausea or vomiting Genitourinary Genitourinary ED: Denies dysuria, hematuria or urinary frequency Musculoskeletal Musculoskeletal: Denies arthralgias or myalgias Integumentary Denies abscess or rash Neurologic Neurologic: Denies headache(s) or weakness Psychiatric Psychiatric: Denies anxiety, depression, suicidal ideation or suicidal thoughts Endocrine Endocrinology: Denies polydipsia, polyphagia or polyuria Allergic/Immunologic Allergic/Immunologic ED: Denies mouth swelling, tongue swelling or urticaria EXAM Physical Exam Const Vital Signs: 12/30/24 15:25 Temperature 97.4 F L Temperature Source Temporal Pulse Rate 81 Respiratory Rate 17 Blood Pressure 121/108 H Blood Pressure Mean 112 Pulse Ox 99 Oxygen Delivery Method Room Air Positive well nourished and well developed General Appearance ED: well developed and NAD HEENT Reports normocephalic, head/scalp atraumatic and moist mucous membranes Eyes PERRL and EOMs intact bilaterally Neck no lymphadenopathy, supple and no JVD Resp normal respiratory effort and clear to auscultation bilaterally Cardio regular rate, regular rhythm and no murmurs GI normal to inspection, nondistended, normoactive bowel sounds and non-tender Palpation: soft Back/Spine no CVA tenderness and normal ROM Extremity normal to inspection General Extremety ED: Negative for edema General Extremity: Negative for edema Neuro oriented x3 and CN's II-XII intact bilaterally Neuro Narrative: Patient appears intoxicated. He is slurring his words. There is a strong smell of alcohol from him. Patient appears unsteady on his feet. Sensorium / Orientation: alert Motor Exam: strength 5/5 throughout Psych Psych Narrative: Patient appears agitated. He is threatening violence against staff and police. Attitude: agitated Mood Affect: Negative for depressed or tearful Skin no rashes or lesions noted and no wounds MDM MDM MDM Na (more content not included)... Normal 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 No sign of apparent injury, patient denies any injury but history is limited due to being intoxicated. [facility] Medical History Drug abuse Home Medications ???Medication [...] well, he is stable to go to halfway in this condition Discharge Plan Triage Chief Complaint: Substance Abuse ED Provider: Fernandez Ribeiro Dx/Rx/DC Orders Clinical Impression: Alcohol intoxication Instructions: Snf Clearance Prescriptions: No Action NK Primary Care Provider: Care Physician,No Primary Print Language: Tongan Disposition Disposition: Home, Self Care Discharge Date/Time: 11/24/24 00:53 What to do if you have Problems For any increased pain, shortness of breath, bleeding, nausea or vomiting, chest pain, or any unexpected problems, contact your Primary Care Provider. Call [facility] ([phone]) or report to the closest Emergency Room. Call 911 if necessary. 11/24/24 0802 Cosigner Signature (if applicable): CC: No Primary Care Physician Signed Normal [facility] ED Prov Noteon 08-10-2024 ED Prov Note PCP - No, Physician Language assistance: N/A - [place]an speaker Chief Complaint Patient presents with Psychiatric [...] tablet 1 mg (1 mg Oral Given 08/09/242306) diphenhydrAMINE (BENADRYL) injection 50 mg (has (more content not included)... Normal [facility] ALCOHOL, MEDICALon ALCOHOL MEDICAL 117.0 mg/dL High <10.0 [facility] Comment on above: Performed By: #### 4 [id number] #### [facility] [address], [place] [address] Des Nieves M.D. [id number] ALCOHOL MEDICAL < Normal <10.0 [facility] Comment on above: Result Comment: Alco hol cutoff: <10.00 mg/dL = None Detected Performed By: #### 4 [id number] #### [facility] [address], [place] [address] Des Nieves M.D. [id number] DRUGS OF ABUSE SCREEN, URINE on 08-09-2024 AMPHETAMINE SCREEN, URINE Not detected Normal None Detected [facility] Comment on above: Order Comment: Scree n results should be used for treatment purposes only. Specimen will be kept for 2 weeks, if the sample is adequate. Confirmation testing can be initiated by calling the lab within 2 weeks. Result Comment: Urin e Amphetamine Cutoff: < 1000 ng/mL = None Detected Performed By: #### 4 [id number] #### [facility] [address], [place] [address] Des Nieves M.D. [id number] BARBITURATE SCREEN URINE Not detected Normal None Detected [facility] Comment on above: Order Comment: Scree n results should be used for treatment purposes only. Specimen will be kept for 2 weeks, if the sample is adequate. Confirmation testing can be initiated by calling the lab within 2 weeks. Result Comment: Urin e Barbiturates Cutoff: < 200 ng/mL = None Detected Performed By: #### 4 [id number] #### [facility] [address] [id number] Des Nieves M.D. [id number] BENZODIAZEPINE SCREEN, URINE Not detected Normal None Detected [facility] Comment on above: Order Comment: Scree n results should be used for treatment purposes only. Specimen will be kept for 2 weeks, if the sample is adequate. Confirmation testing can be initiated by calling the lab within 2 weeks. Result Comment: Urin e Benzodiazepine Cutoff: < 200 ng/mL = None Detected Performed By: #### 4 [id number] #### [facility] [address] [address] Des Nieves M.D. [id number] BUPRENORPHINE, URINE Not detected Normal None Detected [facility] Comment on above: Order Comment: Scree n results should be used for treatment purposes only. Specimen will be kept for 2 weeks, if the sample is adequate. Confirmation testing can be initiated by calling the lab within 2 weeks. Result Comment: Urin e Buprenorphine Cutoff: < 5 ng/mL = None Detected Performed By: #### 4 [id number] #### [facility] [address] [address] Des Nieves M.D. [id number] CANNABINOID SCREEN URINE Not detected Normal None Detected [facility] Comment on above: Order Comment: Scree n results should be used for treatment purposes only. Specimen will be kept for 2 weeks, if the sample is adequate. Confirmation testing can be initiated by calling the lab within 2 weeks. Result Comment: Urin e Cannabinoids Cutoff: < 50 ng/mL = None Detected Performed By: #### 4 [id number] #### [facility] [address] [id number] Des Nieves M.D. [id number] COCAINE, SCREEN URINE Positive Abnormal None Detected [facility] Comment on above: Order Comment: Scree n results should be used for treatment purposes only. Specimen will be kept for 2 weeks, if the sample is adequate. Confirmation testing can be initiated by calling the lab within 2 weeks. Result Comment: Urin e Cocaine Cutoff: < 300 ng/mL = None Detected Performed By: #### 4 [id number] #### [facility] [address] [id number] Des Nieves M.D. [id number] FENTANYL, URINE Not detected Normal None Detected [facility] Comment on above: Order Comment: Scree n results should be used for treatment purposes only. Specimen will be kept for 2 weeks, if the sample is adequate. Confirmation testing can be initiated by calling the lab within 2 weeks. Result Comment: Urin e Fentanyl Cutoff: < 1 ng/mL = None Detected Performed By: #### 4 [id number] #### [facility] [address] [address] Des Nieves M.D. [id number] METHADONE SCREEN, URINE Not detected Normal None Detected [facility] Comment on above: Order Comment: Scree n results should be used for treatment purposes only. Specimen will be kept for 2 weeks, if the sample is adequate. Confirmation testing can be initiated by calling the lab within 2 weeks. Result Comment: Urin e Methadone Cutoff: < 300 ng/mL = None Detected Performed By: #### 4 [id number] #### [facility] [address] [address] Des Nieves M.D. [id number] OPIATE SCREEN URINE Not detected Normal None Detected [facility] Comment on above: Order Comment: Scree n results should be used for treatment purposes only. Specimen will be kept for 2 weeks, if the sample is adequate. Confirmation testing can be initiated by calling the lab within 2 weeks. Result Comment: Urin e Opiates Cutoff: < 300 ng/mL = None Detected Performed By: #### 4 [id number] #### [facility] [address] [address] Des Nieves M.D. [id number] OXYCODONE SCREEN, URINE Not detected Normal None Detected [facility] Comment on above: Order Comment: Scree n results should be used for treatment purposes only. Specimen will be kept for 2 weeks, if the sample is adequate. Confirmation testing can be initiated by calling the lab within 2 weeks. Result Comment: Urin e Oxycodone Cutoff: < 100 ng/mL = None Detected Performed By: #### 4 [id number] #### [facility] [address] [address] Des Nieves M.D. [id number] AMPHETAMINE SCREEN, URINE Not detected Normal None Detected [facility] Comment on above: Order Comment: Scree n results should be used for treatment purposes only. Specimen will be kept for 2 weeks, if the sample is adequate. Confirmation testing can be initiated by calling the lab within 2 weeks. Result Comment: Urin e Amphetamine Cutoff: < 1000 ng/mL = None Detected Performed By: #### 4 [id number] #### [facility] [address] [id number] Des Nieves M.D. [id number] BARBITURATE SCREEN URINE Not detected Normal None Detected [facility] Comment on above: Order Comment: Scree n results should be used for treatment purposes only. Specimen will be kept for 2 weeks, if the sample is adequate. Confirmation testing can be initiated by calling the lab within 2 weeks. Result Comment: Urin e Barbiturates Cutoff: < 200 ng/mL = None Detected Performed By: #### 4 [id number] #### [facility] [address] [address] Des Nieves M.D. [id number] BENZODIAZEPINE SCREEN, URINE Positive Abnormal None Detected [facility] Comment on above: Order Comment: Scree n results should be used for treatment purposes only. Specimen will be kept for 2 weeks, if the sample is adequate. Confirmation testing can be initiated by calling the lab within 2 weeks. Result Comment: Urin e Benzodiazepine Cutoff: < 200 ng/mL = None Detected Performed By: #### 4 [id number] #### [facility] [address] [id number] Des Nieves M.D. [id number] BUPRENORPHINE, URINE Not detected Normal None Detected [facility] Comment on above: Order Comment: Scree n results should be used for treatment purposes only. Specimen will be kept for 2 weeks, if the sample is adequate. Confirmation testing can be initiated by calling the lab within 2 weeks. Result Comment: Urin e Buprenorphine Cutoff: < 5 ng/mL = None Detected Performed By: #### 4 [id number] #### [facility] [address] [id number] Des Nieves M.D. [id number] CANNABINOID SCREEN URINE Positive Abnormal None Detected [facility] Comment on above: Order Comment: Scree n results should be used for treatment purposes only. Specimen will be kept for 2 weeks, if the sample is adequate. Confirmation testing can be initiated by calling the lab within 2 weeks. Result Comment: Urin e Cannabinoids Cutoff: < 50 ng/mL = None Detected Performed By: #### 4 [id number] #### [facility] [address] [address] Des Nieves M.D. [id number] COCAINE, SCREEN URINE Positive Abnormal None Detected [facility] Comment on above: Order Comment: Scree n results should be used for treatment purposes only. Specimen will be kept for 2 weeks, if the sample is adequate. Confirmation testing can be initiated by calling the lab within 2 weeks. Result Comment: Urin e Cocaine Cutoff: < 300 ng/mL = None Detected Performed By: #### 4 [id number] #### [facility] [address] [address] Des Nieves M.D. [id number] FENTANYL, URINE Not detected Normal None Detected [facility] Comment on above: Order Comment: Scree n results should be used for treatment purposes only. Specimen will be kept for 2 weeks, if the sample is adequate. Confirmation testing can be initiated by calling the lab within 2 weeks. Result Comment: Urin e Fentanyl Cutoff: < 1 ng/mL = None Detected Performed By: #### 4 [id number] #### [facility] [address] [address] Des Nieves M.D. [id number] METHADONE SCREEN, URINE Not detected Normal None Detected [facility] Comment on above: Order Comment: Scree n results should be used for treatment purposes only. Specimen will be kept for 2 weeks, if the sample is adequate. Confirmation testing can be initiated by calling the lab within 2 weeks. Result Comment: Urin e Methadone Cutoff: < 300 ng/mL = None Detected Performed By: #### 4 [id number] #### [facility] [address] [address] Des Nieves M.D. [id number] OPIATE SCREEN URINE Not detected Normal None Detected [facility] Comment on above: Order Comment: Scree n results should be used for treatment purposes only. Specimen will be kept for 2 weeks, if the sample is adequate. Confirmation testing can be initiated by calling the lab within 2 weeks. Result Comment: Urin e Opiates Cutoff: < 300 ng/mL = None Detected Performed By: #### 4 [id number] #### [facility] [address] [address] Des Nieves M.D. [id number] OXYCODONE SCREEN, URINE Not detected Normal None Detected [facility] Comment on above: Order Comment: Scree n results should be used for treatment purposes only. Specimen will be kept for 2 weeks, if the sample is adequate. Confirmation testing can be initiated by calling the lab within 2 weeks. Result Comment: Evangelist do Oxycodone Cutoff: < 100 ng/mL = None Detected Performed By: #### 4 [id number] #### [facility] [address] [place], [place] [address] Des Nieves M.D. [id number] ED Prov Noteon 08-09-2024 ED Prov Note PCP - No, Physician [phone] No chief complaint on file. HPI This [...] abuse (HCC) 2. Alcohol use Consulted with: tin recovery worker. Disposition: Discharge Shared decision making utilized [...] History Marital status (more content not included)... [facility] No Panel Informationon 08-05 [facility] Portable XR Chest Viewson IMPRESSION: [...] IMPRESSION IMPRESSION: No acute cardiopulmonary disease [facility] Portable XR Chest ViewsOrder ed By: Gino Dwyer on 08-05-2024 [facility] XR CHEST 1 VIEW PORTABLEon 0 08-05-2024 XR CHEST 1 VIEW PORTABLE EXAM: XR CHEST 1 VIEW PORTABLE, 08/04/2024 22:49 PM COMPARISON: No prior studies available for comparison. CLINICAL INDICATIONS: Central chest pain RELEVANT CLINICAL HISTORY: FINDINGS: (Adequate technique) Implanted Devices: None Thorax: No acute findings in the chest. IMPRESSION: No acute cardiopulmonary disease [facility] Portable XR Chest Viewson Radiology Study observation (narrative) [facility] ED Prov Noteon 07-19-2024 ED Prov Note EMERGENCY MEDICINE PROVIDER NOTE [facility] EMERGENCY DEPARTMENT Encounter Date: 07/20/24 [...] have. Patient seen in conjunction with Dr. Rider. I discussed this patient, history, physical exam, [...] primary care provider (PCP). Why: Call the [facility] Referral Number to schedule an appointment: [phone] 2. Open Access. Why: As needed [facility] (Open Access Clinic) [address], [place] H (more content not included)... Normal [facility] URINE DRUG SCREEN 10Ordered By: Anne Thomas on 03-05-2024 Amphetamine+Methamp hetamine Screen (U) [Mass/Vol] Not detected Cutoff: 500 ng/mL [facility] Barbiturates Ql (U) Not detected Cutoff: 200 ng/mL [facility] Benzodiazepines Ql (U) Not detected Cutoff: 200 ng/mL [facility] Buprenorphine Ql (U) Not detected Cutoff: 5 ng/mL [facility] Cannabinoids Screen Ql (U) Positive Abnormal Cutoff: 50 ng/mL [facility] Cocaine Ql (U) Positive Abnormal Cutoff: 150 ng/mL [facility] fentaNYL Ql (U) Positive Abnormal Cutoff: 1 ng/mL [facility] Interpretation and review of laboratory results Abnormal [facility] Methadone Ql (U) Not detected Cutoff: 300 ng/mL [facility] Opiates Ql (U) Not detected Cutoff: 300 ng/mL [facility] oxyCODONE Ql (U) Not detected Cutoff: 100 ng/mL [facility] For medical purposes only. Positive results are unconfirmed unless otherwise noted. [facility] URINE DRUG SCREEN 10on 03-05 Amphetamine/Methamp hetamine Not detected Normal Cutoff: 500 ng/mL [facility] Comment on above: Order Comment: For m edical purposes only. Positive results are unconfirmed unless otherwise noted. Performed By: #### 1 0DRUG #### [facility] (DEFAULT) [address] [place] [address] Barbiturates Not detected Normal Cutoff: 200 ng/mL [facility] Comment on above: Order Comment: For m edical purposes only. Positive results are unconfirmed unless otherwise noted. Performed By: #### 1 0DRUG #### [facility] (DEFAULT) [address] [address] Benzodiazepines Not detected Normal Cutoff: 200 ng/mL [facility] Comment on above: Order Comment: For m edical purposes only. Positive results are unconfirmed unless otherwise noted. Performed By: #### 1 0DRUG #### [facility] (DEFAULT) [address] [address] Buprenorphine Not detected Normal Cutoff: 5 ng/mL [facility] Comment on above: Order Comment: For edical purposes only. Positive results are unconfirmed unless otherwise noted. Performed By: #### 1 0DRUG #### [facility] (DEFAULT) [address] [address] Cannabinoids Screen Ql (U) Positive Abnormal Cutoff: 50 ng/mL [facility] Comment on above: Order Comment: For edical purposes only. Positive results are unconfirmed unless otherwise noted. Performed By: #### 1 0DRUG #### [facility] (DEFAULT) [address] [address] Cocaine Positive Abnormal Cutoff: 150 ng/mL [facility] Comment on above: Order Comment: For edical purposes only. Positive results are unconfirmed unless otherwise noted. Performed By: #### 1 0DRUG #### [facility] (DEFAULT) [address] [address] Fentanyl Positive Abnormal Cutoff: 1 ng/mL [facility] Comment on above: Order Comment: For edical purposes only. Positive results are unconfirmed unless otherwise noted. Performed By: #### 1 0DRUG #### [facility] (DEFAULT) [address] [address] Methadone Not detected Normal Cutoff: 300 ng/mL [facility] Comment on above: Order Comment: For edical purposes only. Positive results are unconfirmed unless otherwise noted. Performed By: #### 1 0DRUG #### [facility] (DEFAULT) [address] [address] Opiates Not detected Normal Cutoff: 300 ng/mL [facility] Comment on above: Order Comment: For m edical purposes only. Positive results are unconfirmed unless otherwise noted. Performed By: #### 1 0DRUG #### [facility] (DEFAULT) [address] [address] Oxycodone Not detected Normal Cutoff: 100 ng/mL [facility] Comment on above: Order Comment: For m edical purposes only. Positive results are unconfirmed unless otherwise noted. Performed By: #### 1 0DRUG #### [facility] (DEFAULT) [address] [address] GLUCOSE POCon 03-04-2024 Glucose [Mass/Vol] 149 mg/dL High 70 - 99 mg/dL [facility] Comment on above: Notified RNread back Interpretation and review of laboratory results Abnormal [facility] POC Sample Type CAPBL [facility] Test performed at address of the patient encounter. [facility] ED Prov Noteon 11-16-2023 ED Prov Note EMERGENCY MEDICINE PROVIDER NOTE [facility] EMERGENCY DEPARTMENT Patient Name: Viktoria [...] scalp W (more content not included)... Normal [facility] CT HEAD OR BRAIN WITHOUT CON [...] IMPRESSION: No acute intracranial abnormality. Workstation ID: [id number] Dictated by: GLORIA DAVIDSON on TueNov 11, 2023 1:03:02 AM EDT Transcribed by: GLORIA DAVIDSON on TueNov 11, 2023 1:03:02 AM EDT Finalized by: GLORIA DAVIDSON on TueNov 11, 2023 1:03:02 AM EDT [facility] Comment on above: Order Comment: Injur y/Trauma [...] mid facial soft tissue swelling. Workstation ID: [id number] Dictated by: GLORIA DAVIDSON on TueNov 10, 2023 9:36:40 PM EDT Transcribed by: GLORIA DAVIDSON on TueNov 10, 2023 9:36:40 PM EDT Finalized by: GLORIA DAVIDSON on TueNov 10, 2023 9:36:40 PM EDT [facility] Comment on above: Order Comment: Injur y/Trauma [...] return precautions. Saw this patient with Dr. Hicks. As part of my MDM, I reviewed prior notes I ordered tests I considered ordering additional tests or treatments I independently reviewed results of tests I had a discussion of the management or test interpretation with the patient. Shared decision making was used that included eliciting patient and/or family preference (more content not included)... [facility] ED NOTEon 11-23-2020 ED NOTE HNO ID: [id number] Author: Laurel Jenkins RN Service: Emergency Medicine Author Type: Registered Nurse Type: ED Notes Filed: 11/23/2020 6:12 AM Note Text: Pt given DC info. Pt verbalized understanding of info. No s/.sym of distress noted. Pt has no further questions or concerns. 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 Pt sts last used meth yesterday and drank 3 tall boys area captain enough to not get sick. Pt [...] normal. Tho (more content not included)... Normal [facility] Basic metabolic 2000 panelon 11-22-2020 Anion gap [Moles/Vol] 13 mmol/L Normal 9-18 [facility] Comment on above: Order Comment: Speci men Type: BLOOD SPECIMEN Performed By: #### 2 4321-2 #### [facility] CLIA [id number] [address] [place] [address] [place] Calcium [Mass/Vol] 9.8 mg/dL Normal 8.5-10.2 [facility] Comment on above: Order Comment: Speci men Type: BLOOD SPECIMEN Performed By: #### 2 4321-2 #### [facility] CLIA [id number] [address] [place] [address] [place] Chloride [Moles/Vol] 103 mmol/L Normal 97-105 [facility] Comment on above: Order Comment: Speci men Type: BLOOD SPECIMEN Performed By: #### 2 4321-2 #### [facility] CLIA [id number] [address] [place] CO2 [Moles/Vol] 26 mmol/L Normal 22-30 [facility] Comment on above: Order Comment: Speci men Type: BLOOD SPECIMEN Performed By: #### 2 4321-2 #### [facility] CLIA [id number] [address] [place] Creatinine [Mass/Vol] 0.80 mg/dL Normal 0.73-1.22 [facility] Comment on above: Order Comment: Speci men Type: BLOOD SPECIMEN Performed By: #### 2 4321-2 #### [facility] CLIA [id number] [address] [place] GFR/1.73 sq M.predicted MDRD (S/P/Bld) [Vol rate/Area] mL/min/{1.73_m2} Normal [facility] Comment on above: Order Comment: [...] GFR. Performed By: #### 2 4321-2 #### [facility] CLIA [id number] [address] [place] Glucose [Mass/Vol] 102 mg/dL High 74-99 [facility] Comment on above: Order Comment: Speci men Type: BLOOD SPECIMEN Result Comment: The [place] Diabetes Association (ADA) provides guidance for cutoff [...] Standards of Medical Care in Diabetes 2016, [place] [employer] Association. Diabetes Care. 2016.39(Suppl 1). Performed By: #### 2 4321-2 #### [facility] CLIA [id number] [address] STATES [facility] Potassium [Moles/Vol] 3.8 mmol/L Normal 3.7-5.1 [facility] Comment on above: Order Comment: Speci men Type: BLOOD SPECIMEN Performed By: #### 2 4321-2 #### [facility] CLIA [id number] [address] STATES [facility] Sodium [Moles/Vol] 142 mmol/L Normal 136-144 [facility] Comment on above: Order Comment: Speci men Type: BLOOD SPECIMEN Performed By: #### 2 4321-2 #### [facility] CLIA [id number] [address] Urea nitrogen [Mass/Vol] 9 mg/dL Normal 9-24 [facility] Comment on above: Order Comment: Speci men Type: BLOOD SPECIMEN Performed By: #### 2 4321-2 #### [facility] CLIA [id number] [address] [facility] CBC W Auto Differential pane l (Bld)on 11-22-2020 Basophils (Bld) [#/Vol] 0.06 10*3/uL Normal <0.11 [facility] Comment on above: Order Comment: Speci men Type: BLOOD SPECIMEN Performed By: #### 5 7021-8 #### [facility] CLIA [id number] [address] Basophils/100 WBC (Bld) 0.8 % Normal [facility] Comment on above: Order Comment: Speci men Type: BLOOD SPECIMEN Performed By: #### 5 7021-8 #### [facility] CLIA [id number] [address] [place] Differential cell count method Nom (Bld) Auto Normal [facility] Comment on above: Order Comment: Speci men Type: BLOOD SPECIMEN Performed By: #### 5 7021-8 #### [facility] CLIA [id number] [address] Eosinophils (Bld) [#/Vol] 0.12 10*3/uL Normal <0.46 [facility] Comment on above: Order Comment: Speci men Type: BLOOD SPECIMEN Performed By: #### 5 7021-8 #### [facility] CLIA [id number] [address] Eosinophils/100 WBC (Bld) 1.7 % Normal [facility] Comment on above: Order Comment: Speci men Type: BLOOD SPECIMEN Performed By: #### 5 7021-8 #### [facility] CLIA [id number] [address] Erythrocyte distribution width (RBC) [Ratio] 13.7 % Normal 11.5-15.0 [facility] Comment on above: Order Comment: Speci men Type: BLOOD SPECIMEN Performed By: #### 5 7021-8 #### [facility] CLIA [id number] [address] Hematocrit (Bld) [Volume fraction] 46.6 % Normal 39.0-51.0 [facility] Comment on above: Order Comment: Speci men Type: BLOOD SPECIMEN Performed By: #### 5 7021-8 #### [facility] CLIA [id number] [address] Hemoglobin (Bld) [Mass/Vol] 15.1 g/dL Normal 13.0-17.0 [facility] Comment on above: Order Comment: Speci men Type: BLOOD SPECIMEN Performed By: #### 5 7021-8 #### [facility] CLIA [id number] [address] IMMATURE GRAN % 0.3 % Normal [facility] Comment on above: Order Comment: Speci men Type: BLOOD SPECIMEN Performed By: #### 5 7021-8 #### [facility] CLIA [id number] [address] IMMATURE GRAN ABS <0.03 Normal <0.10 [facility] Comment on above: Order Comment: Speci men Type: BLOOD SPECIMEN Performed By: #### 5 7021-8 #### [facility] CLIA [id number] [address] Lymphocytes (Bld) [#/Vol] 2.49 10*3/uL Normal 1.00-4.00 [facility] Comment on above: Order Comment: Speci men Type: BLOOD SPECIMEN Performed By: #### 5 7021-8 #### [facility] CLIA [id number] [address] Lymphocytes/100 WBC (Bld) 34.5 % Normal [facility] Comment on above: Order Comment: Speci men Type: BLOOD SPECIMEN Performed By: #### 5 7021-8 #### [facility] CLIA [id number] [address] MCH (RBC) [Entitic mass] 30.1 pg Normal 26.0-34.0 [facility] Comment on above: Order Comment: Speci men Type: BLOOD SPECIMEN Performed By: #### 5 7021-8 #### [facility] CLIA [id number] [address] MCHC (RBC) [Mass/Vol] 32.4 g/dL Normal 30.5-36.0 [facility] Comment on above: Order Comment: Speci men Type: BLOOD SPECIMEN Performed By: #### 5 7021-8 #### [facility] CLIA [id number] [address] MCV (RBC) [Entitic vol] 93.0 fL Normal 80.0-100.0 [facility] Comment on above: Order Comment: Speci men Type: BLOOD SPECIMEN Performed By: #### 5 7021-8 #### [facility] CLIA [id number] [address] Monocytes (Bld) [#/Vol] 0.90 10*3/uL High <0.87 [facility] Comment on above: Order Comment: Speci men Type: BLOOD SPECIMEN Performed By: #### 5 7021-8 #### [facility] CLIA [id number] [address] Monocytes/100 WBC (Bld) 12.5 % Normal [facility] Comment on above: Order Comment: Speci men Type: BLOOD SPECIMEN Performed By: #### 5 7021-8 #### [facility] CLIA [id number] [address] Neutrophils (Bld) [#/Vol] 3.62 10*3/uL Normal 1.45-7.50 [facility] Comment on above: Order Comment: Speci men Type: BLOOD SPECIMEN Performed By: #### 5 7021-8 #### [facility] CLIA [id number] [address] Neutrophils/100 WBC (Bld) 50.2 % Normal [facility] Comment on above: Order Comment: Speci men Type: BLOOD SPECIMEN Performed By: #### 5 7021-8 #### [facility] CLIA [id number] [address] Nucleated RBC (Bld) [#/Vol] 10*3/uL Normal <0.01 [facility] Comment on above: Order Comment: Speci men Type: BLOOD SPECIMEN Performed By: #### 5 7021-8 #### [facility] CLIA [id number] [address] Nucleated RBC/100 WBC (Bld) [Ratio] 0.0 /100 WBC Normal 0.0 [facility] Comment on above: Order Comment: Speci men Type: BLOOD SPECIMEN Performed By: #### 5 7021-8 #### [facility] CLIA [id number] [address] Platelet mean volume (Bld) [Entitic vol] 9.5 fL Normal 9.0-12.7 [facility] Comment on above: Order Comment: Speci men Type: BLOOD SPECIMEN Performed By: #### 5 7021-8 #### [facility] CLIA [id number] [address] Platelets (Bld) [#/Vol] 217 10*3/uL Normal 150-400 [facility] Comment on above: Order Comment: Speci men Type: BLOOD SPECIMEN Performed By: #### 5 7021-8 #### [facility] CLIA [id number] [address] RBC (Bld) [#/Vol] 5.01 10*6/uL Normal 4.20-6.00 [facility] Comment on above: Order Comment: Speci men Type: BLOOD SPECIMEN Performed By: #### 5 7021-8 #### [facility] CLIA [id number] [address] WBC (Bld) [#/Vol] 7.21 10*3/uL Normal 3.70-11.00 [facility] Comment on above: Order Comment: Speci men Type: BLOOD SPECIMEN Performed By: #### 5 7021-8 #### [facility] CLIA [id number] [address] ED Triage Noteon 11-22-2020 ED Triage Note HNO ID: [id number] Author: Jolene Martinez PA-C Service: Emergency Medicine Author Type: Physician Pantry Attendant Type: ED Triage Notes Filed: 11/22/2020 7:47 [...] screen Urinalysis SIGNATURE: Jolene Martinez PA-C Normal [facility] Ethanol SerPl-mCncon 021 Ethanol [Mass/Vol] 119 mg/dL High <11 [facility] Comment on above: Order Comment: Speci men Type: BLOOD SPECIMEN Result Comment: Valu es > 80 mg/dL may indicate intoxication Performed By: #### 5 643-2 #### [facility] CLIA [id number] [address] TOX SCREEN ROUT URon 021 Amphetamines Confirm (U) [Mass/Vol] Positive Abnormal Negative [facility] Comment on above: Order Comment: Speci men Type: URINE SPECIMEN Result Comment: Cuto ff threshold at 1000 ng/mL. Performed By: #### U TOX2 #### [facility] CLIA [id number] [address] [place] BARBITURATES, URINE Negative Normal Negative [facility] Comment on above: Order Comment: Speci men Type: URINE SPECIMEN Result Comment: Cuto ff threshold at 200 ng/mL. Performed By: #### U TOX2 #### [facility] CLIA [id number] [address] [place] [address] [place] BENZODIAZEPINES, UR Negative Normal Negative [facility] Comment on above: Order Comment: Speci men Type: URINE SPECIMEN Result Comment: Cuto ff threshold at 200 ng/mL. Performed By: #### U TOX2 #### [facility] CLIA [id number] [address] CANNABINOIDS,URINE Positive Abnormal Negative [facility] Comment on above: Order Comment: Speci men Type: URINE SPECIMEN Result Comment: Cuto ff threshold at 50 ng/mL. Performed By: #### U TOX2 #### [facility] CLIA [id number] [address] Cocaine Ql (U) Negative Normal Negative [facility] Comment on above: Order Comment: Speci men Type: URINE SPECIMEN Result Comment: Cuto ff threshold at 300 ng/mL. Performed By: #### U TOX2 #### [facility] CLIA [id number] [address] STATES OF [facility] Ethanol (U) [Mass/Vol] 141 mg/dL High <11 [facility] Comment on above: Order Comment: Speci men Type: URINE SPECIMEN Performed By: #### U TOX2 #### [facility] CLIA [id number] [address] [facility] Opiates Screen Ql (U) Negative Normal Negative [facility] Comment on above: Order Comment: Speci men Type: URINE SPECIMEN Result Comment: Cuto ff threshold at 300 ng/mL. Performed By: #### U TOX2 #### [facility] CLIA [id number] [address] oxyCODONE cutoff Screen (U) [Mass/Vol] Negative Normal Negative [facility] Comment on above: Order Comment: Speci men Type: URINE SPECIMEN Result Comment: Cuto ff threshold at 100 ng/mL. Performed By: #### U TOX2 #### [facility] CLIA [id number] [address] Phencyclidine Ql (U) Negative Normal Negative [facility] Comment on above: Order Comment: Speci men Type: URINE SPECIMEN Result Comment: Cuto ff threshold at 25 ng/mL. Performed By: #### U TOX2 #### [facility] CLIA [id number] [address] Urinalysis complete panel (U )on 11-22-2020 Bacteria LM.HPF (Urine sed) [#/Area] None Seen Normal None Seen [facility] Comment on above: Order Comment: Speci men Type: URINE SPECIMEN Performed By: #### 2 4356-8 #### [facility] CLIA [id number] [address] Bilirubin Ql (U) Negative Normal Negative [facility] Comment on above: Order Comment: Speci men Type: URINE SPECIMEN Performed By: #### 2 4356-8 #### [facility] CLIA [id number] [address] Clarity (Unsp spec) Clear Normal Clear [facility] Comment on above: Order Comment: Speci men Type: URINE SPECIMEN Performed By: #### 2 4356-8 #### [facility] CLIA [id number] [address] Color (U) Yellow Normal Yellow [facility] Comment on above: Order Comment: Speci men Type: URINE SPECIMEN Performed By: #### 2 4356-8 #### [facility] CLIA [id number] [address] Epithelial cells LM.HPF (Urine sed) [#/Area] None Seen Normal [facility] Comment on above: Order Comment: Speci men Type: URINE SPECIMEN Performed By: #### 2 4356-8 #### [facility] CLIA [id number] [address] Glucose Test strip (U) [Mass/Vol] Negative Normal Negative [facility] Comment on above: Order Comment: Speci men Type: URINE SPECIMEN Performed By: #### 2 4356-8 #### [facility] CLIA [id number] [address] Hemoglobin Ql (U) Negative Normal Negative [facility] Comment on above: Order Comment: Speci men Type: URINE SPECIMEN Performed By: #### 2 4356-8 #### [facility] CLIA [id number] [address] Hyaline casts (Urine sed) [#/Area] 0 /[LPF] Normal 0 /LPF [facility] Comment on above: Order Comment: Speci men Type: URINE SPECIMEN Performed By: #### 2 4356-8 #### [facility] CLIA [id number] [address] [facility] Ketones Ql (U) Negative Normal Negative [facility] Comment on above: Order Comment: Speci men Type: URINE SPECIMEN Performed By: #### 2 4356-8 #### [facility] CLIA [id number] [address] Leukocyte esterase Test strip Ql (U) Negative Normal Negative [facility] Comment on above: Order Comment: Speci men Type: URINE SPECIMEN Performed By: #### 2 4356-8 #### [facility] CLIA [id number] [address] Nitrite Ql (U) Negative Normal Negative [facility] Comment on above: Order Comment: Speci men Type: URINE SPECIMEN Performed By: #### 2 4356-8 #### [facility] CLIA [id number] [address] [facility] pH (U) 7.0 [pH] Normal 5.0-8.0 [facility] Comment on above: Order Comment: Speci men Type: URINE SPECIMEN Performed By: #### 2 4356-8 #### [facility] CLIA [id number] [address] Protein (U) [Mass/Vol] Negative Normal Negative [facility] Comment on above: Order Comment: Speci men Type: URINE SPECIMEN Performed By: #### 2 4356-8 #### [facility] CLIA [id number] [address] [place] RBC LM.HPF (Urine sed) [#/Area] 0-3 /HPF Normal 0-3 /HPF [facility] Comment on above: Order Comment: Speci men Type: URINE SPECIMEN Performed By: #### 2 4356-8 #### [facility] CLIA [id number] [address] Specific gravity (U) [Rel density] <1.005 Low 1.005-1.030 [facility] Comment on above: Order Comment: Speci men Type: URINE SPECIMEN Performed By: #### 2 4356-8 #### [facility] CLIA [id number] [address] Urobilinogen Ql (U) 0.2 EU/dL Normal 0.2-1.0 EU/dL [facility] Comment on above: Order Comment: Speci men Type: URINE SPECIMEN Performed By: #### 2 4356-8 #### [facility] CLIA [id number] [address] WBC LM.HPF (Urine sed) [#/Area] 0-5 /HPF Normal 0-5 /HPF [facility] Comment on above: Order Comment: Speci men Type: URINE SPECIMEN Performed By: #### 2 4356-8 #### [facility] CLIA [id number] [address] CNOVon 09-30-2020 CNOV Office Visit (GSTNOR ) VIKTORIA SOSA ([id number]) 1990 M [facility] Date Time Provider Department 09/30/20 11:00 AM BRIANNA FABIAN During your visit today, we recorded the following information about you: Pulse Blood pressure Weight Height 60/minute 128/76 73.5 kg 1.753 m Brianna Fabian PA-C 09/30/2020 8:58 PM Addendum CHIEF COMPLAINT: [...] (B18.1) Chron (more content not included)... 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 He had called in requesting a refill on genital wart treatment. Had been referred to PA in urology for genital wart removal but not in his scope of practice. Patient reports warts are mostly gone, just a few small ones that just popped up. He no showed appointment with geothermal production manager to discuss treatment for Hepatitis B. [...] need to reschedule and keep appointment with geothermal production manager. Reviewed potential complications of untreated Hepatitis [...] for help finding it) Referring Provider: HITESH GARCIA [[id number]] Allergies As of Date: 09/24/2020 (No Known Allergies) Date Reviewed: 09/24/2020 Reviewed by: Viktoriya Barnett Cma - Fully Assessed Reason for Visit: Recheck [92] Primary Visit Diagnosis:Genital warts [A63.0] Other Visit Diagnoses:Hepatitis B carrier (HCC) [B18.1] Social anxiety disorder [F40.10] Order(s):sertraline (ZOLOFT) 50 mg tabletTake 1 tablet by mouth on (more content not included)... Normal [facility] CNOVon 09-02-2020 CNOV Office Visit (UROLWS ) VIKTORIA SOSA ([id number]) 1990 M [facility] Date Time Provider Department 09/02/20 1:20 PM [...] Status:Closed by MACIE CHRISTIE CMA on 09/08/20 [facility] Narcisa 09-02-2020 CNPN Telephone (UROLWS) VIKTORIA SOSA ([id number]) 1990 Yan Herrera Date Time Provider Department 09/02/20 RADHA DEY [...] to be see by Dr. Rios at [facility]. Pt would like to see if PCP can refill imiquimod? Pending Prescriptions Disp Refills IMIQUIMOD 5 % TOPICAL CREAM PACKET 12 Each 0 Sig: Apply 1 Packet to affected area three times a week. ELOISA: No Please review and advise. Smiley Garcia MD 09/03/2020 12:52 PM Signed Refused Prescriptions Disp Refills imiquimod (ALDARA) 5 % cream 12 Each 0 Sig: Apply 1 Packet to affected area three times a week. ELOISA: No Refused By: HITESH GARCIA Reason for Refusal: A Refill not appropriate [...] COMBO(AG/AB),WITH REFLEX TO DIFFERENTIATION MD Viktoriya Lorenzana [facility] 09/03/2020 2:14 PM Signed Left message with woman who answered phone to have patient call office back. Christina Rivera RN 09/04/2020 1:44 PM Signed Pt called, verified by name and birthdate. Patient notified of provider's instructions. Pt began swearing and yelling on phone. I asked pt to stop swearing and yelling so I could help him. Pt remained upset and hung up phone. Christina Rivera RN Allergies As of Date: 09/02/2020 (No Known Allergies) Date Reviewed: 09/02/2020 Reviewed by: Smiley Candelario Ma - Fully Assessed Reason for Visit: Medication Question [1478] Primary Visit Diagnosis:Screening for HIV (human immunodeficiency virus) [Z11.4] Other Visit Diagnosis:Genital warts [A63.0] Order(s):HIV 1 2 COMBO(AG/AB),WITH REFLEX TO DIFFERENTIATION [SQHIV12] Order #: [id number] FUTURE Prescriptions as of 09/04/2020 - diphenhydrAMINE [...] (HCC) [B18.1] 06/11/2020 Encounter Status:Closed by CHRISTINA RIVERA RN on 09/04/20 [facility] OBSOLETEon 08-05-2020 OBSOLETE Refill (INTMWS) VIKTORIA SOSA ([id number]) 1990 [facility] Date Time Provider Department 08/05/20 HITESH GARCIA INTYanWS During your visit today, we recorded the following information about you: Katherine Stinson LPN 08/05/2020 1:31 PM Signed Patient calling for refill of Sertraline (Zoloft) 50mg. Patient called for refill on 05/20/2020, new RX sent to [email or web address], it is not showing in [facility]. Called pharmacy, they will get ready for [...] Status:Closed by KATHERINE STINSON LPN on 08/05/20 [facility] 06-23-2020 [facility] Telephone (INTMWS) VIKTORIA SOSA ([id number]) 1990 [facility] Date Time Provider Department 06/23/20 HITESH GARCIA During your visit today, we recorded the following information about you: Eleni Sol 06/23/2020 9:28 AM Signed Viktoria Sosa is calling Hitesh Garcia MD today Patients insurance is not covering two medications. He is asking if there is alternative medications? diphenhydrAMINE (BENADRYL) 25 mg capsule imiquimod (ALDARA) 5 % cream Please advise Hitesh Garcia MD 06/23/2020 1:19 PM Signed 1) He [...] Status:Closed by KATHERINE STINSON LPN on 07/01/20 [facility] OBSOLETEon 06-23-2020 OBSOLETE Refill (INTMWS) VIKTORIA SOSA ([id number]) 1990 [facility] Date Time Provider Department 06/23/20 HITESH GARCIA During your visit today, we recorded the [...] is getting medication ready for patient to pick up attendant. Allergies As of Date: 06/23/2020 (No Known [...] Status:Closed by VIKTORIYA BARNETT CMA on 06/23/20 [facility] Narcisa 06-16-2020 DALIA Telephone (BUBBA) VIKTORIA SOSA ([id number]) 1990 M [facility] Date Time Provider Department 06/16/20 HITESH GARCIA INTMWS During your visit today, we recorded the following information about you: Annemarie Chatman LPN 06/16/2020 3:35 PM Signed Per covermymed Viktoria Sosa ([place]: [id number]) ? [id number] Imiquimod 5% cream Status: PA Response - Approved Created: June 13, 2020 [id number] Sent: June 16, 2020 Annemarie Chatman LPN [...] Status:Closed by ANNEMARIE CHATMAN LPN on 06/16/20 [facility] CNOVon 06-11-2020 CNOV Office Visit (INTMWS ) VIKTORIA SOSA ([id number]) 1990 M [facility] Date Time Provider Department 06/11/20 11:20 AM HITESH GARCIA During your visit today, we recorded the following information about you: Temperature Pulse Respiration Blood pressure 96.4 degrees 72/minute 16/minute 122/76 Weight 73.4 kg Hitesh Garcia MD 06/11/2020 1:05 PM Signed This note was created using [employer]. Subjective Viktoria Sosa is a 29 year [...] is infectious and should notify partners, etc. MCC risk of liver disease, liver failure, and liver cancer were discussed. - CONSULT TO HEPATOLOGY 4. Genital warts - ICD9: 078.11, ICD10: A63.0 - He declined cryotherapy. - IMIQUIMOD 5 % TOPICAL CREAM PACKET Hitesh Garcia MD Referring Provider: SELF [200] Allergies As [...] (insomnia).Disp: 30 capsuleRfl: 2 CONSULT TO HEPATOLOGY [[id number]] Order #: [id number]: 1 FUTURE imiquimod (ALDARA) 5 % creamApply [...] 25 M (more content not included)... Normal [facility] CBC and Differentialon 05-23 Abs Baso 0.08 k/uL Normal <0.11 [facility] Comment on above: Performed By: #### C BCDIF HBVDNU ####[facility] [address], [place] [phone] Abs Wilkin 0.77 k/uL Normal <0.87 [facility] Comment on above: Performed By: #### C BCDIF HBVDNU ####[facility] [address], [place] [phone] Abs Neut 6.76 k/uL Normal 1.45-7.50 [facility] Comment on above: Performed By: #### C BCDIF HBVDNU ####[facility] [address], [place] [phone] Absolute nRBC <0.01 Normal <0.01 [facility] Comment on above: Performed By: #### C BCDIF, HBVDNU ####[place] [address] [address] [place] [phone] Basophils/100 WBC (Bld) 0.9 % Normal [facility] Comment on above: Performed By: #### C BCDIF, HBVDNU ####[place] [address] [place] [phone] DTYPE Auto Diff Normal [facility] Comment on above: Performed By: #### C BCDIF, HBVDNU ####[place] [address] [place] [phone] Eosinophils (Bld) [#/Vol] 0.09 10*3/uL Normal <0.46 [facility] Comment on above: Performed By: #### C BCDIF HBVDNU ####[place] [address] [place] [phone] Eosinophils/100 WBC (Bld) 1.0 % Normal [facility] Comment on above: Performed By: #### C BCDIF, HBVDNU ####[place] [address] [place] [phone] Erythrocyte distribution width (RBC) [Ratio] 13.9 % Normal 11.5-15.0 [facility] Comment on above: Performed By: #### C BCDIF, HBVDNU ####[place] [address] [place] [phone] Hematocrit (Bld) [Volume fraction] 46.2 % Normal 39.0-51.0 [facility] Comment on above: Performed By: #### C BCDIF, HBVDNU ####[place] [address] [place] [phone] Hemoglobin (Bld) [Mass/Vol] 15.4 g/dL Normal 13.0-17.0 [facility] Comment on above: Performed By: #### C BCDIF HBVDNU ####[place] [address] [place] [phone] Lymphocytes (Bld) [#/Vol] 1.23 10*3/uL Normal 1.00-4.00 [facility] Comment on above: Performed By: #### C BCDIDonna HBVDNU ####[place] [address] [place] [phone] Lymphocytes/100 WBC (Bld) 13.7 % Normal [facility] Comment on above: Performed By: #### C BCTRISH HBVDNU ####[place] [address] [place] [phone] MCH 30.3 pG Normal 26.0-34.0 [facility] Comment on above: Performed By: #### C BCTRISH HBVDNU ####[place] [address] [place] [phone] MCHC (RBC) [Mass/Vol] 33.3 g/dL Normal 30.5-36.0 [facility] Comment on above: Performed By: #### C BCDIDonna HBVDNU ####[place] [address] [place] [phone] MCV (RBC) [Entitic vol] 90.9 fL Normal 80.0-100.0 [facility] Comment on above: Performed By: #### C BCDIF, HBVDNU ####[place] [address] [place] [phone] Monocytes/100 WBC (Bld) 8.6 % Normal [facility] Comment on above: Performed By: #### C BCDIF, HBVDNU ####[place] [address] [place] [phone] Neutrophils/100 WBC (Bld) 75.8 % Normal [facility] Comment on above: Performed By: #### KAY CASTRO ####[facility]ClevelBuff[place], [place] [phone] NRBCs 0.0 /100 WBC Normal 0 [facility] Comment on above: Performed By: #### KAY CASTRO ####[place] [address], [place] [phone] Platelet mean volume (Bld) [Entitic vol] 10.5 fL Normal 9.0-12.7 [facility] Comment on above: Performed By: #### KAY CASTRO ####[place] [address] [place] [phone] Platelets (Bld) [#/Vol] 271 10*3/uL Normal 150-400 [facility] Comment on above: Performed By: #### KAY CASTRO ####[place] [address] [place] [phone] RBC (Bld) [#/Vol] 5.08 10*6/uL Normal 4.20-6.00 [facility] Comment on above: Performed By: #### KAY CASTRO ####[place] [address] [place] [phone] WBC (Bld) [#/Vol] 8.95 10*3/uL Normal 3.70-11.00 [facility] Comment on above: Performed By: #### KAY CASTRO ####[place] [address] [place] [phone] Narcisa 05-23-2020 FAM Telephone (INTMWS) MARYLOUVIKTORIA Kellen ([id number]) 1990 M C[facility] Date Time Provider Department 05/23/20 BETSY MARIE) INTMWS During your visit today, we recorded the following information about you: Betsy Marie APRN.CNP 05/23/2020 10:01 AM Signed Please let the patient know his blood test confirmed Hepatitis B infection. He will need another blood test to check viral load and referral to specialist that treats Hepatitis ZEE [facility] 05/23/2020 10:04 AM Signed Left message for [...] Allergies) Date Reviewed: 05/20/2020 Reviewed by: Betsy Martinez) Cynthia - Fully Assessed Reason for Visit: Results [95] Primary Visit Diagnosis:Hepatitis B surface antigen positive [R76.8] Order(s):E-CONSULT INFECTIOUS DISEASE [[id number]] Order #: [id number]: 1 HEP B VIRAL DNA ÁNGEL [SQHBVDNU] Order #: [id number] FUTURE CBC + DIFF [SQCBCDIF] Order #: [id number] FUTURE CONSULT TO HEPATOLOGY [[id number]] Order #: [id number]: 1 FUTURE Prescriptions as of 05/23/2020 Sig: [...] by ANAHY THRASHER RN on 05/23/20 Normal [facility] Hepat.B Vir Ult Qton 021 HBV DNA Ultra Detected Critically abnormal [facility] Comment on above: Result Comment: INTE RPRETATION: Positive for HBVDNA by PCR The linear range of this assay is 20 to 170,000,000 IU/ml. Reference Range: Negative for HBVDNA Performed By: #### C BCDIF, HBVDNU ####[facility] [address] [place], [place] [phone] CNOVon 05-20-2020 CNOV Office Visit (INTMWS ) VIKTORIA SOSA ([id number]) 1990 [facility] Date Time Provider Department 05/20/20 12:40 PM BETSY MARIE (DALIA) INTMWS During your visit today, we recorded the following information about you: Temperature Pulse Respiration Blood pressure 96.9 degrees 86/minute 14/minute 128/82 Weight 70.3 kg Betsy Marie APRN.CNP 05/21/2020 11:15 AM Signed CC: Patient presents with: [facility] Viktoria Ssoa is a 29 year old male who presents today for above. Patient reports he was recently seen at [facility] for STD testing and he [...] ICD9: 573.3, ICD10: K75.9 STD testing at [facility] positive for Hepatitis B per patient, results not available for review. Patient has very low health literacy and poor historian. Will recheck acute hepatitis panel and also CMP. Follow-up and further recommendatio (more content not included)... Normal [facility] Hep Bs Ag Confirmon 05-21-19 21 Hep Bs Ag Confirm Positive Critically abnormal Negative [facility] Comment on above: Performed By: #### H ACUTP, HBSAGC ####[facility] [address] [place], [place] [phone] Hepatitis Acute Panel * OUTS YUE CLIENTS ONLY *on 05-20-2020 HBsAg Initially reactive Critically abnormal Negative [facility] Comment on above: Result Comment: Conf irmatory testing for hepatitis B surface antigen has been ordered and charged. Result rechecked. Performed By: #### H ACUTP, HBSAGC ####[facility] [address], [place] [phone] Hep B Core Ab, IgM Negative Normal Negative [facility] Comment on above: Performed By: #### H ACUTP, HBSAGC ####[facility] [place] [phone] Hepatitis A Ab IgM Negative Normal Negative [facility] Comment on above: Performed By: #### H ACUTP, HBSAGC ####[place] [id number]CM[address] [phone] Hepatitis C Ab IA Negative Normal Negative [facility] Comment on above: Performed By: #### H ACUTP, HBSAGC ####[place] [address] [place] [phone] [facility] (for [facility] use only )on 05-20-2020 Albumin [Mass/Vol] 4.5 g/dL Normal 3.9-4.9 [facility] Comment on above: Performed By: #### R CMP ####[place] [address] [place] [phone] ALP [Catalytic activity/Vol] 62 U/L Normal 38-113 [facility] Comment on above: Performed By: #### R CMP ####[place] [address] [place] [phone] ALT [Catalytic activity/Vol] 28 U/L Normal 10-54 [facility] Comment on above: Performed By: #### R CMP ####[place] [address] [place] [phone] Anion gap [Moles/Vol] 9 mmol/L Normal 9-18 [facility] Comment on above: Performed By: #### R CMP ####[place] [address]CL[address], [place] [phone] AST [Catalytic activity/Vol] 38 U/L Normal 14-40 [facility] Comment on above: Performed By: #### R CMP ####[place] [address] [place] [phone] Bilirubin [Mass/Vol] 0.4 mg/dL Normal 0.2-1.3 [facility] Comment on above: Performed By: #### R CMP ####[place] [address] [place] [phone] Calcium [Mass/Vol] 9.7 mg/dL Normal 8.5-10.2 [facility] Comment on above: Performed By: #### R CMP ####[place] [address] [place] [phone] Chloride [Moles/Vol] 103 mmol/L Normal 97-105 [facility] Comment on above: Performed By: #### R CMP ####[place] [address] [place] [phone] CO2 [Moles/Vol] 26 mmol/L Normal 22-30 [facility] Comment on above: Performed By: #### R CMP ####[place] [address] [place] [phone] Creatinine [Mass/Vol] 0.84 mg/dL Normal 0.73-1.22 [facility] Comment on above: Performed By: #### R CMP ####[place] [address], [place] [phone] eGFR- Amer. >60 Normal [facility] Comment on above: Performed By: #### R CMP ####[place] [address] [place], [place] [phone] eGFR-All Other Races >60 Normal [facility] Comment on above: Result Comment: eGFR (Estimated [...] actual GFR. Performed By: #### R CMP ####[facility] [place], [place] [phone] Glucose [Mass/Vol] 88 mg/dL Normal 74-99 [facility] Comment on above: Result Comment: The [place] Diabetes Association (ADA) provides guidance for cutoff [...] Standards of Medical Care in Diabetes 2016, [place] [employer] Association. Diabetes Care. 2016.39(Suppl 1). Performed By: #### R CMP ####[address] [phone] Potassium [Moles/Vol] 3.9 mmol/L Normal 3.7-5.1 [facility] Comment on above: Performed By: #### R CMP ####[facility] [place], [place] [phone] Protein [Mass/Vol] 7.0 g/dL Normal 6.3-8.0 [facility] Comment on above: Performed By: #### R CMP ####[facility], [place] [phone] Sodium [Moles/Vol] 138 mmol/L Normal 136-144 [facility] Comment on above: Performed By: #### R CMP ####[address] [phone] Urea nitrogen [Mass/Vol] 13 mg/dL Normal 9-24 [facility] Comment on above: Performed By: #### R CMP ####[facility] [address] [place], [place] [phone] Vital Signs Date Time Vital Sign Value Performing Clinician Facility 11-24-2024 00:42-0400 Body temperature 97.5 [degF] No Primary Care Physician [facility] 11-24-2024 00:42-0400 Diastolic blood pressure 81 mm[Hg] No Primary Care Physician [facility] 11-24-2024 00:42-0400 Heart rate 58 /min No Primary Care Physician [facility] 11-24-2024 00:42-0400 Respiratory rate 16 /min No Primary Care Physician [facility] 11-24-2024 00:42-0400 SaO2% (BldA) [Mass fraction] 100 % No Primary Care Physician [facility] 11-24-2024 00:42-0400 Systolic blood pressure 111 mm[Hg] No Primary Care Physician [facility] 11-24-2024 00:12-0400 Body height 175.26 cm No Primary Care Physician [facility] 11-24-2024 00:12-0400 Body mass index (BMI) [Ratio] 22 kg/m2 No Primary Care Physician [facility] 11-24-2024 00:12-0400 Body weight 67.8 kg No Primary Care Physician [facility] 08-26-2024 15:09-0400 Body height 175.26 cm No Primary Care Physician [facility] 08-26-2024 15:09-0400 Body mass index (BMI) [Ratio] 21.4 kg/m2 No Primary Care Physician [facility] 08-26-2024 15:09-0400 Body temperature 98.7 [degF] No Primary Care Physician [facility] 08-26-2024 15:09-0400 Body weight 65.8 kg No Primary Care Physician [facility] 08-26-2024 15:09-0400 Diastolic blood pressure 97 mm[Hg] No Primary Care Physician [facility] 08-26-2024 15:09-0400 Heart rate 105 /min No Primary Care Physician [facility] 08-26-2024 15:09-0400 Respiratory rate 16 /min No Primary Care Physician [facility] 08-26-2024 15:09-0400 SaO2% (BldA) [Mass fraction] 98 % No Primary Care Physician [facility] 08-26-2024 15:09-0400 Systolic blood pressure 141 mm[Hg] No Primary Care Physician [facility] 08-04-2024 22:19-0400 Body temperature 97.81 [degF] Bryant Alicea Sr., MD, PhD Work Phone: [facility] 08-04-2024 22:19-0400 Diastolic blood pressure 80 mm[Hg] Bryant Alicea Sr., MD, PhD Work Phone: [facility] 08-04-2024 22:19-0400 Heart rate 90 /min Bryant Alicea Sr., MD, PhD Work Phone: [facility] 08-04-2024 22:19-0400 Respiratory rate 18 /min Bryant Alicea Sr., MD, PhD Work Phone: [facility] 08-04-2024 22:19-0400 SaO2% (BldA) [Mass fraction] 95 % Bryant Alicea Sr., MD, PhD Work Phone: [facility] 08-04-2024 22:19-0400 Systolic blood pressure 131 mm[Hg] Bryant Alicea Sr., MD, PhD Work Phone: [facility] 03-05-2024 02:09-0500 Body temperature 98.2 [degF] Price Kelley DO Work Phone: [facility] 03-05-2024 02:09-0500 Diastolic blood pressure 89 mm[Hg] Price Kelley DO Work Phone: [facility] 03-05-2024 02:09-0500 Heart rate 92 /min Price Kelley DO Work Phone: [facility] 03-05-2024 02:09-0500 Respiratory rate 16 /min Price Kelley DO Work Phone: [facility] 03-05-2024 02:09-0500 SaO2% (BldA) [Mass fraction] 98 % Price Kelley DO Work Phone: [facility] 03-05-2024 02:09-0500 Systolic blood pressure 133 mm[Hg] Price Kelley DO Work Phone: [facility] 03-04-2024 23:45-0500 Body height 175.3 cm Price Kelley DO Work Phone: [facility] 03-04-2024 23:45-0500 Body mass index (BMI) [Ratio] 25.13 kg/m2 Price Kelley DO Work Phone: [facility] 03-04-2024 23:45-0500 Body weight 77.2 kg [place] Sherice DO Work Phone: [facility] Encounters Encounter Date Encounter Type Care Provider Facility Start: 12-30-2024 End: 12-30-2024 Emergency department patient visit No Primary Care Physician Facility:[facility] Start: 11-24-2024 End: 11-24-2024 Emergency department patient visit No Primary Care Physician -Emergency Department Work Phone: Start: 08-26-2024 End: 08-26-2024 Emergency department patient visit No Primary Care Physician -Emergency Department Work Phone: Start: 08-09-2024 End: 08-10-2024 ambulatory PHYSICIAN [facility] Start: 08-09-2024 End: 08-09-2024 ambulatory PHYSICIAN NO [facility] Start: 08-04-2024 End: 08-05-2024 Emergency department patient visit Bryant Alicea MD, PhD Work Phone: [facility] Emergency Department Start: 07-19-2024 End: 07-19-2024 Emergency department patient visit ROSEMARY RIDER [facility] Start: 03-04-2024 End: 03-05-2024 Emergency department patient visit Price Kelley DO Work Phone: [facility] Emergency Department Start: 11-16-2023 End: 11-16-2023 Emergency department patient visit AMNA NGUYEN [facility] Start: 11-10-2023 End: 11-11-2023 Emergency department patient visit SHANNAN LOBATO [employer] Procedures Date Procedure Procedure Detail Performing Clinician [...] Phone: Start: 03-04-2024 Glucose measurement, blood Price Kelley DO Work Phone: Plan of Treatment Date Care Activity Detail Author Start: 11-09-2033 Tetanus vaccination TETANUS [facility] Start: 11-24-2024 [facility] Start: 10-22-2024 Influenza vaccination INFLUENZ A VACCINE (Season Ended) [facility] Start: 10-23-2023 COVID-19 VACCINE ( season) COVID-19 VACCINE ( season) [facility] Start: 10-23-2023 Influenza vaccination INFLUENZA VACC INE (#1) [facility] Start: 2008 Hepatitis B vaccination HEP B VACCINE (1 of 3 - 19+ 3-dose series) [facility] Start: 2008 PNEUMOCOCCAL VACCINE SERIES (1 of 2 - PCV) PNEUMOCOCCAL VACCINE SERIES (1 of 2 - PCV) [facility] Start: 2004 HIV screening HIV SCREENING DISCUSSION [facility] Start: 1989 Hepatitis C screening HEPATITI S C VIRUS SCREENING [facility] Patient Education [facility] Work Phone: End: 08-04-2024 Standard ECG ECG ECG STAT One Time for 1 Occurrences starting 08/04/2024 until 08/04/2024 [facility] Comment on above: One Time for 1 Occur rences starting 08/04/2024 until 08/04/2024 Immunizations Immunization Date Immunization Notes Care Provider Ashley gómez 01-11-2019 influenza virus vaccine, unspecified formulation Price Sherice DO Work Phone: [facility] Payers Date Payer Category Payer Self-pay 2024 Medicaid (Managed Care) [facility] [id number] 2024 Private Health Insurance [id number] 2009 Unknown [id number] 1989 Unknown [id number] 1989 Unknown [id number] 902 1989 Unknown [id number] 1989 Unknown [id number] Unknown [id number] Unknown [id number] Unknown [id number] 462 Social History Date Type Detail Facility Start: 03-04-2024 End: 11-24-2024 Tobacco smoking status NHIS Smokes tobacco daily [facility] History of tobacco use Cigarette Smoker [facility] Start: 03-04-2024 Tobacco use and exposure Smoke less tobacco non-user [facility] Start: 03-04-2024 End: 08-04-2024 Alcoholic beverage intake Current drinker of alcohol (finding) [facility] Start: 03-04-2024 End: 08-04-2024 Alcoholic beverage intake [facility] Start: 03-04-2024 Alcohol Use Disorder Identification Test - Consumption [AUDIT-C] [facility] How often to you hav e a drink containing alcohol? 4 or more times a week [facility] How many standard dr inks containing alcohol do you have on a typical day? 5 or 6 [facility] How often do you hav e 6 or more drinks on 1 occasion? Weekly [facility] Start: 1990 Sex assigned at Not on file [facility] Start: 03-04-2024 Sex Male (finding) [facility] Start: 03-05-2020 Tobacco Use Tobacco Use [facility] Start: 1990 Sex Assigned At Male W [facility] Clinical Notes 05-20-2020 to 08-04-2024 Bryant Alicea Sr., MD, PhD - 08/04/2024 11:35 PM EDTTscot Sarmiento Sr., MD, PhD - 08/04/2024 11:35 [...] Alicea Sr., MD, PhD 08/05/24 0236 [facility] Work Phone: 08-04-2024 Emergency department [...] route As directed PRN for Opioid Reversal. [place] into the nose as directed. Call 911. [...] given fluids via EMS. Unlabored respirations. Bed: [facility] Expected date: Expected time: Means of arrival: Comments: Medic 8 documented in this encounter [facility] 08-04-2024 Physician Emergency department Note [...] route As directed PRN for Opioid Reversal. [place] into the nose as directed. Call 911. [...] MAKING ED Course as of 08/05/24 0115 [place] Aug 05, 2024 0055 ECG NSR, normal [...] Keri Hart MD Resident 08/05/24 0120 [facility] 08-04-2024 Emergency department Note Pt was found unconscious in someone's front yard. EMS expected ETOH intoxication. Aox3 with EMS. Pt bg was 146 and was given fluids via EMS. Unlabored respirations. [facility] 08-04-2024 Emergency department Note Bed: [facility] Expected date: Expected time: Means of arrival: Comments: Medic 8 [facility] 03-05-2024 Emergency department Note Narcan kit given to patient with education provided, per Dr. Ferreira. [facility] 03-05-2024 Emergency department Note Narcan kit [...] Prescription drug management. Decision regarding hospitalization. Price Kelley DO 03/05/24 0013 Bed: [facility] Expected date: Expected time: Means of arrival: Comments: Medic 18 documented in this encounter [facility] 03-05-2024 Hospital Discharge instructions Ashely Ferreira MD - 03/05/2024 2:01 AM EST Viktoria Hernandezoscar, you were seen here today following an overdose. Urine drug studies showed cocaine, fentanyl, and cannabis in your urine. You have been provided with fentanyl and xylazine test strips, as well as a prescription for narcan. Please follow up with your primary care provider for further care. If you need any further assistance with scheduling follow up care, please call the clinical disease case manager at . Return to the ED if your symptoms worsen, something changes, or you do not feel comfortable taking care of yourself at home. Also come back if you develop a fever, chest pain, are not able to breathe, or are not able to tolerate food by mouth. The following attachments cannot be sent through Care Everywhere.Drug Overdose: Fentanyl: General Info (Tongan)naloxone (nasal) (Tongan)documented in this encounter [facility] 03-05-2024 Physician Emergency department Note [...] Prescription drug management. Decision regarding hospitalization. Price Kelley DO 03/05/24 0013 [facility] 03-04-2024 Emergency department Note Bed: EE01 Expected date: Expected time: Means of arrival: Comments: Medic 18 [facility] 09-30-2020 Note HNO ID: [id number] Author: Brianna Fabian PA-C Service: ? Author Type: Physician Pantry Attendant Type: Progress Notes Filed: 09/30/2020 8:58 PM [...] ABD RT UPPE (more content not included)... [facility] 09-24-2020 Note HNO ID: [id number] Author: Betsy Marie APRN.DIGITAL SERVICE ENGINEER Service: ? Author Type: Nurse Practitioner Type: [...] popped up. He no showed appointment with geothermal production manager to discuss treatment for Hepatitis B. [...] need to reschedule and keep appointment with geothermal production manager. Reviewed potential complications of untreated Hepatitis [...] medications, test results and coordinating care. Betsy Marie APRN.DIGITAL SERVICE ENGINEER [facility] 06-11-2020 Note HNO ID: [id number] Author: Hitesh Garcia Service: ? Author Type: Physician Type: Progress Notes Filed: 06/11/2020 1:05 PM Note Text: This note was created using [employer]. Subjective Viktoria Sosa is a 29 year [...] is infectious and should notify partners, etc. watermaster risk of liver disease, liver failure, and liver cancer were discussed. - CONSULT TO HEPATOLOGY 4. Genital warts - ICD9: 078.11, ICD10: A63.0 - He declined cryotherapy. 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 Author Type: Physician Type: Progress Notes Filed: 05/23/2020 9:24 AM Note Text: Infectious Disease E-Consult Response In response to your eConsult Infectious Disease request for Viktoria Kellen Sánchezsophie regarding:Hep B Ag History of present illness provided through requesting provider documentation and current treatment plan was reviewed. Based on the patient history provided, my impression is as follows: Obtain hepatitis B viral load and refer to hepatology. Specialist appointment needs: No appointment necessary NEEDS HEPATOLOGY Chel Velasquez MD May 23, 2020 [facility] 05-20-2020 Note HNO ID: [id number] Author: Betsy (Dalia) Older Service: ? Author Type: Nurse Practitioner Type: Progress Notes Filed: 05/21/2020 11:15 AM Note Text: CC: Patient presents with: Establish Care HPI Viktoria Sosa is a 29 year old male who presents today for above. Patient reports he was recently seen at [facility] for STD testing and he [...] ICD9: 573.3, ICD10: K75.9 STD testing at [facility] positive for Hepatitis B per patient, results not available for review. Patient has very low health literacy and poor historian. Will recheck acute hepatitis panel and also CMP. Follow-up and further recommendations pending results - CMP (CMP) (FOR REMOTE [facility] USE) - HEP ACUTE PANEL BL 3. Social anxiety disorder - ICD9: 300.23, ICD10: F40.10 Patient requesting something to make him less awkward. Appears that patient suffers from social anxiety. - Discussed treatment options and benefits of family counselor (more content not included)... [facility] Evaluation note Diagnosis Drug overdose of undetermined intent, initial encounter- Primary [facility] Diagnosis Alcohol abuse with intoxication- Primary Acute alcoholic intoxication in alcoholism, unspecified [facility] assessment information available [facility] Work Phone: Hospital Discharge instructions* Attachments The following attachments cannot be sent through Care Everywhere. * Alcohol Intoxication: Acute (Tongan) [facility] Radiology (Emergency) - New Request Specialty Diagnoses / Procedures Referred By Ana persaud Referred To Contact Procedures ECG Jolene Mcneil MD [facility] [address] [place] [phone] Phone: tel: fax: Referral ID Status Reason Start Date Expiration Date V isits Requested Visits Authorized [id number] New Request 08/04/2024 08/29/2025 1 1 [facility] for referral (narrative)No reason for referral information [facility]WK[facility] Work Phone: Summary Purpose Family History No Family History Records FoundNo Family History Records FoundNo Family History Records FoundNo Family History Records FoundNo Family History Records Found Advance Directives No Advanced Directives Records Found Advance Directive Response Recorded Date/ Time Do you have a Healthcare Power of Doweler? No November 24, 2024 12:12am Chief Complaint [...] section and content) DATE CREATED AUTHOR 11/24/2020 [facility] DATE CREATED AUTHOR AUTHOR'S ORGANIZ ATION 04/02/2021 [facility] DATE CREATED AUTHOR AUTHOR'S ORGANIZ ATION 08/12/2024 [facility] DATE CREATED AUTHOR AUTHOR'S ORGANIZ ATION 08/16/2024 [facility] DATE CREATED AUTHOR AUTHOR'S ORGANIZ ATION 12/31/2024 [facility] Reason for Visit (unrecogniz ed section and content) Reason Comments Drug Overdose Arrived via medic af ter being found down, with shallow respirations and pinpoint pupils. Medics administered 2mg IM Narcan. 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 [employer] provides no warranty or guarantee of the accuracy or completeness of information in this document.
[2025-01-21 21:55] LABS: Hematocrit 42.6 % (40-54); Hemoglobin 14.3 g/dL (13.0-16.5); Immature Granulocytes Count 0.010 X10^3/uL (0.0-0.0); Mean Corp Hgb Conc 33.6 g/dL (32-36); Mean Corpuscular Volume 90.1 fL (80-94); Mean Platelet Vol. 10.0 fl (6.2-12.0); NRBC Flagged by Analyzer 0 % (0-5); Platelet Count 241 K/mm3 (150-450); RBC Distribution Width CV 12.9 % (11.6-14.6); RBC Distribution Width SD 42.8 fl (35.1-43.9); Red Blood Count 4.73 M/mm3 (4.6-6.2); White Blood Count 5.9 K/mm3 (4.4-11.0)
[2025-01-21 22:26] LABS: Barbiturate Urine NEGATIVE (< 200 ng/mL); Benzodiazepine Urine NEGATIVE (< 200 ng/mL); PCP Urine NEGATIVE (< 25 ng/mL); THC Urine PRESUMPTIVE POSITIVE (< 50 ng/mL)
[2025-01-21 22:26] LABS: AST(SGOT) 18 U/L (<=37); Alanine Aminotransfer ALT/SGPT 15 U/L (<=46); Albumin, Serum 4.4 g/dL (3.5-5.0); Alkaline Phosphatase 61 U/L (40-129); Anion Gap 16 (5-15); BUN 12 mg/dL (4-19); BUN/Creat Ratio 14.5 RATIO (10-20); Calcium,Total 8.6 mg/dL (7.6-11.0); Carbon Dioxide 22.3 mmol/L (21.0-32.0); Chloride 106 mmol/L (98-108); Estimated Creatinine Clearance 125.74 ml/min (50-250); Globulin 2.6 g/dL (2.2-4.2); Glucose 95 mg/dL (70-99); Potassium 3.4 mmol/L (3.3-5.1)
--- NOTE | 2025-01-21 22:27 | CM.ED ---
Social Work Patient presented to ED for alcohol detox. Treatment navigator notified of admission to [facility]. Rosalinda Cotton, MANAGER HUMAN RESOURCES, THREAD CHECKER
[2025-01-21 22:28] LABS: Alcohol, Blood (Medical)-Serum 272.0 mg/dL (<=10.0)
[2025-01-21 22:37] VITALS: BP 97/64; PULSE 73; RESP 18; TEMP 36.6; O2SAT 99
[2025-01-21 23:03] LABS: Mucous, Urine 0 SEEN /hpf (<or=2+); Red Blood Cells-Urine 0 SEEN /hpf (0-5); Squamous Epithelial Cells - UA 0 SEEN /hpf (0-5)
[2025-01-21 23:06] LABS: Color, Urine Straw (Yellow); Glucose, Dipstick Normal (Normal); Ketone-Dipstick Negative (Negative); Leukocyte Esterase-Dipstick Negative /ul (Negative); Nitrite-Dipstick Negative (Negative); Occult Blood-Urine Negative /ul (Negative); Protein-Dipstick Negative (Negative); Specific Gravity, Urine 1.005 (1.002-1.030); Urine Bilirubin Dipstick Negative (Negative)
--- NOTE | 2025-01-21 23:10 | PCM.HP.STD ---
[facility] - General General Date of Admission: 01/21/25 Date of Service: 01/21/25 Chief Complaint: Requesting alcohol detoxification HPI Narrative VIKTORIA HICKMAN, is a 34 M who presents to the emergency room intoxicated with alcohol requesting alcohol detoxification. Patient is poor historian at this time due to his intoxication however he did report drinking routinely a pint of liquor daily and that he is homeless at this time. CBC and CMP were unremarkable. Patient denied any chest pain, shortness of breath, fevers or chills or nausea or vomiting at this time. Drug screen was positive for THC but negative for other drugs of abuse. Patient's last oral intake of alcohol was just prior to his arrival. He will be placed on the [facility] protocol and admitted to general medical floor. Patient wishes to be full code this was verified with the patient. [facility] Medical History Drug abuse Home Medications ?Medication ?Instructions ?Recorded ?Last Taken ?Type NK 01/31/19 Unknown History Allergy/AdvReac Type Severity Reaction Status Date / Time No Known Allergies Allergy Verified 01/21/25 20:37 Surgical History H/O foot surgery Social History Smoking Status: Current every day smoker tobacco type: cigarettes ROS Constitutional Constitutional: Denies chills or fever(s) Eyes Eyes: Denies blurry vision ENT HEENT: Denies abnormal hearing Cardiovascular Cardiovascular: Denies chest pain Respiratory/Chest Respiratory/Chest: Denies cough Gastrointestinal Gastrointestinal: Denies abdominal pain, nausea or vomiting Genitourinary Genitourinary: Denies dysuria Musculoskeletal Musculoskeletal: Denies back pain Psychiatric Psychiatric: Reports anxiety Hematologic/Lymphatic Hematologic/Lymphatic: Denies anemia Vital Signs Vital Signs Vital Signs: 01/21/25 20:37 01/21/25 22:37 01/21/25 22:37 Temperature 97.8 F 97.8 F Temperature Source Oral Pulse Rate 92 73 73 Respiratory Rate 12 18 18 Blood Pressure 124/85 H 97/64 97/64 Blood Pressure Mean 98 75 75 Pulse Ox 97 99 99 Oxygen Delivery Method Room Air Room Air Weight Weight: 158 lb 15.253 oz Body Mass Index (BMI) 23.4 Physical Exam Const alert Orientation / Consciousness: lethargic HEENT normocephalic and head/scalp atraumatic Neck no lymphadenopathy Lymph Lymphatic: no lymphadenopathy noted Resp normal respiratory effort, normal air movement and clear to auscultation bilaterally Cardio regular rate, regular rhythm, S1 normal heart sound, S2 normal heart sound and no murmurs GI normal to inspection, nondistended, normoactive bowel sounds Extremity normal capillary refill Skin General Skin Exam: no breakdown Neuro no focal motor deficits and no sensory deficits noted Speech: speech abnormal Details: Positive for slurred Results Lab / Micro Data 01/21/25 21:30 01/21/25 21:30 Labs: Laboratory Results - last 24 hr 01/21/25 21:30: WBC 5.9, RBC 4.73, Hgb 14.3, Hct 42.6, MCV 90.1, MCH 30.2, MCHC 33.6, RDW Std Deviation 42.8, RDW Coeff of Yuliana 12.9, Plt Count 241, MPV 10.0, Immature Gran % (Auto) 0.200, Neut % (Auto) 42.7 L, Lymph % (Auto) 35.9, [place] % (Auto) 19.6 H, Eos % (Auto) 0.8, Baso % (Auto) 0.8, Absolute Neuts (auto) 2.5, Absolute Lymphs (auto) 2.13, Nucleated RBC % 0, Sodium 144, Potassium 3.4, Chloride 106, Carbon Dioxide 22.3, Anion Gap 16 H, BUN 12, Creatinine 0.82, Estim Creat Clear Calc 125.74, Est GFR (MDRD) Non-Af 118, BUN/Creatinine Ratio 14.5, Glucose 95, Calcium 8.6, Total Bilirubin < 0.15, AST 18, ALT 15, Alkaline Phosphatase 61, Total Protein 7.1, Albumin 4.4, Globulin 2.6, Albumin/Globulin Ratio 1.7, Ethyl Alcohol 272.0 H 01/21/25 21:41: Urine Opiates Screen NEGATIVE, U Buprenorphine Qual NEGATIVE, Ur Oxycodone Screen NEGATIVE, Urine Methadone Screen NEGATIVE, Urine Fentanyl Screen NEGATIVE, Ur Barbiturates Screen NEGATIVE, Ur Phencyclidine Scrn NEGATIVE, Ur Amphetamines Screen NEGATIVE, U Benzodiazepines Scrn NEGATIVE, Urine Cocaine Screen NEGATIVE, U Cannabinoids Screen PRESUMPTIVE POSITIVE Assessment & Plan Assessment/Plan (1) Alcohol abuse: PLAN: Plan 1 alcohol abuse?requesting detoxification?admit patient to general medical floor, placed patient on CIWA protocol, consult heel caser for post discharge planning. Will take time for patient to go into active detox as he is currently inebriated. 2. CODE STATUS full verified Charges/Coding Visit Charges Inpatient E&M: 85263 Init Hosp L2
[2025-01-21 23:20] VITALS: BP 128/83; PULSE 82; RESP 20; TEMP 36.1; O2SAT 99
--- OUTSIDE RECORDS SUMMARY | 2025-01-21 23:28 | XMS RPT_ITS | CCD ---
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 Mary Alice into the nose as directed. Call 911. [...] Department Summary on 12-30-2024 Emergency Department Summary [facility] Medical Records Department [address] [place] [address] Emergency Department Summary 12/30/24 MR#: [id number] Acct: [id number] Name: VIKTORIA SOSA Rep #: [id number] : 1990 34 From: Dale Bean DO [...] patient up. All questions were answered. 12/30/24 8448 Cosigner Signature (if applicable): cc: No Primary [...] he is homeless. He denies any coingestions. [facility] Medical History Drug abuse Home Medications [...] MDM Na (more content not included)... Normal [facility] Emergency Department Summary on 11-24-2024 Emergency Department Summary [facility] Medical Records Department [address] [place] [address] Emergency Department Summary 11/24/24 MR#: [id number] Acct: [id number] Name: VIKTORIA SOSA Rep #: [id number] : 1990 34 From: Fernandez Ribeiro MD PCP: Care Physician,No Primary Status:DEP ER Location: ED HPI History of Present Illness Chief Complaint: Substance Abuse Informant: patient and police/mental health coordinator Narrative Narrative: 34-year-old male brought by police for medical clearance for assisted, they apparently are arresting him for drug related issues. No sign of apparent injury, patient denies any injury but history is limited due to being intoxicated. [facility] Medical History Drug abuse Home Medications [...] Dx/Rx/DC Orders Clinical Impression: Alcohol intoxication Instructions: Mcfp Clearance Prescriptions: No Action NK Primary Care Provider: Care Physician,No Primary Print Language: Finnish Disposition Disposition: Home, Self Care Discharge Date/Time: 11/24/24 00:53 What to do if you have Problems For any increased pain, shortness of breath, bleeding, nausea or vomiting, chest pain, or any unexpected problems, contact your Primary Care Provider. Call [facility] ([phone]) or report to the closest Emergency Room. Call 911 if necessary. 11/24/24 0831 Cosigner Signature (if applicable): CC: No Primary Care Physician Signed Normal [facility] ED Prov Noteon 08-10-2024 ED Prov Note PCP - No, Physician Language assistance: N/A - zuni Finnish speaker Chief Complaint Patient presents with Psychiatric [...] mg (has (more content not included)... Normal [facility] ALCOHOL, MEDICALon ALCOHOL MEDICAL 117.0 mg/dL High <10.0 [facility] Comment on above: Performed By: #### 4 5033 #### [facility] [address], [place] [address] Des Nieves M.D. [id number] ALCOHOL MEDICAL < Normal <10.0 [facility] Comment on above: Result Comment: Alco hol cutoff: <10.00 mg/dL = None Detected Performed By: #### 4 5033 #### [facility] [address], [place] [address] Des Nieves M.D. [id number] DRUGS OF ABUSE SCREEN, URINE on 08-09-2024 AMPHETAMINE SCREEN, URINE Not detected Normal None Detected [facility] Comment on above: Order Comment: Scree n results should be used for treatment purposes only. Specimen will be kept for 2 weeks, if the sample is adequate. Confirmation testing can be initiated by calling the lab within 2 weeks. Result Comment: Urin e Amphetamine Cutoff: < 1000 ng/mL = None Detected Performed By: #### 4 6965 #### [facility] [address], [place] [address] Des Nieves M.D. [id number] BARBITURATE SCREEN URINE Not detected Normal None Detected [facility] Comment on above: Order Comment: Scree n results should be used for treatment purposes only. Specimen will be kept for 2 weeks, if the sample is adequate. Confirmation testing can be initiated by calling the lab within 2 weeks. Result Comment: Urin e Barbiturates Cutoff: < 200 ng/mL = None Detected Performed By: #### 4 6965 #### [facility] [address] [id number] Des Nieves M.D. [id number] BENZODIAZEPINE SCREEN, URINE Not detected Normal None Detected [facility] Comment on above: Order Comment: Scree n results should be used for treatment purposes only. Specimen will be kept for 2 weeks, if the sample is adequate. Confirmation testing can be initiated by calling the lab within 2 weeks. Result Comment: Urin e Benzodiazepine Cutoff: < 200 ng/mL = None Detected Performed By: #### 4 6965 #### [facility] [address] [address] Des Nieves M.D. [id number] BUPRENORPHINE, URINE Not detected Normal None Detected [facility] Comment on above: Order Comment: Scree n results should be used for treatment purposes only. Specimen will be kept for 2 weeks, if the sample is adequate. Confirmation testing can be initiated by calling the lab within 2 weeks. Result Comment: Urin e Buprenorphine Cutoff: < 5 ng/mL = None Detected Performed By: #### 4 6965 #### [facility] [address] [address] Des Nieves M.D. [id number] CANNABINOID SCREEN URINE Not detected Normal None Detected [facility] Comment on above: Order Comment: Scree n results should be used for treatment purposes only. Specimen will be kept for 2 weeks, if the sample is adequate. Confirmation testing can be initiated by calling the lab within 2 weeks. Result Comment: Urin e Cannabinoids Cutoff: < 50 ng/mL = None Detected Performed By: #### 4 [id number] #### [facility] [address] [id number] Des Nieves M.D. [id number] COCAINE, SCREEN URINE Positive Abnormal None Detected [facility] Comment on above: Order Comment: Scree n results should be used for treatment purposes only. Specimen will be kept for 2 weeks, if the sample is adequate. Confirmation testing can be initiated by calling the lab within 2 weeks. Result Comment: Urin e Cocaine Cutoff: < 300 ng/mL = None Detected Performed By: #### 4 [id number] #### [facility] [address] [id number] Des Nieves M.D. [id number] FENTANYL, URINE Not detected Normal None Detected Power [...] Detected Performed By: #### 4 6965 #### [facility] [address] [address] Des Nieves M.D. [id number] METHADONE SCREEN, URINE Not detected Normal None Detected [facility] Comment on above: Order Comment: Scree n results should be used for treatment purposes only. Specimen will be kept for 2 weeks, if the sample is adequate. Confirmation testing can be initiated by calling the lab within 2 weeks. Result Comment: Urin e Methadone Cutoff: < 300 ng/mL = None Detected Performed By: #### 4 [id number] #### [facility] [address] [address] Des Nieves M.D. [id number] OPIATE SCREEN URINE Not detected Normal None Detected [facility] Comment on above: Order Comment: Scree n results should be used for treatment purposes only. Specimen will be kept for 2 weeks, if the sample is adequate. Confirmation testing can be initiated by calling the lab within 2 weeks. Result Comment: Urin e Opiates Cutoff: < 300 ng/mL = None Detected Performed By: #### 4 [id number] #### [facility] [address] [address] Des Nieves M.D. [id number] OXYCODONE SCREEN, URINE Not detected Normal None Detected [facility] Comment on above: Order Comment: Scree n results should be used for treatment purposes only. Specimen will be kept for 2 weeks, if the sample is adequate. Confirmation testing can be initiated by calling the lab within 2 weeks. Result Comment: Urin e Oxycodone Cutoff: < 100 ng/mL = None Detected Performed By: #### 4 6965 #### [facility] [address] [address] Des Nieves M.D. [id number] AMPHETAMINE SCREEN, URINE Not detected Normal None Detected [facility] Comment on above: Order Comment: Scree n results should be used for treatment purposes only. Specimen will be kept for 2 weeks, if the sample is adequate. Confirmation testing can be initiated by calling the lab within 2 weeks. Result Comment: Urin e Amphetamine Cutoff: < 1000 ng/mL = None Detected Performed By: #### 4 [id number] #### [facility] [address] [id number] Des Nieves M.D. [id number] BARBITURATE SCREEN URINE Not detected Normal None Detected [facility] Comment on above: Order Comment: Scree n results should be used for treatment purposes only. Specimen will be kept for 2 weeks, if the sample is adequate. Confirmation testing can be initiated by calling the lab within 2 weeks. Result Comment: Urin e Barbiturates Cutoff: < 200 ng/mL = None Detected Performed By: #### 4 [id number] #### [facility] [address] [address] Des Nieves M.D. [id number] BENZODIAZEPINE SCREEN, URINE Positive Abnormal None Detected [facility] Comment on above: Order Comment: Scree n results should be used for treatment purposes only. Specimen will be kept for 2 weeks, if the sample is adequate. Confirmation testing can be initiated by calling the lab within 2 weeks. Result Comment: Urin e Benzodiazepine Cutoff: < 200 ng/mL = None Detected Performed By: #### 4 [id number] #### [facility] [address] [id number] Des Nieves M.D. [id number] BUPRENORPHINE, URINE Not detected Normal None Detected [facility] Comment on above: Order Comment: Scree n results should be used for treatment purposes only. Specimen will be kept for 2 weeks, if the sample is adequate. Confirmation testing can be initiated by calling the lab within 2 weeks. Result Comment: Urin e Buprenorphine Cutoff: < 5 ng/mL = None Detected Performed By: #### 4 [id number] #### [facility] [address] [id number] Des Nieves M.D. [id number] CANNABINOID SCREEN URINE Positive Abnormal None Detected [facility] Comment on above: Order Comment: Scree n results should be used for treatment purposes only. Specimen will be kept for 2 weeks, if the sample is adequate. Confirmation testing can be initiated by calling the lab within 2 weeks. Result Comment: Urin e Cannabinoids Cutoff: < 50 ng/mL = None Detected Performed By: #### 4 [id number] #### [facility] [address] [address] Des Nieves M.D. [id number] COCAINE, SCREEN URINE Positive Abnormal None Detected [facility] Comment on above: Order Comment: Scree n results should be used for treatment purposes only. Specimen will be kept for 2 weeks, if the sample is adequate. Confirmation testing can be initiated by calling the lab within 2 weeks. Result Comment: Urin e Cocaine Cutoff: < 300 ng/mL = None Detected Performed By: #### 4 [id number] #### [facility] [address] [address] Des Nieves M.D. [id number] FENTANYL, URINE Not detected Normal None Detected Power [...] Detected Performed By: #### 4 [id number] #### [facility] [address] [address] Des Nieves M.D. [id number] METHADONE SCREEN, URINE Not detected Normal None Detected [facility] Comment on above: Order Comment: Scree n results should be used for treatment purposes only. Specimen will be kept for 2 weeks, if the sample is adequate. Confirmation testing can be initiated by calling the lab within 2 weeks. Result Comment: Urin e Methadone Cutoff: < 300 ng/mL = None Detected Performed By: #### 4 6965 #### [facility] [address] [address] Des Nieves M.D. [id number] OPIATE SCREEN URINE Not detected Normal None Detected [facility] Comment on above: Order Comment: Scree n results should be used for treatment purposes only. Specimen will be kept for 2 weeks, if the sample is adequate. Confirmation testing can be initiated by calling the lab within 2 weeks. Result Comment: Urin e Opiates Cutoff: < 300 ng/mL = None Detected Performed By: #### 4 6965 #### [facility] [address] [address] Des Nieves M.D. [id number] OXYCODONE SCREEN, URINE Not detected Normal None Detected [facility] Comment on above: Order Comment: Scree n results should be used for treatment purposes only. Specimen will be kept for 2 weeks, if the sample is adequate. Confirmation testing can be initiated by calling the lab within 2 weeks. Result Comment: Evangelist do Oxycodone Cutoff: < 100 ng/mL = None Detected Performed By: #### 4 [id number] #### [facility] [address] [place], [place] [address] Des Nieves M.D. [id number] ED Prov Noteon 08-09-2024 ED Prov Note PCP - No, Physician [id number] No chief complaint on file. HPI This [...] abuse (HCC) 2. 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 Disposition: Discharge Shared decision making utilized [...] Marital status (more content not included)... [facility] No Panel Informationon 08-05 [facility] Portable XR Chest Viewson IMPRESSION: No [...] chest. IMPRESSION IMPRESSION: No acute cardiopulmonary disease [facility] Portable XR Chest ViewsOrder ed By: Gino Dwyer on 08-05-2024 [facility] XR CHEST 1 VIEW PORTABLEon 0 08-05-2024 XR CHEST 1 VIEW PORTABLE EXAM: XR CHEST 1 VIEW PORTABLE, 08/04/2024 22:49 PM COMPARISON: No prior studies available for comparison. CLINICAL INDICATIONS: Central chest pain RELEVANT CLINICAL HISTORY: FINDINGS: (Adequate technique) Implanted Devices: None Thorax: No acute findings in the chest. IMPRESSION: No acute cardiopulmonary disease [facility] Portable XR Chest Viewson Radiology Study observation (narrative) [facility] ED Prov Noteon 07-19-2024 ED Prov [...] primary care provider (PCP). Why: Call the Referral Number to schedule an appointment: [phone] 2. Open Access. Why: As needed [facility] (Open Access Clinic) [address], [place] H (more content not included)... Normal [facility] URINE DRUG SCREEN 10Ordered By: Anne Thomas on 03-05-2024 Amphetamine+Methamp hetamine Screen (U) [Mass/Vol] Not detected Cutoff: 500 ng/mL [facility] Barbiturates Ql (U) Not detected Cutoff: 200 ng/mL [facility] Benzodiazepines Ql (U) Not detected Cutoff: 200 ng/mL [facility] Buprenorphine Ql (U) Not detected Cutoff: 5 ng/mL [facility] Cannabinoids Screen Ql (U) Positive Abnormal Cutoff: 50 ng/mL [facility] Cocaine Ql (U) Positive Abnormal Cutoff: 150 ng/mL [facility] fentaNYL Ql (U) Positive Abnormal Cutoff: 1 ng/mL [facility] Interpretation and review of laboratory results Abnormal [facility] Methadone Ql (U) Not detected Cutoff: 300 ng/mL [facility] Opiates Ql (U) Not detected Cutoff: 300 ng/mL [facility] oxyCODONE Ql (U) Not detected Cutoff: 100 ng/mL [facility] For medical purposes only. Positive results are unconfirmed unless otherwise noted. [facility] URINE DRUG SCREEN 10on 03-05 Amphetamine/Methamp hetamine Not detected Normal Cutoff: 500 ng/mL [facility] Comment on above: Order Comment: For m edical purposes only. Positive results are unconfirmed unless otherwise noted. Performed By: #### 1 0DRUG #### [facility] (DEFAULT) [address] [place] [address] Barbiturates Not detected Normal Cutoff: 200 ng/mL [facility] Comment on above: Order Comment: For m edical purposes only. Positive results are unconfirmed unless otherwise noted. Performed By: #### 1 0DRUG #### [facility] (DEFAULT) [address] [address] Benzodiazepines Not detected Normal Cutoff: 200 ng/mL [facility] Comment on above: Order Comment: For m edical purposes only. Positive results are unconfirmed unless otherwise noted. Performed By: #### 1 0DRUG #### [facility] (DEFAULT) [address] [address] Buprenorphine Not detected Normal Cutoff: 5 ng/mL [facility] Comment on above: Order Comment: For edical purposes only. Positive results are unconfirmed unless otherwise noted. Performed By: #### 1 0DRUG #### [facility] (DEFAULT) [address] [address] Cannabinoids Screen Ql (U) Positive Abnormal Cutoff: 50 ng/mL [facility] Comment on above: Order Comment: For edical purposes only. Positive results are unconfirmed unless otherwise noted. Performed By: #### 1 0DRUG #### [facility] (DEFAULT) [address] [address] Cocaine Positive Abnormal Cutoff: 150 ng/mL [facility] Comment on above: Order Comment: For edical purposes only. Positive results are unconfirmed unless otherwise noted. Performed By: #### 1 0DRUG #### [facility] (DEFAULT) [address] [address] Fentanyl Positive Abnormal Cutoff: 1 ng/mL [facility] Comment on above: Order Comment: For edical purposes only. Positive results are unconfirmed unless otherwise noted. Performed By: #### 1 0DRUG #### [facility] (DEFAULT) [address] [address] Methadone Not detected Normal Cutoff: 300 ng/mL [facility] Comment on above: Order Comment: For edical purposes only. Positive results are unconfirmed unless otherwise noted. Performed By: #### 1 0DRUG #### [facility] (DEFAULT) [address] [address] Opiates Not detected Normal Cutoff: 300 ng/mL [facility] Comment on above: Order Comment: For m edical purposes only. Positive results are unconfirmed unless otherwise noted. Performed By: #### 1 0DRUG #### [facility] (DEFAULT) [address] [address] Oxycodone Not detected Normal Cutoff: 100 ng/mL [facility] Comment on above: Order Comment: For m edical purposes only. Positive results are unconfirmed unless otherwise noted. Performed By: #### 1 0DRUG #### [facility] (DEFAULT) [address] [address] GLUCOSE POCon 03-04-2024 Glucose [Mass/Vol] 149 mg/dL High 70 - 99 mg/dL [facility] Comment on above: Notified RNread back Interpretation and review of laboratory results Abnormal [facility] POC Sample Type CAPBL [facility] Test performed at address of the patient encounter. [facility] ED Prov Noteon 11-16-2023 ED [...] scalp W (more content not included)... Normal [facility] CT HEAD OR BRAIN WITHOUT CON TRASTon [...] IMPRESSION: No acute intracranial abnormality. Workstation ID: [id number] Dictated by: GLORIA DAVIDSON on TueNov 11, 2023 1:03:02 AM EDT Transcribed by: GLORIA DAVIDSON on TueNov 11, 2023 1:03:02 AM EDT Finalized by: GLORIA DAVIDSON on TueNov 11, 2023 1:03:02 AM EDT [facility] Comment on above: Order Comment: Injur y/Trauma [...] mid facial soft tissue swelling. Workstation ID: [id number] Dictated by: GLORIA DAVIDSON on TueNov 10, 2023 9:36:40 PM EDT Transcribed by: GLORIA DAVIDSON on TueNov 10, 2023 9:36:40 PM EDT Finalized by: GLORIA DAVIDSON on TueNov 10, 2023 9:36:40 PM EDT [facility] Comment on above: Order Comment: Injur y/Trauma [...] family preference (more content not included)... [facility] ED NOTEon 11-23-2020 ED NOTE HNO ID: [id number] Author: Laurel Jenkins RN Service: Emergency Medicine Author Type: Registered Nurse Type: ED Notes Filed: 11/23/2020 6:12 AM Note Text: Pt given DC info. Pt verbalized understanding of info. No s/.sym of distress noted. Pt has no further questions or concerns. [facility] ED PROV NOTEon 11-23-2020 ED PROV NOTE HNO ID: [id number] Author: Cheryl Gupta DO Service: Emergency Medicine [...] normal. Tho (more content not included)... Normal [facility] Basic metabolic 2000 panelon 11-22-2020 Anion gap [Moles/Vol] 13 mmol/L Normal 9-18 [facility] Comment on above: Order Comment: Speci men Type: BLOOD SPECIMEN Performed By: #### 2 4321-2 #### [facility] CLIA [id number] [address] [place] [address] [place] Calcium [Mass/Vol] 9.8 mg/dL Normal 8.5-10.2 [facility] Comment on above: Order Comment: Speci men Type: BLOOD SPECIMEN Performed By: #### 2 4321-2 #### [facility] CLIA [id number] [address] [place] [address] [place] Chloride [Moles/Vol] 103 mmol/L Normal 97-105 [facility] Comment on above: Order Comment: Speci men Type: BLOOD SPECIMEN Performed By: #### 2 4321-2 #### [facility] CLIA [id number] [address] [place] CO2 [Moles/Vol] 26 mmol/L Normal 22-30 [facility] Comment on above: Order Comment: Speci men Type: BLOOD SPECIMEN Performed By: #### 2 4321-2 #### [facility] CLIA [id number] [address] [place] Creatinine [Mass/Vol] 0.80 mg/dL Normal 0.73-1.22 [facility] Comment on above: Order Comment: Speci men Type: BLOOD SPECIMEN Performed By: #### 2 4321-2 #### [facility] CLIA [id number] [address] [place] GFR/1.73 sq M.predicted MDRD (S/P/Bld) [Vol rate/Area] mL/min/{1.73_m2} Normal [facility] Comment on above: [...] GFR. Performed By: #### 2 4321-2 #### [facility] CLIA [id number] [address] [place] Glucose [Mass/Vol] 102 mg/dL High 74-99 [facility] Comment on above: Order Comment: Speci men Type: BLOOD SPECIMEN Result Comment: The [place] Diabetes Association (ADA) provides guidance for cutoff [...] Standards of Medical Care in Diabetes 2016, Canadian Diabetes Association. Diabetes Care. 2016.39(Suppl 1). Performed By: #### 2 4321-2 #### [facility] CLIA [id number] [address] STATES [facility] Potassium [Moles/Vol] 3.8 mmol/L Normal 3.7-5.1 [facility] Comment on above: Order Comment: Speci men Type: BLOOD SPECIMEN Performed By: #### 2 4321-2 #### [facility] CLIA [id number] [address] [place] [facility] Sodium [Moles/Vol] 142 mmol/L Normal 136-144 [facility] Comment on above: Order Comment: Speci men Type: BLOOD SPECIMEN Performed By: #### 2 4321-2 #### [facility] CLIA [id number] [address] Urea nitrogen [Mass/Vol] 9 mg/dL Normal 9-24 [facility] Comment on above: Order Comment: Speci men Type: BLOOD SPECIMEN Performed By: #### 2 4321-2 #### [facility] CLIA [id number] [address] OF [facility] CBC W Auto Differential pane l (Bld)on 11-22-2020 Basophils (Bld) [#/Vol] 0.06 10*3/uL Normal <0.11 [facility] Comment on above: Order Comment: Speci men Type: BLOOD SPECIMEN Performed By: #### 5 7021-8 #### [facility] CLIA [id number] [address] Basophils/100 WBC (Bld) 0.8 % Normal [facility] Comment on above: Order Comment: Speci men Type: BLOOD SPECIMEN Performed By: #### 5 7021-8 #### [facility] CLIA [id number] [address] [place] Differential cell count method Nom (Bld) Auto Normal [facility] Comment on above: Order Comment: Speci men Type: BLOOD SPECIMEN Performed By: #### 5 7021-8 #### [facility] CLIA [id number] [address] Eosinophils (Bld) [#/Vol] 0.12 10*3/uL Normal <0.46 [facility] Comment on above: Order Comment: Speci men Type: BLOOD SPECIMEN Performed By: #### 5 7021-8 #### [facility] CLIA [id number] [address] Eosinophils/100 WBC (Bld) 1.7 % Normal [facility] Comment on above: Order Comment: Speci men Type: BLOOD SPECIMEN Performed By: #### 5 7021-8 #### [facility] CLIA [id number] [address] Erythrocyte distribution width (RBC) [Ratio] 13.7 % Normal 11.5-15.0 [facility] Comment on above: Order Comment: Speci men Type: BLOOD SPECIMEN Performed By: #### 5 7021-8 #### [facility] CLIA [id number] [address] Hematocrit (Bld) [Volume fraction] 46.6 % Normal 39.0-51.0 [facility] Comment on above: Order Comment: Speci men Type: BLOOD SPECIMEN Performed By: #### 5 7021-8 #### [facility] CLIA [id number] [address] Hemoglobin (Bld) [Mass/Vol] 15.1 g/dL Normal 13.0-17.0 [facility] Comment on above: Order Comment: Speci men Type: BLOOD SPECIMEN Performed By: #### 5 7021-8 #### [facility] CLIA [id number] [address] IMMATURE GRAN % 0.3 % Normal [facility] Comment on above: Order Comment: Speci men Type: BLOOD SPECIMEN Performed By: #### 5 7021-8 #### [facility] CLIA [id number] [address] IMMATURE GRAN ABS <0.03 Normal <0.10 [facility] Comment on above: Order Comment: Speci men Type: BLOOD SPECIMEN Performed By: #### 5 7021-8 #### [facility] CLIA [id number] [address] Lymphocytes (Bld) [#/Vol] 2.49 10*3/uL Normal 1.00-4.00 [facility] Comment on above: Order Comment: Speci men Type: BLOOD SPECIMEN Performed By: #### 5 7021-8 #### [facility] CLIA [id number] [address] Lymphocytes/100 WBC (Bld) 34.5 % Normal [facility] Comment on above: Order Comment: Speci men Type: BLOOD SPECIMEN Performed By: #### 5 7021-8 #### [facility] CLIA [id number] [address] MCH (RBC) [Entitic mass] 30.1 pg Normal 26.0-34.0 [facility] Comment on above: Order Comment: Speci men Type: BLOOD SPECIMEN Performed By: #### 5 7021-8 #### [facility] CLIA [id number] [address] MCHC (RBC) [Mass/Vol] 32.4 g/dL Normal 30.5-36.0 [facility] Comment on above: Order Comment: Speci men Type: BLOOD SPECIMEN Performed By: #### 5 7021-8 #### [facility] CLIA [id number] [address] MCV (RBC) [Entitic vol] 93.0 fL Normal 80.0-100.0 [facility] Comment on above: Order Comment: Speci men Type: BLOOD SPECIMEN Performed By: #### 5 7021-8 #### [facility] CLIA [id number] [address] Monocytes (Bld) [#/Vol] 0.90 10*3/uL High <0.87 [facility] Comment on above: Order Comment: Speci men Type: BLOOD SPECIMEN Performed By: #### 5 7021-8 #### [facility] CLIA [id number] [address] Monocytes/100 WBC (Bld) 12.5 % Normal [facility] Comment on above: Order Comment: Speci men Type: BLOOD SPECIMEN Performed By: #### 5 7021-8 #### [facility] CLIA [id number] [address] Neutrophils (Bld) [#/Vol] 3.62 10*3/uL Normal 1.45-7.50 [facility] Comment on above: Order Comment: Speci men Type: BLOOD SPECIMEN Performed By: #### 5 7021-8 #### [facility] CLIA [id number] [address] Neutrophils/100 WBC (Bld) 50.2 % Normal [facility] Comment on above: Order Comment: Speci men Type: BLOOD SPECIMEN Performed By: #### 5 7021-8 #### [facility] CLIA [id number] [address] Nucleated RBC (Bld) [#/Vol] 10*3/uL Normal <0.01 [facility] Comment on above: Order Comment: Speci men Type: BLOOD SPECIMEN Performed By: #### 5 7021-8 #### [facility] CLIA [id number] [address] Nucleated RBC/100 WBC (Bld) [Ratio] 0.0 /100 WBC Normal 0.0 [facility] Comment on above: Order Comment: Speci men Type: BLOOD SPECIMEN Performed By: #### 5 7021-8 #### [facility] CLIA [id number] [address] Platelet mean volume (Bld) [Entitic vol] 9.5 fL Normal 9.0-12.7 [facility] Comment on above: Order Comment: Speci men Type: BLOOD SPECIMEN Performed By: #### 5 7021-8 #### [facility] CLIA [id number] [address] Platelets (Bld) [#/Vol] 217 10*3/uL Normal 150-400 [facility] Comment on above: Order Comment: Speci men Type: BLOOD SPECIMEN Performed By: #### 5 7021-8 #### [facility] CLIA [id number] [address] RBC (Bld) [#/Vol] 5.01 10*6/uL Normal 4.20-6.00 [facility] Comment on above: Order Comment: Speci men Type: BLOOD SPECIMEN Performed By: #### 5 7021-8 #### [facility] CLIA [id number] [address] WBC (Bld) [#/Vol] 7.21 10*3/uL Normal 3.70-11.00 [facility] Comment on above: Order Comment: Speci men Type: BLOOD SPECIMEN Performed By: #### 5 7021-8 #### [facility] CLIA [id number] [address] ED Triage Noteon 11-22-2020 ED Triage Note HNO ID: [id number] Author: Jolene Martinez PA-C Service: Emergency Medicine Author Type: Physician Senior Coldfusion Developer Type: ED Triage Notes Filed: 11/22/2020 7:47 [...] screen Urinalysis SIGNATURE: Jolene Martinez PA-C Normal [facility] Ethanol SerPl-mCncon 021 Ethanol [Mass/Vol] 119 mg/dL High <11 [facility] Comment on above: Order Comment: Speci men Type: BLOOD SPECIMEN Result Comment: Valu es > 80 mg/dL may indicate intoxication Performed By: #### 5 643-2 #### [facility] CLIA [id number] [address] TOX SCREEN ROUT URon 021 Amphetamines Confirm (U) [Mass/Vol] Positive Abnormal Negative [facility] Comment on above: Order Comment: Speci men Type: URINE SPECIMEN Result Comment: Cuto ff threshold at 1000 ng/mL. Performed By: #### U TOX2 #### [facility] CLIA [id number] [address] [place] BARBITURATES, URINE Negative Normal Negative [facility] Comment on above: Order Comment: Speci men Type: URINE SPECIMEN Result Comment: Cuto ff threshold at 200 ng/mL. Performed By: #### U TOX2 #### [facility] CLIA [id number] 1 [place] [address] [place] BENZODIAZEPINES, UR Negative Normal Negative [facility] Comment on above: Order Comment: Speci men Type: URINE SPECIMEN Result Comment: Cuto ff threshold at 200 ng/mL. Performed By: #### U TOX2 #### [facility] CLIA [id number] [address] CANNABINOIDS,URINE Positive Abnormal Negative [facility] Comment on above: Order Comment: Speci men Type: URINE SPECIMEN Result Comment: Cuto ff threshold at 50 ng/mL. Performed By: #### U TOX2 #### [facility] CLIA [id number] [address] Cocaine Ql (U) Negative Normal Negative [facility] Comment on above: Order Comment: Speci men Type: URINE SPECIMEN Result Comment: Cuto ff threshold at 300 ng/mL. Performed By: #### U TOX2 #### [facility] CLIA [id number] [address] STATES OF [facility] Ethanol (U) [Mass/Vol] 141 mg/dL High <11 [facility] Comment on above: Order Comment: Speci men Type: URINE SPECIMEN Performed By: #### U TOX2 #### [facility] CLIA [id number] [address] OF [facility] Opiates Screen Ql (U) Negative Normal Negative [facility] Comment on above: Order Comment: Speci men Type: URINE SPECIMEN Result Comment: Cuto ff threshold at 300 ng/mL. Performed By: #### U TOX2 #### [facility] CLIA [id number] [address] oxyCODONE cutoff Screen (U) [Mass/Vol] Negative Normal Negative [facility] Comment on above: Order Comment: Speci men Type: URINE SPECIMEN Result Comment: Cuto ff threshold at 100 ng/mL. Performed By: #### U TOX2 #### [facility] CLIA [id number] [address] Phencyclidine Ql (U) Negative Normal Negative [facility] Comment on above: Order Comment: Speci men Type: URINE SPECIMEN Result Comment: Cuto ff threshold at 25 ng/mL. Performed By: #### U TOX2 #### [facility] CLIA [id number] [address] Urinalysis complete panel (U )on 11-22-2020 Bacteria LM.HPF (Urine sed) [#/Area] None Seen Normal None Seen [facility] Comment on above: Order Comment: Speci men Type: URINE SPECIMEN Performed By: #### 2 4356-8 #### [facility] CLIA [id number] [address] Bilirubin Ql (U) Negative Normal Negative [facility] Comment on above: Order Comment: Speci men Type: URINE SPECIMEN Performed By: #### 2 4356-8 #### [facility] CLIA [id number] [address] Clarity (Unsp spec) Clear Normal Clear [facility] Comment on above: Order Comment: Speci men Type: URINE SPECIMEN Performed By: #### 2 4356-8 #### [facility] CLIA [id number] [address] Color (U) Yellow Normal Yellow [facility] Comment on above: Order Comment: Speci men Type: URINE SPECIMEN Performed By: #### 2 4356-8 #### [facility] CLIA [id number] [address] Epithelial cells LM.HPF (Urine sed) [#/Area] None Seen Normal [facility] Comment on above: Order Comment: Speci men Type: URINE SPECIMEN Performed By: #### 2 4356-8 #### [facility] CLIA [id number] [address] Glucose Test strip (U) [Mass/Vol] Negative Normal Negative [facility] Comment on above: Order Comment: Speci men Type: URINE SPECIMEN Performed By: #### 2 4356-8 #### [facility] CLIA [id number] [address] Hemoglobin Ql (U) Negative Normal Negative [facility] Comment on above: Order Comment: Speci men Type: URINE SPECIMEN Performed By: #### 2 4356-8 #### [facility] CLIA [id number] [address] Hyaline casts (Urine sed) [#/Area] 0 /[LPF] Normal 0 /LPF [facility] Comment on above: Order Comment: Speci men Type: URINE SPECIMEN Performed By: #### 2 4356-8 #### [facility] CLIA [id number] [address] OF [facility] Ketones Ql (U) Negative Normal Negative [facility] Comment on above: Order Comment: Speci men Type: URINE SPECIMEN Performed By: #### 2 4356-8 #### [facility] CLIA [id number] [address] Leukocyte esterase Test strip Ql (U) Negative Normal Negative [facility] Comment on above: Order Comment: Speci men Type: URINE SPECIMEN Performed By: #### 2 4356-8 #### [facility] CLIA [id number] [address] Nitrite Ql (U) Negative Normal Negative [facility] Comment on above: Order Comment: Speci men Type: URINE SPECIMEN Performed By: #### 2 4356-8 #### [facility] CLIA [id number] [address] OF [facility] pH (U) 7.0 [pH] Normal 5.0-8.0 [facility] Comment on above: Order Comment: Speci men Type: URINE SPECIMEN Performed By: #### 2 4356-8 #### [facility] CLIA [id number] [address] Protein (U) [Mass/Vol] Negative Normal Negative [facility] Comment on above: Order Comment: Speci men Type: URINE SPECIMEN Performed By: #### 2 4356-8 #### [facility] CLIA [id number] [address] [place] RBC LM.HPF (Urine sed) [#/Area] 0-3 /HPF Normal 0-3 /HPF [facility] Comment on above: Order Comment: Speci men Type: URINE SPECIMEN Performed By: #### 2 4356-8 #### [facility] CLIA [id number] [address] Specific gravity (U) [Rel density] <1.005 Low 1.005-1.030 [facility] Comment on above: Order Comment: Speci men Type: URINE SPECIMEN Performed By: #### 2 4356-8 #### [facility] CLIA [id number] [address] Urobilinogen Ql (U) 0.2 EU/dL Normal 0.2-1.0 EU/dL [facility] Comment on above: Order Comment: Speci men Type: URINE SPECIMEN Performed By: #### 2 4356-8 #### [facility] CLIA [id number] [address] WBC LM.HPF (Urine sed) [#/Area] 0-5 /HPF Normal 0-5 /HPF [facility] Comment on above: Order Comment: Speci men Type: URINE SPECIMEN Performed By: #### 2 4356-8 #### [facility] CLIA [id number] [address] CNOVon 09-30-2020 CNOV Office Visit (GSTNOR ) VIKTORIA SOSA ([id number]) 1990 M [facility] Date Time Provider Department 09/30/20 11:00 AM [...] (B18.1) Chron (more content not included)... Normal [facility] CNOVon 09-24-2020 CNOV Office Visit (INTMWS ) VIKTORIA SOSA ([id number]) 1990 M [facility] Date Time Provider Department 09/24/20 6:00 PM OLDER, BETSY INTMWS During your visit today, we recorded the following information about you: Pulse Respiration Blood pressure Weight 114/minute 16/minute 130/82 69.9 kg Betsy Older, [employer] 09/24/2020 7:07 PM Signed CC: Patient presents [...] popped up. He no showed appointment with prospecting observer to discuss treatment for Hepatitis B. He [...] need to reschedule and keep appointment with prospecting observer. Reviewed potential complications of untreated Hepatitis B, [...] help finding it) Referring Provider: HITESH GARCIA [[id number]] Allergies As of Date: 09/24/2020 (No Known Allergies) Date Reviewed: 09/24/2020 Reviewed by: Viktoriya Barnett Cma - Fully Assessed Reason for Visit: Recheck [92] Primary Visit Diagnosis:Genital warts [A63.0] Other Visit Diagnoses:Hepatitis B carrier (HCC) [B18.1] Social anxiety disorder [F40.10] Order(s):sertraline (ZOLOFT) 50 mg tabletTake 1 tablet by mouth on (more content not included)... Normal [facility] CNOVon 09-02-2020 CNOV Office Visit (UROLWS ) VIKTORIA SOSA ([id number]) 1990 M [facility] Date Time Provider Department 09/02/20 1:20 PM [...] Status:Closed by MACIE CHRISTIE CMA on 09/08/20 [facility] Narcisa 09-02-2020 CNPN Telephone (UROLWS) VIKTORIA SOSA ([id number]) 1990 Yan Herrera Date Time Provider Department [...] to be see by Dr. Rios at [facility]. Pt would like to see if [...] COMBO(AG/AB),WITH REFLEX TO DIFFERENTIATION MD Viktoriya Lorenzana [facility] 09/03/2020 2:14 PM Signed Left message with [...] COMBO(AG/AB),WITH REFLEX TO DIFFERENTIATION [SQHIV12] Order #: [id number] FUTURE Prescriptions as of 09/04/2020 - diphenhydrAMINE [...] Status:Closed by CHRISTINA RIVERA RN on 09/04/20 [facility] OBSOLETEon 08-05-2020 OBSOLETE Refill (INTMWS) VIKTORIA SOSA ([id number]) 1990 [facility] Date Time Provider Department 08/05/20 HITESH GARCIA INTYanWS During your visit today, we recorded the following information about you: Katherine Stinson LPN 08/05/2020 1:31 PM Signed Patient calling for refill of Sertraline (Zoloft) 50mg. Patient called for refill on 05/20/2020, new RX sent to [facility], it is not showing in [facility]. 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 Allergies As of Date: 06/23/2020 (No [...] Status:Closed by VIKTORIYA BARNETT CMA on 06/23/20 [facility] Narcisa 06-16-2020 DALIA Telephone (BUBBA) VIKTORIA SOSA ([id number]) 1990 M [facility] Date Time Provider Department 06/16/20 HITESH GARCIA INTMWS During your visit today, we recorded the following information about you: Annemarie Chatman LPN 06/16/2020 3:35 PM Signed Per covermymed Viktoria Sosa ([place]: [id number]) ? [id number] Imiquimod 5% cream Status: PA Response - Approved Created: June 13, 2020 [id number] Sent: June 16, 2020 Annemarie Chatman LPN [...] Status:Closed by ANNEMARIE CHATMAN LPN on 06/16/20 [facility] CNOVon 06-11-2020 CNOV Office Visit (INTMWS ) VIKTORIA SOSA ([id number]) 1990 M [facility] Date Time Provider Department 06/11/20 11:20 AM HITESH GARCIA During your visit today, we recorded the following information about you: Temperature Pulse Respiration Blood pressure 96.4 degrees 72/minute 16/minute 122/76 Weight 73.4 kg Hitesh Garcia MD 06/11/2020 1:05 PM Signed This note was created using [employer]. Subjective Viktoria Sosa is a 29 year [...] is infectious and should notify partners, etc. halfway risk of liver disease, liver failure, and [...] (insomnia).Disp: 30 capsuleRfl: 2 CONSULT TO HEPATOLOGY [5153158] Order #: [id number]: 1 FUTURE imiquimod (ALDARA) 5 % creamApply [...] 25 M (more content not included)... Normal [facility] CBC and Differentialon 05-23 Abs Baso 0.08 k/uL Normal <0.11 [facility] Comment on above: Performed By: #### C BCDIF HBVDNU ####[facility] [address] [place], [place] [phone] Abs Martin 0.77 k/uL Normal <0.87 [facility] Comment on above: Performed By: #### C BCDIF HBVDNU ####[facility] [address], [place] [phone] Abs Neut 6.76 k/uL Normal 1.45-7.50 [facility] Comment on above: Performed By: #### C BCDIF HBVDNU ####[facility] [address] [place], [place] [phone] Absolute nRBC <0.01 Normal <0.01 [facility] Comment on above: Performed By: #### C BCDIF, HBVDNU ####[place] [address] [address] [place] [phone] Basophils/100 WBC (Bld) 0.9 % Normal [facility] Comment on above: Performed By: #### C BCDIF, HBVDNU ####[place] [address] [address] [place] [phone] DTYPE Auto Diff Normal [facility] Comment on above: Performed By: #### C BCDIF, HBVDNU ####[place] [address] [address] [place] [phone] Eosinophils (Bld) [#/Vol] 0.09 10*3/uL Normal <0.46 [facility] Comment on above: Performed By: #### C BCDIF HBVDNU ####[place] [address] [address] [place] [phone] Eosinophils/100 WBC (Bld) 1.0 % Normal [facility] Comment on above: Performed By: #### C BCDIF, HBVDNU ####[place] [address] [address] [place] [phone] Erythrocyte distribution width (RBC) [Ratio] 13.9 % Normal 11.5-15.0 [facility] Comment on above: Performed By: #### C BCDIF, HBVDNU ####[place] [address] [address] [place] [phone] Hematocrit (Bld) [Volume fraction] 46.2 % Normal 39.0-51.0 [facility] Comment on above: Performed By: #### C BCDIF, HBVDNU ####[place] [address] [address] [place] [phone] Hemoglobin (Bld) [Mass/Vol] 15.4 g/dL Normal 13.0-17.0 [facility] Comment on above: Performed By: #### C BCDIF HBVDNU ####[place] [address] [address] [place] [phone] Lymphocytes (Bld) [#/Vol] 1.23 10*3/uL Normal 1.00-4.00 [facility] Comment on above: Performed By: #### C BCDIDonna HBVDNU ####[place] [address] [address] [place] [phone] Lymphocytes/100 WBC (Bld) 13.7 % Normal [facility] Comment on above: Performed By: #### C BCTRISH HBVDNU ####[place] [address] [address] [place] [phone] MCH 30.3 pG Normal 26.0-34.0 [facility] Comment on above: Performed By: #### C BCTRISH HBVDNU ####[place] [address] [address] [place] [phone] MCHC (RBC) [Mass/Vol] 33.3 g/dL Normal 30.5-36.0 [facility] Comment on above: Performed By: #### C BCDIDonna HBVDNU ####[place] [address] [address] [place] [phone] MCV (RBC) [Entitic vol] 90.9 fL Normal 80.0-100.0 [facility] Comment on above: Performed By: #### C BCDIF, HBVDNU ####[place] [address] [address] [place] [phone] Monocytes/100 WBC (Bld) 8.6 % Normal [facility] Comment on above: Performed By: #### C BCDIF, HBVDNU ####[place] [address] [address] [place] [phone] Neutrophils/100 WBC (Bld) 75.8 % Normal [facility] Comment on above: Performed By: #### KAY CASTRO ####[facility]level[place], [place] [phone] NRBCs 0.0 /100 WBC Normal 0 [facility] Comment on above: Performed By: #### KAY CASTRO ####[place] [address] [address] [place], [place] [phone] Platelet mean volume (Bld) [Entitic vol] 10.5 fL Normal 9.0-12.7 [facility] Comment on above: Performed By: #### KAY CASTRO ####[place] [address] [address] [place] [phone] Platelets (Bld) [#/Vol] 271 10*3/uL Normal 150-400 [facility] Comment on above: Performed By: #### KAY CASTRO ####[place] [address] [address] [place] [phone] RBC (Bld) [#/Vol] 5.08 10*6/uL Normal 4.20-6.00 [facility] Comment on above: Performed By: #### KAY CASTRO ####[place] [address] [address] [place] [phone] WBC (Bld) [#/Vol] 8.95 10*3/uL Normal 3.70-11.00 [facility] Comment on above: Performed By: #### KAY CASTRO ####[place] [address] [address] [place] [phone] Narcisa 05-23-2020 FAM Telephone (INTMWS) MARYLOUVIKTORIA Kellen ([id number]) 1990 M [facility] Date Time Provider Department 05/23/20 BETSY MARIE) INTMWS During your visit today, we recorded the following information about you: Betsy Marie APRN.CNP 05/23/2020 10:01 AM Signed Please let the patient know his blood test confirmed Hepatitis B infection. He will need another blood test to check viral load and referral to specialist that treats Hepatitis ZEE Lynn [facility] 05/23/2020 10:04 AM Signed Left message for [...] surface antigen positive [R76.8] Order(s):E-CONSULT INFECTIOUS DISEASE [2029099] Order #: [id number]: 1 HEP B VIRAL DNA ÁNGEL [SQHBVDNU] Order #: [id number] FUTURE CBC + DIFF [SQCBCDIF] Order #: [id number] FUTURE CONSULT TO HEPATOLOGY [[id number]] Order #: [id number]: 1 FUTURE Prescriptions as of 05/23/2020 Sig: [...] by ANAHY THRASHER RN on 05/23/20 Normal [facility] Hepat.B Vir Ult Qton 021 HBV DNA Ultra Detected Critically abnormal [facility] Comment on above: Result Comment: INTE RPRETATION: Positive for HBVDNA by PCR The linear range of this assay is 20 to 170,000,000 IU/ml. Reference Range: Negative for HBVDNA Performed By: #### C BCDIF, HBVDNU ####[facility] [address] [place], [place] [phone] CNOVon 05-20-2020 CNOV Office Visit (INTMWS ) VIKTORIA SOSA ([id number]) 1990 [facility] Date Time Provider Department 05/20/20 12:40 PM BETSY MARIE (DALIA) INTMWS During your visit today, we recorded the following information about you: Temperature Pulse Respiration Blood pressure 96.9 degrees 86/minute 14/minute 128/82 Weight 70.3 kg Betsy Marie APRN.CNP 05/21/2020 11:15 AM Signed CC: Patient presents with: [facility] Viktoria Sosa is a 29 year old male who presents today for above. Patient reports he was recently seen at [facility] for STD testing and he [...] ICD9: 573.3, ICD10: K75.9 STD testing at [facility] positive for Hepatitis B per patient, results not available for review. Patient has very low health literacy and poor historian. Will recheck acute hepatitis panel and also CMP. Follow-up and further recommendatio (more content not included)... Normal [facility] Hep Bs Ag Confirmon 05-21-19 21 Hep Bs Ag Confirm Positive Critically abnormal Negative [facility] Comment on above: Performed By: #### H ACUTP, HBSAGC ####[facility] [address] [place], [place] [phone] Hepatitis Acute Panel * OUTS YUE CLIENTS ONLY *on 05-20-2020 HBsAg Initially reactive Critically abnormal Negative [facility] Comment on above: Result Comment: Conf irmatory testing for hepatitis B surface antigen has been ordered and charged. Result rechecked. Performed By: #### H ACUTP, HBSAGC ####[facility] [address] [place], [place] [phone] Hep B Core Ab, IgM Negative Normal Negative [facility] Comment on above: Performed By: #### H ACUTP, HBSAGC ####[facility] [place] [phone] Hepatitis A Ab IgM Negative Normal Negative [facility] Comment on above: Performed By: #### H ACUTP, HBSAGC ####[place] [id number] [place] [phone] Hepatitis C Ab IA Negative Normal Negative [facility] Comment on above: Performed By: #### H ACUTP, HBSAGC ####[place] [address] [place] [phone] [facility] (for COMMUNITY HEALTH use only )on 05-20-2020 Albumin [Mass/Vol] 4.5 g/dL Normal 3.9-4.9 [facility] Comment on above: Performed By: #### R CMP ####[place] [address] [place] [phone] ALP [Catalytic activity/Vol] 62 U/L Normal 38-113 [facility] Comment on above: Performed By: #### R CMP ####[place] [address] [address] [place] [phone] ALT [Catalytic activity/Vol] 28 U/L Normal 10-54 [facility] Comment on above: Performed By: #### R CMP ####[place] [address] [address] [place] [phone] Anion gap [Moles/Vol] 9 mmol/L Normal 9-18 [facility] Comment on above: Performed By: #### R CMP ####[place] [id number], [place] [phone] AST [Catalytic activity/Vol] 38 U/L Normal 14-40 [facility] Comment on above: Performed By: #### R CMP ####[place] [address] [address] [place] [phone] Bilirubin [Mass/Vol] 0.4 mg/dL Normal 0.2-1.3 [facility] Comment on above: Performed By: #### R CMP ####[place] [address] [address] [place] [phone] Calcium [Mass/Vol] 9.7 mg/dL Normal 8.5-10.2 [facility] Comment on above: Performed By: #### R CMP ####[place] [address] [address] [phone] Chloride [Moles/Vol] 103 mmol/L Normal 97-105 [facility] Comment on above: Performed By: #### R CMP ####[place] [address] [address] [phone] CO2 [Moles/Vol] 26 mmol/L Normal 22-30 [facility] Comment on above: Performed By: #### R CMP ####[place] [address] [address] [phone] Creatinine [Mass/Vol] 0.84 mg/dL Normal 0.73-1.22 [facility] Comment on above: Performed By: #### R CMP ####[place] [address] [place], [place] [phone] eGFR- Amer. >60 Normal [facility] Comment on above: Performed By: #### R CMP ####[place] [address] [address], [place] [phone] eGFR-All Other Races >60 Normal [facility] Comment on above: Result Comment: [...] actual GFR. Performed By: #### R CMP ####[facility] [place], [place] [phone] Glucose [Mass/Vol] 88 mg/dL Normal 74-99 [facility] Comment on above: Result Comment: The Canadian Diabetes Association (ADA) provides guidance for cutoff [...] Standards of Medical Care in Diabetes 2016, Canadian Diabetes Association. Diabetes Care. 2016.39(Suppl 1). Performed By: #### R CMP ####[address] [phone] Potassium [Moles/Vol] 3.9 mmol/L Normal 3.7-5.1 [facility] Comment on above: Performed By: #### R CMP ####[facility] [place], [place] [phone] Protein [Mass/Vol] 7.0 g/dL Normal 6.3-8.0 [facility] Comment on above: Performed By: #### R CMP ####[facility] [place], [place] [phone] Sodium [Moles/Vol] 138 mmol/L Normal 136-144 [facility] Comment on above: Performed By: #### R CMP ####[address] [phone] Urea nitrogen [Mass/Vol] 13 mg/dL Normal 9-24 [facility] Comment on above: Performed By: #### R CMP ####[facility] [address] [place], [place] [phone] Vital Signs Date Time Vital Sign Value Performing Clinician Facility 11-24-2024 00:42-0400 Body temperature 97.5 [degF] No Primary Care Physician [facility] 11-24-2024 00:42-0400 Diastolic blood pressure 81 mm[Hg] No Primary Care Physician [facility] 11-24-2024 00:42-0400 Heart rate 58 /min No Primary Care Physician [facility] 11-24-2024 00:42-0400 Respiratory rate 16 /min No Primary Care Physician [facility] 11-24-2024 00:42-0400 SaO2% (BldA) [Mass fraction] 100 % No Primary Care Physician [facility] 11-24-2024 00:42-0400 Systolic blood pressure 111 mm[Hg] No Primary Care Physician [facility] 11-24-2024 00:12-0400 Body height 175.26 cm No Primary Care Physician [facility] 11-24-2024 00:12-0400 Body mass index (BMI) [Ratio] 22 kg/m2 No Primary Care Physician [facility] 11-24-2024 00:12-0400 Body weight 67.8 kg No Primary Care Physician [facility] 08-26-2024 15:09-0400 Body height 175.26 cm No Primary Care Physician [facility] 08-26-2024 15:09-0400 Body mass index (BMI) [Ratio] 21.4 kg/m2 No Primary Care Physician [facility] 08-26-2024 15:09-0400 Body temperature 98.7 [degF] No Primary Care Physician [facility] 08-26-2024 15:09-0400 Body weight 65.8 kg No Primary Care Physician [facility] 08-26-2024 15:09-0400 Diastolic blood pressure 97 mm[Hg] No Primary Care Physician [facility] 08-26-2024 15:09-0400 Heart rate 105 /min No Primary Care Physician [facility] 08-26-2024 15:09-0400 Respiratory rate 16 /min No Primary Care Physician [facility] 08-26-2024 15:09-0400 SaO2% (BldA) [Mass fraction] 98 % No Primary Care Physician [facility] 08-26-2024 15:09-0400 Systolic blood pressure 141 mm[Hg] No Primary Care Physician [facility] 08-04-2024 22:19-0400 Body temperature 97.81 [degF] Bryant Alicea Sr., MD, PhD Work Phone: [facility] 08-04-2024 22:19-0400 Diastolic blood pressure 80 mm[Hg] Bryant Alicea Sr., MD, PhD Work Phone: [facility] 08-04-2024 22:19-0400 Heart rate 90 /min Bryant Alicea Sr., MD, PhD Work Phone: [facility] 08-04-2024 22:19-0400 Respiratory rate 18 /min Bryant Alicea Sr., MD, PhD Work Phone: [facility] 08-04-2024 22:19-0400 SaO2% (BldA) [Mass fraction] 95 % Bryant Alicea Sr., MD, PhD Work Phone: [facility] 08-04-2024 22:19-0400 Systolic blood pressure 131 mm[Hg] Bryant Alicea Sr., MD, PhD Work Phone: [facility] 03-05-2024 02:09-0500 Body temperature 98.2 [degF] Prcie Kelley DO Work Phone: [facility] 03-05-2024 02:09-0500 Diastolic blood pressure 89 mm[Hg] Price Kelley DO Work Phone: [facility] 03-05-2024 02:09-0500 Heart rate 92 /min Price Kelley DO Work Phone: [facility] 03-05-2024 02:09-0500 Respiratory rate 16 /min Price Kelley DO Work Phone: [facility] 03-05-2024 02:09-0500 SaO2% (BldA) [Mass fraction] 98 % Price Kelley DO Work Phone: [facility] 03-05-2024 02:09-0500 Systolic blood pressure 133 mm[Hg] Price Kelley DO Work Phone: [facility] 03-04-2024 23:45-0500 Body height 175.3 cm Price Kelley DO Work Phone: [facility] 03-04-2024 23:45-0500 Body mass index (BMI) [Ratio] 25.13 kg/m2 Price Kelley DO Work Phone: [facility] 03-04-2024 23:45-0500 Body weight 77.2 kg Keene Sherice DO Work Phone: [facility] Encounters Encounter Date Encounter Type Care Provider Facility Start: 12-30-2024 End: 12-30-2024 Emergency department patient visit No Primary Care Physician Facility:[facility] Start: 11-24-2024 End: 11-24-2024 Emergency department patient visit No Primary Care Physician -Emergency Department Work Phone: Start: 08-26-2024 End: 08-26-2024 Emergency department patient visit No Primary Care Physician -Emergency Department Work Phone: Start: 08-09-2024 End: 08-10-2024 ambulatory PHYSICIAN [facility] Start: 08-09-2024 End: 08-09-2024 ambulatory PHYSICIAN NO [facility] Start: 08-04-2024 End: 08-05-2024 Emergency department patient visit Bryant Alicea MD, PhD Work Phone: [facility] Emergency Department Start: 07-19-2024 End: 07-19-2024 Emergency department patient visit ROSEMARY RIDER [facility] Start: 03-04-2024 End: 03-05-2024 Emergency department patient visit Price Kelley DO Work Phone: [facility] Emergency Department Start: 11-16-2023 End: 11-16-2023 Emergency department patient visit AMNA NGUYEN [facility] Start: 11-10-2023 End: 11-11-2023 Emergency department patient visit SHANNAN LOBATO [facility] Procedures Date Procedure Procedure Detail Performing [...] Phone: Start: 03-04-2024 Glucose measurement, blood Price Kleley DO Work Phone: Plan of Treatment Date Care Activity Detail Author Start: 11-09-2033 Tetanus vaccination TETANUS [facility] Start: 11-24-2024 [facility] Start: 10-22-2024 Influenza vaccination INFLUENZ A VACCINE (Season Ended) [facility] Start: 10-23-2023 COVID-19 VACCINE ( season) COVID-19 VACCINE ( season) [facility] Start: 10-23-2023 Influenza vaccination INFLUENZA VACC INE (#1) [facility] Start: 2008 Hepatitis B vaccination HEP B VACCINE (1 of 3 - 19+ 3-dose series) [facility] Start: 2008 PNEUMOCOCCAL VACCINE SERIES (1 of 2 - PCV) PNEUMOCOCCAL VACCINE SERIES (1 of 2 - PCV) [facility] Start: 2004 HIV screening HIV SCREENING DISCUSSION [facility] Start: 1989 Hepatitis C screening HEPATITI S C VIRUS SCREENING [facility] Patient Education [facility] Work Phone: End: 08-04-2024 Standard ECG ECG ECG STAT One Time for 1 Occurrences starting 08/04/2024 until 08/04/2024 [facility] Comment on above: One Time for 1 Occur rences starting 08/04/2024 until 08/04/2024 Immunizations Immunization Date Immunization Notes Care Provider Ashley gómez 01-11-2019 influenza virus vaccine, unspecified formulation Price Sherice DO Work Phone: [facility] Payers Date Payer Category Payer Self-pay 2024 Medicaid (Managed Care) [facility] [id number] 2024 Private Health Insurance [id number] 2009 Unknown [id number] 1989 Unknown [id number] 1989 Unknown [id number] 1989 Unknown [id number] 1989 Unknown [id number] Unknown [id number] Unknown [id number] Unknown [id number] Social History Date Type Detail Facility Start: 03-04-2024 End: 11-24-2024 Tobacco smoking status NHIS Smokes tobacco daily [facility] History of tobacco use Cigarette Smoker [facility] Start: 03-04-2024 Tobacco use and exposure Smoke less tobacco non-user [facility] Start: 03-04-2024 End: 08-04-2024 Alcoholic beverage intake Current drinker of alcohol (finding) [facility] Start: 03-04-2024 End: 08-04-2024 Alcoholic beverage intake [facility] Start: 03-04-2024 Alcohol Use Disorder Identification Test - Consumption [AUDIT-C] [facility] How often to you hav e a drink containing alcohol? 4 or more times a week [facility] How many standard dr inks containing alcohol do you have on a typical day? 5 or 6 [facility] How often do you hav e 6 or more drinks on 1 occasion? Weekly [facility] Start: 1990 Sex assigned at Not on file [facility] Start: 03-04-2024 Sex Male (finding) [facility] Start: 03-05-2020 Tobacco Use Tobacco Use [facility] Start: 1990 Sex Assigned At Male [facility] Clinical Notes 05-20-2020 to 08-04-2024 Bryant [...] Bryant Alicea Sr., MD, PhD 08/05/24 0236 [facility] Work Phone: 08-04-2024 Emergency department Note [...] route As directed PRN for Opioid Reversal. Mary Alice into the nose as directed. Call 911. [...] given fluids via EMS. Unlabored respirations. Bed: [facility] Expected date: Expected time: Means of arrival: Comments: Medic 8 documented in this encounter [facility] 08-04-2024 Physician Emergency department Note dEPARTMENT [...] route As directed PRN for Opioid Reversal. Mary Alice into the nose as directed. Call 911. [...] MAKING ED Course as of 08/05/24 0115 [place] Aug 05, 2024 0055 ECG NSR, normal [...] health. Keri Hart MD Resident 08/05/24 0120 [facility] 08-04-2024 Emergency department Note Pt was found unconscious in someone's front yard. EMS expected ETOH intoxication. Aox3 with EMS. Pt bg was 146 and was given fluids via EMS. Unlabored respirations. [facility] 08-04-2024 Emergency department Note Bed: [facility] Expected date: Expected time: Means of arrival: Comments: Medic 8 [facility] 03-05-2024 Emergency department Note Narcan kit given to patient with education provided, per Dr. Ferreira. [facility] 03-05-2024 Emergency department Note Narcan kit [...] hospitalization. Price Kelley DO 03/05/24 0013 Bed: [facility] Expected date: Expected time: Means of arrival: Comments: Medic 18 documented in this encounter [facility] 03-05-2024 Hospital Discharge instructions Ashely Ferreira [...] follow up care, please call the clinical top case assembler at . Return to the ED if your symptoms worsen, something changes, or you do not feel comfortable taking care of yourself at home. Also come back if you develop a fever, chest pain, are not able to breathe, or are not able to tolerate food by mouth. The following attachments cannot be sent through Care Everywhere.Drug Overdose: Fentanyl: General Info (Finnish)naloxone (nasal) (Finnish)documented in this encounter [facility] 03-05-2024 Physician Emergency department Note ED [...] regarding hospitalization. Price Kelley DO 03/05/24 0013 [facility] 03-04-2024 Emergency department Note Bed: EE01 Expected date: Expected time: Means of arrival: Comments: Medic 18 [facility] 09-30-2020 Note HNO ID: [id number] Author: Brianna Fabian PA-C Service: ? Author Type: Physician Senior Coldfusion Developer Type: Progress Notes Filed: 09/30/2020 8:58 PM [...] ABD RT UPPE (more content not included)... [facility] 09-24-2020 Note HNO ID: [id number] Author: Betsy Marie APRN.BASEBALL GLOVE SHAPER Service: ? Author Type: Nurse Practitioner Type: [...] popped up. He no showed appointment with prospecting observer to discuss treatment for Hepatitis B. He [...] need to reschedule and keep appointment with prospecting observer. Reviewed potential complications of untreated Hepatitis B, [...] test results and coordinating care. Betsy Marie APRN.BASEBALL GLOVE SHAPER [facility] 06-11-2020 Note HNO ID: [id number] Author: Hitesh Garcia Service: ? Author Type: Physician Type: Progress Notes Filed: 06/11/2020 1:05 PM Note Text: This note was created using [employer]. Subjective Viktoria Sosa is a 29 year [...] is infectious and should notify partners, etc. terminal carman risk of liver disease, liver failure, and liver cancer were discussed. - CONSULT TO HEPATOLOGY 4. Genital warts - ICD9: 078.11, ICD10: A63.0 - He declined cryotherapy. - IMIQUIMOD 5 % TOPICAL CREAM PACKET Hitesh Garcia MD [facility] 05-23-2020 Note HNO ID: [id number] Author: Chel Velasquez Service: ? Author Type: [...] HEPATOLOGY Chel Velasquez MD May 23, 2020 [facility] 05-20-2020 Note HNO ID: [id number] Author: Betsy (Dalia) Older Service: ? Author Type: Nurse Practitioner Type: Progress Notes Filed: 05/21/2020 11:15 AM Note Text: CC: Patient presents with: Establish Care HPI Viktoria Sosa is a 29 year old male who presents today for above. Patient reports he was recently seen at [facility] for STD testing and he [...] ICD9: 573.3, ICD10: K75.9 STD testing at [facility] positive for Hepatitis B per patient, results not available for review. Patient has very low health literacy and poor historian. Will recheck acute hepatitis panel and also CMP. Follow-up and further recommendations pending results - CMP (CMP) (FOR REMOTE COMMUNITY HEALTH USE) - HEP ACUTE PANEL BL 3. Social anxiety disorder - ICD9: 300.23, ICD10: F40.10 Patient requesting something to make him less awkward. Appears that patient suffers from social anxiety. - Discussed treatment options and benefits of patent counsel (more content not included)... [facility] Evaluation note Diagnosis Drug overdose of undetermined intent, initial encounter- Primary [facility] Alcohol abuse with intoxication- Primary Acute alcoholic intoxication in alcoholism, unspecified [facility] this encounter [facility] noteNo assessment information available [facility] Work Phone: Hospital Discharge instructions* Attachments The following attachments cannot be sent through Care Everywhere. * Alcohol Intoxication: Acute (Finnish) [facility] Radiology (Emergency) - New Request Specialty Diagnoses / Procedures Referred By Ana persaud Referred To Contact Procedures ECG Jolene Mcneil MD [facility] [address] [place] [phone] Phone: tel: fax: Referral ID Status Reason Start Date Expiration Date V isits Requested Visits Authorized [id number] New Request 08/04/2024 08/29/2025 1 1 [facility] for referral (narrative)No reason for referral [facility] Work Phone: Summary Purpose Family History No Family History Records FoundNo Family History Records FoundNo Family History Records FoundNo Family History Records FoundNo Family History Records Found Advance Directives No Advanced Directives Records Found Advance Directive Response Recorded Date/ Time Do you have a Healthcare Power of [place]? No November 24, 2024 12:12am Chief Complaint [...] section and content) DATE CREATED AUTHOR 11/24/2020 [facility] DATE CREATED AUTHOR AUTHOR'S ORGANIZ ATION 04/02/2021 [facility] DATE CREATED AUTHOR AUTHOR'S ORGANIZ ATION 08/12/2024 [facility] DATE CREATED AUTHOR AUTHOR'S ORGANIZ ATION 08/16/2024 [facility] DATE CREATED AUTHOR AUTHOR'S ORGANIZ ATION 12/31/2024 [facility] Reason for Visit (unrecogniz ed section and content) Reason Comments Drug Overdose Arrived via medic af ter being found down, with shallow respirations and pinpoint pupils. Medics administered 2mg IM Narcan. 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 [employer] provides no warranty or guarantee of the accuracy or completeness of information in this document.
[2025-01-21 23:41] VITALS: BMI 21.9
[2025-01-22] MEDS: hydrOXYzine PAM 25 MG Capsule 50 MG PO ×2 (00:03→19:51)
--- OUTSIDE RECORDS SUMMARY | 2025-01-22 03:49 | XMS RPT_ITS | CCD ---
Author Organization [facility] SUPERVISOR LACE TEARING [facility] Care Team Providers Care Top Hat Body Maker Name Role Phone Self, Self Primary Care [...] route As directed PRN for Opioid Reversal. [place] into the nose as directed. Call 911. [...] Department Summary on 12-30-2024 Emergency Department Summary [facility] Medical Records Department [address], [place] Emergency Department Summary 12/30/24 MR#: [id number] Acct: [id number] Name: VIKTORIA SOSA Rep #: [id number] : 1990 34 From: Dale Bean DO [...] patient up. All questions were answered. 12/30/24 6108 Cosigner Signature (if applicable): cc: No Primary [...] he is homeless. He denies any coingestions. [facility] Medical History Drug abuse Home Medications ???Medication [...] MDM Na (more content not included)... Normal [facility] Emergency Department Summary on 11-24-2024 Emergency Department Summary [facility] Medical Records Department [address] [place] [address] Emergency Department Summary 11/24/24 MR#: [id number] Acct: [id number] Name: VIKTORIA SOSA Rep #: [id number] : 1990 34 From: Fernandez Ribeiro MD PCP: Care Physician,No Primary Status:DEP ER Location: ED HPI History of Present Illness Chief Complaint: Substance Abuse Informant: patient and police/torch cutter Narrative Narrative: 34-year-old male brought by police for medical clearance for custodial, they apparently are arresting him for drug related issues. No sign of apparent injury, patient denies any injury but history is limited due to being intoxicated. [facility] Medical History Drug abuse Home Medications ???Medication [...] well, he is stable to go to custodial in this condition Discharge Plan Triage Chief Complaint: Substance Abuse ED Provider: Fernandez Ribeiro Dx/Rx/DC Orders Clinical Impression: Alcohol intoxication Instructions: Senior Care Clearance Prescriptions: No Action NK Primary Care Provider: Care Physician,No Primary Print Language: Guatemalan Disposition Disposition: Home, Self Care Discharge Date/Time: 11/24/24 00:53 What to do if you have Problems For any increased pain, shortness of breath, bleeding, nausea or vomiting, chest pain, or any unexpected problems, contact your Primary Care Provider. Call [facility] ([phone]) or report to the closest Emergency Room. Call 911 if necessary. 11/24/24 0832 Cosigner Signature (if applicable): CC: No Primary Care Physician Signed Normal [facility] ED Prov Noteon 08-10-2024 ED Prov Note PCP - No, Physician Language assistance: N/A - lime Guatemalan speaker Chief Complaint Patient presents with Psychiatric [...] mg (has (more content not included)... Normal [facility] ALCOHOL, MEDICALon ALCOHOL MEDICAL 117.0 mg/dL High <10.0 [facility] Comment on above: Performed By: #### 4 5033 #### [facility] [address], [place] [address] Des Nieves M.D. [id number] ALCOHOL MEDICAL < Normal <10.0 [facility] Comment on above: Result Comment: Alco hol cutoff: <10.00 mg/dL = None Detected Performed By: #### 4 5033 #### [facility] [address], [place] [address] Des Nieves M.D. [id number] DRUGS OF ABUSE SCREEN, URINE on 08-09-2024 AMPHETAMINE SCREEN, URINE Not detected Normal None Detected [facility] Comment on above: Order Comment: Scree n results should be used for treatment purposes only. Specimen will be kept for 2 weeks, if the sample is adequate. Confirmation testing can be initiated by calling the lab within 2 weeks. Result Comment: Urin e Amphetamine Cutoff: < 1000 ng/mL = None Detected Performed By: #### 4 6965 #### [facility] [address], [place] [address] Des Nieves M.D. [id number] BARBITURATE SCREEN URINE Not detected Normal None Detected [facility] Comment on above: Order Comment: Scree n results should be used for treatment purposes only. Specimen will be kept for 2 weeks, if the sample is adequate. Confirmation testing can be initiated by calling the lab within 2 weeks. Result Comment: Urin e Barbiturates Cutoff: < 200 ng/mL = None Detected Performed By: #### 4 6965 #### [facility] [address] [place] [id number] Des Nieves M.D. [id number] BENZODIAZEPINE SCREEN, URINE Not detected Normal None Detected [facility] Comment on above: Order Comment: Scree n results should be used for treatment purposes only. Specimen will be kept for 2 weeks, if the sample is adequate. Confirmation testing can be initiated by calling the lab within 2 weeks. Result Comment: Urin e Benzodiazepine Cutoff: < 200 ng/mL = None Detected Performed By: #### 4 6965 #### [facility] [address] [place] [address] Des Nieves M.D. [id number] BUPRENORPHINE, URINE Not detected Normal None Detected [facility] Comment on above: Order Comment: Scree n results should be used for treatment purposes only. Specimen will be kept for 2 weeks, if the sample is adequate. Confirmation testing can be initiated by calling the lab within 2 weeks. Result Comment: Urin e Buprenorphine Cutoff: < 5 ng/mL = None Detected Performed By: #### 4 6965 #### [facility] [address] [place] [address] Des Nieves M.D. [id number] CANNABINOID SCREEN URINE Not detected Normal None Detected [facility] Comment on above: Order Comment: Scree n results should be used for treatment purposes only. Specimen will be kept for 2 weeks, if the sample is adequate. Confirmation testing can be initiated by calling the lab within 2 weeks. Result Comment: Urin e Cannabinoids Cutoff: < 50 ng/mL = None Detected Performed By: #### 4 6965 #### [facility] [address] [address] Des Nieves M.D. [id number] COCAINE, SCREEN URINE Positive Abnormal None Detected [facility] Comment on above: Order Comment: Scree n results should be used for treatment purposes only. Specimen will be kept for 2 weeks, if the sample is adequate. Confirmation testing can be initiated by calling the lab within 2 weeks. Result Comment: Urin e Cocaine Cutoff: < 300 ng/mL = None Detected Performed By: #### 4 6965 #### [facility] [address] [address] Des Nieves M.D. [id number] FENTANYL, URINE Not detected Normal None Detected [facility] Comment on above: Order Comment: Scree n results should be used for treatment purposes only. Specimen will be kept for 2 weeks, if the sample is adequate. Confirmation testing can be initiated by calling the lab within 2 weeks. Result Comment: Urin e Fentanyl Cutoff: < 1 ng/mL = None Detected Performed By: #### 4 6965 #### [facility] [address] [address] Des Nieves M.D. [id number] METHADONE SCREEN, URINE Not detected Normal None Detected [facility] Comment on above: Order Comment: Scree n results should be used for treatment purposes only. Specimen will be kept for 2 weeks, if the sample is adequate. Confirmation testing can be initiated by calling the lab within 2 weeks. Result Comment: Urin e Methadone Cutoff: < 300 ng/mL = None Detected Performed By: #### 4 6965 #### [facility] [address] [address] Des Nieves M.D. [id number] OPIATE SCREEN URINE Not detected Normal None Detected [facility] Comment on above: Order Comment: Scree n results should be used for treatment purposes only. Specimen will be kept for 2 weeks, if the sample is adequate. Confirmation testing can be initiated by calling the lab within 2 weeks. Result Comment: Urin e Opiates Cutoff: < 300 ng/mL = None Detected Performed By: #### 4 6965 #### [facility] [address] [address] Des Nieves M.D. [id number] OXYCODONE SCREEN, URINE Not detected Normal None Detected [facility] Comment on above: Order Comment: Scree n results should be used for treatment purposes only. Specimen will be kept for 2 weeks, if the sample is adequate. Confirmation testing can be initiated by calling the lab within 2 weeks. Result Comment: Urin e Oxycodone Cutoff: < 100 ng/mL = None Detected Performed By: #### 4 6965 #### [facility] [address] [address] Des Nieves M.D. [id number] AMPHETAMINE SCREEN, URINE Not detected Normal None Detected [facility] Comment on above: Order Comment: Scree n results should be used for treatment purposes only. Specimen will be kept for 2 weeks, if the sample is adequate. Confirmation testing can be initiated by calling the lab within 2 weeks. Result Comment: Urin e Amphetamine Cutoff: < 1000 ng/mL = None Detected Performed By: #### 4 [id number] #### [facility] [address] [address] Des Nieves M.D. [id number] BARBITURATE SCREEN URINE Not detected Normal None Detected [facility] Comment on above: Order Comment: Scree n results should be used for treatment purposes only. Specimen will be kept for 2 weeks, if the sample is adequate. Confirmation testing can be initiated by calling the lab within 2 weeks. Result Comment: Urin e Barbiturates Cutoff: < 200 ng/mL = None Detected Performed By: #### 4 6965 #### [facility] [address] [address] Des Nieves M.D. [id number] BENZODIAZEPINE SCREEN, URINE Positive Abnormal None Detected [facility] Comment on above: Order Comment: Scree n results should be used for treatment purposes only. Specimen will be kept for 2 weeks, if the sample is adequate. Confirmation testing can be initiated by calling the lab within 2 weeks. Result Comment: Urin e Benzodiazepine Cutoff: < 200 ng/mL = None Detected Performed By: #### 4 [id number] #### [facility] [address] [address] Des Nieves M.D. [id number] BUPRENORPHINE, URINE Not detected Normal None Detected [facility] Comment on above: Order Comment: Scree n results should be used for treatment purposes only. Specimen will be kept for 2 weeks, if the sample is adequate. Confirmation testing can be initiated by calling the lab within 2 weeks. Result Comment: Urin e Buprenorphine Cutoff: < 5 ng/mL = None Detected Performed By: #### 4 [id number] #### [facility] [address] [address] Des Nieves M.D. [id number] CANNABINOID SCREEN URINE Positive Abnormal None Detected [facility] Comment on above: Order Comment: Scree n results should be used for treatment purposes only. Specimen will be kept for 2 weeks, if the sample is adequate. Confirmation testing can be initiated by calling the lab within 2 weeks. Result Comment: Urin e Cannabinoids Cutoff: < 50 ng/mL = None Detected Performed By: #### 4 [id number] #### [facility] [address] [address] Des Nieves M.D. [id number] COCAINE, SCREEN URINE Positive Abnormal None Detected [facility] Comment on above: Order Comment: Scree n results should be used for treatment purposes only. Specimen will be kept for 2 weeks, if the sample is adequate. Confirmation testing can be initiated by calling the lab within 2 weeks. Result Comment: Urin e Cocaine Cutoff: < 300 ng/mL = None Detected Performed By: #### 4 [id number] #### [facility] [address] [place] [address] Des Nieves M.D. [id number] FENTANYL, URINE Not detected Normal None Detected [facility] Comment on above: Order Comment: Scree n results should be used for treatment purposes only. Specimen will be kept for 2 weeks, if the sample is adequate. Confirmation testing can be initiated by calling the lab within 2 weeks. Result Comment: Urin e Fentanyl Cutoff: < 1 ng/mL = None Detected Performed By: #### 4 [id number] #### [facility] [address] [address] Des Nieves M.D. [id number] METHADONE SCREEN, URINE Not detected Normal None Detected [facility] Comment on above: Order Comment: Scree n results should be used for treatment purposes only. Specimen will be kept for 2 weeks, if the sample is adequate. Confirmation testing can be initiated by calling the lab within 2 weeks. Result Comment: Urin e Methadone Cutoff: < 300 ng/mL = None Detected Performed By: #### 4 [id number] #### [facility] [address] [address] Des Nieves M.D. [id number] OPIATE SCREEN URINE Not detected Normal None Detected [facility] Comment on above: Order Comment: Scree n results should be used for treatment purposes only. Specimen will be kept for 2 weeks, if the sample is adequate. Confirmation testing can be initiated by calling the lab within 2 weeks. Result Comment: Urin e Opiates Cutoff: < 300 ng/mL = None Detected Performed By: #### 4 [id number] #### [facility] [address] [address] Des Nieves M.D. [id number] OXYCODONE SCREEN, URINE Not detected Normal None Detected [facility] Comment on above: Order Comment: Scree n results should be used for treatment purposes only. Specimen will be kept for 2 weeks, if the sample is adequate. Confirmation testing can be initiated by calling the lab within 2 weeks. Result Comment: Evangelist do Oxycodone Cutoff: < 100 ng/mL = None Detected Performed By: #### 4 [id number] #### [facility] [address] [place], [place] [address] Des Nieves M.D. [id number] ED Prov Noteon 08-09-2024 ED Prov Note PCP - No, Physician [id number] No chief complaint on file. HPI This [...] abuse (HCC) 2. 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 Disposition: Discharge Shared decision making utilized [...] History Marital status (more content not included)... [facility] No Panel Informationon 08-05 [facility] Portable XR Chest Viewson IMPRESSION: No [...] chest. IMPRESSION IMPRESSION: No acute cardiopulmonary disease [facility] Portable XR Chest ViewsOrder ed By: Gino Dwyer on 08-05-2024 [facility] XR CHEST 1 VIEW PORTABLEon 0 08-05-2024 XR CHEST 1 VIEW PORTABLE EXAM: XR CHEST 1 VIEW PORTABLE, 08/04/2024 22:49 PM COMPARISON: No prior studies available for comparison. CLINICAL INDICATIONS: Central chest pain RELEVANT CLINICAL HISTORY: FINDINGS: (Adequate technique) Implanted Devices: None Thorax: No acute findings in the chest. IMPRESSION: No acute cardiopulmonary disease [facility] Portable XR Chest Viewson Radiology Study observation (narrative) [facility] ED Prov Noteon 07-19-2024 ED Prov Note EMERGENCY MEDICINE PROVIDER NOTE [facility] Encounter Date: 07/20/24 History obtained [...] primary care provider (PCP). Why: Call the [facility] Referral Number to schedule an appointment: [phone] 2. Open Access. Why: As needed [facility] (Open Access Clinic) [address], [place] H (more content not included)... Normal [facility] URINE DRUG SCREEN 10Ordered By: Anne Thomas on 03-05-2024 Amphetamine+Methamp hetamine Screen (U) [Mass/Vol] Not detected Cutoff: 500 ng/mL [facility] Barbiturates Ql (U) Not detected Cutoff: 200 ng/mL [facility] Benzodiazepines Ql (U) Not detected Cutoff: 200 ng/mL [facility] Buprenorphine Ql (U) Not detected Cutoff: 5 ng/mL [facility] Cannabinoids Screen Ql (U) Positive Abnormal Cutoff: 50 ng/mL [facility] Cocaine Ql (U) Positive Abnormal Cutoff: 150 ng/mL [facility] fentaNYL Ql (U) Positive Abnormal Cutoff: 1 ng/mL [facility] Interpretation and review of laboratory results Abnormal [facility] Methadone Ql (U) Not detected Cutoff: 300 ng/mL [facility] Opiates Ql (U) Not detected Cutoff: 300 ng/mL [facility] oxyCODONE Ql (U) Not detected Cutoff: 100 ng/mL [facility] For medical purposes only. Positive results are unconfirmed unless otherwise noted. [facility] URINE DRUG SCREEN 10on 03-05 Amphetamine/Methamp hetamine Not detected Normal Cutoff: 500 ng/mL [facility] Comment on above: Order Comment: For m edical purposes only. Positive results are unconfirmed unless otherwise noted. Performed By: #### 1 0DRUG #### [facility] (DEFAULT) [address] [place] [address] Barbiturates Not detected Normal Cutoff: 200 ng/mL [facility] Comment on above: Order Comment: For m edical purposes only. Positive results are unconfirmed unless otherwise noted. Performed By: #### 1 0DRUG #### [facility] (DEFAULT) [address] [address] Benzodiazepines Not detected Normal Cutoff: 200 ng/mL [facility] Comment on above: Order Comment: For m edical purposes only. Positive results are unconfirmed unless otherwise noted. Performed By: #### 1 0DRUG #### [facility] (DEFAULT) [address] [address] Buprenorphine Not detected Normal Cutoff: 5 ng/mL [facility] Comment on above: Order Comment: For edical purposes only. Positive results are unconfirmed unless otherwise noted. Performed By: #### 1 0DRUG #### [facility] (DEFAULT) [address] [address] Cannabinoids Screen Ql (U) Positive Abnormal Cutoff: 50 ng/mL [facility] Comment on above: Order Comment: For edical purposes only. Positive results are unconfirmed unless otherwise noted. Performed By: #### 1 0DRUG #### [facility] (DEFAULT) [address] [address] Cocaine Positive Abnormal Cutoff: 150 ng/mL [facility] Comment on above: Order Comment: For edical purposes only. Positive results are unconfirmed unless otherwise noted. Performed By: #### 1 0DRUG #### [facility] (DEFAULT) [address] [address] Fentanyl Positive Abnormal Cutoff: 1 ng/mL [facility] Comment on above: Order Comment: For edical purposes only. Positive results are unconfirmed unless otherwise noted. Performed By: #### 1 0DRUG #### [facility] (DEFAULT) [address] [address] Methadone Not detected Normal Cutoff: 300 ng/mL [facility] Comment on above: Order Comment: For edical purposes only. Positive results are unconfirmed unless otherwise noted. Performed By: #### 1 0DRUG #### [facility] (DEFAULT) [address] [address] Opiates Not detected Normal Cutoff: 300 ng/mL [facility] Comment on above: Order Comment: For m edical purposes only. Positive results are unconfirmed unless otherwise noted. Performed By: #### 1 0DRUG #### [facility] (DEFAULT) [address] [address] Oxycodone Not detected Normal Cutoff: 100 ng/mL [facility] Comment on above: Order Comment: For m edical purposes only. Positive results are unconfirmed unless otherwise noted. Performed By: #### 1 0DRUG #### [facility] (DEFAULT) [address] [address] GLUCOSE POCon 03-04-2024 Glucose [Mass/Vol] 149 mg/dL High 70 - 99 mg/dL [facility] Comment on above: Notified RNread back Interpretation and review of laboratory results Abnormal [facility] POC Sample Type CAPBL [facility] Test performed at address of the patient encounter. [facility] ED Prov Noteon 11-16-2023 ED Prov Note EMERGENCY MEDICINE PROVIDER NOTE [facility] Patient Name: Viktoria Sosa Encounter [...] scalp W (more content not included)... Normal [facility] CT HEAD OR BRAIN WITHOUT CON TRASTon [...] IMPRESSION: No acute intracranial abnormality. Workstation ID: [id number] Dictated by: GLORIA DAVIDSON on TueNov 11, 2023 1:03:02 AM EDT Transcribed by: GLORIA DAVIDSON on TueNov 11, 2023 1:03:02 AM EDT Finalized by: GLORIA DAVIDSON on TueNov 11, 2023 1:03:02 AM EDT [facility] Comment on above: Order Comment: Injur y/Trauma [...] mid facial soft tissue swelling. Workstation ID: [id number] Dictated by: GLORIA DAVIDSON on TueNov 10, 2023 9:36:40 PM EDT Transcribed by: GLORIA DAVIDSON on TueNov 10, 2023 9:36:40 PM EDT Finalized by: GLORIA DAVIDSON on TueNov 10, 2023 9:36:40 PM EDT [facility] Comment on above: Order Comment: Injur y/Trauma [...] and/or family preference (more content not included)... [facility] ED NOTEon 11-23-2020 ED NOTE HNO ID: [id number] Author: Laurel Jenkins RN Service: Emergency Medicine Author Type: Registered Nurse Type: ED Notes Filed: 11/23/2020 6:12 AM Note Text: Pt given DC info. Pt verbalized understanding of info. No s/.sym of distress noted. Pt has no further questions or concerns. 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 Pt sts last used meth yesterday and drank 3 tall boys sloop captain enough to not get sick. Pt [...] normal. Tho (more content not included)... Normal [facility] Basic metabolic 2000 panelon 11-22-2020 Anion gap [Moles/Vol] 13 mmol/L Normal 9-18 [facility] Comment on above: Order Comment: Speci men Type: BLOOD SPECIMEN Performed By: #### 2 4321-2 #### [facility] CLIA [id number] [address] [place] [address] [place] Calcium [Mass/Vol] 9.8 mg/dL Normal 8.5-10.2 [facility] Comment on above: Order Comment: Speci men Type: BLOOD SPECIMEN Performed By: #### 2 4321-2 #### [facility] CLIA [id number] [address] [place] [address] [place] Chloride [Moles/Vol] 103 mmol/L Normal 97-105 [facility] Comment on above: Order Comment: Speci men Type: BLOOD SPECIMEN Performed By: #### 2 4321-2 #### [facility] CLIA [id number] [address] [place] CO2 [Moles/Vol] 26 mmol/L Normal 22-30 [facility] Comment on above: Order Comment: Speci men Type: BLOOD SPECIMEN Performed By: #### 2 4321-2 #### [facility] CLIA [id number] [address] [place] Creatinine [Mass/Vol] 0.80 mg/dL Normal 0.73-1.22 [facility] Comment on above: Order Comment: Speci men Type: BLOOD SPECIMEN Performed By: #### 2 4321-2 #### [facility] CLIA [id number] [address] [place] GFR/1.73 sq M.predicted MDRD (S/P/Bld) [Vol rate/Area] mL/min/{1.73_m2} Normal [facility] Comment on above: Order Comment: [...] GFR. Performed By: #### 2 4321-2 #### [facility] CLIA [id number] [address] [place] Glucose [Mass/Vol] 102 mg/dL High 74-99 [facility] Comment on above: Order Comment: Speci men Type: BLOOD SPECIMEN Result Comment: The [place] Diabetes Association (ADA) provides guidance for cutoff [...] Standards of Medical Care in Diabetes 2016, [place] [employer]. Diabetes Care. 2016.39(Suppl 1). Performed By: #### 2 4321-2 #### [facility] CLIA [id number] [address] [place] [facility] Potassium [Moles/Vol] 3.8 mmol/L Normal 3.7-5.1 [facility] Comment on above: Order Comment: Speci men Type: BLOOD SPECIMEN Performed By: #### 2 4321-2 #### [facility] CLIA [id number] [address] [place] [facility] Sodium [Moles/Vol] 142 mmol/L Normal 136-144 [facility] Comment on above: Order Comment: Speci men Type: BLOOD SPECIMEN Performed By: #### 2 4321-2 #### [facility] CLIA [id number] [address] Urea nitrogen [Mass/Vol] 9 mg/dL Normal 9-24 [facility] Comment on above: Order Comment: Speci men Type: BLOOD SPECIMEN Performed By: #### 2 4321-2 #### [facility] CLIA [id number] [address] [facility] CBC W Auto Differential pane l (Bld)on 11-22-2020 Basophils (Bld) [#/Vol] 0.06 10*3/uL Normal <0.11 [facility] Comment on above: Order Comment: Speci men Type: BLOOD SPECIMEN Performed By: #### 5 7021-8 #### [facility] CLIA [id number] [address] Basophils/100 WBC (Bld) 0.8 % Normal [facility] Comment on above: Order Comment: Speci men Type: BLOOD SPECIMEN Performed By: #### 5 7021-8 #### [facility] CLIA [id number] [address] [place] Differential cell count method Nom (Bld) Auto Normal [facility] Comment on above: Order Comment: Speci men Type: BLOOD SPECIMEN Performed By: #### 5 7021-8 #### [facility] CLIA [id number] [address] Eosinophils (Bld) [#/Vol] 0.12 10*3/uL Normal <0.46 [facility] Comment on above: Order Comment: Speci men Type: BLOOD SPECIMEN Performed By: #### 5 7021-8 #### [facility] CLIA [id number] [address] Eosinophils/100 WBC (Bld) 1.7 % Normal [facility] Comment on above: Order Comment: Speci men Type: BLOOD SPECIMEN Performed By: #### 5 7021-8 #### [facility] CLIA [id number] [address] Erythrocyte distribution width (RBC) [Ratio] 13.7 % Normal 11.5-15.0 [facility] Comment on above: Order Comment: Speci men Type: BLOOD SPECIMEN Performed By: #### 5 7021-8 #### [facility] CLIA [id number] [address] Hematocrit (Bld) [Volume fraction] 46.6 % Normal 39.0-51.0 [facility] Comment on above: Order Comment: Speci men Type: BLOOD SPECIMEN Performed By: #### 5 7021-8 #### [facility] CLIA [id number] [address] Hemoglobin (Bld) [Mass/Vol] 15.1 g/dL Normal 13.0-17.0 [facility] Comment on above: Order Comment: Speci men Type: BLOOD SPECIMEN Performed By: #### 5 7021-8 #### [facility] CLIA [id number] [address] IMMATURE GRAN % 0.3 % Normal [facility] Comment on above: Order Comment: Speci men Type: BLOOD SPECIMEN Performed By: #### 5 7021-8 #### [facility] CLIA [id number] [address] IMMATURE GRAN ABS <0.03 Normal <0.10 [facility] Comment on above: Order Comment: Speci men Type: BLOOD SPECIMEN Performed By: #### 5 7021-8 #### [facility] CLIA [id number] [address] Lymphocytes (Bld) [#/Vol] 2.49 10*3/uL Normal 1.00-4.00 [facility] Comment on above: Order Comment: Speci men Type: BLOOD SPECIMEN Performed By: #### 5 7021-8 #### [facility] CLIA [id number] [address] Lymphocytes/100 WBC (Bld) 34.5 % Normal [facility] Comment on above: Order Comment: Speci men Type: BLOOD SPECIMEN Performed By: #### 5 7021-8 #### [facility] CLIA [id number] [address] MCH (RBC) [Entitic mass] 30.1 pg Normal 26.0-34.0 [facility] Comment on above: Order Comment: Speci men Type: BLOOD SPECIMEN Performed By: #### 5 7021-8 #### [facility] CLIA [id number] [address] MCHC (RBC) [Mass/Vol] 32.4 g/dL Normal 30.5-36.0 [facility] Comment on above: Order Comment: Speci men Type: BLOOD SPECIMEN Performed By: #### 5 7021-8 #### [facility] CLIA [id number] [address] MCV (RBC) [Entitic vol] 93.0 fL Normal 80.0-100.0 [facility] Comment on above: Order Comment: Speci men Type: BLOOD SPECIMEN Performed By: #### 5 7021-8 #### [facility] CLIA [id number] [address] Monocytes (Bld) [#/Vol] 0.90 10*3/uL High <0.87 [facility] Comment on above: Order Comment: Speci men Type: BLOOD SPECIMEN Performed By: #### 5 7021-8 #### [facility] CLIA [id number] [address] Monocytes/100 WBC (Bld) 12.5 % Normal [facility] Comment on above: Order Comment: Speci men Type: BLOOD SPECIMEN Performed By: #### 5 7021-8 #### [facility] CLIA [id number] [address] Neutrophils (Bld) [#/Vol] 3.62 10*3/uL Normal 1.45-7.50 [facility] Comment on above: Order Comment: Speci men Type: BLOOD SPECIMEN Performed By: #### 5 7021-8 #### [facility] CLIA [id number] [address] Neutrophils/100 WBC (Bld) 50.2 % Normal [facility] Comment on above: Order Comment: Speci men Type: BLOOD SPECIMEN Performed By: #### 5 7021-8 #### [facility] CLIA [id number] [address] Nucleated RBC (Bld) [#/Vol] 10*3/uL Normal <0.01 [facility] Comment on above: Order Comment: Speci men Type: BLOOD SPECIMEN Performed By: #### 5 7021-8 #### [facility] CLIA [id number] [address] Nucleated RBC/100 WBC (Bld) [Ratio] 0.0 /100 WBC Normal 0.0 [facility] Comment on above: Order Comment: Speci men Type: BLOOD SPECIMEN Performed By: #### 5 7021-8 #### [facility] CLIA [id number] [address] Platelet mean volume (Bld) [Entitic vol] 9.5 fL Normal 9.0-12.7 [facility] Comment on above: Order Comment: Speci men Type: BLOOD SPECIMEN Performed By: #### 5 7021-8 #### [facility] CLIA [id number] [address] Platelets (Bld) [#/Vol] 217 10*3/uL Normal 150-400 [facility] Comment on above: Order Comment: Speci men Type: BLOOD SPECIMEN Performed By: #### 5 7021-8 #### [facility] CLIA [id number] [address] RBC (Bld) [#/Vol] 5.01 10*6/uL Normal 4.20-6.00 [facility] Comment on above: Order Comment: Speci men Type: BLOOD SPECIMEN Performed By: #### 5 7021-8 #### [facility] CLIA [id number] [address] WBC (Bld) [#/Vol] 7.21 10*3/uL Normal 3.70-11.00 [facility] Comment on above: Order Comment: Speci men Type: BLOOD SPECIMEN Performed By: #### 5 7021-8 #### [facility] CLIA [id number] [address] ED Triage Noteon 11-22-2020 ED Triage Note HNO ID: [id number] Author: Jolene Martinez PA-C Service: Emergency Medicine Author Type: Physician Photo Graphics Librarian Type: ED Triage Notes Filed: 11/22/2020 7:47 [...] screen Urinalysis SIGNATURE: Jolene Martinez PA-C Normal [facility] Ethanol SerPl-mCncon 021 Ethanol [Mass/Vol] 119 mg/dL High <11 [facility] Comment on above: Order Comment: Speci men Type: BLOOD SPECIMEN Result Comment: Valu es > 80 mg/dL may indicate intoxication Performed By: #### 5 643-2 #### [facility] CLIA [id number] [address] TOX SCREEN ROUT URon 021 Amphetamines Confirm (U) [Mass/Vol] Positive Abnormal Negative [facility] Comment on above: Order Comment: Speci men Type: URINE SPECIMEN Result Comment: Cuto ff threshold at 1000 ng/mL. Performed By: #### U TOX2 #### [facility] CLIA [id number] [address] [place] BARBITURATES, URINE Negative Normal Negative [facility] Comment on above: Order Comment: Speci men Type: URINE SPECIMEN Result Comment: Cuto ff threshold at 200 ng/mL. Performed By: #### U TOX2 #### [facility] CLIA [id number] 1 [place] [address] [place] BENZODIAZEPINES, UR Negative Normal Negative [facility] Comment on above: Order Comment: Speci men Type: URINE SPECIMEN Result Comment: Cuto ff threshold at 200 ng/mL. Performed By: #### U TOX2 #### [facility] CLIA [id number] [address] CANNABINOIDS,URINE Positive Abnormal Negative [facility] Comment on above: Order Comment: Speci men Type: URINE SPECIMEN Result Comment: Cuto ff threshold at 50 ng/mL. Performed By: #### U TOX2 #### [facility] CLIA [id number] [address] Cocaine Ql (U) Negative Normal Negative [facility] Comment on above: Order Comment: Speci men Type: URINE SPECIMEN Result Comment: Cuto ff threshold at 300 ng/mL. Performed By: #### U TOX2 #### [facility] CLIA [id number] [address] STATES OF [facility] Ethanol (U) [Mass/Vol] 141 mg/dL High <11 [facility] Comment on above: Order Comment: Speci men Type: URINE SPECIMEN Performed By: #### U TOX2 #### [facility] CLIA [id number] [address] [facility] Opiates Screen Ql (U) Negative Normal Negative [facility] Comment on above: Order Comment: Speci men Type: URINE SPECIMEN Result Comment: Cuto ff threshold at 300 ng/mL. Performed By: #### U TOX2 #### [facility] CLIA [id number] [address] oxyCODONE cutoff Screen (U) [Mass/Vol] Negative Normal Negative [facility] Comment on above: Order Comment: Speci men Type: URINE SPECIMEN Result Comment: Cuto ff threshold at 100 ng/mL. Performed By: #### U TOX2 #### [facility] CLIA [id number] [address] Phencyclidine Ql (U) Negative Normal Negative [facility] Comment on above: Order Comment: Speci men Type: URINE SPECIMEN Result Comment: Cuto ff threshold at 25 ng/mL. Performed By: #### U TOX2 #### [facility] CLIA [id number] [address] Urinalysis complete panel (U )on 11-22-2020 Bacteria LM.HPF (Urine sed) [#/Area] None Seen Normal None Seen [facility] Comment on above: Order Comment: Speci men Type: URINE SPECIMEN Performed By: #### 2 4356-8 #### [facility] CLIA [id number] [address] Bilirubin Ql (U) Negative Normal Negative [facility] Comment on above: Order Comment: Speci men Type: URINE SPECIMEN Performed By: #### 2 4356-8 #### [facility] CLIA [id number] [address] Clarity (Unsp spec) Clear Normal Clear [facility] Comment on above: Order Comment: Speci men Type: URINE SPECIMEN Performed By: #### 2 4356-8 #### [facility] CLIA [id number] [address] Color (U) Yellow Normal Yellow [facility] Comment on above: Order Comment: Speci men Type: URINE SPECIMEN Performed By: #### 2 4356-8 #### [facility] CLIA [id number] [address] Epithelial cells LM.HPF (Urine sed) [#/Area] None Seen Normal [facility] Comment on above: Order Comment: Speci men Type: URINE SPECIMEN Performed By: #### 2 4356-8 #### [facility] CLIA [id number] [address] Glucose Test strip (U) [Mass/Vol] Negative Normal Negative [facility] Comment on above: Order Comment: Speci men Type: URINE SPECIMEN Performed By: #### 2 4356-8 #### [facility] CLIA [id number] [address] Hemoglobin Ql (U) Negative Normal Negative [facility] Comment on above: Order Comment: Speci men Type: URINE SPECIMEN Performed By: #### 2 4356-8 #### [facility] CLIA [id number] [address] Hyaline casts (Urine sed) [#/Area] 0 /[LPF] Normal 0 /LPF [facility] Comment on above: Order Comment: Speci men Type: URINE SPECIMEN Performed By: #### 2 4356-8 #### [facility] CLIA [id number] [address] [facility] Ketones Ql (U) Negative Normal Negative [facility] Comment on above: Order Comment: Speci men Type: URINE SPECIMEN Performed By: #### 2 4356-8 #### [facility] CLIA [id number] [address] Leukocyte esterase Test strip Ql (U) Negative Normal Negative [facility] Comment on above: Order Comment: Speci men Type: URINE SPECIMEN Performed By: #### 2 4356-8 #### [facility] CLIA [id number] [address] Nitrite Ql (U) Negative Normal Negative [facility] Comment on above: Order Comment: Speci men Type: URINE SPECIMEN Performed By: #### 2 4356-8 #### [facility] CLIA [id number] [address] [facility] pH (U) 7.0 [pH] Normal 5.0-8.0 [facility] Comment on above: Order Comment: Speci men Type: URINE SPECIMEN Performed By: #### 2 4356-8 #### [facility] CLIA [id number] [address] Protein (U) [Mass/Vol] Negative Normal Negative [facility] Comment on above: Order Comment: Speci men Type: URINE SPECIMEN Performed By: #### 2 4356-8 #### [facility] CLIA [id number] [address] [place] RBC LM.HPF (Urine sed) [#/Area] 0-3 /HPF Normal 0-3 /HPF [facility] Comment on above: Order Comment: Speci men Type: URINE SPECIMEN Performed By: #### 2 4356-8 #### [facility] CLIA [id number] [address] Specific gravity (U) [Rel density] <1.005 Low 1.005-1.030 [facility] Comment on above: Order Comment: Speci men Type: URINE SPECIMEN Performed By: #### 2 4356-8 #### [facility] CLIA [id number] [address] Urobilinogen Ql (U) 0.2 EU/dL Normal 0.2-1.0 EU/dL [facility] Comment on above: Order Comment: Speci men Type: URINE SPECIMEN Performed By: #### 2 4356-8 #### [facility] CLIA [id number] [address] WBC LM.HPF (Urine sed) [#/Area] 0-5 /HPF Normal 0-5 /HPF [facility] Comment on above: Order Comment: Speci men Type: URINE SPECIMEN Performed By: #### 2 4356-8 #### [facility] CLIA [id number] [address] CNOVon 09-30-2020 CNOV Office Visit (GSTNOR ) VIKTORIA SOSA ([id number]) 1990 M [facility] Date Time Provider Department 09/30/20 11:00 [...] (B18.1) Chron (more content not included)... 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 He no showed appointment with [employer] bi consultant to discuss treatment for Hepatitis B. He [...] need to reschedule and keep appointment with [employer] bi consultant. Reviewed potential complications of untreated Hepatitis B, [...] help finding it) Referring Provider: HITESH GARCIA [[id number]] Allergies As of Date: 09/24/2020 (No Known Allergies) Date Reviewed: 09/24/2020 Reviewed by: Viktoriya Barnett Cma - Fully Assessed Reason for Visit: Recheck [92] Primary Visit Diagnosis:Genital warts [A63.0] Other Visit Diagnoses:Hepatitis B carrier (HCC) [B18.1] Social anxiety disorder [F40.10] Order(s):sertraline (ZOLOFT) 50 mg tabletTake 1 tablet by mouth on (more content not included)... Normal [facility] CNOVon 09-02-2020 CNOV Office Visit (UROLWS ) VIKTORIA SOSA ([id number]) 1990 M [facility] Date Time Provider Department 09/02/20 1:20 [...] Status:Closed by MACIE CHRISTIE CMA on 09/08/20 [facility] Narcisa 09-02-2020 CNPN Telephone (UROLWS) VIKTORIA SOSA ([id number]) 1990 Yan Herrera Date Time Provider Department [...] to be see by Dr. Rios at [facility]. Pt would like to see if [...] COMBO(AG/AB),WITH REFLEX TO DIFFERENTIATION MD Viktoriya Lorenzana [facility] 09/03/2020 2:14 PM Signed Left message with [...] COMBO(AG/AB),WITH REFLEX TO DIFFERENTIATION [SQHIV12] Order #: [id number] FUTURE Prescriptions as of 09/04/2020 - diphenhydrAMINE [...] Status:Closed by CHRISTINA RIVERA RN on 09/04/20 [facility] OBSOLETEon 08-05-2020 OBSOLETE Refill (INTMWS) VIKTORIA SOSA ([id number]) 1990 [facility] Date Time Provider Department 08/05/20 HITESH GARCIA INTYanWS During your visit today, we recorded the following information about you: Katherine Stinson LPN 08/05/2020 1:31 PM Signed Patient calling for refill of Sertraline (Zoloft) 50mg. Patient called for refill on 05/20/2020, new RX sent to [facility], it is not showing in [employer]. 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 Allergies As of Date: 06/23/2020 (No [...] Status:Closed by VIKTORIYA BARNETT CMA on 06/23/20 [facility] Narcisa 06-16-2020 DALIA Telephone (BUBBA) VIKTORIA SOSA ([id number]) 1990 M [facility] Date Time Provider Department 06/16/20 HITESH GARCIA INTMWS During your visit today, we recorded the following information about you: Annemarie Chatman LPN 06/16/2020 3:35 PM Signed Per covermymed Viktoria Sosa ([place]: [id number]) ? [id number] Imiquimod 5% cream Status: PA Response - Approved Created: June 13, 2020 [id number] Sent: June 16, 2020 Annemarie Chatman LPN [...] Status:Closed by ANNEMARIE CHATMAN LPN on 06/16/20 [facility] CNOVon 06-11-2020 CNOV Office Visit (INTMWS ) VIKTORIA SOSA ([id number]) 1990 M [facility] Date Time Provider Department 06/11/20 11:20 AM HITESH GARCIA During your visit today, we recorded the following information about you: Temperature Pulse Respiration Blood pressure 96.4 degrees 72/minute 16/minute 122/76 Weight 73.4 kg Hitesh Garcia MD 06/11/2020 1:05 PM Signed This note was created using [email or web address]. Subjective Viktoria Sosa is a 29 year [...] is infectious and should notify partners, etc. FDC risk of liver disease, liver failure, and [...] (insomnia).Disp: 30 capsuleRfl: 2 CONSULT TO HEPATOLOGY [[id number]] Order #: [id number]: 1 FUTURE imiquimod (ALDARA) 5 % creamApply [...] 25 M (more content not included)... Normal [facility] CBC and Differentialon 05-23 Abs Baso 0.08 k/uL Normal <0.11 [facility] Comment on above: Performed By: #### C BCDIF HBVDNU ####[facility] [address] [place], [place] [phone] Abs [place] 0.77 k/uL Normal <0.87 [facility] Comment on above: Performed By: #### C BCDIF HBVDNU ####[facility] [address], [place] [phone] Abs Neut 6.76 k/uL Normal 1.45-7.50 [facility] Comment on above: Performed By: #### C BCDIF HBVDNU ####[facility] [address] [place], [place] [phone] Absolute nRBC <0.01 Normal <0.01 [facility] Comment on above: Performed By: #### C BCDIF, HBVDNU ####[place] [address] [address] [place] [phone] Basophils/100 WBC (Bld) 0.9 % Normal [facility] Comment on above: Performed By: #### C BCDIF, HBVDNU ####[place] [address] [address] [place] [phone] DTYPE Auto Diff Normal [facility] Comment on above: Performed By: #### C BCDIF, HBVDNU ####[place] [address] [address] [place] [phone] Eosinophils (Bld) [#/Vol] 0.09 10*3/uL Normal <0.46 [facility] Comment on above: Performed By: #### C BCDIF HBVDNU ####[place] [address] [address] [place] [phone] Eosinophils/100 WBC (Bld) 1.0 % Normal [facility] Comment on above: Performed By: #### C BCDIF, HBVDNU ####[place] [address] [address] [place] [phone] Erythrocyte distribution width (RBC) [Ratio] 13.9 % Normal 11.5-15.0 [facility] Comment on above: Performed By: #### C BCDIF, HBVDNU ####[place] [address] [address] [place] [phone] Hematocrit (Bld) [Volume fraction] 46.2 % Normal 39.0-51.0 [facility] Comment on above: Performed By: #### C BCDIF, HBVDNU ####[place] [address] [address] [place] [phone] Hemoglobin (Bld) [Mass/Vol] 15.4 g/dL Normal 13.0-17.0 [facility] Comment on above: Performed By: #### C BCDIF HBVDNU ####[place] [address] [address] [place] [phone] Lymphocytes (Bld) [#/Vol] 1.23 10*3/uL Normal 1.00-4.00 [facility] Comment on above: Performed By: #### C BCDIDonna HBVDNU ####[place] [address] [address] [place] [phone] Lymphocytes/100 WBC (Bld) 13.7 % Normal [facility] Comment on above: Performed By: #### C BCTRISH HBVDNU ####[place] [address] [address] [place] [phone] MCH 30.3 pG Normal 26.0-34.0 [facility] Comment on above: Performed By: #### C BCTRISH HBVDNU ####[place] [address] [address] [place] [phone] MCHC (RBC) [Mass/Vol] 33.3 g/dL Normal 30.5-36.0 [facility] Comment on above: Performed By: #### C BCDIDonna HBVDNU ####[place] [address] [address] [place] [phone] MCV (RBC) [Entitic vol] 90.9 fL Normal 80.0-100.0 [facility] Comment on above: Performed By: #### C BCDIF, HBVDNU ####[place] [address] [address] [place] [phone] Monocytes/100 WBC (Bld) 8.6 % Normal [facility] Comment on above: Performed By: #### C BCDIF, HBVDNU ####[place] [address] [address] [place] [phone] Neutrophils/100 WBC (Bld) 75.8 % Normal [facility] Comment on above: Performed By: #### KAY CASTRO ####[facility] [place], [place] [phone] NRBCs 0.0 /100 WBC Normal 0 [facility] Comment on above: Performed By: #### KAY CASTRO ####[place] [address] [address] [place], [place] [phone] Platelet mean volume (Bld) [Entitic vol] 10.5 fL Normal 9.0-12.7 [facility] Comment on above: Performed By: #### KAY CASTRO ####[place] [address] [address] [place] [phone] Platelets (Bld) [#/Vol] 271 10*3/uL Normal 150-400 [facility] Comment on above: Performed By: #### KAY CASTRO ####[place] [address] [address] [place] [phone] RBC (Bld) [#/Vol] 5.08 10*6/uL Normal 4.20-6.00 [facility] Comment on above: Performed By: #### KAY CASTRO ####[place] [address] [address] [place] [phone] WBC (Bld) [#/Vol] 8.95 10*3/uL Normal 3.70-11.00 [facility] Comment on above: Performed By: #### KAY CASTRO ####[place] [address] [address] [place] [phone] Narcisa 05-23-2020 FAM Telephone (INTMWS) MARYLOUVIKTORIA Kellen ([id number]) 1990 M [facility] Date Time Provider Department 05/23/20 BETSY MARIE) INTMWS During your visit today, we recorded the following information about you: Betsy Marie APRN.CNP 05/23/2020 10:01 AM Signed Please let the patient know his blood test confirmed Hepatitis B infection. He will need another blood test to check viral load and referral to specialist that treats Hepatitis ZEE Lynn [facility] 05/23/2020 10:04 AM Signed Left message for [...] surface antigen positive [R76.8] Order(s):E-CONSULT INFECTIOUS DISEASE [1287318] Order #: [id number]: 1 HEP B VIRAL DNA ÁNGEL [SQHBVDNU] Order #: [id number] FUTURE CBC + DIFF [SQCBCDIF] Order #: [id number] FUTURE CONSULT TO HEPATOLOGY [1348085] Order #: [id number]: 1 FUTURE Prescriptions as of 05/23/2020 Sig: [...] by ANAHY THRASHER RN on 05/23/20 Normal [facility] Hepat.B Vir Ult Qton 021 HBV DNA Ultra Detected Critically abnormal [facility] Comment on above: Result Comment: INTE RPRETATION: Positive for HBVDNA by PCR The linear range of this assay is 20 to 170,000,000 IU/ml. Reference Range: Negative for HBVDNA Performed By: #### C BCDIF, HBVDNU ####[facility] [id number] [place], [place] [phone] CNOVon 05-20-2020 CNOV Office Visit (INTMWS ) VIKTORIA SOSA ([id number]) 1990 [facility] Date Time Provider Department 05/20/20 12:40 PM BETSY MARIE (DALIA) INTMWS During your visit today, we recorded the following information about you: Temperature Pulse Respiration Blood pressure 96.9 degrees 86/minute 14/minute 128/82 Weight 70.3 kg Betsy Marie APRN.CNP 05/21/2020 11:15 AM Signed CC: Patient presents with: [facility] Viktoria Sosa is a 29 year old male who presents today for above. Patient reports he was recently seen at [facility] for STD testing and he [...] ICD9: 573.3, ICD10: K75.9 STD testing at [facility] positive for Hepatitis B per patient, results not available for review. Patient has very low health literacy and poor historian. Will recheck acute hepatitis panel and also CMP. Follow-up and further recommendatio (more content not included)... Normal [facility] Hep Bs Ag Confirmon 05-21-19 21 Hep Bs Ag Confirm Positive Critically abnormal Negative [facility] Comment on above: Performed By: #### H ACUTP, HBSAGC ####[facility] [address] [place], [place] [phone] Hepatitis Acute Panel * OUTS YUE CLIENTS ONLY *on 05-20-2020 HBsAg Initially reactive Critically abnormal Negative [facility] Comment on above: Result Comment: Conf irmatory testing for hepatitis B surface antigen has been ordered and charged. Result rechecked. Performed By: #### H ACUTP, HBSAGC ####[facility] [address] [place], [place] [phone] Hep B Core Ab, IgM Negative Normal Negative [facility] Comment on above: Performed By: #### H ACUTP, HBSAGC ####[facility] [place] [phone] Hepatitis A Ab IgM Negative Normal Negative [facility] Comment on above: Performed By: #### H ACUTP, HBSAGC ####[place] [id number] [place] [phone] Hepatitis C Ab IA Negative Normal Negative [facility] Comment on above: Performed By: #### H ACUTP, HBSAGC ####[place] [address] [place] [phone] [facility] (for [facility] use only )on 05-20-2020 Albumin [Mass/Vol] 4.5 g/dL Normal 3.9-4.9 [facility] Comment on above: Performed By: #### R CMP ####[place] [address] [place] [phone] ALP [Catalytic activity/Vol] 62 U/L Normal 38-113 [facility] Comment on above: Performed By: #### R CMP ####[place] [address] [phone] ALT [Catalytic activity/Vol] 28 U/L Normal 10-54 [facility] Comment on above: Performed By: #### R CMP ####[place] [address] [place] [address] [place] [phone] Anion gap [Moles/Vol] 9 mmol/L Normal 9-18 [facility] Comment on above: Performed By: #### R CMP ####[place] [address] [place] [address], [place] [phone] AST [Catalytic activity/Vol] 38 U/L Normal 14-40 [facility] Comment on above: Performed By: #### R CMP ####[place] [address] [place] [address] [place] [phone] Bilirubin [Mass/Vol] 0.4 mg/dL Normal 0.2-1.3 [facility] Comment on above: Performed By: #### R CMP ####[place] [address] [phone] Calcium [Mass/Vol] 9.7 mg/dL Normal 8.5-10.2 [facility] Comment on above: Performed By: #### R CMP ####[place] [address] [address] [place] [phone] Chloride [Moles/Vol] 103 mmol/L Normal 97-105 [facility] Comment on above: Performed By: #### R CMP ####[place] [address] [address] [place] [phone] CO2 [Moles/Vol] 26 mmol/L Normal 22-30 [facility] Comment on above: Performed By: #### R CMP ####[place] [address] [address] [place] [phone] Creatinine [Mass/Vol] 0.84 mg/dL Normal 0.73-1.22 [facility] Comment on above: Performed By: #### R CMP ####[place] [address] [place], [place] [phone] eGFR- Amer. >60 Normal [facility] Comment on above: Performed By: #### R CMP ####[place] [address], [place] [phone] eGFR-All Other Races >60 Normal [facility] Comment on above: Result Comment: [...] actual GFR. Performed By: #### R CMP ####[facility] [place], [place] [phone] Glucose [Mass/Vol] 88 mg/dL Normal 74-99 [facility] Comment on above: Result Comment: The [place] Diabetes Association (ADA) provides guidance for cutoff [...] Standards of Medical Care in Diabetes 2016, [place] Diabetes Association. Diabetes Care. 2016.39(Suppl 1). Performed By: #### R CMP ####[address] [phone] Potassium [Moles/Vol] 3.9 mmol/L Normal 3.7-5.1 [facility] Comment on above: Performed By: #### R CMP ####[facility] [place], [place] [phone] Protein [Mass/Vol] 7.0 g/dL Normal 6.3-8.0 [facility] Comment on above: Performed By: #### R CMP ####[facility] [place], [place] [phone] Sodium [Moles/Vol] 138 mmol/L Normal 136-144 [facility] Comment on above: Performed By: #### R CMP ####[address] [phone] Urea nitrogen [Mass/Vol] 13 mg/dL Normal 9-24 [facility] Comment on above: Performed By: #### R CMP ####[facility] [address] [place], [place] [phone] Vital Signs Date Time Vital Sign Value Performing Clinician Facility 11-24-2024 00:42-0400 Body temperature 97.5 [degF] No Primary Care Physician [facility] 11-24-2024 00:42-0400 Diastolic blood pressure 81 mm[Hg] No Primary Care Physician [facility] 11-24-2024 00:42-0400 Heart rate 58 /min No Primary Care Physician [facility] 11-24-2024 00:42-0400 Respiratory rate 16 /min No Primary Care Physician [facility] 11-24-2024 00:42-0400 SaO2% (BldA) [Mass fraction] 100 % No Primary Care Physician [facility] 11-24-2024 00:42-0400 Systolic blood pressure 111 mm[Hg] No Primary Care Physician [facility] 11-24-2024 00:12-0400 Body height 175.26 cm No Primary Care Physician [facility] 11-24-2024 00:12-0400 Body mass index (BMI) [Ratio] 22 kg/m2 No Primary Care Physician [facility] 11-24-2024 00:12-0400 Body weight 67.8 kg No Primary Care Physician [facility] 08-26-2024 15:09-0400 Body height 175.26 cm No Primary Care Physician [facility] 08-26-2024 15:09-0400 Body mass index (BMI) [Ratio] 21.4 kg/m2 No Primary Care Physician [facility] 08-26-2024 15:09-0400 Body temperature 98.7 [degF] No Primary Care Physician [facility] 08-26-2024 15:09-0400 Body weight 65.8 kg No Primary Care Physician [facility] 08-26-2024 15:09-0400 Diastolic blood pressure 97 mm[Hg] No Primary Care Physician [facility] 08-26-2024 15:09-0400 Heart rate 105 /min No Primary Care Physician [facility] 08-26-2024 15:09-0400 Respiratory rate 16 /min No Primary Care Physician [facility] 08-26-2024 15:09-0400 SaO2% (BldA) [Mass fraction] 98 % No Primary Care Physician [facility] 08-26-2024 15:09-0400 Systolic blood pressure 141 mm[Hg] No Primary Care Physician [facility] 08-04-2024 22:19-0400 Body temperature 97.81 [degF] Bryant Alicea Sr., MD, PhD Work Phone: [facility] 08-04-2024 22:19-0400 Diastolic blood pressure 80 mm[Hg] Bryant Alicea Sr., MD, PhD Work Phone: [facility] 08-04-2024 22:19-0400 Heart rate 90 /min Bryant Alicea Sr., MD, PhD Work Phone: [facility] 08-04-2024 22:19-0400 Respiratory rate 18 /min Bryant Alicea Sr., MD, PhD Work Phone: [facility] 08-04-2024 22:19-0400 SaO2% (BldA) [Mass fraction] 95 % Bryant Alicea Sr., MD, PhD Work Phone: [facility] 08-04-2024 22:19-0400 Systolic blood pressure 131 mm[Hg] Bryant Alicea Sr., MD, PhD Work Phone: [facility] 03-05-2024 02:09-0500 Body temperature 98.2 [degF] Price Kelley DO Work Phone: [facility] 03-05-2024 02:09-0500 Diastolic blood pressure 89 mm[Hg] Price Kelley DO Work Phone: [facility] 03-05-2024 02:09-0500 Heart rate 92 /min Price Kelley DO Work Phone: [facility] 03-05-2024 02:09-0500 Respiratory rate 16 /min Price Kelley DO Work Phone: [facility] 03-05-2024 02:09-0500 SaO2% (BldA) [Mass fraction] 98 % Price Kelley DO Work Phone: [facility] 03-05-2024 02:09-0500 Systolic blood pressure 133 mm[Hg] Price Kelley DO Work Phone: [facility] 03-04-2024 23:45-0500 Body height 175.3 cm Price Kelley DO Work Phone: [facility] 03-04-2024 23:45-0500 Body mass index (BMI) [Ratio] 25.13 kg/m2 Price Kelley DO Work Phone: [facility] 03-04-2024 23:45-0500 Body weight 77.2 kg [place] Sherice DO Work Phone: [facility] Encounters Encounter Date Encounter Type Care Provider Facility Start: 12-30-2024 End: 12-30-2024 Emergency department patient visit No Primary Care Physician Facility:[facility] Start: 11-24-2024 End: 11-24-2024 Emergency department patient visit No Primary Care Physician -Emergency Department Work Phone: Start: 08-26-2024 End: 08-26-2024 Emergency department patient visit No Primary Care Physician -Emergency Department Work Phone: Start: 08-09-2024 End: 08-10-2024 ambulatory PHYSICIAN [facility] Start: 08-09-2024 End: 08-09-[address] [facility] Start: 08-04-2024 End: 08-05-2024 Emergency department patient visit Bryant Alicea MD, PhD Work Phone: [facility] Emergency Department Start: 07-19-2024 End: 07-19-2024 Emergency department patient visit ROSEMARY RIDER [facility] Start: 03-04-2024 End: 03-05-2024 Emergency department patient visit Price Kelley DO Work Phone: [facility] Emergency Department Start: 11-16-2023 End: 11-16-2023 Emergency department patient visit AMNA NGUYEN [facility] Start: 11-10-2023 End: 11-11-2023 Emergency department patient visit SHANNAN LOBAT[facility] Procedures Date Procedure Procedure Detail [...] Detail Author Start: 11-09-2033 Tetanus vaccination TETANUS [facility] Start: 11-24-2024 [facility] Start: 10-22-2024 Influenza vaccination INFLUENZ A VACCINE (Season Ended) [facility] Start: 10-23-2023 COVID-19 VACCINE ( season) COVID-19 VACCINE ( season) [facility] Start: 10-23-2023 Influenza vaccination INFLUENZA VACC INE (#1) [facility] Start: 2008 Hepatitis B vaccination HEP B VACCINE (1 of 3 - 19+ 3-dose series) [facility] Start: 2008 PNEUMOCOCCAL VACCINE SERIES (1 of 2 - PCV) PNEUMOCOCCAL VACCINE SERIES (1 of 2 - PCV) [facility] Start: 2004 HIV screening HIV SCREENING DISCUSSION [facility] Start: 1989 Hepatitis C screening HEPATITI S C VIRUS SCREENING [facility] Patient Education [facility] Work Phone: End: 08-04-2024 Standard ECG ECG ECG STAT One Time for 1 Occurrences starting 08/04/2024 until 08/04/2024 [facility] Comment on above: One Time for 1 Occur rences starting 08/04/2024 until 08/04/2024 Immunizations Immunization Date Immunization Notes Care Provider Ashley gómez 01-11-2019 influenza virus vaccine, unspecified formulation Price Sherice DO Work Phone: [facility] Payers Date Payer Category Payer Self-pay 2024 Medicaid (Managed Care) [facility] [id number] 2024 Private Health Insurance [id number] 2009 Unknown [id number] 1989 Unknown [id number] 1989 Unknown [id number] 1989 Unknown [id number] 1989 Unknown [id number] Unknown [id number] Unknown [id number] Unknown [id number] 462 Social History Date Type Detail Facility Start: 03-04-2024 End: 11-24-2024 Tobacco smoking status NHIS Smokes tobacco daily [facility] History of tobacco use Cigarette Smoker [facility] Start: 03-04-2024 Tobacco use and exposure Smoke less tobacco non-user [facility] Start: 03-04-2024 End: 08-04-2024 Alcoholic beverage intake Current drinker of alcohol (finding) [facility] Start: 03-04-2024 End: 08-04-2024 Alcoholic beverage intake [facility] Start: 03-04-2024 Alcohol Use Disorder Identification Test - Consumption [AUDIT-C] [facility] How often to you hav e a drink containing alcohol? 4 or more times a week [facility] How many standard dr inks containing alcohol do you have on a typical day? 5 or 6 [facility] How often do you hav e 6 or more drinks on 1 occasion? Weekly [facility] Start: 1990 Sex assigned at Not on file [facility] Start: 03-04-2024 Sex Male (finding) [facility] Start: 03-05-2020 Tobacco Use Tobacco Use [facility] Start: 1990 Sex Assigned At Male W [facility] Clinical Notes 05-20-2020 to 08-04-2024 Bryant [...] Bryant Alicea Sr., MD, PhD 08/05/24 0236 [facility] Work Phone: 08-04-2024 Emergency department Note [...] route As directed PRN for Opioid Reversal. [place] into the nose as directed. Call 911. [...] given fluids via EMS. Unlabored respirations. Bed: [facility] Expected date: Expected time: Means of arrival: Comments: Medic 8 documented in this encounter [facility] 08-04-2024 Physician Emergency department Note dEPARTMENT [...] route As directed PRN for Opioid Reversal. [place] into the nose as directed. Call 911. [...] MAKING ED Course as of 08/05/24 0115 Brice Aug 05, 2024 0055 ECG NSR, normal [...] health. Keri Hart MD Resident 08/05/24 0120 [facility] 08-04-2024 Emergency department Note Pt was found unconscious in someone's front yard. EMS expected ETOH intoxication. Aox3 with EMS. Pt bg was 146 and was given fluids via EMS. Unlabored respirations. [facility] 08-04-2024 Emergency department Note Bed: [facility] Expected date: Expected time: Means of arrival: Comments: Medic 8 [facility] 03-05-2024 Emergency department Note Narcan kit given to patient with education provided, per Dr. Ferreira. [facility] 03-05-2024 Emergency department Note Narcan [...] hospitalization. Price Kelley DO 03/05/24 0013 Bed: [facility] Expected date: Expected time: Means of arrival: Comments: Medic 18 documented in this encounter [facility] 03-05-2024 Hospital Discharge instructions Ashely Ferreira [...] up care, please call the clinical caser in at . Return to the ED if your symptoms worsen, something changes, or you do not feel comfortable taking care of yourself at home. Also come back if you develop a fever, chest pain, are not able to breathe, or are not able to tolerate food by mouth. The following attachments cannot be sent through Care Everywhere.Drug Overdose: Fentanyl: General Info (Guatemalan)naloxone (nasal) (Guatemalan)documented in this encounter [facility] 03-05-2024 Physician Emergency department Note ED [...] regarding hospitalization. Price Kelley DO 03/05/24 0013 [facility] 03-04-2024 Emergency department Note Bed: EE01 Expected date: Expected time: Means of arrival: Comments: Medic 18 [facility] 09-30-2020 Note HNO ID: [id number] Author: Brianna Fabian PA-C Service: ? Author Type: Physician Photo Graphics Librarian Type: Progress Notes Filed: 09/30/2020 8:58 PM [...] ABD RT UPPE (more content not included)... [facility] 09-24-2020 Note HNO ID: [id number] Author: Betsy Marie APRN.RING BARKER OPERATOR Service: ? Author Type: Nurse Practitioner Type: [...] popped up. He no showed appointment with [employer] bi consultant to discuss treatment for Hepatitis B. He [...] need to reschedule and keep appointment with [employer] bi consultant. Reviewed potential complications of untreated Hepatitis B, [...] test results and coordinating care. Betsy Marie APRN.RING BARKER OPERATOR [facility] 06-11-2020 Note HNO ID: [id number] Author: Hitesh Garcia Service: ? Author Type: Physician Type: Progress Notes Filed: 06/11/2020 1:05 PM Note Text: This note was created using [email or web address]. Subjective Viktoria Sosa is a 29 year [...] is infectious and should notify partners, etc. 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 - CONSULT TO HEPATOLOGY 4. Genital warts - ICD9: 078.11, ICD10: A63.0 - He declined cryotherapy. - IMIQUIMOD 5 % TOPICAL CREAM PACKET Hitesh Garcia MD [facility] 05-23-2020 Note HNO ID: [id number] Author: Chel Velasquez Service: ? Author Type: [...] HEPATOLOGY Chel Velasquez MD May 23, 2020 [facility] 05-20-2020 Note HNO ID: [id number] Author: Betsy (Dalia) Older Service: ? Author Type: Nurse Practitioner Type: Progress Notes Filed: 05/21/2020 11:15 AM Note Text: CC: Patient presents with: Establish Care HPI Viktoria Sosa is a 29 year old male who presents today for above. Patient reports he was recently seen at [facility] for STD testing and he [...] ICD9: 573.3, ICD10: K75.9 STD testing at [facility] positive for Hepatitis B per patient, results not available for review. Patient has very low health literacy and poor historian. Will recheck acute hepatitis panel and also CMP. Follow-up and further recommendations pending results - CMP (CMP) (FOR [facility] USE) - HEP ACUTE PANEL BL 3. Social anxiety disorder - ICD9: 300.23, ICD10: F40.10 Patient requesting something to make him less awkward. Appears that patient suffers from social anxiety. - Discussed treatment options and benefits of membership counselor (more content not included)... [facility] Evaluation note Diagnosis Drug overdose of undetermined intent, initial encounter- Primary [facility] Alcohol abuse with intoxication- Primary Acute alcoholic intoxication in alcoholism, unspecified [facility] note[facility] assessment information available [facility] Work Phone: Hospital Discharge instructions* Attachments The following attachments cannot be sent through Care Everywhere. * Alcohol Intoxication: Acute (Guatemalan) [facility] Radiology (Emergency) - New Request Specialty Diagnoses / Procedures Referred By Ana persaud Referred To Contact Procedures ECG Jolene Mcneil MD [facility] [address] [place] [phone] Phone: tel: fax: Referral ID Status Reason Start Date Expiration Date V isits Requested Visits Authorized [id number] New Request 08/04/2024 08/29/2025 1 1 [facility] for referral (narrative)No reason for referral information availableWPark[facility] Work Phone: Summary Purpose Family History No Family History Records FoundNo Family History Records FoundNo Family History Records FoundNo Family History Records FoundNo Family History Records Found Advance Directives No Advanced Directives Records Found Advance Directive Response Recorded Date/ Time Do you have a Healthcare Power of Water Supply Technician? No November 24, 2024 12:12am Chief Complaint [...] section and content) DATE CREATED AUTHOR 11/24/2020 [facility] DATE CREATED AUTHOR AUTHOR'S ORGANIZ ATION 04/02/2021 [facility] DATE CREATED AUTHOR AUTHOR'S ORGANIZ ATION 08/12/2024 [facility] DATE CREATED AUTHOR AUTHOR'S ORGANIZ ATION 08/16/2024 [facility] DATE CREATED AUTHOR AUTHOR'S ORGANIZ ATION 12/31/2024 [facility] Reason for Visit (unrecogniz ed section and content) Reason Comments Drug Overdose Arrived via medic af ter being found down, with shallow respirations and pinpoint pupils. Medics administered 2mg IM Narcan. Reason Comments Alcohol intoxication Care Teams (unrecognized sec tion and content) Top Hat Body Maker Relationship Specialty Start Date End Date Self, Self PCP - General Other 03/05/24 Top Hat Body Maker Relationship Specialty Start Date End Date Self, [...] BE BASED ON THE PRIMARY CLINICAL RECORDS. [employer] provides no warranty or guarantee of the accuracy or completeness of information in this document.
[2025-01-22 04:00] VITALS: BP 102/60; PULSE 87; RESP 16; TEMP 37.3; O2SAT 97
[2025-01-22 09:12] VITALS: BP 121/67; PULSE 97; RESP 18; TEMP 36.9; O2SAT 97
[2025-01-22] MEDS: Thiamine Hydrochloride 100 MG Tablet PO (09:16)
[2025-01-22 09:28] VITALS: O2SAT 95
--- NOTE | 2025-01-22 10:54 | PN_ITS ---
Subjective Subjective Patient seen and examined with his nurse by his bedside. He had no active complaints. Review of systems otherwise negative. He denied any active withdrawal symptoms. Objective Data Objective Data Vital Signs: Vital Signs Temp Pulse Resp BP Pulse Ox O2 Del Method 98.5 F 97 18 121/67 H 95 Room Air 01/22/25 09:12 01/22/25 09:12 01/22/25 09:12 01/22/25 09:12 01/22/25 09:28 01/22/25 09:28 Oxygen Delivery Method Room Air Weight: 149 lb Body Mass Index (BMI) 21.9 Lab / Micro Data 01/21/25 21:30 01/21/25 21:30 Labs: Laboratory Results - last 24 hr 01/21/25 21:30: WBC 5.9, RBC 4.73, Hgb 14.3, Hct 42.6, MCV 90.1, MCH 30.2, MCHC 33.6, RDW Std Deviation 42.8, RDW Coeff of Yuliana 12.9, Plt Count 241, MPV 10.0, Immature Gran % (Auto) 0.200, Neut % (Auto) 42.7 L, Lymph % (Auto) 35.9, [place] % (Auto) 19.6 H, Eos % (Auto) 0.8, Baso % (Auto) 0.8, Absolute Neuts (auto) 2.5, Absolute Lymphs (auto) 2.13, Nucleated RBC % 0, Sodium 144, Potassium 3.4, Chloride 106, Carbon Dioxide 22.3, Anion Gap 16 H, BUN 12, Creatinine 0.82, Estim Creat Clear Calc 125.74, Est GFR (MDRD) Non-Af 118, BUN/Creatinine Ratio 14.5, Glucose 95, Calcium 8.6, Total Bilirubin < 0.15, AST 18, ALT 15, Alkaline Phosphatase 61, Total Protein 7.1, Albumin 4.4, Globulin 2.6, Albumin/Globulin Ratio 1.7, Ethyl Alcohol 272.0 H 01/21/25 21:41: Urine Color Straw, Urine Clarity Clear, Urine pH 6.5, Ur Specific [place] 1.005, Urine Protein Negative, Urine Glucose (UA) Normal, Urine Ketones Negative, Urine Occult Blood Negative, Urine Nitrite Negative, Urine Bilirubin Negative, Urine Urobilinogen Normal, Ur Leukocyte Esterase Negative, Urine RBC 0 SEEN, Urine WBC 0 SEEN, Ur Squamous Epith Cells 0 SEEN, Urine Bacteria 0 SEEN, Urine Mucus 0 SEEN, Urine Opiates Screen NEGATIVE, U Buprenorphine Qual NEGATIVE, Ur Oxycodone Screen NEGATIVE, Urine Methadone Screen NEGATIVE, Urine Fentanyl Screen NEGATIVE, Ur Barbiturates Screen NEGATIVE, Ur Phencyclidine Scrn NEGATIVE, Ur Amphetamines Screen NEGATIVE, U Benzodiazepines Scrn NEGATIVE, Urine Cocaine Screen NEGATIVE, U Cannabinoids Screen PRESUMPTIVE POSITIVE Physical Exam Const alert, oriented x3 and no apparent distress General Appearance: cooperative HEENT normocephalic, head/scalp atraumatic, moist oral mucous membranes and oropharynx normal Eyes PERRL Neck no lymphadenopathy and supple Resp normal respiratory effort, normal air movement and clear to auscultation bilaterally Cardio regular rate, regular rhythm, S1 normal heart sound, S2 normal heart sound and no murmurs GI normal to inspection, nondistended, normoactive bowel sounds, soft to palpation and non-tender Extremity normal capillary refill and no clubbing, cyanosis or edema General Extremity: no tenderness to palpation of joints or extremities Skin General Skin Exam: no breakdown Neuro no focal motor deficits Motor Exam: strength 5/5 throughout Psych thought process normal and cooperative Appearance: appropriate Assessment & Plan Assessment/Plan (1) Alcohol abuse: PLAN: Plan #Acute alcohol withdrawal * on alcohol withdrawal protocol with phenobarbital * on thiamine, folic acid adn multivite * adjunctive meds for symptomatic relief * #DVT prophylaxis: started on lovenox on admission Charges/Coding Visit Charges Inpatient E&M: 90008 Subs Hosp L2
[2025-01-22 12:02] VITALS: BP 107/58; PULSE 67; RESP 18; TEMP 36.5; O2SAT 97
--- NOTE | 2025-01-22 12:35 | ADDICTION ---
Met with the patient to complete [facility] assessments, during which he responded appropriately to all questions. The patient reported that he is currently homeless. We discussed the option of inpatient treatment, and he expressed agreement with this recommendation. Additionally, we reviewed behaviors associated with addiction, as well as strategies for managing anxiety and cravings following discharge. The plan is to explore inpatient treatment options and arrange for admission as a direct transfer from detox upon discharge.
[2025-01-22 16:00] VITALS: BP 115/71; PULSE 88; RESP 18; TEMP 36.2; O2SAT 97
[2025-01-22 19:59] VITALS: BP 116/68; PULSE 64; RESP 16; TEMP 36.2; O2SAT 100
[2025-01-23 04:03] VITALS: BP 95/54; PULSE 49; RESP 16; TEMP 36.3; O2SAT 94
[2025-01-23] MEDS: Thiamine Hydrochloride 100 MG Tablet PO (07:40)
[2025-01-23 08:00] VITALS: BP 106/72; PULSE 70; RESP 18; TEMP 36.6; O2SAT 100
--- NOTE | 2025-01-23 14:25 | DS.PCM_ITS ---
Providers Date of Admission: 01/21/25 Date of Discharge: 01/23/25 Primary Care Physician: No Primary Care Phys Reason For Visit: ALCOHOL DETOXIFICATION Diagnosis Discharge Diagnosis (1) Alcohol abuse: Status: Acute Code(s): F10.10 - Alcohol abuse, uncomplicated Plan #Acute alcohol withdrawal * on alcohol withdrawal protocol with phenobarbital * on thiamine, folic acid adn multivite * adjunctive meds for symptomatic relief * #DVT prophylaxis: started on lovenox on admission Medications at Discharge Home Medications NK 01/31/19 Hospital Course Operations None Procedures None Summary of Care Provided Minutes Spent on Discharge: 45 Hospital Course: Patient is a 34 y/o male with a past medical history as outlined was admitted through the ED on 01/21/2025 for acute alcohol detox. Patient says he drank a pint of liquor daily and was currently homeless. He had no other complaints. Urine tox was positive for tetrahydrocannabinol's. His last intake of alcohol was just before arrival. He was admitted to be managed for acute alcohol withdrawal. He was placed on alcohol drawl protocol with phenobarbital. Was given adjunctive meds for symptomatic relief as well as thiamine, folic acid and Multi-Chloé. Patient tolerated 2 days of the detox process and decided to sign out AGAINST MEDICAL ADVICE. Despite counseling that usually the detox lasted at least 3 days patient insisted on signing out AGAINST MEDICAL ADVICE. Patient was seen and examined on 01/23/2025 prior to him signing out AGAINST MEDICAL ADVICE. He had no active complaints and had an uneventful night. Review of systems otherwise negative. As stated patient insisted on signing out AGAINST MEDICAL ADVICE. Physical Exam Const alert, oriented x3 and no apparent distress General Appearance: cooperative and comfortable Orientation / Consciousness: lethargic HEENT normocephalic, head/scalp atraumatic, hearing grossly normal bilaterally, moist oral mucous membranes and oropharynx normal Mouth: oral and palatal mucosa normal Eyes PERRL Neck no lymphadenopathy and supple Lymph Lymphatic: no lymphadenopathy noted Resp normal respiratory effort, normal air movement and clear to auscultation bilaterally Cardio regular rate, regular rhythm, S1 normal heart sound, S2 normal heart sound and no murmurs GI normal to inspection, nondistended, normoactive bowel sounds, soft to palpation and non-tender Extremity normal capillary refill and no clubbing, cyanosis or edema General Extremity: no tenderness to palpation of joints or extremities Skin no rashes or lesions noted General Skin Exam: no breakdown Neuro no focal motor deficits and no sensory deficits noted Speech: speech abnormal Details: Positive for slurred Motor Exam: strength 5/5 throughout Psych thought process normal and cooperative Appearance: appropriate Weight / BMI Weight Weight: 149 lb Body Mass Index (BMI) 21.9 ABG / Lab / Microbiology Data 01/21/25 21:30 01/21/25 21:30 D/C Instructions Discharge Activity: Return to Normal Activity DC O2, CPAP, BIPAP Needs Home O2 Discharge instructions: No Meaningful Use Info Meaningful Use Meaningful Use Diagnoses (Choose all that apply): None applicable Discharge Plan Admission Admit Date/Time: 01/21/25 23:15 Primary Reason for Your Visit: acute alcohol withdrawal Attending Provider: Velma Connell Primary Care Provider: Care Physician,No Primary Consulting Providers: Axel Napier Instructions Patient Instructions: Alcohol Withdrawal: What to Expect, ED Withdrawal Alcohol Discharge Orders/Prescriptions Prescriptions: No Action NK Referrals / Follow Up: Care Physician,No Primary [Primary Care Provider, Medical] Disposition Disposition (needs filled in before D/C Order can be placed): Against Medical Advice Charges/Coding Visit Charges Inpatient E&M: 14722 Disch Hosp >30min
== END 2025-01-23 10:20 | disposition left against medical advice (07) | DRG 770 ==
LOC: ED 21:18 → MS3 01-22 03:23
PROVIDERS: Admitting Provider Family Medicine; Emergency Provider Student in an Organized Health Care Education/Training Program; Visit Provider Student in an Organized Health Care Education/Training Program
DX: F10.139 Alcohol abuse with withdrawal, unspecified (principal); Z59.00 Homelessness unspecified; F17.210 Nicotine dependence, cigarettes, uncomplicated; Z53.29 Procedure and treatment not carried out because of patient's decision for other reasons; Y90.8 Blood alcohol level of 240 mg/100 ml or more
CPT/HCPCS: 80053; 80307; 81001; 82077; 85025; 93005; 99285; 99406; A4216